=== PATIENT | female | born 1940 | race Caucasian/White ===

== ENCOUNTER 2017-03-23 12:36 | Inpatient (IN) | payer MEDICARE ==
--- NOTE | 2017-03-23 13:11 | ER Document Report ---
ED Medical Screen (RME) - General Chief Complaint: Urinary Problem Stated Complaint: HIGH BLOOD SUGAR Time Seen by Provider: 03/23/17 13:09 Mode of Arrival: Ambulatory Information source: Patient Notes: 77 yr old diabetic presents with complaints of weakness, uti I have greeted and performed a rapid initial assessment of this patient. A comprehensive ED assessment and evaluation of the patient, analysis of test results and completion of the medical decision making process will be conducted by additional ED providers. PHYSICAL EXAMINATION: GENERAL: Well-appearing, well-nourished and in no acute distress. HEAD: Atraumatic, normocephalic. EYES: Pupils equal round extraocular movements intact, conjunctiva are normal. ENT: Nares patent NECK: Normal range of motion LUNGS: No respiratory distress Musculoskeletal: Normal range of motion NEUROLOGICAL: Normal speech, normal gait. PSYCH: Normal mood, normal affect. SKIN: Warm, Dry, normal turgor, no rashes or lesions noted. TRAVEL OUTSIDE OF THE [place] IN LAST 30 DAYS: No Past Medical History - Past Medical History Cardiac Medical History: Reports: Hx Hypertension Endocrine Medical History: Reports: Hx Diabetes Mellitus Type 2 Renal/ Medical History: Denies: Hx Peritoneal Dialysis Physical Exam - Vital signs Vitals: Temp Pulse Resp BP Pulse Ox 97.4 F 66 20 83/37 L 94 03/23/17 12:38 03/23/17 12:38 03/23/17 12:38 03/23/17 12:38 03/23/17 12:38 Course - Vital Signs Vital signs: Temp Pulse Resp BP Pulse Ox 97.4 F 66 20 83/37 L 94 03/23/17 12:38 03/23/17 12:38 03/23/17 12:38 03/23/17 12:38 03/23/17 12:38
[2017-03-23] MEDS: NORMAL SALINE 1000 ML 1,000 ML IV PRN ×2 (14:03→14:09)
[2017-03-23 14:19] LABS: ABSOLUTE EOSINOPHILS # (AUTO) 0.1 10^3/uL (0.0-0.6); ABSOLUTE LYMPHOCYTES (AUTO) 1.3 10^3/uL (0.5-4.7); BASOPHILS % (AUTO) 0.3 % (0-2); EOSINOPHILS % (AUTO) 0.9 % (0-6); HEMATOCRIT 32.2 % (36.0-47.0); HEMOGLOBIN 10.8 g/dL (12.0-15.5); HGB HCT DIFFERENCE 0.2; LYMPHOCYTES % (AUTO) 13.7 % (13-45); MEAN CORPUSCULAR HEMOGLOBIN 30.6 pg (27.0-33.4); MEAN CORPUSCULAR HGB CONC 33.5 g/dL (32.0-36.0); MEAN CORPUSCULAR VOLUME 92 fl (80-97); MONOCYTES % (AUTO) 10.2 % (3-13); RED BLOOD COUNT 3.52 10^6/uL (3.72-5.28); RED CELL DISTRIBUTION WIDTH 13.4 % (11.5-14.0); SEGMENTED NEUTROPHILS % (AUTO) 74.9 % (42-78); WHITE BLOOD COUNT 9.4 10^3/uL (4.0-10.5)
[2017-03-23 14:24] LABS: VENOUS BLOOD BASE EXCESS -1.8 mmol/L; VENOUS BLOOD HCO3 23.9 mmol/L (20-32); VENOUS BLOOD PCO2 44.1 mmHg (35-63); VENOUS BLOOD PH 7.35 (7.30-7.42)
[2017-03-23 14:34] LABS: PROTHROMBIN TIME 13.6 SEC (11.4-15.4)
[2017-03-23 14:44] LABS: ALANINE AMINOTRANSFERASE 36 U/L (9-52); ALBUMIN 3.2 g/dL (3.5-5.0); ALKALINE PHOSPHATASE 77 U/L (38-126); ANION GAP 14 (5-19); ASPARTATE AMINO TRANSFERASE 52 U/L (14-36); BILIRUBIN,DIRECT 0.5 mg/dL (0.0-0.4); BILIRUBIN,TOTAL 0.7 mg/dL (0.2-1.3); BLOOD UREA NITROGEN 68 mg/dL (7-20); CALCIUM 7.8 mg/dL (8.4-10.2); CARBON DIOXIDE 24 mmol/L (22-30); CHLORIDE 100 mmol/L (98-107); CREATININE RESULT 2.63 mg/dL (0.52-1.25); GLUCOSE 99 mg/dL (75-110); POTASSIUM 4.7 mmol/L (3.6-5.0); SODIUM 138.3 mmol/L (137-145); TOTAL PROTEIN 6.2 g/dL (6.3-8.2)
[2017-03-23 16:36] LABS: APPEARANCE,URINE CLOUDY; BILIRUBIN,URINE NEGATIVE (NEGATIVE); GLUCOSE, URINE NEGATIVE (NEGATIVE); KETONES,URINE NEGATIVE (NEGATIVE); LEUKOCYTE ESTERASE,URINE LARGE (NEGATIVE); NITRITE,URINE NEGATIVE (NEGATIVE); PROTEIN,URINE NEGATIVE (NEGATIVE); URINE SPECIFIC GRAVITY 1.008; UROBILINOGEN,URINE NEGATIVE mg/dL (<2.0)
[2017-03-23] MEDS ORDERED: CEFTRIAXONE 1 GM/D5W RTU 1 GM/50 ML RTUPB IV ONE (17:47)
[2017-03-23 19:05] LABS: CREATINE KINASE MB 5.8 ng/mL (<4.55)
[2017-03-23 19:08] LABS: TROPONIN I 0.103 ng/mL
--- NOTE | 2017-03-23 19:15 | ER Document Report ---
ED General - General Chief Complaint: Urinary Problem Stated Complaint: HIGH BLOOD SUGAR Time Seen by Provider: 03/23/17 13:09 Mode of Arrival: Ambulatory Notes: Patient says he began to be ill with chills on Sunday. The chills lasted for 1 day and then on Sunday she began vomiting and vomited for 2 days but that has now stopped. She has just begun to be able to eat today. She says that she is concerned about falling and has done so a couple of times a day this past week. Patient does not think she is actually losing consciousness, just very weak and unable to stay on her feet. She has had this happen before when she has had UTIs. She has also concerned that she may be slurring her speech. She denies any chest pains, abdominal pains, or headache. She has a history of UTIs. PMH: Hypertension, NIDDM, TRAVEL OUTSIDE OF THE [place] IN LAST 30 DAYS: No - Related Data Allergies/Adverse Reactions: No Known Allergies Allergy (Unverified 03/23/17 16:59) Past Medical History - General Information source: Patient - Social History Smoking Status: Never Smoker Family History: Reviewed & Not Pertinent Patient has suicidal ideation: No Patient has homicidal ideation: No - Past Medical History Cardiac Medical History: Reports: Hx Hypertension Endocrine Medical History: Reports: Hx Diabetes Mellitus Type 2 Past Surgical History: Reports: Hx Cholecystectomy, Hx Orthopedic Surgery - TKR , Hx Tonsillectomy Review of Systems - Review of Systems Notes: REVIEW OF SYSTEMS: CONSTITUTIONAL : Denies fever. Generalized weakness. No lateralizing signs. EENT: Denies eye, ear, nose or mouth or throat pain or other symptoms. CARDIOVASCULAR: Denies chest pain. RESPIRATORY: Denies cough, chest congestion, or shortness of breath. GASTROINTESTINAL: See HPI. GENITOURINARY: Denies difficulty or painful urinating, urinary frequency, blood in urine. History of UTIs. MUSCULOSKELETAL: Denies back or neck pain. Denies joint pain or swelling. SKIN: Denies rash or skin lesions. NEUROLOGICAL: Denies LOC or altered mental status. Denies headache. Denies sensory loss or motor deficits. ALL OTHER SYSTEMS REVIEWED AND NEGATIVE. Physical Exam - Vital signs Vitals: Temp Pulse Resp BP Pulse Ox 97.4 F 66 20 83/37 L 94 03/23/17 12:38 03/23/17 12:38 03/23/17 12:38 03/23/17 12:38 03/23/17 12:38 Interpretation: Hypotensive - Notes Notes: PHYSICAL EXAMINATION: GENERAL: Well-appearing, in no acute distress. Blood pressure 82/51 in triage still less than 100 systolic. HEAD: Atraumatic, normocephalic. EYES: Pupils equal round and reactive to light, extraocular movements intact. ENT: oropharynx clear without exudates. Moist mucous membranes. NECK: Normal range of motion, supple. No carotid bruits heard. LUNGS: Breath sounds clear and equal bilaterally. HEART: Regular rate and rhythm without murmurs. ABDOMEN: Soft, nontender. No guarding or rebound. BACK: No tenderness throughout entire back. EXTREMITIES: Normal range of motion without pain. NEUROLOGICAL: Normal speech, normal gait. Normal sensory, motor, and reflex exams. Awake, alert, and oriented x3. Cranial nerves normal. PSYCH: Normal mood, normal affect. SKIN: Warm, dry, no rashes. Course - Re-evaluation Re-evalutation: 03/23/17 19:20 Patient was given 2 L of saline and her blood pressure still was below 100 systolic at 91/52. I gave her a gram of Rocephin IV for her likely UTI based on her urine results. 03/23/17 19:[address] Kelley, cotton opener hospitalist, and we have agreed to repeat the troponin at 2 hours after the first troponin was drawn. 03/23/17 21:30 Patient's blood pressure has gradually risen to systolic of about 110 now. We checked her and she is able to stand at the bedside and move around and not fall. She was able to use the bedside commode. Repeat troponin was 0.09 which is declining slightly. I recontacted Dr. Kelley who will admit her for treatment of her UTI and further hydration as needed. - Vital Signs Vital signs: Temp Pulse Resp BP Pulse Ox 97.4 F 66 19 118/61 95 03/23/17 12:38 03/23/17 12:38 03/23/17 21:05 03/23/17 21:05 03/23/17 21:05 - Laboratory Result Diagrams: 03/23/17 13:56 03/23/17 13:56 Laboratory results interpreted by me: 03/23/17 03/23/1717 13:06 13:56 13:56 RBC 3.52 L Hgb 10.8 L Hct 32.2 L BUN 68 H Creatinine 2.63 H Est GFR ( Amer) 21 L Est GFR (Non-Af Amer) 18 L POC Glucose 111 H Calcium 7.8 L Direct Bilirubin 0.5 H AST 52 H CK-MB (CK-2) Total Protein 6.2 L Albumin 3.2 L Urine Blood Ur Leukocyte Esterase 03/23/17 03/23/17 03/23/17 16:02 18:13 20:18 RBC Hgb Hct BUN Creatinine Est GFR ( Amer) Est GFR (Non-Af Amer) POC Glucose Calcium Direct Bilirubin AST CK-MB (CK-2) 5.80 H 5.71 H Total Protein Albumin Urine Blood MODERATE H Ur Leukocyte Esterase LARGE H - EKG Interpretation by Me EKG shows normal: Sinus rhythm Rate: Normal Rhythm: NSR [place]/QRS: RBBB Additional EKG results interpreted by me: 03/23/17 21:03 EKG shows inverted T waves across the entire precordium. There is no old EKG to compare. Discharge - Discharge Clinical Impression: UTI (urinary tract infection), Dehydration, Hypotension Condition: Stable Disposition: ADMITTED INPATIENT Admitting Provider: Hospitalist Unit Admitted: IMCU Referrals: GOPI BYRNES PA-C [Primary Care Provider] - Follow up as needed
[2017-03-23 21:08] LABS: CREATINE KINASE MB 5.71 ng/mL (<4.55)
[2017-03-23 21:13] LABS: TROPONIN I 0.094 ng/mL
[2017-03-23] MEDS ORDERED: GLUCAGON,HUMAN RECOMB 1 MG INJ IM PRN (22:45)
[2017-03-23] MEDS ORDERED: DEXTROSE 40% GEL 15 GM TUBE PO PRN ×2 (22:45)
[2017-03-23] MEDS ORDERED: DEXTROSE 50%-WATER 25 GM/50 ML DISP.SYRIN IV PRN ×2 (22:45)
[2017-03-23] MEDS ORDERED: NORMAL SALINE 1000 ML 1,000 ML IV PRN (22:48)
[2017-03-23] MEDS ORDERED: ACETAMINOPHEN 325 MG TABLET PO PRN (22:54)
[2017-03-23] MEDS ORDERED: PROMETHAZINE HCL 25 MG TABLET PO PRN (22:54)
[2017-03-23 22:57] LABS: ADD ON TESTING BLD IN LAB ACKNOWLEDGE
[2017-03-23] MEDS ORDERED: PHARMACY COMMUNICATION ORDER MC SCH (23:00)
--- NOTE | 2017-03-23 23:10 | RADIOLOGY REPORT (SQ) ---
EXAM DESCRIPTION: CHEST SINGLE VIEW COMPLETED DATE/TIME: 03/23/2017 11:04 pm REASON FOR STUDY: hypotension; uti COMPARISON: None. EXAM PARAMETERS: NUMBER OF VIEWS: One view. TECHNIQUE: Single frontal radiographic view of the chest acquired. RADIATION DOSE: NA LIMITATIONS: None. FINDINGS: LUNGS AND PLEURA: No opacities, masses or pneumothorax. No pleural effusion. MEDIASTINUM AND HILAR STRUCTURES: No masses. Contour normal. HEART AND VASCULAR STRUCTURES: Heart normal in size. Normal vasculature. BONES: No acute findings. HARDWARE: None in the chest. OTHER: No other significant finding. IMPRESSION: NO ACUTE RADIOGRAPHIC FINDING IN THE CHEST. TECHNICAL DOCUMENTATION: JOB ID: [id number]
[2017-03-23 23:13] LABS: MAGNESIUM 1.8 mg/dL (1.6-2.3)
--- NOTE | 2017-03-23 23:19 | PDOC H&P ---
History of Present Illness Admission Date/PCP: 03/23/17 21:36 GOPI BYRNES PA-C Patient complains of: Urinary problem History of Present Illness: TONIA KHAN is a 77 year old morbidly obese female, with underlying hypertension, arthritis, type 2 diabetes mellitus, and occasional urinary tract infection who presents to the emergency room, accompanied by her daughter, for evaluation of above complaint. Patient has been discussed with emergency room physician who evaluated the patient. Sunday of this week, she experienced chills for 24 hours. Following day, she began vomiting which continued for 48 hours but that has now also stopped. Now able to tolerate small amounts of food. Above has been accompanied by unsteadiness on her feet and 2 falls. No head trauma or loss of consciousness. Weak all over. Positive dysuria. No diarrhea. No headache chest or abdominal pain. All in all, the above symptom complex typically happens when patient has a urinary tract infection. Last such episode was approximately a year ago. 2 days ago, daughter, who lives with patient, noted patient was having some slight slurring of her speech. States this usually occurs with low blood sugar. She was given a candy bar. Slurring rapidly resolved and has not recurred. No other neurologic symptoms, including lateralizing numbness weakness or tingling. No history of seizure stroke TIA or mini stroke. Systolic blood pressure in the 70s upon arrival to the emergency room. Pressure has normalized nicely with 2 L of normal saline, along with a gram of Rocephin. Patient overall states she feels better. Dictation via voice recognition software. Laboratory results are listed in [employer] and are reviewed. X-ray summary results are listed below, with full report(s) reviewed. . EKG reviewed 2. No old EKG available for comparison. Social history/personal habits: . Lives with daughter. Retired. No use of alcohol tobacco or illicit drugs. No known drug allergies. Home medications initially autopopulated into [employer] may not accurately reflect patient's true medications, dosages, and/or frequencies. geotechnical field technician to reconcile medications. Unfortunately, patient not certain of medications/dosages/frequencies. REVIEW OF SYSTEMS: Constitutional: See history and present illness. Eyes: Wears glasses. ENT: No swallowing problems or complaints. Partial hearing loss. Pulmonary: No current complaints. Cardiovascular: No current complaints, including chest pain. Gastrointestinal: See history and present illness. Skin: No current complaints, including rashes. Hematologic: Easy bruising. Neurologic: See history and present illness. Musculoskeletal: Joint pain from arthritis. Psychiatric: Denies anxiety or depression. Endocrine: No current complaints, including polyuria. Genitourinary: See history and present illness. PHYSICAL EXAMINATION: 5 feet 2 inches tall. 107.7 kg. BMI 43.4 kg/m. Blood pressure 115/60. Pulse 64 and regular. 96% saturation on room air. Respirations are 18 and unlabored. Temperature 97.8. Obese otherwise well-developed elderly female appearing approximately her stated age. Pleasant awake alert and cooperative. Appears slightly fatigued. Daughter Lita Jolly is present at her side; patient approves. Skin is warm and dry. No grossly obvious evidence of rash in areas of skin examined. No subcutaneous nodules palpated. Evidence of chronic venous stasis changes involving the lower aspect of each lower extremity. Slight pink discoloration along with somewhat thickened flaking skin. No tenderness or warmth. Has approximately a 2 x 2 centimeter chronic appearing rather superficial ulcer on her lateral left lower leg. Nontender. No evidence of secondary infection. No crepitus fluctuance or expressible discharge. Of note, patient states she has been treating this with anti-bacterial ointment. Has never worn an [place] boot. ENT: Hearing grossly normal to normal conversation. Tongue midline on protrusion pink and slightly tacky. Eyes: No scleral icterus. Pupils equal and reactive to light at 4 mm. [place] conjunctivae. Neck is supple and nontender to gentle active range of motion and palpation. Midline trachea. No palpable thyroid nodule mass enlargement or tenderness. Lymphatic: No palpable cervical or clavicular nodes. Neck and lymphatic exams limited by patient body habitus. Psychiatric: Reasonable insight into acute and chronic medical issues. Oriented to time location and why here. Lungs: Auscultation reveals clear and equal breath sounds bilaterally. No use of accessory respiratory muscles. Cardiovascular: Heart regular rate and rhythm, without gallop murmur or rub. No carotid or abdominal aortic bruits. Very mild, if present at all, symmetric ankle and pedal edema. Faintly palpable dorsalis pedis pulses. Abdomen:soft obese nontender with positive bowel sounds. Unable to adequately evaluate abdomen for masses or organomegaly due to body habitus. Extremities: Feet are warm and dry. No calf tenderness to compression. No grossly obvious visual evidence of calf swelling. Gentle manipulation of lower extremities fails to reveal any obvious evidence of injury or instability to knees hips or ankles. Neurologic: Moves upper extremities grossly normally. Patellar reflexes absent. Absent Babinski. Light touch is intact at feet. Dorsiflexion and plantarflexion of feet 5 / 5 and symmetric. Past Medical History Cardiac Medical History: Reports: Hypertension Denies: Atrial Fibrillation, Congestive Heart Failure, DVT, Myocardial Infarction, Hyperlipidema, Pulmonary Embolism Pulmonary Medical History: Denies: Asthma, Chronic Obstructive Pulmonary Disease (COPD), Sleep Apnea EENT Medical History: Reports: Eyes - Glasses, Ears - Partial hearing loss Denies: Throat Neurological Medical History: Reports: Other - Occasional mild dysarthria with hypoglycemia; resolves with candy bar Denies: Hemorrhagic CVA, Ischemic CVA, Seizures Endocrine Medical History: Reports: Diabetes Mellitus Type 2 Denies: Diabetes Mellitus Type 1, Hyperthyroidism, Hypothyroidism GI Medical History: Denies: Cirrhosis, Gastroesophageal Reflux Disease, Hepatitis, Peptic Ulcer Disease Musculoskeltal Medical History: Reports: Arthritis Skin Medical History: Reports: Other - Chronic venous stasis changes, bilateral lower extremities Psychiatric Medical History: Denies: Alcohol Dependency, Depression, General Anxiety Disorder, Substance Abuse, Tobacco Dependency Hematology: Reports: Other - Easy bruising Infectious Medical History: Denies: Hepatitis B, Hepatitis C Past Surgical History Past Surgical History: Reports: Cholecystectomy, Orthopedic Surgery - TKR, Tonsillectomy Social History Information Source: Patient, Emergency Med Personnel, [facility] Records Lives with: Family Smoking Status: Never Smoker Frequency of Alcohol Use: None Drugs: None - Advance Directive Resuscitation Status: Full Code Surrogate healthcare decision maker:: Daughter Lita Jolly Family History Family History: Reviewed & Not Pertinent Parental Family History Reviewed: Yes - Father of colitis; mother diabetic complications Children Family History Reviewed: Yes - Child with heart problems Sibling(s) Family History Reviewed.: Yes - Healthy Medication/Allergy Home Medications: RX: Amlodipine Besylate [Norvasc 2.5 mg Tablet] 2.5 mg PO DAILY 03/24/17 RX: Atorvastatin Calcium [Lipitor 10 mg Tablet] 10 mg PO QHS 03/24/17 RX: Furosemide [Lasix 20 mg Tablet] 20 mg PO DAILY 03/24/17 RX: Glimepiride 2 mg PO DAILY 03/24/17 RX: Solifenacin Succinate [Vesicare] 10 mg PO DAILY 03/24/17 Cephalexin Monohydrate [Keflex 500 mg Capsule] 500 mg PO BID 5 Days #10 capsule 03/28/17 RX: Atenolol [Tenormin 50 mg Tablet] 25 mg PO DAILY #0 03/28/17 RX: Calcium Carbonate [Os-Aime 500 mg Tablet (Oyster-Shell)] 500 mg PO DAILY #30 tablet 03/28/17 RX: Lisinopril [Zestril] 10 mg PO DAILY #0 03/28/17 Allergies/Adverse Reactions: No Known Allergies Allergy (Unverified 03/23/17 16:59) Physical Exam Vital Signs: Temp Pulse Resp BP Pulse Ox 97.8 F 62 15 115/60 99 03/23/17 22:32 03/23/17 22:32 03/23/17 22:32 03/23/17 22:32 03/23/17 22:32 Assessment & Plan - Diagnosis (1) Abnormal EKG Is this a current diagnosis for this admission?: Yes Plan: No clinical evidence of acute coronary syndrome, but will proceed with serial troponins, along with repeat EKG. (2) Anemia Qualifiers: Anemia type: unspecified type Qualified Code(s): D64.9 - Anemia, unspecified Is this a current diagnosis for this admission?: Yes Plan: Follow-up CBC with differential. No need for transfusion at present time. (3) Elevated LFTs Is this a current diagnosis for this admission?: Yes Plan: Very mild. Repeat chemistry. (4) Elevated troponin Is this a current diagnosis for this admission?: Yes Plan: As above for "abnormal EKG" (5) Falls Qualifiers: Encounter type: initial encounter Qualified Code(s): W19.XXXA - Unspecified fall, initial encounter Is this a current diagnosis for this admission?: Yes Plan: Suspect due to her urinary tract infection. Strongly encouraged patient not to get out of bed without notifying staff to avoid further falls with injury. 1 more liter of IV fluid. Orthostatic vital signs every 4 hours while awake, starting at 7 AM tomorrow. (6) History of dysarthria Is this a current diagnosis for this admission?: Yes Plan: As daughter noted, likely this is secondary to hypoglycemia. However, will proceed with CT scan of brain without contrast. No history of seizure, stroke, TIA, or mini stroke. (7) Hypotension Qualifiers: Hypotension type: unspecified hypotension type Qualified Code(s): I95.9 - Hypotension, unspecified Is this a current diagnosis for this admission?: Yes Plan: Has resolved nicely with treatment so far. 1 more liter of IV fluid. (8) UTI (urinary tract infection) Qualifiers: Urinary tract infection type: site unspecified Is this a current diagnosis for this admission?: Yes Plan: Blood and urine cultures. Rocephin. Knee high SCD, right lower extremity only, for DVT prophylaxis, along with subcutaneous heparin. Impression and plans were discussed with patient and daughter, both of whom concur. Time spent in evaluation and management of patient: 78 minutes. (9) Ulcer of left lower leg Qualifiers: Non-pressure ulcer stage: unspecified non-pressure ulcer stage Qualified Code(s): L97.929 - Non-pressure chronic ulcer of unspecified part of left lower leg with unspecified severity Is this a current diagnosis for this admission?: Yes Plan: Local wound care orders, including dressing changes have been entered into electronic health record. (10) Diabetes mellitus type 2 in obese Is this a current diagnosis for this admission?: Yes Plan: Accu-Cheks with appropriate sliding scale coverage. Resume home medications as appropriate once these have been determined and reviewed. (11) HTN (hypertension) Qualifiers: Hypertension type: essential hypertension Qualified Code(s): I10 - Essential (primary) hypertension Is this a current diagnosis for this admission?: Yes Plan: Resume home medications as appropriate once these have been determined and reviewed. (12) Renal insufficiency Is this a current diagnosis for this admission?: Yes Plan: serial chemistry - Time Time Spent: Greater than 70 Minutes Medications reviewed and adjusted accordingly: No - Patient uncertain of medications. Anticipated discharge: Home Within: within 72 hours - Inpatient Certification Based on my medical assessment, after consideration of the patient's comorbidities, presenting symptoms, or acuity I expect that the services needed warrant INPATIENT care.: Yes I certify that my determination is in accordance with my understanding of Medicare's requirements for reasonable and necessary INPATIENT services [42 CFR 412.3e].: Yes Medical Necessity: Need Close Monitoring Due to Risk of Patient Decompensation, Need For IV Fluids, Need For Continuous Telemetry Monitoring, Need for IV Antibiotics, Risk of Complication if Not Cared For in Hospital Post Hospital Care: D/C or Transfer Summary
--- NOTE | 2017-03-23 23:20 | RADIOLOGY REPORT (SQ) ---
EXAM DESCRIPTION: CT HEAD WITHOUT COMPLETED DATE/TIME: 03/23/2017 11:09 pm REASON FOR STUDY: recent dysarthria COMPARISON: None. TECHNIQUE: Axial images acquired through the brain without intravenous contrast. Images reviewed wi th bone, brain and subdural windows. Images stored on PACS. All CT scanners at this facility use dose modulation, iterative reconstruction, and/or weight based d osing when appropriate to reduce radiation dose to as low as reasonably achievable (ALARA). [facility]: Dose Right [facility]: CareDose [facility]: Dose Right [facility]: Teradose 4D [facility]: Smart L[employer] RADIATION DOSE: Up-to-date CT equipment and radiation dose reduction techniques were employed. CTDIv ol: 64.6 mGy. DLP: 1163 mGy-cm. mGy. LIMITATIONS: None. FINDINGS: VENTRICLES: Prominent. CEREBRUM: No masses. No hemorrhage. No midline shift. Areas of low density in the white matter mos t likely due to chronic micro-vascular ischemic change. No evidence for acute infarction. CEREBELLUM: No masses. No hemorrhage. No alteration of density. No evidence for acute infarction. EXTRAAXIAL SPACES: Mild age-related involutional change. No fluid collections. No masses. ORBITS AND GLOBE: No intra- or extraconal masses. Normal contour of globe without masses. CALVARIUM: No fracture. PARANASAL SINUSES: No fluid or mucosal thickening. SOFT TISSUES: No mass or hematoma. OTHER: No other significant finding. IMPRESSION: MILD CHRONIC CHANGES OF ATROPHY AND MICROVASCULAR ISCHEMIA. NO ACUTE PROCESS. EVIDENCE OF ACUTE STROKE: NO. TECHNICAL DOCUMENTATION: JOB ID: [id number] Quality ID # [id number]: Final reports with documentation of one or more dose reduction techniques (e.g., Au tomated exposure control, adjustment of the mA and/or kV according to patient size, use of iterative reconstruction technique) 2010 [employer]- All Rights Reserved
--- NOTE | 2017-03-24 02:03 | EKG REPORT ---
SEVERITY:- ABNORMAL ECG - RIGHT BUNDLE BRANCH BLOCK PROBABLE INFERIOR INFARCT, AGE INDETERMINATE SINUS RHYTHM T INVERSION LEADS V2 TO V6 C/W ISCHEMIA : Confirmed by: Genoveva Mcdaniels MD 24-Mar-2017 02:03:15
[2017-03-24] MEDS ORDERED: INFLUENZA ADLT QUAD (36MOS+) 2017-18 VAC 0.5 ML SYR IM PRN (02:09)
[2017-03-24 08:07] LABS: HEMATOCRIT 29.4 % (36.0-47.0); HEMOGLOBIN 9.8 g/dL (12.0-15.5); MEAN CORPUSCULAR HEMOGLOBIN 30.5 pg (27.0-33.4); MEAN CORPUSCULAR HGB CONC 33.2 g/dL (32.0-36.0); MEAN CORPUSCULAR VOLUME 92 fl (80-97); RED CELL DISTRIBUTION WIDTH 13.6 % (11.5-14.0); WHITE BLOOD COUNT 7.6 10^3/uL (4.0-10.5)
[2017-03-24 08:22] LABS: BASOPHILS % (MANUAL) 0 % (0-2); EOSINOPHILS % (MANUAL) 3 % (0-6); LYMPHOCYTES % (MANUAL) 17 % (13-45); TOTAL CELLS COUNTED 100
[2017-03-24 08:23] LABS: HYPOCHROMASIA SLIGHT; POLYCHROMASIA SLIGHT
[2017-03-24 09:50] LABS: ALANINE AMINOTRANSFERASE 41 U/L (9-52); ALBUMIN 2.5 g/dL (3.5-5.0); ALKALINE PHOSPHATASE 57 U/L (38-126); ANION GAP 7 (5-19); ASPARTATE AMINO TRANSFERASE 43 U/L (14-36); BILIRUBIN,DIRECT 0.4 mg/dL (0.0-0.4); BILIRUBIN,TOTAL 0.4 mg/dL (0.2-1.3); BLOOD UREA NITROGEN 52 mg/dL (7-20); CALCIUM 7.2 mg/dL (8.4-10.2); CARBON DIOXIDE 23 mmol/L (22-30); CHLORIDE 109 mmol/L (98-107); CREATININE RESULT 1.86 mg/dL (0.52-1.25); GLUCOSE 158 mg/dL (75-110); POTASSIUM 4.1 mmol/L (3.6-5.0); SODIUM 138.5 mmol/L (137-145); TOTAL PROTEIN 5.1 g/dL (6.3-8.2)
[2017-03-24] MEDS ORDERED: HEPARIN SOD (PORCINE) 5,000 UNIT/ML 1 ML SYRINGE SUBCUT SCH (10:00)
[2017-03-24] MEDS: BACITRACIN ZINC OINTMENT 15 GM TP SCH (10:23)
[2017-03-24] MEDS: CEFTRIAXONE 1 GM/D5W RTU 1 GM/50 ML RTUPB IV SCH (10:24)
[2017-03-24] MEDS: DOCUSATE SODIUM 100 MG CAPSULE PO SCH ×2 (10:33→16:56)
--- NOTE | 2017-03-24 16:31 | PDOC PROGRESS REPORT ---
Subjective Progress Note for:: 03/24/17 Subjective:: Patient states that she is feeling somewhat better. Patient is very concerned that she has not taken her home medications. Nursing states that patient would like for her diet to be advanced. Physical Exam Vital Signs: Temp Pulse Resp BP Pulse Ox 97.9 F 65 18 103/44 L 94 03/24/17 11:14 03/24/17 15:00 03/24/17 11:14 03/24/17 11:14 03/24/17 11:14 Intake & Output 03/23/17 03/24/17 03/25/17 06:59 06:59 06:59 Intake Total 780 Output Total 0 Balance 780 General appearance: PRESENT: no acute distress, well-developed, well-nourished, other - Patient was sitting in chair Head exam: PRESENT: atraumatic, normocephalic Eye exam: PRESENT: conjunctiva pink, EOMI. ABSENT: scleral icterus Ear exam: PRESENT: normal external ear exam Mouth exam: PRESENT: moist, tongue midline Neck exam: ABSENT: carotid bruit, JVD, lymphadenopathy, thyromegaly Respiratory exam: PRESENT: clear to auscultation jaison. ABSENT: rales, rhonchi, wheezes Cardiovascular exam: PRESENT: RRR. ABSENT: diastolic murmur, rubs, systolic murmur Pulses: PRESENT: normal dorsalis pedis pul Vascular exam: PRESENT: normal capillary refill GI/Abdominal exam: PRESENT: normal bowel sounds, soft. ABSENT: distended, guarding, mass, organolmegaly, rebound, tenderness Rectal exam: PRESENT: deferred Extremities exam: PRESENT: full ROM, other - Patient with venous stasis changes of lower extremity. ABSENT: calf tenderness, clubbing, pedal edema Neurological exam: PRESENT: alert, awake, oriented to person, oriented to place , oriented to time, oriented to situation, CN II-XII grossly intact. ABSENT: motor sensory deficit Psychiatric exam: PRESENT: appropriate affect, normal mood. ABSENT: homicidal ideation, suicidal ideation Skin exam: PRESENT: other - Lower extremity venous stasis changes bilaterally Results Laboratory Results: 03/24/17 07:57 03/24/17 09:24 03/24/17 03/24/17 03/24/17 07:57 07:57 09:24 WBC 7.6 RBC 3.20 L Hgb 9.8 L Hct 29.4 L MCV 92 MCH 30.5 MCHC 33.2 RDW 13.6 Plt Count 127 L Seg Neutrophils % Not Reportable Lymphocytes % Not Reportable Monocytes % Not Reportable Eosinophils % Not Reportable Basophils % Not Reportable Absolute Neutrophils Not Reportable Absolute Lymphocytes Not Reportable Absolute Monocytes Not Reportable Absolute Eosinophils Not Reportable Absolute Basophils Not Reportable Sodium Cancelled 138.5 Potassium Cancelled 4.1 Chloride Cancelled 109 H Carbon Dioxide Cancelled 23 Anion Gap Cancelled 7 BUN Cancelled 52 H Creatinine Cancelled 1.86 H Est GFR ( Amer) Cancelled 32 L Est GFR (Non-Af Amer) Cancelled 26 L Glucose Cancelled 158 H Calcium Cancelled 7.2 L Total Bilirubin Cancelled 0.4 AST Cancelled 43 H ALT Cancelled 41 Alkaline Phosphatase Cancelled 57 Total Protein Cancelled 5.1 L Albumin Cancelled 2.5 L 03/24/17 03/24/17 03/24/17 02:12 07:57 09:24 Troponin I 0.088 Cancelled 0.080 Impressions: Chest X-Ray 03/23/17 00:00 IMPRESSION: NO ACUTE RADIOGRAPHIC FINDING IN THE CHEST. Head CT 03/23/17 00:00 IMPRESSION: MILD CHRONIC CHANGES OF ATROPHY AND MICROVASCULAR ISCHEMIA. NO ACUTE PROCESS. EVIDENCE OF ACUTE STROKE: NO. Assessment & Plan - Diagnosis (1) Sepsis Is this a current diagnosis for this admission?: Yes Plan: Gram-negative rods in setting of acute cystitis: Continue Rocephin. (2) Acute cystitis with negative culture Is this a current diagnosis for this admission?: Yes Plan: We will continue Rocephin. (3) Acute kidney injury superimposed on CKD Is this a current diagnosis for this admission?: Yes Plan: In setting of sepsis: Renal function improving. Will check BMP in a.m. Will place patient on IV fluids. (4) Hypotension Qualifiers: Hypotension type: unspecified hypotension type Qualified Code(s): I95.9 - Hypotension, unspecified Is this a current diagnosis for this admission?: Yes Plan: In setting of sepsis: We will continue IV fluids. (6) Acute metabolic encephalopathy Is this a current diagnosis for this admission?: Yes Plan: Secondary to sepsis: We will continue to monitor. Patient appears to be at baseline today. (7) Elevated troponin Is this a current diagnosis for this admission?: Yes Plan: In setting of sepsis: troponins are trending downward As renal function improves. Patient denies chest pain. (8) Ulcer of left lower leg Qualifiers: Non-pressure ulcer stage: unspecified non-pressure ulcer stage Qualified Code(s): L97.929 - Non-pressure chronic ulcer of unspecified part of left lower leg with unspecified severity Is this a current diagnosis for this admission?: Yes Plan: Continue bacitracin ointment. (9) Diabetes mellitus type 2 in obese Is this a current diagnosis for this admission?: Yes Plan: Continue current regimen. (10) Falls Qualifiers: Encounter type: initial encounter Qualified Code(s): W19.XXXA - Unspecified fall, initial encounter Is this a current diagnosis for this admission?: Yes Plan: PT OT (11) Thrombocytopenia Is this a current diagnosis for this admission?: Yes Plan: Will discontinue Heparin. Will place on SCDs (12) DVT prophylaxis Is this a current diagnosis for this admission?: Yes Plan: SCDs - Time Time Spent with patient: 25-34 minutes - Inpatient Certification Medical Necessity: Need For IV Fluids, Need for IV Antibiotics, Risk of Diagnosis Which Will Require Inpatient Eval/Care/Monitoring
[2017-03-24] MEDS: INSULIN LISPRO 100 UNIT/ML 3 ML VIAL SUBCUT PRN (16:53)
[2017-03-24] MEDS: NORMAL SALINE 1000 ML 1,000 ML IV PRN (17:41)
[2017-03-24] MEDS: TOLTERODINE TARTRATE 1 MG TABLET PO SCH (22:53)
[2017-03-24] MEDS: ATORVASTATIN CALCIUM 10 MG TABLET PO SCH (22:53)
[2017-03-25 05:09] LABS: HEMATOCRIT 26.7 % (36.0-47.0); HEMOGLOBIN 8.9 g/dL (12.0-15.5); MEAN CORPUSCULAR HEMOGLOBIN 30.9 pg (27.0-33.4); MEAN CORPUSCULAR HGB CONC 33.5 g/dL (32.0-36.0); MEAN CORPUSCULAR VOLUME 92 fl (80-97); RED CELL DISTRIBUTION WIDTH 13.4 % (11.5-14.0); WHITE BLOOD COUNT 7.1 10^3/uL (4.0-10.5)
[2017-03-25 05:24] LABS: ANION GAP 10 (5-19); BLOOD UREA NITROGEN 45 mg/dL (7-20); CARBON DIOXIDE 23 mmol/L (22-30); CHLORIDE 111 mmol/L (98-107); CREATININE RESULT 1.64 mg/dL (0.52-1.25); GLUCOSE 130 mg/dL (75-110); POTASSIUM 4.3 mmol/L (3.6-5.0); SODIUM 143.5 mmol/L (137-145)
[2017-03-25 05:33] LABS: CALCIUM 6.7 mg/dL (8.4-10.2)
[2017-03-25 06:57] LABS: ADD ON TESTING BLD IN LAB ACKNOWLEDGE
[2017-03-25 07:11] LABS: ALBUMIN 2.3 g/dL (3.5-5.0)
[2017-03-25] MEDS ORDERED: ATENOLOL 50 MG TABLET PO SCH (10:00)
[2017-03-25] MEDS: CEFTRIAXONE 1 GM/D5W RTU 1 GM/50 ML RTUPB IV SCH (11:25)
[2017-03-25] MEDS: BACITRACIN ZINC OINTMENT 15 GM TP SCH (11:25)
[2017-03-25] MEDS: TOLTERODINE TARTRATE 1 MG TABLET PO SCH ×2 (11:26→21:30)
[2017-03-25] MEDS: DOCUSATE SODIUM 100 MG CAPSULE PO SCH ×2 (11:27→17:34)
[2017-03-25] MEDS ORDERED: ATENOLOL 50 MG TABLET PO ONE (11:30)
[2017-03-25] MEDS: INSULIN LISPRO 100 UNIT/ML 3 ML VIAL SUBCUT PRN ×2 (12:42→17:32)
[2017-03-25] MEDS: NORMAL SALINE 1000 ML 1,000 ML IV PRN (13:59)
--- NOTE | 2017-03-25 14:13 | PDOC PROGRESS REPORT ---
Subjective Progress Note for:: 03/25/17 Subjective:: Pt states that she is doing ok. Nursing states that pt is requesting her aspirin. Pt states that she is feeling better. Physical Exam Vital Signs: Temp Pulse Resp BP Pulse Ox 98.1 F 64 16 110/42 L 94 03/25/17 07:05 03/25/17 07:05 03/25/17 07:05 03/25/17 07:05 03/25/17 07:05 Intake & Output 03/24/17 03/25/17 03/26/17 06:59 06:59 06:59 Intake Total 780 2636 Output Total 0 Balance 780 2636 General appearance: PRESENT: no acute distress, well-developed, well-nourished Head exam: PRESENT: atraumatic, normocephalic Eye exam: PRESENT: conjunctiva pink, EOMI. ABSENT: scleral icterus Ear exam: PRESENT: normal external ear exam Mouth exam: PRESENT: moist, tongue midline Neck exam: ABSENT: carotid bruit, JVD, lymphadenopathy, thyromegaly Respiratory exam: PRESENT: clear to auscultation jaison. ABSENT: rales, rhonchi, wheezes Cardiovascular exam: PRESENT: RRR. ABSENT: diastolic murmur, rubs, systolic murmur Pulses: PRESENT: normal dorsalis pedis pul Vascular exam: PRESENT: normal capillary refill GI/Abdominal exam: PRESENT: normal bowel sounds, soft. ABSENT: distended, guarding, mass, organolmegaly, rebound, tenderness Rectal exam: PRESENT: deferred Extremities exam: PRESENT: full ROM. ABSENT: calf tenderness, clubbing, pedal edema Neurological exam: PRESENT: alert, awake, oriented to person, oriented to place , oriented to time, oriented to situation, CN II-XII grossly intact. ABSENT: motor sensory deficit Psychiatric exam: PRESENT: appropriate affect, normal mood. ABSENT: homicidal ideation, suicidal ideation Results Laboratory Results: 03/25/17 04:29 03/25/17 04:29 03/25/17 03/25/17 03/25/17 04:29 04:29 04:29 WBC 7.1 RBC 2.90 L Hgb 8.9 L Hct 26.7 L MCV 92 MCH 30.9 MCHC 33.5 RDW 13.4 Plt Count 143 L Sodium 143.5 Potassium 4.3 Chloride 111 H Carbon Dioxide 23 Anion Gap 10 BUN 45 H Creatinine 1.64 H Est GFR ( Amer) 37 L Est GFR (Non-Af Amer) 30 L Glucose 130 H Calcium 6.7 L* Albumin 2.3 L 03/24/17 03/24/17 03/24/17 02:12 07:57 09:24 Troponin I 0.088 Cancelled 0.080 Impressions: Chest X-Ray 03/23/17 00:00 IMPRESSION: NO ACUTE RADIOGRAPHIC FINDING IN THE CHEST. Head CT 03/23/17 00:00 IMPRESSION: MILD CHRONIC CHANGES OF ATROPHY AND MICROVASCULAR ISCHEMIA. NO ACUTE PROCESS. EVIDENCE OF ACUTE STROKE: NO. Assessment & Plan - Diagnosis (1) Sepsis Is this a current diagnosis for this admission?: Yes Plan: Gram-negative rods in setting of acute cystitis: Continue Rocephin. (2) Acute cystitis with negative culture Is this a current diagnosis for this admission?: Yes Plan: We will continue Rocephin. (3) Anemia Qualifiers: Anemia type: unspecified type Qualified Code(s): D64.9 - Anemia, unspecified Is this a current diagnosis for this admission?: Yes Plan: Appears currently to be a normocytic anemia. Will check anemia workup. Patient currently written for SCDs. Patient appears to have dropped at least 1- 2 g. Will occult stool (4) Acute kidney injury superimposed on CKD Is this a current diagnosis for this admission?: Yes Plan: In setting of sepsis: Patient's renal function continues to improve. Patient's baseline renal function is unknown. We will continue IV fluids and consider discontinuing fluids tomorrow. (5) Hypotension Qualifiers: Hypotension type: unspecified hypotension type Qualified Code(s): I95.9 - Hypotension, unspecified Is this a current diagnosis for this admission?: Yes Plan: Improving however will write for parameters for atenolol (6) Dehydration Plan: Continue IV fluids (7) Acute metabolic encephalopathy Is this a current diagnosis for this admission?: Yes Plan: Secondary to sepsis: We will continue to monitor. Patient appears to be at baseline today. (8) Elevated troponin Is this a current diagnosis for this admission?: Yes Plan: In setting of sepsis: No further workup required at this time. (9) Ulcer of left lower leg Qualifiers: Non-pressure ulcer stage: unspecified non-pressure ulcer stage Qualified Code(s): L97.929 - Non-pressure chronic ulcer of unspecified part of left lower leg with unspecified severity Is this a current diagnosis for this admission?: Yes Plan: Continue bacitracin ointment. (10) Diabetes mellitus type 2 in obese Is this a current diagnosis for this admission?: Yes Plan: Continue current regimen. (11) Falls Qualifiers: Encounter type: initial encounter Qualified Code(s): W19.XXXA - Unspecified fall, initial encounter Is this a current diagnosis for this admission?: Yes Plan: PT OT (12) Thrombocytopenia Is this a current diagnosis for this admission?: Yes Plan: Will discontinue Heparin. SCDs (13) DVT prophylaxis Is this a current diagnosis for this admission?: Yes Plan: SCDs
--- NOTE | 2017-03-25 16:56 | EKG REPORT ---
SEVERITY:- ABNORMAL ECG - ACCELERATED JUNCTIONAL ESCAPE RHYTHM IVCD, CONSIDER ATYPICAL RBBB : Confirmed by: Genoveva Mcdaniels MD 25-Mar-2017 16:55:53
[2017-03-25 19:54] LABS: ALANINE AMINOTRANSFERASE 26 U/L (9-52); ALBUMIN 2.9 g/dL (3.5-5.0); ALKALINE PHOSPHATASE 72 U/L (38-126); ANION GAP 11 (5-19); ASPARTATE AMINO TRANSFERASE 35 U/L (14-36); BILIRUBIN,DIRECT 0.3 mg/dL (0.0-0.4); BILIRUBIN,TOTAL 0.3 mg/dL (0.2-1.3); BLOOD UREA NITROGEN 44 mg/dL (7-20); CALCIUM 7.5 mg/dL (8.4-10.2); CARBON DIOXIDE 21 mmol/L (22-30); CHLORIDE 114 mmol/L (98-107); GLUCOSE 150 mg/dL (75-110); POTASSIUM 5.1 mmol/L (3.6-5.0); SODIUM 145.8 mmol/L (137-145); TOTAL PROTEIN 5.8 g/dL (6.3-8.2)
[2017-03-25] MEDS: ATORVASTATIN CALCIUM 10 MG TABLET PO SCH (21:30)
[2017-03-26] MEDS: NORMAL SALINE 1000 ML 1,000 ML IV PRN ×2 (03:44→21:24)
[2017-03-26 05:41] LABS: HEMATOCRIT 26.1 % (36.0-47.0); HEMOGLOBIN 8.8 g/dL (12.0-15.5); HGB HCT DIFFERENCE 0.3; MEAN CORPUSCULAR HEMOGLOBIN 31.1 pg (27.0-33.4); MEAN CORPUSCULAR HGB CONC 33.7 g/dL (32.0-36.0); MEAN CORPUSCULAR VOLUME 92 fl (80-97); RED BLOOD COUNT 2.83 10^6/uL (3.72-5.28); RED CELL DISTRIBUTION WIDTH 13.2 % (11.5-14.0); WHITE BLOOD COUNT 8.1 10^3/uL (4.0-10.5)
[2017-03-26 06:22] LABS: BAND NEUTROPHILS % (MANUAL) 2 % (3-5); BASOPHILS % (MANUAL) 1 % (0-2); EOSINOPHILS % (MANUAL) 2 % (0-6); LYMPHOCYTES % (MANUAL) 31 % (13-45); TOTAL CELLS COUNTED 100
--- NOTE | 2017-03-26 06:23 | EKG REPORT ---
SEVERITY:- ABNORMAL ECG - SINUS RHYTHM RIGHT BUNDLE BRANCH BLOCK : Confirmed by: Genoveva Mcdaniels MD 26-Mar-2017 06:22:34
[2017-03-26 06:24] LABS: HYPOCHROMASIA SLIGHT; OVALOCYTES SLIGHT; POIKILOCYTOSIS SLIGHT; TOXIC GRANULATION SLIGHT
[2017-03-26 06:42] LABS: FOLATE 6.73 ng/mL (>2.76)
[2017-03-26] MEDS: CALCIUM CARBONATE 500 MG TABLET PO SCH ×3 (09:24→17:46)
[2017-03-26] MEDS: DOCUSATE SODIUM 100 MG CAPSULE PO SCH ×2 (09:24→17:46)
[2017-03-26] MEDS: TOLTERODINE TARTRATE 1 MG TABLET PO SCH ×2 (09:26→21:24)
[2017-03-26] MEDS: BACITRACIN ZINC OINTMENT 15 GM TP SCH (09:26)
[2017-03-26] MEDS: CEFTRIAXONE 1 GM/D5W RTU 1 GM/50 ML RTUPB IV SCH (09:26)
[2017-03-26] MEDS ORDERED: ATENOLOL 50 MG TABLET PO SCH (10:00)
--- NOTE | 2017-03-26 12:12 | PDOC PROGRESS REPORT ---
Subjective Progress Note for:: 03/26/17 Subjective:: Pt states that she is feeling better. Pt states that she does feel weak and is interested in Rehab. Physical Exam Vital Signs: Temp Pulse Resp BP Pulse Ox 97.6 F 61 17 150/55 H 96 03/26/17 08:00 03/26/17 08:00 03/26/17 08:00 03/26/17 08:00 03/26/17 08:00 Intake & Output 03/25/17 03/26/17 03/27/17 06:59 06:59 06:59 Intake Total 2636 2441 Balance 2636 2441 Weight 111.6 kg General appearance: PRESENT: no acute distress, well-developed, well-nourished Head exam: PRESENT: atraumatic, normocephalic Eye exam: PRESENT: conjunctiva pink, EOMI. ABSENT: scleral icterus Ear exam: PRESENT: normal external ear exam Mouth exam: PRESENT: moist, tongue midline Neck exam: ABSENT: carotid bruit, JVD, lymphadenopathy, thyromegaly Respiratory exam: PRESENT: clear to auscultation jaison, other - decreased breath sounds bilaterally.. ABSENT: rales, rhonchi, wheezes Cardiovascular exam: PRESENT: bradycardia, RRR. ABSENT: diastolic murmur, rubs , systolic murmur Pulses: PRESENT: normal dorsalis pedis pul Vascular exam: PRESENT: normal capillary refill GI/Abdominal exam: PRESENT: normal bowel sounds, soft. ABSENT: distended, guarding, mass, organolmegaly, rebound, tenderness Rectal exam: PRESENT: deferred Extremities exam: PRESENT: full ROM. ABSENT: calf tenderness, clubbing, pedal edema Neurological exam: PRESENT: alert, awake, oriented to person, oriented to place , oriented to time, oriented to situation, CN II-XII grossly intact. ABSENT: motor sensory deficit Psychiatric exam: PRESENT: appropriate affect, normal mood. ABSENT: homicidal ideation, suicidal ideation Skin exam: PRESENT: dry, intact, warm. ABSENT: cyanosis, rash Results Laboratory Results: 03/26/17 04:23 03/25/17 03/26/17 03/26/17 19:30 04:23 04:23 WBC 8.1 RBC 2.83 L Hgb 8.8 L Hct 26.1 L MCV 92 MCH 31.1 MCHC 33.7 RDW 13.2 Plt Count 168 Seg Neutrophils % Not Reportable Lymphocytes % Not Reportable Monocytes % Not Reportable Eosinophils % Not Reportable Basophils % Not Reportable Absolute Neutrophils Not Reportable Absolute Lymphocytes Not Reportable Absolute Monocytes Not Reportable Absolute Eosinophils Not Reportable Absolute Basophils Not Reportable Retic Count (auto) 1.09 Absolute Retic 0.031 Sodium 145.8 H Potassium 5.1 H Chloride 114 H Carbon Dioxide 21 L Anion Gap 11 BUN 44 H Creatinine 1.70 H Est GFR ( Amer) 35 L Est GFR (Non-Af Amer) 29 L Glucose 150 H Calcium 7.5 L Iron 46.2 TIBC 209 L % Saturation 22 Ferritin 98.60 Total Bilirubin 0.3 AST 35 ALT 26 Alkaline Phosphatase 72 Total Protein 5.8 L Albumin 2.9 L Vitamin B12 306.0 Folate 6.73 03/24/17 03/24/17 03/24/17 02:12 07:57 09:24 Troponin I 0.088 Cancelled 0.080 Impressions: Chest X-Ray 03/23/17 00:00 IMPRESSION: NO ACUTE RADIOGRAPHIC FINDING IN THE CHEST. Head CT 03/23/17 00:00 IMPRESSION: MILD CHRONIC CHANGES OF ATROPHY AND MICROVASCULAR ISCHEMIA. NO ACUTE PROCESS. EVIDENCE OF ACUTE STROKE: NO. Assessment & Plan - Diagnosis (1) Sepsis Is this a current diagnosis for this admission?: Yes Plan: Klebsiella pneumonia in setting of acute cystitis: Will discontinue Rocephin and place on Keflex. (2) Acute cystitis with negative culture Is this a current diagnosis for this admission?: Yes Plan: Secondary to Klebsiella pneumonia: We will DC Rocephin and place on Keflex (3) Anemia Qualifiers: Anemia type: unspecified type Qualified Code(s): D64.9 - Anemia, unspecified Is this a current diagnosis for this admission?: Yes Plan: Patient's iron studies are within normal range. Most likely anemia of chronic disease. Occult stool pending. (4) Hypocalcemia Is this a current diagnosis for this admission?: Yes Plan: Patient placed on calcium replacement. Patient CMP is pending for this morning. Patient's yesterday corrected calcium was 8.1 and therefore patient's calcium is only slightly low when albumin is taken in place. (5) Acute kidney injury superimposed on CKD Is this a current diagnosis for this admission?: Yes Plan: Creatinine continues improved with IV fluids. We will continue to monitor. (6) Hypotension Qualifiers: Hypotension type: unspecified hypotension type Qualified Code(s): I95.9 - Hypotension, unspecified Is this a current diagnosis for this admission?: Yes Plan: Patient's blood pressures have continued to improve with IV fluids. Will decrease patient's atenolol to 25 mg p.o. daily with parameters. (7) Dehydration Plan: Continue IV fluids (8) Acute metabolic encephalopathy Is this a current diagnosis for this admission?: Yes Plan: Secondary to sepsis: Resolved. Patient at baseline. (9) Elevated troponin Is this a current diagnosis for this admission?: Yes Plan: Secondary to chronic kidney disease in setting of acute renal injury: No intervention required. Supportive care. (10) Ulcer of left lower leg Qualifiers: Non-pressure ulcer stage: unspecified non-pressure ulcer stage Qualified Code(s): L97.929 - Non-pressure chronic ulcer of unspecified part of left lower leg with unspecified severity Is this a current diagnosis for this admission?: Yes Plan: Continue bacitracin ointment. (11) Diabetes mellitus type 2 in obese Is this a current diagnosis for this admission?: Yes Plan: Continue current regimen. (12) Falls Qualifiers: Encounter type: initial encounter Qualified Code(s): W19.XXXA - Unspecified fall, initial encounter Is this a current diagnosis for this admission?: Yes Plan: PT OT (13) Thrombocytopenia Is this a current diagnosis for this admission?: Yes Plan: SCDs (14) DVT prophylaxis Is this a current diagnosis for this admission?: Yes Plan: SCDs
[2017-03-26 12:15] LABS: ALANINE AMINOTRANSFERASE 29 U/L (9-52); ALBUMIN 2.4 g/dL (3.5-5.0); ALKALINE PHOSPHATASE 59 U/L (38-126); ANION GAP 11 (5-19); ASPARTATE AMINO TRANSFERASE 27 U/L (14-36); BILIRUBIN,DIRECT 0.2 mg/dL (0.0-0.4); BILIRUBIN,TOTAL 0.2 mg/dL (0.2-1.3); BLOOD UREA NITROGEN 40 mg/dL (7-20); CALCIUM 7.5 mg/dL (8.4-10.2); CARBON DIOXIDE 22 mmol/L (22-30); CHLORIDE 116 mmol/L (98-107); CREATININE RESULT 1.73 mg/dL (0.52-1.25); GLUCOSE 133 mg/dL (75-110); POTASSIUM 4.6 mmol/L (3.6-5.0); SODIUM 149.4 mmol/L (137-145); TOTAL PROTEIN 5.1 g/dL (6.3-8.2)
[2017-03-26] MEDS ORDERED: INFLUENZA ADLT QUAD (36MOS+) 2017-18 VAC 0.5 ML SYR IM PRN (12:30)
[2017-03-26] MEDS: INSULIN LISPRO 100 UNIT/ML 3 ML VIAL SUBCUT PRN (12:38)
[2017-03-26] MEDS: ATORVASTATIN CALCIUM 10 MG TABLET PO SCH (21:24)
[2017-03-27 06:36] LABS: MEAN CORPUSCULAR HEMOGLOBIN 30.7 pg (27.0-33.4); MEAN CORPUSCULAR HGB CONC 33.4 g/dL (32.0-36.0); MEAN CORPUSCULAR VOLUME 92 fl (80-97); RED BLOOD COUNT 2.94 10^6/uL (3.72-5.28); RED CELL DISTRIBUTION WIDTH 13.5 % (11.5-14.0); WHITE BLOOD COUNT 8.7 10^3/uL (4.0-10.5)
[2017-03-27 06:45] LABS: ALANINE AMINOTRANSFERASE 37 U/L (9-52); ALBUMIN 2.4 g/dL (3.5-5.0); ALKALINE PHOSPHATASE 61 U/L (38-126); ANION GAP 8 (5-19); ASPARTATE AMINO TRANSFERASE 18 U/L (14-36); BILIRUBIN,DIRECT 0.2 mg/dL (0.0-0.4); BILIRUBIN,TOTAL 0.2 mg/dL (0.2-1.3); BLOOD UREA NITROGEN 28 mg/dL (7-20); CALCIUM 7.7 mg/dL (8.4-10.2); CARBON DIOXIDE 23 mmol/L (22-30); CHLORIDE 113 mmol/L (98-107); GLUCOSE 114 mg/dL (75-110); POTASSIUM 4.5 mmol/L (3.6-5.0); SODIUM 144.2 mmol/L (137-145); TOTAL PROTEIN 4.9 g/dL (6.3-8.2)
[2017-03-27 07:04] LABS: BAND NEUTROPHILS % (MANUAL) 2 % (3-5); BASOPHILS % (MANUAL) 0 % (0-2); EOSINOPHILS % (MANUAL) 3 % (0-6); LYMPHOCYTES % (MANUAL) 32 % (13-45); TOTAL CELLS COUNTED 100
[2017-03-27 07:07] LABS: OVALOCYTES SLIGHT; POIKILOCYTOSIS SLIGHT; TEAR DROP CELLS SLIGHT
[2017-03-27] MEDS: DOCUSATE SODIUM 100 MG CAPSULE PO SCH ×2 (09:02→17:05)
[2017-03-27] MEDS: TOLTERODINE TARTRATE 1 MG TABLET PO SCH ×2 (09:02→21:09)
[2017-03-27] MEDS: CALCIUM CARBONATE 500 MG TABLET PO SCH ×3 (09:02→17:05)
[2017-03-27] MEDS: BACITRACIN ZINC OINTMENT 15 GM TP SCH (09:03)
[2017-03-27] MEDS: ATENOLOL 50 MG TABLET PO SCH (09:04)
[2017-03-27] MEDS: NORMAL SALINE 1000 ML 1,000 ML IV PRN (14:43)
--- NOTE | 2017-03-27 14:46 | PDOC PROGRESS REPORT ---
Subjective Progress Note for:: 03/27/17 Subjective:: Patient being treated for Klebseilla Pneumoniae UTI. Paitent switched from ceftriaxone to keflex. Patient states that she feels great. Patient states she does not want rehab nor does she want home health or home PT. Patient denies any symptoms at this time. She is currently giving herself a bath. Physical Exam Vital Signs: Temp Pulse Resp BP Pulse Ox 98.2 F 65 20 123/40 L 97 03/27/17 12:26 03/27/17 12:26 03/27/17 12:26 03/27/17 12:26 03/27/17 12:26 Intake & Output 03/26/17 03/27/17 03/28/17 06:59 06:59 06:59 Intake Total 2441 2916 478 Output Total 0 Balance 2441 2916 478 Weight 111.6 kg 113 kg General appearance: PRESENT: no acute distress, cooperative, obese, other - elderly Head exam: PRESENT: normocephalic Eye exam: PRESENT: EOMI Neck exam: PRESENT: full ROM. ABSENT: thyromegaly Respiratory exam: PRESENT: decreased breath sounds, unlabored Cardiovascular exam: PRESENT: RRR, +S1, +S2, systolic murmur GI/Abdominal exam: PRESENT: normal bowel sounds, soft. ABSENT: tenderness Rectal exam: PRESENT: deferred Extremities exam: PRESENT: other - chronic venous stasis dressing on left lower extremity. ABSENT: tenderness Musculoskeletal exam: PRESENT: full ROM. ABSENT: tenderness Neurological exam: PRESENT: alert, awake, oriented to person, oriented to place , oriented to time, oriented to situation, CN II-XII grossly intact Psychiatric exam: PRESENT: normal mood Skin exam: PRESENT: intact, warm. ABSENT: jaundice Results Laboratory Results: 03/27/17 06:00 03/27/17 06:00 03/26/17 03/27/17 03/27/17 04:23 06:00 06:00 WBC 8.7 RBC 2.94 L Hgb 9.0 L Hct 27.0 L MCV 92 MCH 30.7 MCHC 33.4 RDW 13.5 Plt Count 214 Seg Neutrophils % Not Reportable Lymphocytes % Not Reportable Monocytes % Not Reportable Eosinophils % Not Reportable Basophils % Not Reportable Absolute Neutrophils Not Reportable Absolute Lymphocytes Not Reportable Absolute Monocytes Not Reportable Absolute Eosinophils Not Reportable Absolute Basophils Not Reportable Sodium 144.2 Potassium 4.5 Chloride 113 H Carbon Dioxide 23 Anion Gap 8 BUN 28 H Creatinine 1.20 Est GFR ( Amer) 53 L Est GFR (Non-Af Amer) 43 L Glucose 114 H Calcium 7.7 L Transferrin 143 L Total Bilirubin 0.2 AST 18 ALT 37 Alkaline Phosphatase 61 Total Protein 4.9 L Albumin 2.4 L 03/24/17 03/24/17 03/24/17 02:12 07:57 09:24 Troponin I 0.088 Cancelled 0.080 Impressions: Chest X-Ray 03/23/17 00:00 IMPRESSION: NO ACUTE RADIOGRAPHIC FINDING IN THE CHEST. Head CT 03/23/17 00:00 IMPRESSION: MILD CHRONIC CHANGES OF ATROPHY AND MICROVASCULAR ISCHEMIA. NO ACUTE PROCESS. EVIDENCE OF ACUTE STROKE: NO. Assessment & Plan - Diagnosis (1) Sepsis Is this a current diagnosis for this admission?: Yes Plan: Due to Klebsiella pneumonia UTI. Patient was treated with ceftriaxone and transitioned to p.o. Keflex. Patient did receive fluid resuscitation. Patient is clinically improved. (2) Acute cyclitis Is this a current diagnosis for this admission?: Yes Plan: Patient being treated for Klebsiella pneumonia UTI. Patient is currently on Keflex. Initially treated with ceftriaxone. (3) Acute kidney injury superimposed on CKD Is this a current diagnosis for this admission?: Yes Plan: Creatinine is now normal at 1.20 down from 2.63. This is most likely secondary to intravascular depletion and/or sepsis. This did improve with IV hydration. (4) Acute metabolic encephalopathy Is this a current diagnosis for this admission?: Yes Plan: Secondary to sepsis resulting from Klebsiella pneumonia UTI. Patient metabolic encephalopathy has improved following treatment of her dehydration,UTI and sepsis (5) Anemia Qualifiers: Anemia type: unspecified type Qualified Code(s): D64.9 - Anemia, unspecified Is this a current diagnosis for this admission?: Yes Plan: Anemia of chronic disease is myelosuppression from sepsis. Patient iron studies were normal. Patient has no obvious signs of bleeding. There may be a delusional component as patient did receive IV hydration. (6) DVT prophylaxis Is this a current diagnosis for this admission?: Yes Plan: SCDs as patient has thrombocytopenia (7) Dehydration Plan: IV hydration. Patient is now tolerating p.o.'s. (8) Elevated troponin Is this a current diagnosis for this admission?: Yes Plan: Most likely secondary to acute renal failure along with sepsis due to Klebsiella pneumonia UTI. Patient does not complain of any chest discomfort. This could be considered a type II ID. (9) Falls Qualifiers: Encounter type: initial encounter Qualified Code(s): W19.XXXA - Unspecified fall, initial encounter Is this a current diagnosis for this admission?: Yes Plan: She is adamant that she does not want to go to rehab. Patient is also stating that she does not want home health with physical therapy. Will discuss this with the family prior to discharge this patient may benefit from at least home health. (10) Hypocalcemia Is this a current diagnosis for this admission?: Yes Plan: Continue calcium supplementation. Patient has a low normal calcium level of 8.1. Will check patient's vitamin D level. (11) Hypotension Qualifiers: Hypotension type: unspecified hypotension type Qualified Code(s): I95.9 - Hypotension, unspecified Is this a current diagnosis for this admission?: Yes Plan: Most likely due to sepsis. Patient blood pressure is now improved. Did receive some fluids and atenolol was decreased. (12) Thrombocytopenia Is this a current diagnosis for this admission?: Yes Plan: Probably secondary to sepsis resulting in myelosuppression. (13) Ulcer of left lower leg Qualifiers: Non-pressure ulcer stage: unspecified non-pressure ulcer stage Qualified Code(s): L97.929 - Non-pressure chronic ulcer of unspecified part of left lower leg with unspecified severity Is this a current diagnosis for this admission?: Yes Plan: Continue bacitracin ointment and dressings. Patient is also on Keflex. (14) Diabetes mellitus type 2 in obese Is this a current diagnosis for this admission?: Yes Plan: Continue current regimen consists of sliding-scale insulin. Glucoses ranging from 120s-170s.
[2017-03-27] MEDS: ATORVASTATIN CALCIUM 10 MG TABLET PO SCH (21:09)
[2017-03-28 05:25] LABS: ALANINE AMINOTRANSFERASE 26 U/L (9-52); ALBUMIN 2.4 g/dL (3.5-5.0); ALKALINE PHOSPHATASE 62 U/L (38-126); ANION GAP 9 (5-19); ASPARTATE AMINO TRANSFERASE 15 U/L (14-36); BILIRUBIN,DIRECT 0.2 mg/dL (0.0-0.4); BILIRUBIN,TOTAL 0.2 mg/dL (0.2-1.3); BLOOD UREA NITROGEN 25 mg/dL (7-20); CALCIUM 8.4 mg/dL (8.4-10.2); CARBON DIOXIDE 24 mmol/L (22-30); CHLORIDE 112 mmol/L (98-107); GLUCOSE 124 mg/dL (75-110); POTASSIUM 4.7 mmol/L (3.6-5.0); SODIUM 144.5 mmol/L (137-145); TOTAL PROTEIN 4.5 g/dL (6.3-8.2)
[2017-03-28 05:27] LABS: CREATININE RESULT 1.28 mg/dL (0.52-1.25)
[2017-03-28] MEDS ORDERED: CYANOCOBALAMIN (VITAMIN B-12) INJ 1000 MCG/1 ML VIAL IM ONE (08:30)
[2017-03-28] MEDS: ATENOLOL 50 MG TABLET PO SCH (09:24)
[2017-03-28] MEDS: TOLTERODINE TARTRATE 1 MG TABLET PO SCH (09:24)
[2017-03-28] MEDS: CALCIUM CARBONATE 500 MG TABLET PO SCH (09:24)
[2017-03-28] MEDS: DOCUSATE SODIUM 100 MG CAPSULE PO SCH (09:27)
[2017-03-28] MEDS: BACITRACIN ZINC OINTMENT 15 GM TP SCH (09:27)
[2017-03-28] MEDS ORDERED: CEFTRIAXONE 1 GM/D5W RTU 1 GM/50 ML RTUPB IV SCH (10:00)
[2017-03-28 11:48] VITALS: BP 150/55
--- NOTE | 2017-03-28 17:55 | PDOC DISCHARGE SUMMARY ---
General - Admit/Disc Date/PCP Admission Date/Primary Care Provider: 03/23/17 22:49 GOPI BYRNES PA-C Discharge Date: 03/28/17 - Discharge Diagnosis (1) Sepsis Is this a current diagnosis for this admission?: Yes (2) Acute cyclitis Is this a current diagnosis for this admission?: Yes (3) Acute kidney injury superimposed on CKD Is this a current diagnosis for this admission?: Yes (4) Acute metabolic encephalopathy Is this a current diagnosis for this admission?: Yes (5) Anemia Is this a current diagnosis for this admission?: Yes (6) DVT prophylaxis Is this a current diagnosis for this admission?: Yes (8) Elevated troponin Is this a current diagnosis for this admission?: Yes (9) Falls Is this a current diagnosis for this admission?: Yes (10) Hypocalcemia Is this a current diagnosis for this admission?: Yes (11) Hypotension Is this a current diagnosis for this admission?: Yes (12) Thrombocytopenia Is this a current diagnosis for this admission?: Yes (13) Ulcer of left lower leg Is this a current diagnosis for this admission?: Yes (14) Diabetes mellitus type 2 in obese Is this a current diagnosis for this admission?: Yes - Additional Information Resuscitation Status: Full Code Discharge Diet: Diabetic Discharge Activity: Activity As Tolerated, Keep Legs Elevated Home Medications: Amlodipine Besylate [Norvasc 2.5 mg Tablet] 2.5 mg PO DAILY 03/24/17 Atorvastatin Calcium [Lipitor 10 mg Tablet] 10 mg PO QHS 03/24/17 Furosemide [Lasix 20 mg Tablet] 20 mg PO DAILY 03/24/17 Glimepiride 2 mg PO DAILY 03/24/17 Solifenacin Succinate [Vesicare] 10 mg PO DAILY 03/24/17 Atenolol [Tenormin 50 mg Tablet] 25 mg PO DAILY #0 03/28/17 Calcium Carbonate [Os-Aime 500 mg Tablet (Oyster-Shell)] 500 mg PO DAILY #30 tablet 03/28/17 Cephalexin Monohydrate [Keflex 500 mg Capsule] 500 mg PO BID 5 Days #10 capsule 03/28/17 Lisinopril [Zestril] 10 mg PO DAILY #0 03/28/17 History of Present Illness Patient complains of: Urinary problem History of Present Illness: TONIA KHAN is a 77 year old morbidly obese female, with underlying hypertension, arthritis, chronic kidney disease, of uncertain severity (no old labs available for comparison), type 2 diabetes mellitus, and occasional urinary tract infection who presents to the emergency room, accompanied by her daughter, for evaluation of above complaint. Patient has been discussed with emergency room physician who evaluated the patient. Sunday of this week, he experienced chills for 24 hours. Following day, she began vomiting which continued for 48 hours but that is now also stopped. Now able to tolerate small amounts of food. This is been accompanied by unsteadiness on her feet and 2 falls. No head trauma or loss of consciousness. Weak all over. Positive dysuria. No diarrhea. No headache chest or abdominal pain. All in all, the above symptom complex typically happens when patient has a urinary tract infection. Last such episode was approximately a year ago. 2 days ago, daughter, who lives with patient, noted patient was having some slight slurring of her speech. States this usually occurs with low blood sugar. She was given a candy bar. Slurring rapidly resolved and has not recurred. No other neurologic symptoms, including lateralizing numbness weakness or tingling. No history of seizure stroke TIA or mini stroke. Systolic blood pressure in the 70s upon arrival to the emergency room. Pressure has normalized nicely with 2 L of normal saline, along with a gram of Rocephin. Patient overall states she feels better. Hospital Course Hospital Course: (1) Sepsis Patient presented with sepsis-like picture. Patient found to have UTI later on known to be Klebsiella pneumonia. Patient was on ceftriaxone however when she showed much clinical improvement was transitioned to p.o. Keflex. Patient also received IV fluid resuscitation after which she showed improvement. Patient blood pressures have been stable. (2) Acute cyclitis Cultures grew Klebsiella pneumonia for which patient was started on ceftriaxone. Patient showed significant improvement was transitioned to Keflex. Patient will receive 5 more days of treatment this antibiotic was called into the pharmacy. (3) Acute kidney injury superimposed on CKD Patient is a known CKD creatinine is 3. It was worsened on this admission. Creatinine was significantly improved. It was 1.20 prior to discharge this is most likely secondary to intravascular depletion and/or sepsis. This did improve with IV hydration. Note that patient is on hydrochlorothiazide and Lasix which may have contributed to her acute on chronic renal failure. (4) Acute metabolic encephalopathy Secondary to sepsis resulting from Klebsiella pneumonia UTI. Patient metabolic encephalopathy has improved following treatment of her dehydration,UTI and sepsis. Past 2 days patient has been sitting up in chair feeding herself and bathing herself. (5) Anemia Anemia of chronic disease (CKD 3) or myelosuppression from sepsis. Patient iron studies were normal. Patient has no obvious signs of bleeding. There may be a dilutional component as patient did receive IV hydration. (6) DVT prophylaxis SCDs as patient had thrombocytopenia this to resolve prior to discharge with a platelet count of 214,000. This may have been related to her acute infection or the antibiotics. (7) Dehydration Improved with IV fluid resuscitation. Patient eating well prior to discharge home. (8) Elevated troponin Most likely secondary to acute renal failure along with sepsis due to Klebsiella pneumonia UTI. Patient does not complain of any chest discomfort. This could be considered a type II HI. (9) Falls She is adamant that she does not want to go to rehab. Patient is also stating that she does not want home health with physical therapy. She states that she has plenty of assistance at home. (10) Hypocalcemia Continue calcium supplementation. Patient has a low normal calcium level of 8.1. Will check patient's vitamin D level. Recommended that patient only takes a tablet a day as she does have abnormal renal function. (11) Hypotension Most likely due to sepsis. The patient was hypotensive patient blood pressures medications were held or decreased. Patient was given IV fluids. (12) Thrombocytopenia Probably secondary to sepsis resulting in myelosuppression and/or the antibiotics which can also affect platelet count.. (13) Ulcer of left lower leg Patient can continue with dressing changes at home. Patient is also on Keflex. (14) Diabetes mellitus type 2 in obese Can resume home medications on discharge. Patient blood glucoses were fairly controlled in the hospital and she was treated with sliding scale insulin at that time. Physical Exam Vital Signs: Temp Pulse Resp BP Pulse Ox 98.4 F 65 19 150/55 H 98 03/28/17 11:46 03/28/17 11:46 03/28/17 11:46 03/28/17 11:46 03/28/17 11:46 Intake & Output 03/27/17 03/28/17 03/29/17 06:59 06:59 06:59 Intake Total 2916 2839 Output Total 0 Balance 2916 2839 Weight 113 kg 114.8 kg General appearance: PRESENT: no acute distress, obese Head exam: PRESENT: normocephalic Eye exam: PRESENT: EOMI Mouth exam: PRESENT: moist Neck exam: PRESENT: JVD. ABSENT: full ROM Respiratory exam: PRESENT: clear to auscultation jaison, unlabored. ABSENT: tachypnea Cardiovascular exam: PRESENT: RRR, +S1, +S2 GI/Abdominal exam: PRESENT: normal bowel sounds, soft. ABSENT: tenderness Rectal exam: PRESENT: deferred Extremities exam: PRESENT: pedal edema Neurological exam: PRESENT: CN II-XII grossly intact Skin exam: PRESENT: other - Dressing on the left lower extremity. There is chronic venous stasis changes. Results Laboratory Results: 03/27/17 06:00 03/28/17 04:04 03/28/17 04:04 Sodium 144.5 Potassium 4.7 Chloride 112 H Carbon Dioxide 24 Anion Gap 9 BUN 25 H Creatinine 1.28 H Est GFR ( Amer) 49 L Est GFR (Non-Af Amer) 40 L Glucose 124 H Calcium 8.4 Total Bilirubin 0.2 AST 15 ALT 26 Alkaline Phosphatase 62 Total Protein 4.5 L Albumin 2.4 L 03/24/17 03/24/17 03/24/17 02:12 07:57 09:24 Troponin I 0.088 Cancelled 0.080 Impressions: Chest X-Ray 03/23/17 00:00 IMPRESSION: NO ACUTE RADIOGRAPHIC FINDING IN THE CHEST. Head CT 03/23/17 00:00 IMPRESSION: MILD CHRONIC CHANGES OF ATROPHY AND MICROVASCULAR ISCHEMIA. NO ACUTE PROCESS. EVIDENCE OF ACUTE STROKE: NO. Qualifiers PATEINT BEING DISCHARGED WITH ANY OF THE FOLLOWING DIAGNOSIS?: No VTE patient discharged on overlapping Therapy?: No Plan Time Spent: Less than 30 Minutes - Antibiotic was called into the pharmacy. Patient calcium supplement is [id number].
== END 2017-03-28 15:49 | disposition home or self-care (01) | DRG 871 ==
LOC: ER 12:36 → EH 21:36 → UNDOADMIN 21:36 → EH 22:49 → 3N 23:14 → EH 23:14
PROVIDERS: ADMIT Family Medicine; ATTEND Family Medicine
DX: A41.9 Sepsis, unspecified organism (principal); G93.41 Metabolic encephalopathy; N30.00 Acute cystitis without hematuria; N17.9 Acute kidney failure, unspecified; L97.929 Non-pressure chronic ulcer of unspecified part of left lower leg with unspecified severity; Z68.41 Body mass index [BMI] 40.0-44.9, adult; N18.3 Chronic kidney disease, stage 3 (moderate); I12.9 Hypertensive chronic kidney disease with stage 1 through stage 4 chronic kidney disease, or unspecified chronic kidney disease; E11.22 Type 2 diabetes mellitus with diabetic chronic kidney disease; D63.1 Anemia in chronic kidney disease; D69.6 Thrombocytopenia, unspecified; B96.1 Klebsiella pneumoniae [K. pneumoniae] as the cause of diseases classified elsewhere; E83.51 Hypocalcemia; E86.0 Dehydration; I87.8 Other specified disorders of veins; R79.89 Other specified abnormal findings of blood chemistry; R94.31 Abnormal electrocardiogram [ECG] [EKG]; E66.01 Morbid (severe) obesity due to excess calories; Z91.81 History of falling
CPT/HCPCS: 36415; 70450; 71010; 80048; 80053; 81001; 82040; 82553; 82607; 82728; 82746; 82803; 82962; 83540; 83550; 83605; 83735; 84443; 84466; 84484; 85025; 85027; 85045; 85610; 87040; 87086; 87088; 87186; 87493; 93005; 93010; 96361; 96365; 99285; G8978-GP; G8979-GP; G8987-GO; G8988-GO; G8989-GO; J0696; J1815; J3420; J3490; J7030

== ENCOUNTER 2017-07-19 12:20 | Inpatient (IN) | payer MEDICARE ==
[2017-07-19] MEDS ORDERED: NORMAL SALINE 1000 ML 1,000 ML IV ONE ×3 (12:27→16:40)
[2017-07-19] MEDS ORDERED: ONDANSETRON HCL INJ/PF 4 MG/2 ML SDV ONE (12:30)
--- NOTE | 2017-07-19 12:43 | ER Document Report ---
ED General - General Stated Complaint: NAUSEA, VOMITING Time Seen by Provider: 07/19/17 12:40 Notes: EMS was called to bring this patient to the emergency department for complaint of nausea and vomiting and weakness beginning this morning. She arrives in the emergency department with a blood pressure of 72/30. She is awake and answers questions appropriately. Has not had any diarrhea. Has not noted any fever. EMS gave the patient 4 mg of Zofran IV and started some IV fluids. Patient is having yellow vomitus. Has not noticed any blood present. She says that she had a similar episode to this one in March and was admitted here for 5 days. She does not know what caused the episode then. She is complaining of some generalized abdominal cramping. Denies any chest pains. Denies any shortness of breath or difficulty breathing. She says that she was just treated for a urinary tract infection with an antibiotic last week, and has completed that treatment. Denies any fevers. Patient has had her gallbladder removed and hernia repairs. TRAVEL OUTSIDE OF THE [place] IN LAST 30 DAYS: No - Related Data Allergies/Adverse Reactions: No Known Allergies Allergy (Unverified 03/23/17 16:59) Past Medical History - Social History Smoking Status: Unknown if Ever Smoked Cigarette use (# per day): No Family History: Reviewed & Not Pertinent - Past Medical History Cardiac Medical History: Reports: Hx Hypertension Denies: Hx Coronary Artery Disease Endocrine Medical History: Reports: Hx Diabetes Mellitus Type 2 Musculoskeltal Medical History: Reports Hx Arthritis Infectious Medical History: Denies: Hx Hepatitis Past Surgical History: Reports: Hx Cholecystectomy, Hx Orthopedic Surgery - TKR , Hx Tonsillectomy Review of Systems - Review of Systems Notes: REVIEW OF SYSTEMS: CONSTITUTIONAL : Denies fever. EENT: Denies eye, ear, nose or mouth or throat pain or other symptoms. CARDIOVASCULAR: Denies chest pain. RESPIRATORY: Denies cough, chest congestion, or shortness of breath. GASTROINTESTINAL: See HPI GENITOURINARY: Denies difficulty or painful urinating, urinary frequency, blood in urine. MUSCULOSKELETAL: Denies back or neck pain. Denies joint pain or swelling. SKIN: Denies rash or skin lesions. NEUROLOGICAL: Denies LOC or altered mental status. Denies headache. Denies sensory loss or motor deficits. ALL OTHER SYSTEMS REVIEWED AND NEGATIVE. Physical Exam - Vital signs Vitals: Resp BP Pulse Ox 17 72/23 L 99 07/19/17 12:37 07/19/17 12:37 07/19/17 12:37 Interpretation: Hypotensive - Notes Notes: PHYSICAL EXAMINATION: GENERAL: Alert, answers questions appropriately, actively vomiting yellow material. Hypotensive. HEAD: Atraumatic, normocephalic. EYES: Pupils equal round and reactive to light, extraocular movements intact. ENT: oropharynx clear without exudates. Dry mucous membranes of the mouth. NECK: Normal range of motion, supple. LUNGS: Breath sounds clear and equal bilaterally. HEART: Regular rate and rhythm without murmurs. ABDOMEN: Soft, nontender. No guarding or rebound. No masses. No bruits heard. BACK: No tenderness throughout entire back. EXTREMITIES: Normal range of motion without pain. NEUROLOGICAL: Normal speech, unable to walk because of weakness. Normal sensory, motor, and reflex exams. Awake, alert, and oriented x3. PSYCH: Normal mood, normal affect. SKIN: Warm, dry, no rashes. Course - Re-evaluation Re-evalutation: 07/19/17 17:09 Patient eventually had a bowel movement that was a lot of solid stool followed by watery diarrhea. Patient reports that she had been taking stool softeners and trying to have a bowel movement and had not had one for 5 days. She was vomiting bilious substance initially, but that stopped after Zofran IV. Patient 's blood pressure responded fairly well initially to fluids. After 3-1/2 L of IV fluids, patient still remained hypotensive, however. A Levophed drip was started. The nurse titrated between 8 and 16 mcg. Eventually, patient established a blood pressure in the 102 to 116 systolic range. Patient remains awake and alert throughout all of this activity. Patient's labs look like she has a urinary tract infection. Patient was given a gram of Rocephin IV. She was admitted last fall for the same sort of presentation of urosepsis. Contacted the hospitalist on-call who will admit the patient to ICU. IV is now running at 250/h. - Vital Signs Vital signs: Temp Pulse Resp BP Pulse Ox 97.9 F 63 13 136/63 H 100 07/19/17 16:22 07/19/17 13:22 07/19/17 16:57 07/19/17 16:57 07/19/17 16:57 - Laboratory Result Diagrams: 07/19/17 12:55 07/19/17 12:55 Laboratory results interpreted by me: 07/19/17 07/19/17 07/19/17 12:55 12:55 12:55 WBC 10.6 H RBC 3.71 L Hgb 11.4 L Hct 34.6 L Potassium 5.5 H BUN 53 H Creatinine 1.74 H Est GFR ( Amer) 34 L Est GFR (Non-Af Amer) 28 L Glucose 176 H Lactic Acid 2.6 H Total Protein 5.9 L Albumin 3.1 L Urine Protein Urine Blood Urine Urobilinogen Ur Leukocyte Esterase 07/19/17 14:17 WBC RBC Hgb Hct Potassium BUN Creatinine Est GFR ( Amer) Est GFR (Non-Af Amer) Glucose Lactic Acid Total Protein Albumin Urine Protein 100 H Urine Blood SMALL H Urine Urobilinogen 2.0 H Ur Leukocyte Esterase MODERATE H - Diagnostic Test Radiology results interpreted by me: 07/19/17 17:08 Chest x-ray is normal. No cardiomegaly or congestive failure. - EKG Interpretation by [facility] EKG shows normal: Sinus rhythm Rate: Normal Rhythm: NSR [place]/QRS: RBBB Critical Care Note - Critical Care Note Total time excluding time spent on procedures (mins): 60 Discharge - Discharge Clinical Impression: Hypotension, UTI (urinary tract infection), Sepsis Condition: Serious Disposition: ADMITTED INPATIENT Admitting Provider: Hospitalist Unit Admitted: ICU
[2017-07-19 13:27] LABS: ABSOLUTE BASOPHILS # (AUTO) 0.1 10^3/uL (0.0-0.2); ABSOLUTE EOSINOPHILS # (AUTO) 0.2 10^3/uL (0.0-0.6); ABSOLUTE LYMPHOCYTES (AUTO) 1.9 10^3/uL (0.5-4.7); ABSOLUTE MONOCYTES (AUTO) 0.3 10^3/uL (0.1-1.4); ABSOLUTE NEUT (AUTO) 8.1 10^3/uL (1.7-8.2); BASOPHILS % (AUTO) 0.6 % (0-2); EOSINOPHILS % (AUTO) 1.9 % (0-6); HEMATOCRIT 34.6 % (36.0-47.0); HEMOGLOBIN 11.4 g/dL (12.0-15.5); LYMPHOCYTES % (AUTO) 18.2 % (13-45); MEAN CORPUSCULAR HEMOGLOBIN 30.7 pg (27.0-33.4); MEAN CORPUSCULAR VOLUME 93 fl (80-97); MONOCYTES % (AUTO) 3.3 % (3-13); PLATELET COUNT 214 10^3/uL (150-450); RED BLOOD COUNT 3.71 10^6/uL (3.72-5.28); RED CELL DISTRIBUTION WIDTH 13.2 % (11.5-14.0); TOTAL CELLS COUNTED % (AUTO) 100 %; WHITE BLOOD COUNT 10.6 10^3/uL (4.0-10.5)
[2017-07-19] MEDS ORDERED: RINGERS SOLUTION,LACTATED 1,000 ML IV ONE (13:47)
[2017-07-19 13:51] LABS: ALANINE AMINOTRANSFERASE 25 U/L (9-52); ALBUMIN 3.1 g/dL (3.5-5.0); ALKALINE PHOSPHATASE 68 U/L (38-126); ANION GAP 12 (5-19); ASPARTATE AMINO TRANSFERASE 20 U/L (14-36); BILIRUBIN,DIRECT 0.2 mg/dL (0.0-0.4); BILIRUBIN,TOTAL 0.4 mg/dL (0.2-1.3); BLOOD UREA NITROGEN 53 mg/dL (7-20); CALCIUM 9.2 mg/dL (8.4-10.2); CARBON DIOXIDE 23 mmol/L (22-30); CHLORIDE 107 mmol/L (98-107); GLUCOSE 176 mg/dL (75-110); POTASSIUM 5.5 mmol/L (3.6-5.0); SODIUM 142.2 mmol/L (137-145); TOTAL PROTEIN 5.9 g/dL (6.3-8.2)
[2017-07-19] MEDS ORDERED: CEFTRIAXONE INJ 1000 MG VIAL IV ONE (14:35)
[2017-07-19] MEDS ORDERED: DEXTROSE 5%-WATER 250 ML with NOREPINEPHRINE BITARTRATE 4 MG IV PRN ×2 (14:38)
[2017-07-19] MEDS ORDERED: NOREPINEPHRINE BITARTRATE INJ/PF 4 MG/4 ML SDV IV ONE ×3 (14:44→23:56)
[2017-07-19 14:48] LABS: APPEARANCE,URINE CLOUDY; BILIRUBIN,URINE NEGATIVE (NEGATIVE); GLUCOSE, URINE NEGATIVE (NEGATIVE); KETONES,URINE NEGATIVE (NEGATIVE); LEUKOCYTE ESTERASE,URINE MODERATE (NEGATIVE); NITRITE,URINE NEGATIVE (NEGATIVE); PROTEIN,URINE 100 mg/dL (NEGATIVE); URINE SPECIFIC GRAVITY 1.011
[2017-07-19 14:49] LABS: COLOR,URINE YELLOW
--- NOTE | 2017-07-19 14:50 | RADIOLOGY REPORT (SQ) ---
EXAM DESCRIPTION: CHEST SINGLE VIEW COMPLETED DATE/TIME: 07/19/2017 2:28 pm REASON FOR STUDY: Hypotension. COMPARISON: 03/23/2017 EXAM PARAMETERS: NUMBER OF VIEWS: One view. TECHNIQUE: Single frontal radiographic view of the chest acquired. RADIATION DOSE: NA LIMITATIONS: None. FINDINGS: LUNGS AND PLEURA: Minimal linear density in the lung bases probably atelectasis. Pneumoni a cannot be excluded. No effusion. MEDIASTINUM AND HILAR STRUCTURES: No masses. Contour normal. HEART AND VASCULAR STRUCTURES: Heart appears mildly enlarged which may be related the poor inspiratio n. Vasculature is normal. BONES: No acute findings. HARDWARE: None in the chest. OTHER: No other significant finding. IMPRESSION: Minimal linear density in lung bases probably atelectasis. TECHNICAL DOCUMENTATION: JOB ID: [id number] [employer]- All Rights Reserved
[2017-07-19] MEDS: NORMAL SALINE 1000 ML 1,000 ML IV PRN ×2 (18:14→21:04)
[2017-07-19] MEDS ORDERED: MAGNESIUM HYDROXIDE SUSP 30 ML UDCUP PO PRN (18:26)
[2017-07-19] MEDS ORDERED: ACETAMINOPHEN 325 MG TABLET PO PRN (18:26)
--- NOTE | 2017-07-19 18:45 | EKG REPORT ---
SEVERITY:- ABNORMAL ECG - SINUS RHYTHM LAFB RIGHT BUNDLE BRANCH BLOCK LOW VOLTAGE EKG POOR R PROGRESSION PRECORDIAL LEADS. : Confirmed by: Tk Celeste MD 19-Jul-2017 18:45:10
--- NOTE | 2017-07-19 18:49 | RADIOLOGY REPORT (SQ) ---
EXAM DESCRIPTION: KUB/ABDOMEN (SINGLE VIEW) COMPLETED DATE/TIME: 07/19/2017 6:39 pm REASON FOR STUDY: RLQ tenderness COMPARISON: None. NUMBER OF VIEWS: One view. TECHNIQUE: Supine radiographic image of the abdomen acquired. LIMITATIONS: None. FINDINGS: BOWEL GAS PATTERN: Normal bowel gas pattern. No dilated loops. CALCIFICATIONS: Calcifications in the pelvis likely combination of arterial calcifications and phlebo liths. No definite urinary tract stones although urinary tract stones cannot be excluded. SOFT TISSUES: No gross mass or suggestion of organomegaly. HARDWARE: None in the abdomen. BONES: No acute fracture. No worrisome bone lesions. Chronic appearing irregularity of the right alberto ac crest. Moderate degenerative changes involving the lumbar spine. OTHER: No other significant finding. IMPRESSION: NO RADIOGRAPHIC EVIDENCE FOR ACUTE ABDOMINAL DISEASE. TECHNICAL DOCUMENTATION: JOB ID: [id number] [employer]- All Rights Reserved
[2017-07-19] MEDS ORDERED: DEXTROSE 40% GEL 15 GM TUBE PO PRN (21:14)
[2017-07-19] MEDS ORDERED: DEXTROSE 50%-WATER SYRINGE 12.5 GM/25 ML DOSE IV PRN (21:14)
[2017-07-19] MEDS ORDERED: GLUCAGON,HUMAN RECOMB 1 MG INJ IM PRN (21:14)
[2017-07-19] MEDS ORDERED: DEXTROSE 40% GEL 15 GM TUBE X 2 PO PRN (21:14)
[2017-07-19] MEDS ORDERED: DEXTROSE 50%-WATER SYRINGE 25 GM/50 ML DOSE IV PRN (21:14)
[2017-07-19] MEDS ORDERED: LEVOFLOXACIN 750 MG/D5W RTU 750 MG/150 ML RTUPB IV SCH (22:00)
[2017-07-19] MEDS: HEPARIN SOD (PORCINE) 5,000 UNIT/ML 1 ML SYRINGE SUBCUT SCH (22:16)
[2017-07-20] MEDS: ONDANSETRON HCL INJ/PF 4 MG/2 ML SDV IV PRN ×2 (00:13→11:23)
[2017-07-20] MEDS: NORMAL SALINE 1000 ML 1,000 ML IV PRN ×4 (00:14→13:45)
[2017-07-20 01:39] LABS: HEMATOCRIT 34.7 % (36.0-47.0); HEMOGLOBIN 11.5 g/dL (12.0-15.5); MEAN CORPUSCULAR HEMOGLOBIN 30.8 pg (27.0-33.4); MEAN CORPUSCULAR HGB CONC 33.1 g/dL (32.0-36.0); MEAN CORPUSCULAR VOLUME 93 fl (80-97); PLATELET COUNT 191 10^3/uL (150-450); RED BLOOD COUNT 3.73 10^6/uL (3.72-5.28); RED CELL DISTRIBUTION WIDTH 13.4 % (11.5-14.0)
--- NOTE | 2017-07-20 01:51 | RADIOLOGY REPORT (SQ) ---
EXAM DESCRIPTION: CT ABD/PELVIS ORAL ONLY COMPLETED DATE/TIME: 07/20/2017 1:00 am REASON FOR STUDY: R LQ pain and pyelo, diffuse abdominal pain. COMPARISON: KUB 07/19/2017. TECHNIQUE: CT scan of the abdomen and pelvis performed with oral contrast. No intravenous contrast was administered. Images reviewed with lung, soft tissue, and bone windows. Reconstructed coronal an d sagittal MPR images reviewed. All images stored on PACS. All CT scanners at this facility use dose modulation, iterative reconstruction, and/or weight based d osing when appropriate to reduce radiation dose to as low as reasonably achievable (ALARA). [facility]: Dose Right [facility]: CareDose [facility]: Dose Right [facility]: Teradose 4D [facility]: [employer] RADIATION DOSE: CT Rad equipment meets quality standard of care and radiation dose reduction techniq ues were employed. CTDIvol: 25.6 mGy. DLP: 1440 mGy-cm.mGy. LIMITATIONS: None. FINDINGS: LOWER CHEST: Mild bibasilar atelectasis. No pleural effusion. Moderate size hiatal herni a is noted. NON-CONTRASTED LIVER, SPLEEN, ADRENALS: Evaluation limited by lack of IV contrast. No identified sign ificant masses. PANCREAS: No peripancreatic inflammatory changes. GALLBLADDER: Surgically absent. RIGHT KIDNEY AND URETER: No significant calcifications. No hydronephrosis or hydroureter. LEFT KIDNEY AND URETER: No significant calcifications. No hydronephrosis or hydroureter. AORTA AND RETROPERITONEUM: No abdominal aortic aneurysm. No retroperitoneal masses or adenopathy. BOWEL AND PERITONEAL CAVITY: No bowel obstruction, the oral contrast has reached the rectum. There i s wall thickening of the transverse colon, descending colon, sigmoid colon and rectum with adjacent i nflammatory changes. There is a small amount of free fluid. No free air. APPENDIX: Not visualized. PELVIS, BLADDER, AND ABDOMINAL WALL:The urinary bladder is partially distended. The uterus is presen t. There is a 3.2 x 1.9 cm cystic lesion at the right adnexa. Small amount of free fluid is noted. BONES: Multilevel degenerative changes are seen within the spine. IMPRESSION: 1. Wall thickening of the transverse colon, descending colon, sigmoid colon and rectum w ith adjacent inflammatory changes, most consistent with colitis and proctitis. 2. Moderate hiatal hernia. 3. Small ascites. 4. 3.2 cm cystic lesion at the right adnexa, unexpected finding for the patient's age. This can be better evaluated with dedicated pelvic ultrasound. 5. Bibasilar atelectasis. COMMENT: Quality ID # [id number]: Final reports with documentation of one or more dose reduction techniques (e.g., Automated exposure control, adjustment of the mA and/or kV according to patient size, use of iterative reconstruction technique) TECHNICAL DOCUMENTATION: JOB ID: [id number] [employer]- All Rights Reserved
[2017-07-20 02:10] LABS: ABSOLUTE LYMPHOCYTES# (MANUAL) 1.6 10^3/uL (0.5-4.7); ABSOLUTE MONOCYTES # (MANUAL) 0.5 10^3/uL (0.1-1.4); ABSOLUTE NEUTROPHILS# (MANUAL) 24.2 10^3/uL (1.7-8.2); BAND NEUTROPHILS % (MANUAL) 7 % (3-5); BASOPHILS % (MANUAL) 0 % (0-2); EOSINOPHILS % (MANUAL) 0 % (0-6); LYMPHOCYTES % (MANUAL) 5 % (13-45); MONOCYTES % (MANUAL) 2 % (3-13); SEGMENTED NEUTROPHILS % (MAN) 85 % (42-78); TOTAL CELLS COUNTED 100
[2017-07-20 02:13] LABS: TOXIC GRANULATION 1+; TOXIC VACUOLATION PRESENT
[2017-07-20 02:14] LABS: BURR CELLS SLIGHT; METAMYELOCYTES % (MANUAL) 1 % (0); OVALOCYTES SLIGHT; PLATELET COMMENT ADEQUATE; POIKILOCYTOSIS SLIGHT; WHITE BLOOD COUNT 26.3 10^3/uL (4.0-10.5)
[2017-07-20] MEDS ORDERED: PANTOPRAZOLE SODIUM 80 MG in NORMAL SALINE 100 ML IV ONE (04:01)
[2017-07-20] MEDS ORDERED: ONDANSETRON HCL INJ/PF 4 MG/2 ML SDV IV ONE (04:02)
[2017-07-20] MEDS ORDERED: NORMAL SALINE 250 ML IV PRN ×2 (04:03)
[2017-07-20] MEDS: METRONIDAZOLE 500 MG TABLET PO SCH ×4 (04:06→22:33)
[2017-07-20] MEDS: INSULIN LISPRO 100 UNIT/ML 3 ML VIAL SUBCUT SCH ×4 (04:07→22:26)
--- NOTE | 2017-07-20 05:37 | Operative Report ---
Operative Report DATE OF SURGERY: 07/20/17 PREOPERATIVE DIAGNOSIS: Hypotension. Inability to obtain adequate peripheral vascular access. Critical need for central venous access POSTOPERATIVE DIAGNOSIS: Hypotension, inability to obtain adequate peripheral IV access. Critical need for central venous access OPERATION: Attempted subclavian central venous catheter placement, placement of right femoral central venous catheter. SURGEON: SERVANDO BROOKS ANESTHESIA: Local TISSUE REMOVED OR ALTERED: None COMPLICATIONS: None ESTIMATED BLOOD LOSS: 20 cc INTRAOPERATIVE FINDINGS: Able to enter the right and the left subclavian vein but unable to feed guidewire. PROCEDURE: Informed consent was obtained. Procedure was done in the intensive care unit. Patient's right chest and neck were prepped and draped in the usual sterile fashion. Local anesthetic was administered. The right subclavian vein was attempted to be entered, after multiple technical measures it was cannulated but the withdrawal of blood was intermittent. I was unable to pass the guidewire. After multiple technical measures I aborted this side. Identical procedure was performed on the left side and I met with the same difficulty. The left subclavian vein was able to be entered but again withdrawal of blood was intermittent and I could not feed the guidewire. This side was aborted. Patient's right groin was prepped and draped in usual sterile fashion. Local anesthetic was administered. The right femoral vein was cannulated. Guidewire was placed without difficulty. Triple-lumen central venous catheter was placed via the Seldinger technique. It withdrew blood and flushed easily. It was sutured in place. Dressings were applied. Stat portable chest x-ray was ordered since subclavian attempts were made. Patient tolerated procedure well with no apparent complications.
[2017-07-20] MEDS ORDERED: PANTOPRAZOLE SODIUM 40 MG VIAL IV ONE (05:39)
[2017-07-20] MEDS: HEPARIN SOD (PORCINE) 5,000 UNIT/ML 1 ML SYRINGE SUBCUT SCH ×3 (06:00→22:34)
[2017-07-20 06:16] LABS: INTERNATIONAL RATION (INR) 1.12; PROTHROMBIN TIME 15.2 SEC (11.4-15.4)
[2017-07-20 06:20] LABS: ALANINE AMINOTRANSFERASE 30 U/L (9-52); ALBUMIN 2.6 g/dL (3.5-5.0); ALKALINE PHOSPHATASE 52 U/L (38-126); ANION GAP 10 (5-19); ASPARTATE AMINO TRANSFERASE 22 U/L (14-36); BILIRUBIN,DIRECT 0.1 mg/dL (0.0-0.4); BILIRUBIN,TOTAL 0.3 mg/dL (0.2-1.3); BLOOD UREA NITROGEN 51 mg/dL (7-20); CALCIUM 7.6 mg/dL (8.4-10.2); CARBON DIOXIDE 20 mmol/L (22-30); CHLORIDE 110 mmol/L (98-107); GLUCOSE 170 mg/dL (75-110); POTASSIUM 5.4 mmol/L (3.6-5.0); SODIUM 139.9 mmol/L (137-145)
[2017-07-20 06:27] LABS: HEMATOCRIT 32.2 % (36.0-47.0); HEMOGLOBIN 10.6 g/dL (12.0-15.5); MEAN CORPUSCULAR HEMOGLOBIN 30.6 pg (27.0-33.4); MEAN CORPUSCULAR HGB CONC 32.9 g/dL (32.0-36.0); MEAN CORPUSCULAR VOLUME 93 fl (80-97); PLATELET COUNT 205 10^3/uL (150-450); RED BLOOD COUNT 3.47 10^6/uL (3.72-5.28); RED CELL DISTRIBUTION WIDTH 13.4 % (11.5-14.0); WHITE BLOOD COUNT 25.9 10^3/uL (4.0-10.5)
--- NOTE | 2017-07-20 06:36 | PDOC H&P ---
History of Present Illness Admission Date/PCP: 07/19/17 17:59 Patient complains of: Nausea and vomiting History of Present Illness: TONIA KHAN is a 77 year old female with a past medical history of diabetes, hypertension, Morbid obesity, CKD 3, and recurrent urinary tract infection. She was most recently diagnosed with Klebsiella pneumonia UTI 6 weeks ago and had done well until last week. She was treated empirically with unknown antibiotic without significant improvement she also complained of exceptional constipation taking several laxatives resulting in severe diarrhea prompting her to seek evaluation emergency room. She is found to have severe sepsis, hypotension with tachycardia, pyuria and a CT abdomen and pelvis with contrast suggestive of colitis. She started on empiric antibiotics, levophed, Levaquin, Flagyl and referred to the hospitalist for admission. Stool for C. difficile returns negative. Patient remains hypotensive after 4 L of normal saline challenge prompting surgical consultation for IV access. Patient verifies CODE STATUS is DNR. Past Medical History Cardiac Medical History: Reports: Hypertension Denies: Coronary Artery Disease Endocrine Medical History: Reports: Diabetes Mellitus Type 2 GI Medical History: Denies: Hepatitis Musculoskeltal Medical History: Reports: Arthritis Psychiatric Medical History: Denies: Depression Past Surgical History Past Surgical History: Reports: Cholecystectomy, Orthopedic Surgery - TKR, Tonsillectomy Social History Information Source: Patient, [facility] Records Lives with: Family Smoking Status: Former Smoker Frequency of Alcohol Use: None Hx Recreational Drug Use: No Drugs: None Hx Prescription Drug Abuse: No - Advance Directive Resuscitation Status: Do Not Resuscitate Family History Family History: Hypertension Parental Family History Reviewed: Yes Children Family History Reviewed: Yes Sibling(s) Family History Reviewed.: Yes Medication/Allergy Home Medications: Amlodipine Besylate [Norvasc 2.5 mg Tablet] 2.5 mg PO DAILY 07/19/17 Aspirin [Aspirin EC] 81 mg PO DAILY 07/19/17 Atenolol [Tenormin 50 mg Tablet] 50 mg PO DAILY 07/19/17 Atorvastatin Calcium [Lipitor 10 mg Tablet] 10 mg PO QHS 07/19/17 Calcium Carbonate/Vitamin D3 [Calcium 600 + Vit D Tablet] 1 tab PO DAILY Furosemide [Lasix 20 mg Tablet] 20 mg PO QAM 07/19/17 Glimepiride [Amaryl] 2 mg PO DAILY 07/19/17 Ibandronate Sodium [Boniva] 150 mg PO .QMONTHLY 07/19/17 Lisinopril [Prinivil 10 mg Tablet] 20 mg PO DAILY 07/19/17 Solifenacin Succinate [Vesicare] 10 mg PO DAILY 07/19/17 Allergies/Adverse Reactions: No Known Allergies Allergy (Unverified 03/23/17 16:59) Review of Systems Constitutional: PRESENT: as per HPI, anorexia, fatigue, fever(s), weakness Eyes: ABSENT: visual disturbances Ears: ABSENT: hearing changes Cardiovascular: ABSENT: chest pain, dyspnea on exertion, edema, orthropnea, palpitations Respiratory: ABSENT: cough, hemoptysis Gastrointestinal: PRESENT: as per HPI, abdominal pain, bloating, constipation, diarrhea, nausea, vomiting Genitourinary: PRESENT: as per HPI, other - Polyuria. ABSENT: difficulty urinating, dysuria Musculoskeletal: ABSENT: joint swelling Integumentary: ABSENT: rash, wounds Neurological: ABSENT: abnormal gait, abnormal speech, confusion, dizziness, focal weakness, syncope Psychiatric: ABSENT: anxiety, depression, homidical ideation, suicidal ideation Endocrine: ABSENT: cold intolerance, heat intolerance, polydipsia, polyuria Hematologic/Lymphatic: ABSENT: easy bleeding, easy bruising Physical Exam Vital Signs: Temp Pulse Resp BP Pulse Ox 97.6 F 69 16 99/52 L 95 07/20/17 02:00 07/19/17 19:54 07/20/17 06:08 07/20/17 06:08 07/20/17 06:08 Intake & Output 07/18/17 07/19/17 07/20/17 11:59 11:59 11:59 Weight 106.6 kg General appearance: PRESENT: cooperative, morbidly obese, severe distress Head exam: PRESENT: atraumatic, normocephalic Eye exam: PRESENT: conjunctiva pink, EOMI, PERRLA. ABSENT: scleral icterus Ear exam: PRESENT: normal external ear exam Mouth exam: PRESENT: moist, tongue midline Neck exam: ABSENT: carotid bruit, JVD, lymphadenopathy, thyromegaly Respiratory exam: PRESENT: clear to auscultation jaison. ABSENT: rales, rhonchi, wheezes Cardiovascular exam: PRESENT: RRR. ABSENT: diastolic murmur, rubs, systolic murmur Pulses: PRESENT: normal dorsalis pedis pul Vascular exam: PRESENT: normal capillary refill GI/Abdominal exam: PRESENT: hyperactive bowel sounds, normal bowel sounds, soft , tenderness - Right lower quadrant. ABSENT: distended, guarding, mass, organolmegaly, rebound Rectal exam: PRESENT: deferred Extremities exam: PRESENT: full ROM. ABSENT: calf tenderness, clubbing, pedal edema Neurological exam: PRESENT: alert, awake, oriented to person, oriented to place , oriented to time, oriented to situation, CN II-XII grossly intact. ABSENT: motor sensory deficit Psychiatric exam: PRESENT: appropriate affect, normal mood. ABSENT: homicidal ideation, suicidal ideation Skin exam: PRESENT: dry, intact, warm. ABSENT: cyanosis, rash Results Laboratory Results: 07/20/17 01:18 WBC 26.3 H D RBC 3.73 Hgb 11.5 L Hct 34.7 L MCV 93 MCH 30.8 MCHC 33.1 RDW 13.4 Plt Count 191 Seg Neutrophils % Not Reportable Lymphocytes % Not Reportable Monocytes % Not Reportable Eosinophils % Not Reportable Basophils % Not Reportable Absolute Neutrophils Not Reportable Absolute Lymphocytes Not Reportable Absolute Monocytes Not Reportable Absolute Eosinophils Not Reportable Absolute Basophils Not Reportable Impressions: KUB X-Ray 07/19/17 00:00 IMPRESSION: NO RADIOGRAPHIC EVIDENCE FOR ACUTE ABDOMINAL DISEASE. Abdomen/Pelvis CT 07/20/17 00:00 IMPRESSION: 1. Wall thickening of the transverse colon, descending colon, sigmoid colon and rectum with adjacent inflammatory changes, most consistent with colitis and proctitis. 2. Moderate hiatal hernia. 3. Small ascites. 4. 3.2 cm cystic lesion at the right adnexa, unexpected finding for the patient 's age. This can be better evaluated with dedicated pelvic ultrasound. 5. Bibasilar atelectasis. Assessment & Plan - Diagnosis (1) Severe sepsis Is this a current diagnosis for this admission?: Yes Plan: Secondary to urinary tract infection versus colitis. Coverage for both initiated. C. difficile negative, continue IV fluid challenge, levo fed as needed. (2) Colitis Is this a current diagnosis for this admission?: Yes Plan: Bowel rest, symptomatic management, no evidence for acidosis or ischemia. Flagyl and Levaquin initiated C. difficile tox screen negative. (3) Renal insufficiency Is this a current diagnosis for this admission?: Yes Plan: IV fluid challenge avoid nephrotoxic meds and doses. Follow-up chemistry (4) Diabetes mellitus type 2 in obese Is this a current diagnosis for this admission?: Yes Plan: Hold outpatient regiment, sliding scale coverage every 6 hours while n.p.o. - Time Time Spent: Greater than 70 Minutes - Inpatient Certification Medical Necessity: Need Close Monitoring Due to Risk of Patient Decompensation
[2017-07-20] MEDS ORDERED: IMIPENEM/CILASTATIN SODIUM INJ 500 MG VIAL IV PRN (06:48)
--- NOTE | 2017-07-20 06:50 | RADIOLOGY REPORT (SQ) ---
EXAM DESCRIPTION: CHEST SINGLE VIEW COMPLETED DATE/TIME: 07/20/2017 6:23 am REASON FOR STUDY: Central line COMPARISON: Chest x-ray 07/19/2017. EXAM PARAMETERS: NUMBER OF VIEWS: One view. TECHNIQUE: Single frontal radiographic view of the chest acquired. RADIATION DOSE: NA LIMITATIONS: Positioning. FINDINGS: LUNGS AND PLEURA: The patient is rotated. Mild atelectasis at the left lung base. No pn eumothorax. No pleural effusion. MEDIASTINUM AND HILAR STRUCTURES: No masses. Contour normal. HEART AND VASCULAR STRUCTURES: Heart normal in size. Normal vasculature. BONES: Degenerative changes at the bilateral shoulders. HARDWARE: No central line is identified. IMPRESSION: Mild left basilar atelectasis. No pneumothorax. No central line is identified. TECHNICAL DOCUMENTATION: JOB ID: [id number] [employer]- All Rights Reserved
[2017-07-20 06:52] LABS: ABSOLUTE LYMPHOCYTES# (MANUAL) 1.3 10^3/uL (0.5-4.7); ABSOLUTE MONOCYTES # (MANUAL) 0.5 10^3/uL (0.1-1.4); ABSOLUTE NEUTROPHILS# (MANUAL) 24.1 10^3/uL (1.7-8.2); BAND NEUTROPHILS % (MANUAL) 3 % (3-5); BASOPHILS % (MANUAL) 0 % (0-2); EOSINOPHILS % (MANUAL) 0 % (0-6); LYMPHOCYTES % (MANUAL) 5 % (13-45); MONOCYTES % (MANUAL) 2 % (3-13); SEGMENTED NEUTROPHILS % (MAN) 90 % (42-78); TOTAL CELLS COUNTED 100
[2017-07-20 06:53] LABS: BURR CELLS SLIGHT; OVALOCYTES SLIGHT; PLATELET COMMENT ADEQUATE; POIKILOCYTOSIS SLIGHT; SCHISTOCYTES SLIGHT
[2017-07-20] MEDS ORDERED: IMIPENEM/CILASTATIN SODIUM 1,000 MG in NORMAL SALINE 250 ML IV ONE (07:00)
[2017-07-20] MEDS: IMIPENEM/CILASTATIN SODIUM 500 MG in NORMAL SALINE 100 ML IV SCH ×3 (08:44→22:33)
--- NOTE | 2017-07-20 09:25 | PDOC PROGRESS REPORT ---
Subjective Progress Note for:: 07/20/17 Subjective:: Pt has diffuse mild abd pain, feels like she will stool again soon, no current nausea, has not vomiting for a few hours, no other pain including no back or chest pain, no feeling of dysuria, no dyspnea or cough, no fever or chills, feels thirsty and hungry. Recalls events overnight. We discussed code status and she confirms DNR DNI. She is ready to a natural when the time comes, she wants to be kept comfortable at . Reason For Visit: SEPSIS, UTI, HYPOTENSION, CKD, ABD PAIN, colitis, nausea/vomiting/diarrhea Physical Exam Vital Signs: Temp Pulse Resp BP Pulse Ox 98.3 F 78 20 118/53 L 98 07/20/17 08:50 07/20/17 08:50 07/20/17 08:50 07/20/17 08:50 07/20/17 08:50 Intake & Output 07/19/17 07/20/17 07/21/17 06:59 06:59 06:59 Intake Total 4302 700 Balance 4302 700 Weight 107.8 kg General appearance: PRESENT: no acute distress, cooperative, morbidly obese Head exam: PRESENT: atraumatic, normocephalic Eye exam: PRESENT: conjunctiva pink. ABSENT: periorbital swelling, scleral icterus Ear exam: PRESENT: normal external ear exam. ABSENT: bleeding Mouth exam: PRESENT: dry mucosa, tongue midline Throat exam: ABSENT: post pharyngeal erythema Respiratory exam: PRESENT: clear to auscultation jaison, decreased breath sounds, unlabored. ABSENT: accessory muscle use, chest wall tenderness, crackles, prolonged expiratory phas, rales, retraction, rhonchi, stridor, symmetrical, tachypnea, wheezes Cardiovascular exam: PRESENT: RRR. ABSENT: systolic murmur Pulses: PRESENT: normal radial pulses. ABSENT: normal dorsalis pedis pul GI/Abdominal exam: PRESENT: diminished bowel sounds, hypoactive bowel sounds, tenderness. ABSENT: distended, firm, guarding, rebound, rigid Rectal exam: PRESENT: deferred Gentrourinary exam: PRESENT: indwelling catheter Extremities exam: ABSENT: calf tenderness, pedal edema Musculoskeletal exam: PRESENT: other. ABSENT: tenderness - obese, chronic venous stasis changes Neurological exam: PRESENT: alert, oriented to person, oriented to place, oriented to time, oriented to situation, CN II-XII grossly intact Psychiatric exam: PRESENT: appropriate affect, normal mood Focused psych exam: ABSENT: psychomotor agitation, restlessness Skin exam: PRESENT: dry, intact. ABSENT: mottled Results Laboratory Results: 07/20/17 05:28 07/20/17 05:28 07/20/17 07/20/17 07/20/17 01:18 05:28 05:28 WBC 26.3 H D 25.9 H RBC 3.73 3.47 L Hgb 11.5 L 10.6 L Hct 34.7 L 32.2 L MCV 93 93 MCH 30.8 30.6 MCHC 33.1 32.9 RDW 13.4 13.4 Plt Count 191 205 Seg Neutrophils % Not Reportable Not Reportable Lymphocytes % Not Reportable Not Reportable Monocytes % Not Reportable Not Reportable Eosinophils % Not Reportable Not Reportable Basophils % Not Reportable Not Reportable Absolute Neutrophils Not Reportable Not Reportable Absolute Lymphocytes Not Reportable Not Reportable Absolute Monocytes Not Reportable Not Reportable Absolute Eosinophils Not Reportable Not Reportable Absolute Basophils Not Reportable Not Reportable Sodium 139.9 Potassium 5.4 H Chloride 110 H Carbon Dioxide 20 L Anion Gap 10 BUN 51 H Creatinine 1.65 H Est GFR ( Amer) 36 L Est GFR (Non-Af Amer) 30 L Glucose 170 H Calcium 7.6 L Total Bilirubin 0.3 AST 22 ALT 30 Alkaline Phosphatase 52 Total Protein 5.0 L Albumin 2.6 L Blood Type Antibody Screen 07/20/17 05:37 WBC RBC Hgb Hct MCV MCH MCHC RDW Plt Count Seg Neutrophils % Lymphocytes % Monocytes % Eosinophils % Basophils % Absolute Neutrophils Absolute Lymphocytes Absolute Monocytes Absolute Eosinophils Absolute Basophils Sodium Potassium Chloride Carbon Dioxide Anion Gap BUN Creatinine Est GFR ( Amer) Est GFR (Non-Af Amer) Glucose Calcium Total Bilirubin AST ALT Alkaline Phosphatase Total Protein Albumin Blood Type O POSITIVE Antibody Screen NEGATIVE Impressions: KUB X-Ray 07/19/17 00:00 IMPRESSION: NO RADIOGRAPHIC EVIDENCE FOR ACUTE ABDOMINAL DISEASE. Abdomen/Pelvis CT 07/20/17 00:00 IMPRESSION: 1. Wall thickening of the transverse colon, descending colon, sigmoid colon and rectum with adjacent inflammatory changes, most consistent with colitis and proctitis. 2. Moderate hiatal hernia. 3. Small ascites. 4. 3.2 cm cystic lesion at the right adnexa, unexpected finding for the patient 's age. This can be better evaluated with dedicated pelvic ultrasound. 5. Bibasilar atelectasis. Chest X-Ray 07/20/17 05:22 IMPRESSION: Mild left basilar atelectasis. No pneumothorax. No central line is identified. Status: Imported from PACS Assessment & Plan - Diagnosis (1) Colitis Is this a current diagnosis for this admission?: Yes Plan: cont current ABX regimen, bowel rest, cdiff neg. monitor abd exam (2) Severe sepsis Is this a current diagnosis for this admission?: Yes Plan: cont IVF fluids, conct levophed, cont ABX, blood culturres and urine culture pending (3) UTI (urinary tract infection) Qualifiers: Urinary tract infection type: acute cystitis Hematuria presence: without hematuria Qualified Code(s): N30.00 - Acute cystitis without hematuria Plan: gram neg rods in urine, cont imipenem and levaquin for sepsis, remove millan when appropriate (4) Anemia Qualifiers: Anemia type: unspecified type Qualified Code(s): D64.9 - Anemia, unspecified Is this a current diagnosis for this admission?: Yes Plan: anemia daphne meng eto acute blood loss with due to GI bleed with colitis, receiving PRBC, rechk Hgb after (5) Dehydration Is this a current diagnosis for this admission?: Yes Plan: IV fluids for now, sips and chips, monitor labs (6) Renal insufficiency Is this a current diagnosis for this admission?: Yes Plan: iv fluids, avoid nephrotoxins, repeat BUN and creat in am (7) Diabetes mellitus type 2 in obese Is this a current diagnosis for this admission?: Yes Plan: NPO and will cont with q6hrs short acting insulin and CBG monitoring - Time Time Spent with patient: 35 or more minutes Medications reviewed and adjusted accordingly: Yes Anticipated discharge: Home with Homehealth Within: within 72 hours - Inpatient Certification Based on my medical assessment, after consideration of the patient's comorbidities, presenting symptoms, or acuity I expect that the services needed warrant INPATIENT care.: Yes I certify that my determination is in accordance with my understanding of Medicare's requirements for reasonable and necessary INPATIENT services [42 CFR 412.3e].: Yes Medical Necessity: Need Close Monitoring Due to Risk of Patient Decompensation, Need For IV Fluids, Need For Continuous Telemetry Monitoring Post Hospital Care: D/C Practice Advisor Documentation
[2017-07-20] MEDS ORDERED: DOCUSATE SODIUM 100 MG/10 ML UDC PO SCH (10:00)
[2017-07-20] MEDS ORDERED: IMIPENEM/CILASTATIN SODIUM 1,000 MG in NORMAL SALINE 250 ML IV SCH (12:00)
[2017-07-20] MEDS: DEXTROSE 5%-WATER 250 ML with NOREPINEPHRINE BITARTRATE 4 MG IV PRN ×4 (12:02→18:15)
[2017-07-20 14:13] LABS: HEMATOCRIT 35.9 % (36.0-47.0); HEMOGLOBIN 12.1 g/dL (12.0-15.5); MEAN CORPUSCULAR HEMOGLOBIN 30.3 pg (27.0-33.4); MEAN CORPUSCULAR HGB CONC 33.7 g/dL (32.0-36.0); MEAN CORPUSCULAR VOLUME 90 fl (80-97); PLATELET COUNT 169 10^3/uL (150-450); RED CELL DISTRIBUTION WIDTH 14.5 % (11.5-14.0); WHITE BLOOD COUNT 22.6 10^3/uL (4.0-10.5)
[2017-07-20] MEDS: DOCUSATE SODIUM 100 MG CAPSULE PO SCH (14:17)
[2017-07-20] MEDS ORDERED: VANCOMYCIN HCL 0 MG in DEXTROSE 5%-WATER 250 ML IV NR (15:45)
[2017-07-20] MEDS: VANCOMYCIN HCL 1,250 MG in DEXTROSE 5%-WATER 250 ML IV SCH (18:44)
[2017-07-20] MEDS: NORMAL SALINE 100 ML with PANTOPRAZOLE SODIUM 80 MG IV PRN ×2 (22:33)
[2017-07-21] MEDS: INSULIN LISPRO 100 UNIT/ML 3 ML VIAL SUBCUT SCH ×4 (02:13→17:16)
[2017-07-21] MEDS: IMIPENEM/CILASTATIN SODIUM 500 MG in NORMAL SALINE 100 ML IV SCH ×2 (02:15→08:02)
[2017-07-21] MEDS: METRONIDAZOLE 500 MG TABLET PO SCH ×2 (02:16→08:02)
[2017-07-21 05:13] LABS: HEMATOCRIT 33.3 % (36.0-47.0); MEAN CORPUSCULAR HEMOGLOBIN 29.7 pg (27.0-33.4); MEAN CORPUSCULAR HGB CONC 33.1 g/dL (32.0-36.0); MEAN CORPUSCULAR VOLUME 90 fl (80-97); PLATELET COUNT 146 10^3/uL (150-450); RED BLOOD COUNT 3.72 10^6/uL (3.72-5.28); RED CELL DISTRIBUTION WIDTH 14.5 % (11.5-14.0); WHITE BLOOD COUNT 18.7 10^3/uL (4.0-10.5)
[2017-07-21 05:31] LABS: ANION GAP 6 (5-19); BLOOD UREA NITROGEN 36 mg/dL (7-20); CARBON DIOXIDE 19 mmol/L (22-30); CHLORIDE 112 mmol/L (98-107); GLUCOSE 144 mg/dL (75-110); SODIUM 136.6 mmol/L (137-145)
[2017-07-21 05:42] LABS: CALCIUM 6.8 mg/dL (8.4-10.2)
[2017-07-21] MEDS: HEPARIN SOD (PORCINE) 5,000 UNIT/ML 1 ML SYRINGE SUBCUT SCH ×3 (05:50→21:14)
[2017-07-21] MEDS: NORMAL SALINE 100 ML with PANTOPRAZOLE SODIUM 80 MG IV PRN ×2 (08:02)
[2017-07-21] MEDS: DOCUSATE SODIUM 100 MG CAPSULE PO SCH (09:10)
[2017-07-21] MEDS: PANTOPRAZOLE SODIUM 40 MG VIAL IV SCH (10:18)
[2017-07-21] MEDS: ONDANSETRON HCL INJ/PF 4 MG/2 ML SDV IV PRN (10:18)
[2017-07-21] MEDS ORDERED: PIPERACILLIN/TAZOBACTAM 4.5 GM VIAL IV SCH (12:00)
[2017-07-21] MEDS: PIPERACILLIN SODIUM/TAZOBACTAM 4.5 GM in NORMAL SALINE 100 ML IV SCH ×2 (12:30→17:40)
--- NOTE | 2017-07-21 17:12 | PDOC PROGRESS REPORT ---
Subjective Progress Note for:: 07/21/17 Subjective:: Doing much better today. Mental status improved. Denies fevers, chills, CP, abodminal pain, NV. Wants to eat food "because her belly is so hungry". No other complaints. Reason For Visit: SEPSIS UTI HYPOTENSION CKD ABD PAIN Physical Exam Vital Signs: Temp Pulse Resp BP Pulse Ox 99.7 F 74 21 H 104/45 L 99 07/21/17 14:00 07/21/17 14:00 07/21/17 14:00 07/21/17 14:00 07/21/17 14:00 Intake & Output 07/20/17 07/21/17 07/22/17 06:59 06:59 06:59 Intake Total 4302 3271 Output Total 900 510 Balance 4302 2371 -510 Weight 107.8 kg 110.3 kg General appearance: PRESENT: no acute distress, obese Head exam: PRESENT: atraumatic Mouth exam: PRESENT: moist Respiratory exam: PRESENT: decreased breath sounds, unlabored. ABSENT: tachypnea Cardiovascular exam: PRESENT: RRR. ABSENT: tachycardia GI/Abdominal exam: PRESENT: firm, soft. ABSENT: distended, tenderness Extremities exam: ABSENT: +1 edema Neurological exam: PRESENT: alert, awake, CN II-XII grossly intact Psychiatric exam: ABSENT: anxious Skin exam: PRESENT: warm Results Laboratory Results: 07/21/17 04:40 07/21/17 04:40 07/21/17 07/21/17 07/21/17 04:40 04:40 04:40 WBC 18.7 H RBC 3.72 Hgb 11.0 L Hct 33.3 L MCV 90 MCH 29.7 MCHC 33.1 RDW 14.5 H Plt Count 146 L Sodium 136.6 L Potassium 4.0 Chloride 112 H Carbon Dioxide 19 L Anion Gap 6 BUN 36 H Creatinine 1.39 H Est GFR ( Amer) 44 L Est GFR (Non-Af Amer) 37 L Glucose 144 H Calcium 6.8 L* Albumin 2.1 L 07/20/17 10:20 Troponin I < 0.012 Impressions: KUB X-Ray 07/19/17 00:00 IMPRESSION: NO RADIOGRAPHIC EVIDENCE FOR ACUTE ABDOMINAL DISEASE. Abdomen/Pelvis CT 07/20/17 00:00 IMPRESSION: 1. Wall thickening of the transverse colon, descending colon, sigmoid colon and rectum with adjacent inflammatory changes, most consistent with colitis and proctitis. 2. Moderate hiatal hernia. 3. Small ascites. 4. 3.2 cm cystic lesion at the right adnexa, unexpected finding for the patient 's age. This can be better evaluated with dedicated pelvic ultrasound. 5. Bibasilar atelectasis. Chest X-Ray 07/20/17 05:22 IMPRESSION: Mild left basilar atelectasis. No pneumothorax. No central line is identified. Assessment & Plan - Diagnosis (1) Sepsis Qualifiers: Sepsis type: sepsis due to unspecified organism Qualified Code(s): A41.9 - Sepsis, unspecified organism Is this a current diagnosis for this admission?: Yes Plan: Improved since admission, now HDS - Blood cultures from 07/19 positive for GPC and Gram positive rods; repeat cultures from 07/20/17 NGTD - Given improvement in status, simplified antibiotics to Vanc/Zosyn, will simplify further on 07/21 (2) UTI (urinary tract infection) Qualifiers: Urinary tract infection type: acute cystitis Hematuria presence: without hematuria Qualified Code(s): N30.00 - Acute cystitis without hematuria Is this a current diagnosis for this admission?: Yes Plan: Urine culture positive for E. coli, sensitivities reviewed - On Zosyn currently, will narrow coverage (3) Acute kidney injury superimposed on CKD Is this a current diagnosis for this admission?: Yes Plan: Likely for acute illness, Cr improved - Currently Cr 1.39 from 1.65 from 07/20 (4) Anemia Qualifiers: Anemia type: unspecified type Qualified Code(s): D64.9 - Anemia, unspecified Is this a current diagnosis for this admission?: Yes Plan: Stable, currently 11.0 - CTM - Time Time Spent with patient: 15-24 minutes Medications reviewed and adjusted accordingly: Yes Anticipated discharge: Other - Will transfer out of ICU to floor on 07/22
[2017-07-21] MEDS: VANCOMYCIN HCL 1,250 MG in DEXTROSE 5%-WATER 250 ML IV SCH (17:40)
[2017-07-21] MEDS ORDERED: CALCIUM GLUCONATE 1000 MG/10 ML INJ IV ONE (19:00)
[2017-07-22 00:25] LABS: ANION GAP 8 (5-19); BLOOD UREA NITROGEN 29 mg/dL (7-20); CARBON DIOXIDE 19 mmol/L (22-30); CHLORIDE 111 mmol/L (98-107); GLUCOSE 122 mg/dL (75-110); POTASSIUM 3.5 mmol/L (3.6-5.0); SODIUM 137.6 mmol/L (137-145)
[2017-07-22] MEDS ORDERED: POTASSI CL 20 MEQ/50 ML RIDER 40 MEQ/100 ML RTUPB IV ONE (01:04)
[2017-07-22] MEDS: INSULIN LISPRO 100 UNIT/ML 3 ML VIAL SUBCUT SCH ×4 (01:36→18:29)
[2017-07-22] MEDS ORDERED: CALCIUM GLUCONATE 1,000 MG in DEXTROSE 5%-WATER 50 ML IV ONE (01:38)
[2017-07-22] MEDS ORDERED: CALCIUM GLUCONATE 1000 MG/10 ML INJ IV PRN (01:53)
[2017-07-22] MEDS ORDERED: DIGOXIN INJ 0.5 MG/2 ML AMPULE ONE (03:02)
[2017-07-22] MEDS ORDERED: DIGOXIN INJ 0.5 MG/2 ML AMPULE IV ONE (03:15)
[2017-07-22] MEDS: PIPERACILLIN SODIUM/TAZOBACTAM 4.5 GM in NORMAL SALINE 100 ML IV SCH ×4 (05:00→18:18)
[2017-07-22] MEDS: POTASSIUM CHLORIDE 20 MEQ/50 ML RTU IV SCH ×2 (05:03→05:06)
[2017-07-22] MEDS: MAGNESIUM SULFATE/D5W 1 GM/100 ML RTUPB IV SCH ×2 (05:07→05:09)
[2017-07-22] MEDS: HEPARIN SOD (PORCINE) 5,000 UNIT/ML 1 ML SYRINGE SUBCUT SCH ×3 (05:13→22:08)
[2017-07-22 07:39] LABS: HEMATOCRIT 30.3 % (36.0-47.0); HEMOGLOBIN 10.2 g/dL (12.0-15.5); MEAN CORPUSCULAR HEMOGLOBIN 30.1 pg (27.0-33.4); MEAN CORPUSCULAR HGB CONC 33.6 g/dL (32.0-36.0); MEAN CORPUSCULAR VOLUME 90 fl (80-97); PLATELET COUNT 142 10^3/uL (150-450); RED BLOOD COUNT 3.38 10^6/uL (3.72-5.28); RED CELL DISTRIBUTION WIDTH 14.9 % (11.5-14.0); WHITE BLOOD COUNT 15.7 10^3/uL (4.0-10.5)
[2017-07-22 08:01] LABS: ANION GAP 6 (5-19); BLOOD UREA NITROGEN 26 mg/dL (7-20); CALCIUM 7.1 mg/dL (8.4-10.2); CARBON DIOXIDE 18 mmol/L (22-30); CHLORIDE 113 mmol/L (98-107); GLUCOSE 105 mg/dL (75-110); POTASSIUM 3.9 mmol/L (3.6-5.0); SODIUM 136.8 mmol/L (137-145)
--- NOTE | 2017-07-22 08:35 | EKG REPORT ---
SEVERITY:- ABNORMAL ECG - SINUS TACHYCARDIA WITH IRREGULAR RATE 88-172, CANNOT RULE OUT A FIB RIGHT BUNDLE BRANCH BLOCK : Confirmed by: Tk Celeste MD 22-Jul-2017 08:34:22
[2017-07-22] MEDS: PANTOPRAZOLE SODIUM 40 MG VIAL IV SCH (09:07)
[2017-07-22] MEDS: DOCUSATE SODIUM 100 MG CAPSULE PO SCH (09:07)
[2017-07-22] MEDS ORDERED: PHENYLEPHRINE HCL INJ/PF 10 MG/1 ML SDV ONE (09:50)
[2017-07-22] MEDS: DEXTROSE 5%-WATER 250 ML with PHENYLEPHRINE HCL 40 MG IV PRN ×4 (10:14→22:07)
[2017-07-22] MEDS: VANCOMYCIN HCL 1,250 MG in DEXTROSE 5%-WATER 250 ML IV SCH (18:19)
--- NOTE | 2017-07-22 19:08 | PDOC PROGRESS REPORT ---
Subjective Progress Note for:: 07/22/17 Subjective:: Started on Levophed overnight due to low MAPs. Was in Afib with RVR and started on Dig. Better rate control. Patient has no complaints. Feeling better. Denies fevers, chills, CP, abodminal pain, NV. No other complaints. Reason For Visit: SEPSIS UTI HYPOTENSION CKD ABD PAIN Physical Exam Vital Signs: Temp Pulse Resp BP Pulse Ox 99.1 F 75 13 135/101 H 98 07/22/17 18:40 07/22/17 18:00 07/22/17 18:40 07/22/17 18:40 07/22/17 18:39 Intake & Output 07/21/17 07/22/17 07/23/17 06:59 06:59 06:59 Intake Total 3271 3504 Output Total 900 1295 710 Balance 2371 2209 -710 Weight 110.3 kg General appearance: PRESENT: no acute distress - Looks very comfortable Head exam: PRESENT: atraumatic, normocephalic Mouth exam: PRESENT: moist Respiratory exam: PRESENT: decreased breath sounds, unlabored Cardiovascular exam: PRESENT: RRR. ABSENT: tachycardia GI/Abdominal exam: PRESENT: soft. ABSENT: distended Extremities exam: PRESENT: +1 edema Neurological exam: PRESENT: alert, awake, CN II-XII grossly intact Psychiatric exam: ABSENT: anxious Results Laboratory Results: 07/22/17 07:15 07/22/17 07:15 07/21/17 07/22/17 07/22/17 23:55 07:15 07:15 WBC 15.7 H RBC 3.38 L Hgb 10.2 L Hct 30.3 L MCV 90 MCH 30.1 MCHC 33.6 RDW 14.9 H Plt Count 142 L Sodium 137.6 136.8 L Potassium 3.5 L 3.9 Chloride 111 H 113 H Carbon Dioxide 19 L 18 L Anion Gap 8 6 BUN 29 H 26 H Creatinine 1.32 H 1.31 H Est GFR ( Amer) 47 L 48 L Est GFR (Non-Af Amer) 39 L 39 L Glucose 122 H 105 Calcium 7.0 L* 7.1 L Magnesium 1.5 L 07/20/17 10:20 Troponin I < 0.012 Impressions: KUB X-Ray 07/19/17 00:00 IMPRESSION: NO RADIOGRAPHIC EVIDENCE FOR ACUTE ABDOMINAL DISEASE. Abdomen/Pelvis CT 07/20/17 00:00 IMPRESSION: 1. Wall thickening of the transverse colon, descending colon, sigmoid colon and rectum with adjacent inflammatory changes, most consistent with colitis and proctitis. 2. Moderate hiatal hernia. 3. Small ascites. 4. 3.2 cm cystic lesion at the right adnexa, unexpected finding for the patient 's age. This can be better evaluated with dedicated pelvic ultrasound. 5. Bibasilar atelectasis. Chest X-Ray 07/20/17 05:22 IMPRESSION: Mild left basilar atelectasis. No pneumothorax. No central line is identified. Assessment & Plan - Diagnosis (1) Sepsis Qualifiers: Sepsis type: sepsis due to unspecified organism Qualified Code(s): A41.9 - Sepsis, unspecified organism Is this a current diagnosis for this admission?: Yes Plan: Improved since admission, now HDS - Blood cultures from 07/19 positive for GPC and Gram positive rods; repeat cultures from 07/20/17 NGTD - Given improvement in status, simplified antibiotics to Vanc/Zosyn on 07/21, will continue for now - Hypotension, goal MAP 60-65, required Levophed this AM, now off, low threshold to restart if eneded (2) UTI (urinary tract infection) Qualifiers: Urinary tract infection type: acute cystitis Hematuria presence: without hematuria Qualified Code(s): N30.00 - Acute cystitis without hematuria Is this a current diagnosis for this admission?: Yes Plan: Urine culture positive for E. coli, sensitivities reviewed - On Zosyn currently, continue for now due to hypotension (3) Acute kidney injury superimposed on CKD Is this a current diagnosis for this admission?: Yes Plan: Likely from acute illness, Cr improved - Currently Cr 1.31 on 07/22 from 1.65 from 07/20 (4) Anemia Qualifiers: Anemia type: unspecified type Qualified Code(s): D64.9 - Anemia, unspecified Is this a current diagnosis for this admission?: Yes Plan: Stable, currently 10.2, had dark stools but no active bleeding, Hg at baseline - CTM - Time Time Spent with patient: 25-34 minutes
[2017-07-23] MEDS: INSULIN LISPRO 100 UNIT/ML 3 ML VIAL SUBCUT SCH ×2 (01:08→06:35)
[2017-07-23] MEDS: PIPERACILLIN SODIUM/TAZOBACTAM 4.5 GM in NORMAL SALINE 100 ML IV SCH ×5 (01:08→23:38)
[2017-07-23] MEDS: HEPARIN SOD (PORCINE) 5,000 UNIT/ML 1 ML SYRINGE SUBCUT SCH ×3 (06:34→22:42)
[2017-07-23 06:40] LABS: HEMATOCRIT 30.2 % (36.0-47.0); HEMOGLOBIN 10.2 g/dL (12.0-15.5); MEAN CORPUSCULAR HEMOGLOBIN 30.3 pg (27.0-33.4); MEAN CORPUSCULAR HGB CONC 33.8 g/dL (32.0-36.0); MEAN CORPUSCULAR VOLUME 90 fl (80-97); PLATELET COUNT 151 10^3/uL (150-450); RED BLOOD COUNT 3.37 10^6/uL (3.72-5.28); RED CELL DISTRIBUTION WIDTH 14.7 % (11.5-14.0); WHITE BLOOD COUNT 18.6 10^3/uL (4.0-10.5)
[2017-07-23 06:50] LABS: ANION GAP 6 (5-19); BLOOD UREA NITROGEN 19 mg/dL (7-20); CALCIUM 7.1 mg/dL (8.4-10.2); CARBON DIOXIDE 19 mmol/L (22-30); CHLORIDE 112 mmol/L (98-107); GLUCOSE 96 mg/dL (75-110); POTASSIUM 3.6 mmol/L (3.6-5.0); SODIUM 136.6 mmol/L (137-145)
[2017-07-23] MEDS ORDERED: NORMAL SALINE 1000 ML 1,000 ML IV PRN (08:26)
[2017-07-23] MEDS: DOCUSATE SODIUM 100 MG CAPSULE PO SCH (10:48)
--- NOTE | 2017-07-23 11:13 | PDOC PROGRESS REPORT ---
Subjective Progress Note for:: 07/23/17 Subjective:: Patient denies any complaints. Review of system All organ systems evaluated and negative except as seen subjective All significant laboratories and diagnostics have been reviewed Reason For Visit: SEPSIS UTI HYPOTENSION CKD ABD PAIN Physical Exam Vital Signs: Temp Pulse Resp BP Pulse Ox 98.8 F 66 13 128/61 H 99 07/23/17 06:41 07/22/17 22:00 07/23/17 06:41 07/23/17 06:41 07/23/17 06:41 Intake & Output 07/22/17 07/23/17 07/24/17 06:59 06:59 06:59 Intake Total 3504 1751 Output Total 1295 1355 Balance 2209 396 Weight 110.3 kg 117.4 kg General appearance: PRESENT: cooperative, obese Head exam: PRESENT: atraumatic, normocephalic Eye exam: PRESENT: EOMI, PERRLA Ear exam: PRESENT: normal external ear exam Mouth exam: PRESENT: moist Neck exam: PRESENT: full ROM. ABSENT: JVD, lymphadenopathy, tenderness Respiratory exam: PRESENT: clear to auscultation jaison Cardiovascular exam: PRESENT: irregular rhythm. ABSENT: diastolic murmur, RRR, systolic murmur Vascular exam: PRESENT: normal capillary refill GI/Abdominal exam: PRESENT: normal bowel sounds, soft. ABSENT: tenderness Extremities exam: PRESENT: +2 edema. ABSENT: clubbing, full ROM Musculoskeletal exam: ABSENT: ambulatory Neurological exam: PRESENT: alert, awake, oriented to person, oriented to place , CN II-XII grossly intact Psychiatric exam: PRESENT: appropriate affect, normal mood Skin exam: PRESENT: other - Brownish discoloration of lower extremities Results Laboratory Results: 07/23/17 06:30 07/23/17 06:30 07/23/17 07/23/17 06:30 06:30 WBC 18.6 H RBC 3.37 L Hgb 10.2 L Hct 30.2 L MCV 90 MCH 30.3 MCHC 33.8 RDW 14.7 H Plt Count 151 Sodium 136.6 L Potassium 3.6 Chloride 112 H Carbon Dioxide 19 L Anion Gap 6 BUN 19 Creatinine 1.25 Est GFR ( Amer) 50 L Est GFR (Non-Af Amer) 41 L Glucose 96 Calcium 7.1 L 07/20/17 10:20 Troponin I < 0.012 Impressions: KUB X-Ray 07/19/17 00:00 IMPRESSION: NO RADIOGRAPHIC EVIDENCE FOR ACUTE ABDOMINAL DISEASE. Abdomen/Pelvis CT 07/20/17 00:00 IMPRESSION: 1. Wall thickening of the transverse colon, descending colon, sigmoid colon and rectum with adjacent inflammatory changes, most consistent with colitis and proctitis. 2. Moderate hiatal hernia. 3. Small ascites. 4. 3.2 cm cystic lesion at the right adnexa, unexpected finding for the patient 's age. This can be better evaluated with dedicated pelvic ultrasound. 5. Bibasilar atelectasis. Chest X-Ray 07/20/17 05:22 IMPRESSION: Mild left basilar atelectasis. No pneumothorax. No central line is identified. Assessment & Plan - Diagnosis (1) Septic shock Is this a current diagnosis for this admission?: Yes Plan: Attempts being made to wean off vasopressors. To place patient on fluids (2) Bacteremia Is this a current diagnosis for this admission?: Yes Plan: Blood cultures growing gram-positive cocci and gram-negative bacilli and Bacteroides. Will continue with current management (3) UTI (urinary tract infection) Qualifiers: Hematuria presence: with hematuria Is this a current diagnosis for this admission?: Yes Plan: Continue Zosyn IV (4) Stasis dermatitis Qualifiers: Laterality: bilateral Qualified Code(s): I87.2 - Venous insufficiency ( chronic) (peripheral) Is this a current diagnosis for this admission?: Yes Plan: To order triamcinolone topical to lower extremities (5) Acute kidney injury superimposed on CKD Is this a current diagnosis for this admission?: Yes (6) Acute metabolic encephalopathy Is this a current diagnosis for this admission?: Yes Plan: Resolved (7) Anemia Qualifiers: Anemia type: unspecified type Qualified Code(s): D64.9 - Anemia, unspecified Is this a current diagnosis for this admission?: Yes Plan: Stable (8) Dehydration Is this a current diagnosis for this admission?: Yes Plan: Continue fluids (9) Diabetes mellitus type 2 in obese Is this a current diagnosis for this admission?: Yes Plan: Continue present management (10) Atrial fibrillation Qualifiers: Atrial fibrillation type: paroxysmal Qualified Code(s): I48.0 - Paroxysmal atrial fibrillation Is this a current diagnosis for this admission?: Yes Plan: Rate controlled
[2017-07-23] MEDS: TRIAMCINOLONE ACETONIDE 0.1% CREAM 15 GM TOP SCH ×2 (13:32→17:42)
[2017-07-23] MEDS: VANCOMYCIN HCL 1,250 MG in DEXTROSE 5%-WATER 250 ML IV SCH (17:52)
[2017-07-23 18:30] LABS: VANCOMYCIN,TROUGH 12.6 ug/mL (5.0-20.0)
[2017-07-24 05:03] LABS: HEMATOCRIT 28.7 % (36.0-47.0); HEMOGLOBIN 9.8 g/dL (12.0-15.5); MEAN CORPUSCULAR HEMOGLOBIN 30.7 pg (27.0-33.4); MEAN CORPUSCULAR HGB CONC 34.3 g/dL (32.0-36.0); MEAN CORPUSCULAR VOLUME 89 fl (80-97); PLATELET COUNT 134 10^3/uL (150-450); RED BLOOD COUNT 3.21 10^6/uL (3.72-5.28); RED CELL DISTRIBUTION WIDTH 14.3 % (11.5-14.0); WHITE BLOOD COUNT 10.2 10^3/uL (4.0-10.5)
[2017-07-24 05:28] LABS: ALANINE AMINOTRANSFERASE 28 U/L (9-52); ALBUMIN 1.9 g/dL (3.5-5.0); ALKALINE PHOSPHATASE 48 U/L (38-126); ANION GAP 5 (5-19); ASPARTATE AMINO TRANSFERASE 46 U/L (14-36); BILIRUBIN,DIRECT 0.2 mg/dL (0.0-0.4); BILIRUBIN,TOTAL 0.2 mg/dL (0.2-1.3); BLOOD UREA NITROGEN 15 mg/dL (7-20); CARBON DIOXIDE 20 mmol/L (22-30); CHLORIDE 112 mmol/L (98-107); GLUCOSE 88 mg/dL (75-110); POTASSIUM 3.6 mmol/L (3.6-5.0); SODIUM 136.6 mmol/L (137-145); TOTAL PROTEIN 3.9 g/dL (6.3-8.2)
[2017-07-24 05:41] LABS: CALCIUM 6.8 mg/dL (8.4-10.2)
[2017-07-24 05:51] LABS: ABSOLUTE LYMPHOCYTES# (MANUAL) 1.2 10^3/uL (0.5-4.7); ABSOLUTE MONOCYTES # (MANUAL) 0.4 10^3/uL (0.1-1.4); ABSOLUTE NEUTROPHILS# (MANUAL) 8.3 10^3/uL (1.7-8.2); BAND NEUTROPHILS % (MANUAL) 1 % (3-5); BASOPHILS % (MANUAL) 0 % (0-2); EOSINOPHILS % (MANUAL) 3 % (0-6); LYMPHOCYTES % (MANUAL) 12 % (13-45); MONOCYTES % (MANUAL) 4 % (3-13); SEGMENTED NEUTROPHILS % (MAN) 80 % (42-78); TOTAL CELLS COUNTED 100
[2017-07-24 05:54] LABS: ANISOCYTOSIS 1+; BURR CELLS SLIGHT; HYPOCHROMASIA 1+; POIKILOCYTOSIS SLIGHT; POLYCHROMASIA SLIGHT
[2017-07-24 05:55] LABS: PLATELET CLUMPS PRESENT; PLATELET COMMENT ADEQUATE
[2017-07-24] MEDS: PIPERACILLIN SODIUM/TAZOBACTAM 4.5 GM in NORMAL SALINE 100 ML IV SCH ×3 (06:16→20:00)
[2017-07-24] MEDS: HEPARIN SOD (PORCINE) 5,000 UNIT/ML 1 ML SYRINGE SUBCUT SCH ×3 (07:05→23:29)
[2017-07-24] MEDS ORDERED: NORMAL SALINE 1000 ML 1,000 ML IV PRN ×2 (08:05→08:06)
[2017-07-24] MEDS: TRIAMCINOLONE ACETONIDE 0.1% CREAM 15 GM TOP SCH ×3 (10:20→18:56)
[2017-07-24] MEDS: DOCUSATE SODIUM 100 MG CAPSULE PO SCH (11:41)
--- NOTE | 2017-07-24 12:28 | PDOC PROGRESS REPORT ---
Subjective Progress Note for:: 07/24/17 Subjective:: Patient denies any complaints. Review of system All organ systems evaluated and negative except as seen subjective All significant laboratories and diagnostics have been reviewed Reason For Visit: SEPSIS UTI HYPOTENSION CKD ABD PAIN Physical Exam Vital Signs: Temp Pulse Resp BP Pulse Ox 99.1 F 69 20 113/42 L 98 07/24/17 06:12 07/23/17 22:00 07/24/17 06:12 07/24/17 06:12 07/24/17 06:12 Intake & Output 07/23/17 07/24/17 07/25/17 06:59 06:59 06:59 Intake Total 1751 1445 Output Total 1355 1685 Balance 396 -240 Weight 117.4 kg 118 kg General appearance: PRESENT: cooperative, obese Head exam: PRESENT: atraumatic, normocephalic Eye exam: PRESENT: conjunctiva pink, EOMI, PERRLA Ear exam: PRESENT: normal external ear exam Mouth exam: PRESENT: moist Neck exam: PRESENT: full ROM, JVD. ABSENT: lymphadenopathy, tenderness Respiratory exam: PRESENT: clear to auscultation jaison Cardiovascular exam: PRESENT: RRR. ABSENT: diastolic murmur, systolic murmur Vascular exam: PRESENT: normal capillary refill GI/Abdominal exam: PRESENT: normal bowel sounds, soft. ABSENT: tenderness Extremities exam: PRESENT: full ROM, other - 3+ edema Musculoskeletal exam: ABSENT: ambulatory Neurological exam: PRESENT: alert, awake, oriented to person, oriented to place , oriented to time, oriented to situation, CN II-XII grossly intact Psychiatric exam: PRESENT: appropriate affect, normal mood - Brownish discoloration of lower extremities Results Laboratory Results: 07/24/17 04:30 07/24/17 04:30 07/23/17 07/24/17 07/24/17 17:45 04:30 04:30 WBC 10.2 RBC 3.21 L Hgb 9.8 L Hct 28.7 L MCV 89 MCH 30.7 MCHC 34.3 RDW 14.3 H Plt Count 134 L Seg Neutrophils % Not Reportable Lymphocytes % Not Reportable Monocytes % Not Reportable Eosinophils % Not Reportable Basophils % Not Reportable Absolute Neutrophils Not Reportable Absolute Lymphocytes Not Reportable Absolute Monocytes Not Reportable Absolute Eosinophils Not Reportable Absolute Basophils Not Reportable Sodium 136.6 L Potassium 3.6 Chloride 112 H Carbon Dioxide 20 L Anion Gap 5 BUN 15 Creatinine 1.18 1.19 Est GFR ( Amer) 54 L 53 L Est GFR (Non-Af Amer) 44 L 44 L Glucose 88 Calcium 6.8 L* Magnesium 1.5 L Total Bilirubin 0.2 AST 46 H ALT 28 Alkaline Phosphatase 48 Total Protein 3.9 L Albumin 1.9 L 07/20/17 07/24/17 10:20 04:30 Troponin I < 0.012 NT-Pro-B Natriuret Pep 9750 H Impressions: KUB X-Ray 07/19/17 00:00 IMPRESSION: NO RADIOGRAPHIC EVIDENCE FOR ACUTE ABDOMINAL DISEASE. Abdomen/Pelvis CT 07/20/17 00:00 IMPRESSION: 1. Wall thickening of the transverse colon, descending colon, sigmoid colon and rectum with adjacent inflammatory changes, most consistent with colitis and proctitis. 2. Moderate hiatal hernia. 3. Small ascites. 4. 3.2 cm cystic lesion at the right adnexa, unexpected finding for the patient 's age. This can be better evaluated with dedicated pelvic ultrasound. 5. Bibasilar atelectasis. Chest X-Ray 07/20/17 05:22 IMPRESSION: Mild left basilar atelectasis. No pneumothorax. No central line is identified. Assessment & Plan - Diagnosis (1) Septic shock Is this a current diagnosis for this admission?: Yes Plan: Discontinue vasopressors and decrease fluids. To transfer to stepdown unit (2) Bacteremia Is this a current diagnosis for this admission?: Yes Plan: Blood cultures growing Staphyloccocus hemolyticus and Bacteroides fragilis. Will continue vancomycin and Zosyn for a total of 14 days. Order echocardiogram and repeat blood cultures (3) UTI (urinary tract infection) Qualifiers: Hematuria presence: with hematuria Is this a current diagnosis for this admission?: Yes Plan: Due to E. coli. Continue Zosyn IV (4) Stasis dermatitis Qualifiers: Laterality: bilateral Qualified Code(s): I87.2 - Venous insufficiency ( chronic) (peripheral) Is this a current diagnosis for this admission?: Yes Plan: Continue triamcinolone topical to lower extremities (5) Acute kidney injury superimposed on CKD Is this a current diagnosis for this admission?: Yes Plan: Improved and stable (6) Acute metabolic encephalopathy Is this a current diagnosis for this admission?: Yes Plan: Resolved (7) Anemia Qualifiers: Anemia type: unspecified type Qualified Code(s): D64.9 - Anemia, unspecified Is this a current diagnosis for this admission?: Yes Plan: Stable (8) Dehydration Is this a current diagnosis for this admission?: Yes Plan: Continue fluids (9) Diabetes mellitus type 2 in obese Is this a current diagnosis for this admission?: Yes Plan: Continue present management (10) Atrial fibrillation Qualifiers: Atrial fibrillation type: paroxysmal Qualified Code(s): I48.0 - Paroxysmal atrial fibrillation Is this a current diagnosis for this admission?: Yes Plan: Rate controlled - Time Time Spent with patient: 15-24 minutes Medications reviewed and adjusted accordingly: Yes Anticipated discharge: SNF Within: Other - Patient will require full course of IV antibiotic - Inpatient Certification Based on my medical assessment, after consideration of the patient's comorbidities, presenting symptoms, or acuity I expect that the services needed warrant INPATIENT care.: Yes I certify that my determination is in accordance with my understanding of Medicare's requirements for reasonable and necessary INPATIENT services [42 CFR 412.3e].: Yes Medical Necessity: Need For Continuous Telemetry Monitoring, Need for IV Antibiotics
[2017-07-24] MEDS: VANCOMYCIN HCL 1,500 MG in DEXTROSE 5%-WATER 250 ML IV SCH (18:56)
[2017-07-25] MEDS: PIPERACILLIN SODIUM/TAZOBACTAM 4.5 GM in NORMAL SALINE 100 ML IV SCH ×4 (01:02→17:14)
[2017-07-25] MEDS: HEPARIN SOD (PORCINE) 5,000 UNIT/ML 1 ML SYRINGE SUBCUT SCH ×3 (05:27→21:22)
[2017-07-25] MEDS: DOCUSATE SODIUM 100 MG CAPSULE PO SCH (10:42)
[2017-07-25] MEDS: TRIAMCINOLONE ACETONIDE 0.1% CREAM 15 GM TOP SCH ×3 (10:42→17:17)
--- NOTE | 2017-07-25 11:17 | XCELERA REPORT ---
[address] [address] Transthoracic Echocardiogram Report Name: TONIA KHAN Age: 77 yrs Gender: Female : 1940 Patient Status: Inpatient Patient Location: [address] [place] [address] Study Date: 07/25/2017 08:47 AM Height: 64 in Weight: 260 lb BSA: 2.2 m2 Procedure: A complete two-dimensional transthoracic echocardiogram was performed (2D, M-mode, spectral and color flow Doppler). The study was technically difficult with many images being suboptimal in quality. Reason For Study: eval for endocarditis Ordering Physician: EDDIE FERNANDEZ Performed By: Jaki Eason Interpretation Summary The study was technically difficult with many images being suboptimal in quality. Lenear thin mobile echodensity noted on the left atrail surface of the posterior mitral leaflet, consistent with vegetation in the proper clinical setting, however if clinical setting not consistent consider JOSE and multiple blood cultures. The left ventricular ejection fraction is normal. Doppler measurements suggest pseudonormalized left ventricular relaxation, which is associated with grade II/IV or mild to moderate diastolic dysfunction There is borderline concentric left ventricular hypertrophy. The left ventricle is grossly normal size. Wall motion cannot be accurately commented on, but no definite regional wall motion abnormalities noted. The right ventricular systolic function is normal. The right atrium is normal in size Borderline left atrial enlargement. There is no mitral valve stenosis. There is a mild amount of mitral regurgitation There is no aortic valve stenosis No aortic regurgitation is present. There is mild mitral leaflet calcification. There is mild mitral annular calcification. The aortic valve is mildly calcified Cannot exclude aortic valvular vegetation. There is a mild amount of tricuspid regurgitation There is mild to moderate pulmonary hypertension by echo Right ventricular systolic pressure is estimated to be elevated at 40- 50mmHg. The aortic root is not well visualized but is probably normal size. The inferior vena cava appeared normal and decreased < 50% with respiration (RAP 10-15 mmHg) There is no pericardial effusion. Consider JOSE if clinically indicated. MMode/2D Measurements & Calculations RVDd: 2.8 cm LVIDd: 5.4 cm FS: 36.9 % Ao root diam: 2.6 cm IVSd: 0.94 cm LVIDs: 3.4 cm EDV(Teich): 138.6 ml LVPWd: 0.88 cm ESV(Teich): 46.8 ml Ao root area: 5.1 cm2 EF(Teich): 66.2 % LA dimension: 3.4 cm Doppler Measurements & Calculations MV E max leatha: MV P1/2t max leatha: Ao V2 max: LV V1 max P.0 cm/sec 79.0 cm/sec 167.7 cm/sec 4.9 mmHg MV A max leatha: MV P1/2t: 50.4 msec Ao max PG: LV V1 max: 112.0 cm/sec 11.2 mmHg 110.6 cm/sec MV E/A: 0.69 MVA(P1/2t): 4.4 cm2 MV dec slope: 458.5 cm/sec2 MV dec time: 0.18 sec PA V2 max: TR max leatha: 126.9 cm/sec 331.0 cm/sec PA max P.4 mmHgTR max P.8 mmHg Left Ventricle The left ventricle is grossly normal size. There is borderline concentric left ventricular hypertrophy. The left ventricular ejection fraction is normal. Doppler measurements suggest pseudonormalized left ventricular relaxation, which is associated with grade II/IV or mild to moderate diastolic dysfunction. Wall motion cannot be accurately commented on, but no definite regional wall motion abnormalities noted. Right Ventricle The right ventricle is grossly normal size. There is normal right ventricular wall thickness. The right ventricular systolic function is normal. Atria The right atrium is normal in size. Borderline left atrial enlargement. Interarterial septum not well visualized and not well dopplered. Cannot comment on ASD/PFO presence. Mitral Valve There is mild mitral leaflet calcification. There is mild mitral annular calcification. Lenear thin mobile echodensity noted on the left atrail surface of the posterior mitral leaflet, consistent with vegetation in the proper clinical setting, however if clinical setting not consistent consider JOSE and multiple blood cultures. There is no mitral valve stenosis. There is a mild amount of mitral regurgitation. Aortic Valve The aortic valve is mildly calcified. Cannot exclude aortic valvular vegetation. There is no aortic valve stenosis. No aortic regurgitation is present. Tricuspid Valve The tricuspid valve is not well visualized, but is grossly normal. There is no tricuspid stenosis. There is a mild amount of tricuspid regurgitation. There is mild to moderate pulmonary hypertension by echo. Right ventricular systolic pressure is estimated to be elevated at 40-50mmHg. Pulmonic Valve The pulmonic valve is not well visualized. Great Vessels The aortic root is not well visualized but is probably normal size. The inferior vena cava appeared normal and decreased < 50% with respiration (RAP 10-15 mmHg). Effusions There is no pericardial effusion. Incidental Findings Consider JOSE if clinically indicated. : EDDIE FERNANDEZ > Kenrick Nina
--- NOTE | 2017-07-25 16:45 | PDOC PROGRESS REPORT ---
Subjective Progress Note for:: 07/25/17 Subjective:: Patient denies any complaints. Review of system All organ systems evaluated and negative except as seen subjective All significant laboratories and diagnostics have been reviewed Reason For Visit: SEPSIS UTI HYPOTENSION CKD ABD PAIN Physical Exam Vital Signs: Temp Pulse Resp BP Pulse Ox 98.6 F 80 20 132/52 H 96 07/25/17 04:23 07/25/17 04:23 07/25/17 04:23 07/25/17 04:23 07/25/17 04:23 Intake & Output 07/24/17 07/25/17 07/26/17 06:59 06:59 06:59 Intake Total 1445 1675 Output Total 1685 1000 Balance -240 675 Weight 118 kg 123.1 kg General appearance: PRESENT: no acute distress, cooperative, morbidly obese Head exam: PRESENT: atraumatic, normocephalic Eye exam: PRESENT: EOMI, PERRLA Ear exam: PRESENT: normal external ear exam Mouth exam: PRESENT: moist Neck exam: PRESENT: full ROM. ABSENT: JVD, lymphadenopathy, tenderness Respiratory exam: PRESENT: clear to auscultation jaison Cardiovascular exam: PRESENT: irregular rhythm. ABSENT: diastolic murmur, systolic murmur Vascular exam: PRESENT: normal capillary refill GI/Abdominal exam: PRESENT: normal bowel sounds, soft. ABSENT: tenderness Extremities exam: PRESENT: full ROM. ABSENT: joint swelling, pedal edema Neurological exam: PRESENT: alert, awake, oriented to person, oriented to place , oriented to time Psychiatric exam: PRESENT: appropriate affect, normal mood Skin exam: PRESENT: intact, normal color Results Laboratory Results: 07/24/17 04:30 07/24/17 04:30 07/19/17 20:05 Blood Blood Culture - Final NO GROWTH IN 5 DAYS 07/20/17 07/24/17 10:20 04:30 Troponin I < 0.012 NT-Pro-B Natriuret Pep 9750 H Impressions: KUB X-Ray 07/19/17 00:00 IMPRESSION: NO RADIOGRAPHIC EVIDENCE FOR ACUTE ABDOMINAL DISEASE. Abdomen/Pelvis CT 07/20/17 00:00 IMPRESSION: 1. Wall thickening of the transverse colon, descending colon, sigmoid colon and rectum with adjacent inflammatory changes, most consistent with colitis and proctitis. 2. Moderate hiatal hernia. 3. Small ascites. 4. 3.2 cm cystic lesion at the right adnexa, unexpected finding for the patient 's age. This can be better evaluated with dedicated pelvic ultrasound. 5. Bibasilar atelectasis. Chest X-Ray 07/20/17 05:22 IMPRESSION: Mild left basilar atelectasis. No pneumothorax. No central line is identified. Assessment & Plan - Diagnosis (1) Septic shock Is this a current diagnosis for this admission?: Yes Plan: Resolved (2) Bacteremia Is this a current diagnosis for this admission?: Yes Plan: Blood cultures growing Staphyloccocus hemolyticus and Bacteroides fragilis. Will continue vancomycin and Zosyn for a total of 14 days. Talk to nurse to remove right femoral. Aggressive peripheral line until able to get a PICC line. Will trend CBC since blood culture grew Staphylococcus hemolyticus (3) UTI (urinary tract infection) Qualifiers: Hematuria presence: with hematuria Is this a current diagnosis for this admission?: Yes Plan: Due to E. coli. Continue Zosyn IV (4) Stasis dermatitis Qualifiers: Laterality: bilateral Qualified Code(s): I87.2 - Venous insufficiency ( chronic) (peripheral) Is this a current diagnosis for this admission?: Yes Plan: Continue triamcinolone topical to lower extremities (5) Acute kidney injury superimposed on CKD Is this a current diagnosis for this admission?: Yes Plan: Improved and stable (6) Acute metabolic encephalopathy Is this a current diagnosis for this admission?: Yes Plan: Resolved (7) Anemia Qualifiers: Anemia type: unspecified type Qualified Code(s): D64.9 - Anemia, unspecified Is this a current diagnosis for this admission?: Yes Plan: Stable and to trend since had infection with Staphylococcus hemolyticus (8) Dehydration Is this a current diagnosis for this admission?: Yes Plan: Continue fluids (9) Diabetes mellitus type 2 in obese Is this a current diagnosis for this admission?: Yes Plan: Continue present management (10) Atrial fibrillation Qualifiers: Atrial fibrillation type: paroxysmal Qualified Code(s): I48.0 - Paroxysmal atrial fibrillation Is this a current diagnosis for this admission?: Yes Plan: Rate controlled - Time Time Spent with patient: 15-24 minutes Medications reviewed and adjusted accordingly: Yes Anticipated discharge: SNF Within: Other - Will require 14 days therapy - Inpatient Certification Based on my medical assessment, after consideration of the patient's comorbidities, presenting symptoms, or acuity I expect that the services needed warrant INPATIENT care.: Yes I certify that my determination is in accordance with my understanding of Medicare's requirements for reasonable and necessary INPATIENT services [42 CFR 412.3e].: Yes Medical Necessity: Need for IV Antibiotics, Other - Will require 7 more days of IV antibiotic therapy
[2017-07-25] MEDS: VANCOMYCIN HCL 1,500 MG in DEXTROSE 5%-WATER 250 ML IV SCH (18:15)
[2017-07-25] MEDS ORDERED: NORMAL SALINE 1000 ML 1,000 ML IV PRN (22:51)
[2017-07-25] MEDS ORDERED: IPRATROPIUM/ALBUTEROL 0.5-2.5 MG/3 ML AMPUL NEB ONE (22:52)
--- NOTE | 2017-07-25 23:37 | RADIOLOGY REPORT (SQ) ---
EXAM DESCRIPTION: CHEST SINGLE VIEW COMPLETED DATE/TIME: 07/25/2017 11:18 pm REASON FOR STUDY: SOB COMPARISON: 07/20/2017 EXAM PARAMETERS: NUMBER OF VIEWS: One view. TECHNIQUE: Single frontal radiographic view of the chest acquired. RADIATION DOSE: NA LIMITATIONS: None. FINDINGS: LUNGS AND PLEURA: Increased consolidation in the left lung base. Right lung remains clear . No significant effusion. No pneumothorax. MEDIASTINUM AND HILAR STRUCTURES: Stable. HEART AND VASCULAR STRUCTURES: Stable. BONES: No acute findings. HARDWARE: None in the chest. OTHER: No other significant finding. IMPRESSION: Increased consolidation in the left lung base. TECHNICAL DOCUMENTATION: JOB ID: [id number] [place]-72 2010 [employer]- All Rights Reserved
[2017-07-26] MEDS: PIPERACILLIN SODIUM/TAZOBACTAM 4.5 GM in NORMAL SALINE 100 ML IV SCH ×4 (01:21→22:54)
[2017-07-26] MEDS: HEPARIN SOD (PORCINE) 5,000 UNIT/ML 1 ML SYRINGE SUBCUT SCH ×3 (07:03→22:54)
--- NOTE | 2017-07-26 08:52 | RADIOLOGY REPORT (SQ) ---
EXAM DESCRIPTION: CT CHEST WITHOUT COMPLETED DATE/TIME: 07/26/2017 8:39 am REASON FOR STUDY: left consolidation ? COMPARISON: Chest films 07/19/2017, 07/20/2017, 07/25/2017 TECHNIQUE: CT scan performed of the chest without intravenous contrast. Images reviewed with lung, soft tissue and bone windows. Reconstructed coronal and sagittal MPR images reviewed. All images st ored on PACS. All CT scanners at this facility use dose modulation, iterative reconstruction, and/or weight based d osing when appropriate to reduce radiation dose to as low as reasonably achievable (ALARA). [facility]: Dose Right [facility]: CareDose [facility]: Dose Right [facility]: Teradose 4D [facility]: [employer] RADIATION DOSE: CT Rad equipment meets quality standard of care and radiation dose reduction techniq ues were employed. CTDIvol: 18.6 mGy. DLP: 666 mGy-cm. mGy. LIMITATIONS: No technical limitations. FINDINGS: LUNGS AND PLEURA: Small to moderate bilateral pleural effusions are now present. There is dependent consolidation in the bilateral lower lobes left greater than right, atelectasis ve rsus pneumonia. Remainder of the lungs are well inflated and free of focal infiltrates. HILAR AND MEDIASTINAL STRUCTURES: Nonspecific 2 x 1.5 cm precarinal lymph node HEART AND VASCULAR STRUCTURES: No aneurysm. No pericardial effusion. Heavily calcified mitral annul us UPPER ABDOMEN: No significant findings. Limited exam. THYROID AND OTHER SOFT TISSUES: No masses. No adenopathy. BONES: No significant finding. HARDWARE: None in the chest. OTHER: No other significant findings. IMPRESSION: Small to moderate bilateral pleural effusions Bilateral lower lobe airspace disease left greater than right TECHNICAL DOCUMENTATION: JOB ID: [id number] Quality ID # [id number]: Final reports with documentation of one or more dose reduction techniques (e.g., Au tomated exposure control, adjustment of the mA and/or kV according to patient size, use of iterative reconstruction technique) 2010 [employer]- All Rights Reserved
[2017-07-26 11:04] LABS: HEMATOCRIT 32.7 % (36.0-47.0); HEMOGLOBIN 10.9 g/dL (12.0-15.5); MEAN CORPUSCULAR HEMOGLOBIN 29.9 pg (27.0-33.4); MEAN CORPUSCULAR HGB CONC 33.5 g/dL (32.0-36.0); MEAN CORPUSCULAR VOLUME 89 fl (80-97); PLATELET COUNT 177 10^3/uL (150-450); RED BLOOD COUNT 3.66 10^6/uL (3.72-5.28); RED CELL DISTRIBUTION WIDTH 14.7 % (11.5-14.0); WHITE BLOOD COUNT 12.1 10^3/uL (4.0-10.5)
[2017-07-26 11:25] LABS: ABSOLUTE LYMPHOCYTES# (MANUAL) 0.7 10^3/uL (0.5-4.7); ABSOLUTE MONOCYTES # (MANUAL) 0.4 10^3/uL (0.1-1.4); ABSOLUTE NEUTROPHILS# (MANUAL) 10.6 10^3/uL (1.7-8.2); ALANINE AMINOTRANSFERASE 39 U/L (9-52); ALBUMIN 2.3 g/dL (3.5-5.0); ALKALINE PHOSPHATASE 74 U/L (38-126); ANION GAP 7 (5-19); ASPARTATE AMINO TRANSFERASE 59 U/L (14-36); BAND NEUTROPHILS % (MANUAL) 5 % (3-5); BASOPHILS % (MANUAL) 2 % (0-2); BILIRUBIN,DIRECT 0.2 mg/dL (0.0-0.4); BILIRUBIN,TOTAL 0.3 mg/dL (0.2-1.3); BLOOD UREA NITROGEN 11 mg/dL (7-20); CARBON DIOXIDE 21 mmol/L (22-30); CHLORIDE 111 mmol/L (98-107); EOSINOPHILS % (MANUAL) 1 % (0-6); GLUCOSE 138 mg/dL (75-110); LYMPHOCYTES % (MANUAL) 5 % (13-45); METAMYELOCYTES % (MANUAL) 1 % (0); MONOCYTES % (MANUAL) 3 % (3-13); POTASSIUM 3.5 mmol/L (3.6-5.0); SEGMENTED NEUTROPHILS % (MAN) 82 % (42-78); SODIUM 138.5 mmol/L (137-145); TOTAL CELLS COUNTED 100; TOTAL PROTEIN 4.6 g/dL (6.3-8.2)
[2017-07-26 11:26] LABS: ANISOCYTOSIS SLIGHT; OVALOCYTES 1+; PLATELET COMMENT ADEQUATE; POIKILOCYTOSIS 1+; TOXIC GRANULATION 2+
[2017-07-26] MEDS: TRIAMCINOLONE ACETONIDE 0.1% CREAM 15 GM TOP SCH ×3 (11:35→18:59)
[2017-07-26 11:41] LABS: CALCIUM 6.7 mg/dL (8.4-10.2)
[2017-07-26] MEDS: DOCUSATE SODIUM 100 MG CAPSULE PO SCH (11:42)
[2017-07-26] MEDS ORDERED: MAGNESIUM SULFATE 4 GM/100 ML RTUPB IV ONE (14:00)
[2017-07-26] MEDS: POTASSIUM CHLORIDE 10 MEQ TABLET.SA PO SCH ×3 (15:01→22:54)
--- NOTE | 2017-07-26 18:24 | PDOC PROGRESS REPORT ---
Subjective Progress Note for:: 07/26/17 Subjective:: Patient denies any complaints. Review of system All organ systems evaluated and negative except as seen subjective All significant laboratories and diagnostics have been reviewed Reason For Visit: SEPSIS UTI HYPOTENSION CKD ABD PAIN Physical Exam Vital Signs: Temp Pulse Resp BP Pulse Ox 99.2 F 96 20 135/58 H 95 07/26/17 04:05 07/26/17 04:05 07/26/17 04:05 07/26/17 04:05 07/26/17 04:05 Intake & Output 07/25/17 07/26/17 07/27/17 06:59 06:59 06:59 Intake Total 1675 1356 100 Output Total 1000 1100 100 Balance 675 256 0 Weight 123.1 kg 124.8 kg General appearance: PRESENT: cooperative, morbidly obese Head exam: PRESENT: atraumatic, normocephalic Eye exam: PRESENT: EOMI, PERRLA Ear exam: PRESENT: normal external ear exam Mouth exam: PRESENT: moist, neck supple Neck exam: PRESENT: full ROM. ABSENT: JVD, lymphadenopathy, tenderness Respiratory exam: PRESENT: crackles - Adequate movement of air Cardiovascular exam: PRESENT: RRR. ABSENT: diastolic murmur, systolic murmur Vascular exam: PRESENT: normal capillary refill GI/Abdominal exam: PRESENT: normal bowel sounds, soft. ABSENT: tenderness Extremities exam: PRESENT: full ROM. ABSENT: joint swelling, pedal edema Musculoskeletal exam: PRESENT: ambulatory Neurological exam: PRESENT: alert, awake, oriented to person, oriented to place , oriented to time, oriented to situation, CN II-XII grossly intact Psychiatric exam: PRESENT: appropriate affect, normal mood Skin exam: PRESENT: intact, normal color Results Laboratory Results: 07/24/17 04:30 07/24/17 04:30 07/25/17 18:30 Stool Occult Blood POSITIVE 07/20/17 16:50 Blood Blood Culture - Final NO GROWTH IN 5 DAYS 07/20/17 15:45 Blood Blood Culture - Final NO GROWTH IN 5 DAYS 07/20/17 07/24/17 10:20 04:30 Troponin I < 0.012 NT-Pro-B Natriuret Pep 9750 H Impressions: KUB X-Ray 07/19/17 00:00 IMPRESSION: NO RADIOGRAPHIC EVIDENCE FOR ACUTE ABDOMINAL DISEASE. Abdomen/Pelvis CT 07/20/17 00:00 IMPRESSION: 1. Wall thickening of the transverse colon, descending colon, sigmoid colon and rectum with adjacent inflammatory changes, most consistent with colitis and proctitis. 2. Moderate hiatal hernia. 3. Small ascites. 4. 3.2 cm cystic lesion at the right adnexa, unexpected finding for the patient 's age. This can be better evaluated with dedicated pelvic ultrasound. 5. Bibasilar atelectasis. Chest X-Ray 07/25/17 00:00 IMPRESSION: Increased consolidation in the left lung base. Assessment & Plan - Diagnosis (1) Septic shock Is this a current diagnosis for this admission?: Yes Plan: Resolved (2) Bacteremia Is this a current diagnosis for this admission?: Yes Plan: Blood cultures growing Staphyloccocus hemolyticus and Bacteroides fragilis. Will continue vancomycin and Zosyn for a total of 14 days. I do not think this patient has endocarditis since repeat blood cultures have been negative (3) UTI (urinary tract infection) Qualifiers: Hematuria presence: with hematuria Is this a current diagnosis for this admission?: Yes Plan: Due to E. coli. Continue Zosyn IV (4) Stasis dermatitis Qualifiers: Laterality: bilateral Qualified Code(s): I87.2 - Venous insufficiency ( chronic) (peripheral) Is this a current diagnosis for this admission?: Yes Plan: Continue triamcinolone topical to lower extremities (5) Acute kidney injury superimposed on CKD Is this a current diagnosis for this admission?: Yes Plan: Patient back to baseline discontinue IV fluids (6) Acute metabolic encephalopathy Is this a current diagnosis for this admission?: Yes Plan: Resolved (7) Anemia Qualifiers: Anemia type: unspecified type Qualified Code(s): D64.9 - Anemia, unspecified Is this a current diagnosis for this admission?: Yes Plan: Stable after 2 units of packed red blood cells and to trend since had infection with Staphylococcus hemolyticus. (8) Dehydration Is this a current diagnosis for this admission?: Yes Plan: Resolved discontinue IV fluids (9) Diabetes mellitus type 2 in obese Is this a current diagnosis for this admission?: Yes Plan: Continue present management (10) Atrial fibrillation Qualifiers: Atrial fibrillation type: paroxysmal Qualified Code(s): I48.0 - Paroxysmal atrial fibrillation Is this a current diagnosis for this admission?: Yes Plan: Rate controlled (11) Left pulmonary infiltrate on CXR Is this a current diagnosis for this admission?: Yes Plan: Order CT of the chest (12) Hypokalemia Is this a current diagnosis for this admission?: Yes Plan: Replace oral and trend (13) Hypomagnesemia Is this a current diagnosis for this admission?: Yes Plan: Replace IV and trend - Time Time Spent with patient: 15-24 minutes Medications reviewed and adjusted accordingly: Yes Anticipated discharge: Home with Homehealth Within: Other - Inpatient Certification Based on my medical assessment, after consideration of the patient's comorbidities, presenting symptoms, or acuity I expect that the services needed warrant INPATIENT care.: Yes I certify that my determination is in accordance with my understanding of Medicare's requirements for reasonable and necessary INPATIENT services [42 CFR 412.3e].: Yes Medical Necessity: Need Close Monitoring Due to Risk of Patient Decompensation, Need for IV Antibiotics
[2017-07-26] MEDS: VANCOMYCIN HCL 1,500 MG in DEXTROSE 5%-WATER 250 ML IV SCH (20:54)
[2017-07-26] MEDS: IPRATROPIUM/ALBUTEROL 0.5-2.5 MG/3 ML AMPUL NEB PRN (20:54)
[2017-07-26] MEDS ORDERED: PIPERACILLIN SODIUM/TAZOBACTAM 3.375 GM in NORMAL SALINE 100 ML IV SCH (21:00)
[2017-07-27] MEDS: PIPERACILLIN SODIUM/TAZOBACTAM 4.5 GM in NORMAL SALINE 100 ML IV SCH ×3 (02:47→14:18)
[2017-07-27] MEDS: HEPARIN SOD (PORCINE) 5,000 UNIT/ML 1 ML SYRINGE SUBCUT SCH ×2 (05:51→14:19)
[2017-07-27] MEDS: IPRATROPIUM/ALBUTEROL 0.5-2.5 MG/3 ML AMPUL NEB PRN (08:17)
[2017-07-27 10:34] LABS: HEMATOCRIT 31.3 % (36.0-47.0); HEMOGLOBIN 10.5 g/dL (12.0-15.5); MEAN CORPUSCULAR HGB CONC 33.5 g/dL (32.0-36.0); MEAN CORPUSCULAR VOLUME 90 fl (80-97); PLATELET COUNT 206 10^3/uL (150-450); RED BLOOD COUNT 3.49 10^6/uL (3.72-5.28); RED CELL DISTRIBUTION WIDTH 14.8 % (11.5-14.0); WHITE BLOOD COUNT 14.2 10^3/uL (4.0-10.5)
[2017-07-27 10:50] LABS: ALANINE AMINOTRANSFERASE 37 U/L (9-52); ALBUMIN 2.4 g/dL (3.5-5.0); ALKALINE PHOSPHATASE 78 U/L (38-126); ANION GAP 9 (5-19); ASPARTATE AMINO TRANSFERASE 48 U/L (14-36); BILIRUBIN,DIRECT 0.2 mg/dL (0.0-0.4); BILIRUBIN,TOTAL 0.2 mg/dL (0.2-1.3); BLOOD UREA NITROGEN 11 mg/dL (7-20); CARBON DIOXIDE 20 mmol/L (22-30); CHLORIDE 111 mmol/L (98-107); GLUCOSE 166 mg/dL (75-110); POTASSIUM 4.7 mmol/L (3.6-5.0); SODIUM 139.6 mmol/L (137-145); TOTAL PROTEIN 4.7 g/dL (6.3-8.2)
[2017-07-27 11:04] LABS: CALCIUM 6.8 mg/dL (8.4-10.2)
[2017-07-27 11:12] LABS: ABSOLUTE LYMPHOCYTES# (MANUAL) 1.1 10^3/uL (0.5-4.7); ABSOLUTE MONOCYTES # (MANUAL) 0.6 10^3/uL (0.1-1.4); ABSOLUTE NEUTROPHILS# (MANUAL) 12.4 10^3/uL (1.7-8.2); BAND NEUTROPHILS % (MANUAL) 4 % (3-5); BASOPHILS % (MANUAL) 0 % (0-2); EOSINOPHILS % (MANUAL) 1 % (0-6); LYMPHOCYTES % (MANUAL) 8 % (13-45); MONOCYTES % (MANUAL) 4 % (3-13); SEGMENTED NEUTROPHILS % (MAN) 80 % (42-78); TOTAL CELLS COUNTED 100
[2017-07-27 11:13] LABS: METAMYELOCYTES % (MANUAL) 3 % (0)
[2017-07-27] MEDS: DOCUSATE SODIUM 100 MG CAPSULE PO SCH (11:14)
[2017-07-27 11:15] LABS: ANISOCYTOSIS SLIGHT; BURR CELLS SLIGHT; PLATELET COMMENT ADEQUATE; POIKILOCYTOSIS SLIGHT; SCHISTOCYTES SLIGHT; TOXIC GRANULATION 3+; TOXIC VACUOLATION PRESENT
[2017-07-27] MEDS: TRIAMCINOLONE ACETONIDE 0.1% CREAM 15 GM TOP SCH ×3 (11:15→18:00)
[2017-07-27] MEDS ORDERED: CALCIUM GLUCONATE 1,000 MG in DEXTROSE 5%-WATER 50 ML IV ONE (12:36)
[2017-07-27] MEDS ORDERED: CALCIUM GLUCONATE 1000 MG/10 ML INJ IV ONE (13:15)
[2017-07-27] MEDS ORDERED: FUROSEMIDE INJ/PF 20 MG/2 ML SDV ONE (14:02)
[2017-07-27] MEDS ORDERED: FUROSEMIDE INJ/PF 20 MG/2 ML SDV IV ONE (14:15)
[2017-07-27] MEDS: INSULIN LISPRO 100 UNIT/ML 3 ML VIAL SUBCUT PRN (14:19)
--- NOTE | 2017-07-27 17:54 | PDOC PROGRESS REPORT ---
Subjective Progress Note for:: 07/27/17 Subjective:: Patient complains of slight shortness of breath Review of system All organ systems evaluated and negative except as seen subjective All significant laboratories and diagnostics have been reviewed Reason For Visit: SEPSIS UTI HYPOTENSION CKD ABD PAIN Physical Exam Vital Signs: Temp Pulse Resp BP Pulse Ox 98.9 F 88 20 119/51 L 99 07/27/17 07:46 07/27/17 07:46 07/27/17 07:46 07/27/17 07:46 07/27/17 07:46 Intake & Output 07/26/17 07/27/17 07/28/17 06:59 06:59 06:59 Intake Total 1356 2011 Output Total 1100 600 Balance 256 1412 Weight 124.8 kg 125.4 kg General appearance: PRESENT: cooperative, morbidly obese Head exam: PRESENT: atraumatic, normocephalic Eye exam: PRESENT: conjunctiva pink, EOMI, PERRLA Ear exam: PRESENT: normal external ear exam, TM's normal bilaterally Mouth exam: PRESENT: moist Neck exam: PRESENT: full ROM. ABSENT: JVD, lymphadenopathy Respiratory exam: PRESENT: crackles, decreased breath sounds Cardiovascular exam: PRESENT: irregular rhythm. ABSENT: diastolic murmur, RRR, systolic murmur Vascular exam: PRESENT: normal capillary refill GI/Abdominal exam: PRESENT: normal bowel sounds, soft. ABSENT: tenderness Extremities exam: PRESENT: full ROM, +2 edema. ABSENT: clubbing Musculoskeletal exam: ABSENT: ambulatory Neurological exam: PRESENT: alert, awake, oriented to person, oriented to place , oriented to time, oriented to situation, CN II-XII grossly intact Psychiatric exam: PRESENT: appropriate affect, normal mood Skin exam: PRESENT: other - Brownish discoloration of lower extremities Results Laboratory Results: 07/27/17 10:13 07/27/17 10:13 07/27/17 07/27/17 10:13 10:13 WBC 14.2 H RBC 3.49 L Hgb 10.5 L Hct 31.3 L MCV 90 MCH 30.0 MCHC 33.5 RDW 14.8 H Plt Count 206 Seg Neutrophils % Not Reportable Lymphocytes % Not Reportable Monocytes % Not Reportable Eosinophils % Not Reportable Basophils % Not Reportable Absolute Neutrophils Not Reportable Absolute Lymphocytes Not Reportable Absolute Monocytes Not Reportable Absolute Eosinophils Not Reportable Absolute Basophils Not Reportable Sodium 139.6 Potassium 4.7 Chloride 111 H Carbon Dioxide 20 L Anion Gap 9 BUN 11 Creatinine 1.31 H Est GFR ( Amer) 48 L Est GFR (Non-Af Amer) 39 L Glucose 166 H Calcium 6.8 L* Magnesium 1.7 Total Bilirubin 0.2 AST 48 H ALT 37 Alkaline Phosphatase 78 Total Protein 4.7 L Albumin 2.4 L 07/20/17 07/24/17 10:20 04:30 Troponin I < 0.012 NT-Pro-B Natriuret Pep 9750 H Impressions: KUB X-Ray 07/19/17 00:00 IMPRESSION: NO RADIOGRAPHIC EVIDENCE FOR ACUTE ABDOMINAL DISEASE. Abdomen/Pelvis CT 07/20/17 00:00 IMPRESSION: 1. Wall thickening of the transverse colon, descending colon, sigmoid colon and rectum with adjacent inflammatory changes, most consistent with colitis and proctitis. 2. Moderate hiatal hernia. 3. Small ascites. 4. 3.2 cm cystic lesion at the right adnexa, unexpected finding for the patient 's age. This can be better evaluated with dedicated pelvic ultrasound. 5. Bibasilar atelectasis. Chest X-Ray 07/25/17 00:00 IMPRESSION: Increased consolidation in the left lung base. Chest CT 07/26/17 00:00 IMPRESSION: Small to moderate bilateral pleural effusions Bilateral lower lobe airspace disease left greater than right Assessment & Plan - Diagnosis (1) Septic shock Is this a current diagnosis for this admission?: Yes Plan: Resolved (2) Bacteremia Is this a current diagnosis for this admission?: Yes Plan: Blood cultures growing Staphyloccocus hemolyticus and Bacteroides fragilis. Will continue vancomycin and Zosyn for a total of 14 days. I do not think this patient has endocarditis since repeat blood cultures have been negative (3) UTI (urinary tract infection) Qualifiers: Hematuria presence: with hematuria Is this a current diagnosis for this admission?: Yes Plan: Due to E. coli. Continue Zosyn IV (4) Stasis dermatitis Qualifiers: Laterality: bilateral Qualified Code(s): I87.2 - Venous insufficiency ( chronic) (peripheral) Is this a current diagnosis for this admission?: Yes Plan: Continue triamcinolone topical to lower extremities. Improving (5) Acute kidney injury superimposed on CKD Is this a current diagnosis for this admission?: Yes Plan: Patient back to baseline (6) Acute metabolic encephalopathy Is this a current diagnosis for this admission?: Yes Plan: Resolved (7) Anemia Qualifiers: Anemia type: unspecified type Qualified Code(s): D64.9 - Anemia, unspecified Is this a current diagnosis for this admission?: Yes Plan: Stable after 2 units of packed red blood cells and to trend since had infection with Staphylococcus hemolyticus. (8) Dehydration Is this a current diagnosis for this admission?: Yes Plan: Resolved (9) Diabetes mellitus type 2 in obese Is this a current diagnosis for this admission?: Yes Plan: Continue present management (10) Atrial fibrillation Qualifiers: Atrial fibrillation type: paroxysmal Qualified Code(s): I48.0 - Paroxysmal atrial fibrillation Is this a current diagnosis for this admission?: Yes Plan: Rate controlled (11) Left pulmonary infiltrate on CXR Is this a current diagnosis for this admission?: Yes Plan: Persisting. Will follow up for resolution (12) Hypokalemia Is this a current diagnosis for this admission?: Yes Plan: Replaced (13) Hypomagnesemia Is this a current diagnosis for this admission?: Yes Plan: Replaced (14) Hypocalcemia Is this a current diagnosis for this admission?: Yes Plan: Replace IV and trend (15) Bilateral pleural effusion Is this a current diagnosis for this admission?: Yes Plan: Start IV Lasix and will follow up response - Time Time Spent with patient: 15-24 minutes Medications reviewed and adjusted accordingly: Yes Anticipated discharge: Home with Homehealth Within: within 72 hours - Inpatient Certification Based on my medical assessment, after consideration of the patient's comorbidities, presenting symptoms, or acuity I expect that the services needed warrant INPATIENT care.: Yes I certify that my determination is in accordance with my understanding of Medicare's requirements for reasonable and necessary INPATIENT services [42 CFR 412.3e].: Yes Medical Necessity: Need Close Monitoring Due to Risk of Patient Decompensation - IV Lasix, Need for IV Antibiotics
[2017-07-27 20:26] LABS: VANCOMYCIN,TROUGH 22.9 ug/mL (5.0-20.0)
[2017-07-28] MEDS: HEPARIN SOD (PORCINE) 5,000 UNIT/ML 1 ML SYRINGE SUBCUT SCH ×3 (00:56→14:47)
[2017-07-28] MEDS: FUROSEMIDE INJ/PF 20 MG/2 ML SDV IV SCH ×3 (01:00→22:52)
[2017-07-28] MEDS: PIPERACILLIN SODIUM/TAZOBACTAM 4.5 GM in NORMAL SALINE 100 ML IV SCH ×5 (01:00→18:51)
[2017-07-28] MEDS: VANCOMYCIN HCL 1,500 MG in DEXTROSE 5%-WATER 250 ML IV SCH (01:33)
[2017-07-28 10:20] LABS: ABSOLUTE EOSINOPHILS # (AUTO) 0.3 10^3/uL (0.0-0.6); LYMPHOCYTES % (AUTO) 11.1 % (13-45); MEAN CORPUSCULAR VOLUME 90 fl (80-97); RED CELL DISTRIBUTION WIDTH 15.1 % (11.5-14.0); TOTAL CELLS COUNTED % (AUTO) 100 %
[2017-07-28 10:35] LABS: ABSOLUTE LYMPHOCYTES (AUTO) 1.5 10^3/uL (0.5-4.7); ABSOLUTE MONOCYTES (AUTO) 0.7 10^3/uL (0.1-1.4); ABSOLUTE NEUT (AUTO) 11.1 10^3/uL (1.7-8.2); BASOPHILS % (AUTO) 0.3 % (0-2); EOSINOPHILS % (AUTO) 2.4 % (0-6); HEMATOCRIT 31.8 % (36.0-47.0); HEMOGLOBIN 10.6 g/dL (12.0-15.5); MEAN CORPUSCULAR HEMOGLOBIN 29.9 pg (27.0-33.4); MEAN CORPUSCULAR HGB CONC 33.4 g/dL (32.0-36.0); MONOCYTES % (AUTO) 4.9 % (3-13); PLATELET COUNT 244 10^3/uL (150-450); RED BLOOD COUNT 3.54 10^6/uL (3.72-5.28); SEGMENTED NEUTROPHILS % (AUTO) 81.3 % (42-78); WHITE BLOOD COUNT 13.6 10^3/uL (4.0-10.5)
[2017-07-28 10:38] LABS: ALANINE AMINOTRANSFERASE 30 U/L (9-52); ALBUMIN 2.4 g/dL (3.5-5.0); ALKALINE PHOSPHATASE 76 U/L (38-126); ANION GAP 7 (5-19); ASPARTATE AMINO TRANSFERASE 46 U/L (14-36); BILIRUBIN,DIRECT 0.2 mg/dL (0.0-0.4); BILIRUBIN,TOTAL 0.2 mg/dL (0.2-1.3); BLOOD UREA NITROGEN 14 mg/dL (7-20); CALCIUM 7.1 mg/dL (8.4-10.2); CARBON DIOXIDE 24 mmol/L (22-30); CHLORIDE 108 mmol/L (98-107); GLUCOSE 105 mg/dL (75-110); POTASSIUM 4.9 mmol/L (3.6-5.0); SODIUM 138.6 mmol/L (137-145); TOTAL PROTEIN 4.9 g/dL (6.3-8.2)
[2017-07-28] MEDS: DOCUSATE SODIUM 100 MG CAPSULE PO SCH (11:13)
[2017-07-28] MEDS: TRIAMCINOLONE ACETONIDE 0.1% CREAM 15 GM TOP SCH ×3 (11:15→18:54)
[2017-07-28] MEDS: IPRATROPIUM/ALBUTEROL 0.5-2.5 MG/3 ML AMPUL NEB SCH ×2 (14:10→19:56)
[2017-07-28] MEDS ORDERED: OSELTAMIVIR PHOSPHATE 6 MG/1 ML SUSP 60 ML PO ONE (15:00)
--- NOTE | 2017-07-28 15:45 | PDOC PROGRESS REPORT ---
Subjective Progress Note for:: 07/28/17 Subjective:: Patient complains of slight shortness of breath Review of system All organ systems evaluated and negative except as seen subjective All significant laboratories and diagnostics have been reviewed Reason For Visit: SEPSIS UTI HYPOTENSION CKD ABD PAIN Physical Exam Vital Signs: Temp Pulse Resp BP Pulse Ox 98.0 F 86 16 110/56 L 98 07/27/17 12:34 07/28/17 02:00 07/27/17 18:00 07/27/17 12:34 07/27/17 18:00 Intake & Output 07/27/17 07/28/17 07/29/17 06:59 06:59 06:59 Intake Total 2012 400 Output Total 600 Balance 1412 400 Weight 125.4 kg 121.5 kg General appearance: PRESENT: cooperative, morbidly obese Head exam: PRESENT: atraumatic, normocephalic Eye exam: PRESENT: conjunctiva pink, EOMI, PERRLA Ear exam: PRESENT: normal external ear exam, TM's normal bilaterally Mouth exam: PRESENT: moist, neck supple Neck exam: PRESENT: full ROM. ABSENT: JVD, lymphadenopathy, tenderness Respiratory exam: PRESENT: crackles, decreased breath sounds Cardiovascular exam: PRESENT: irregular rhythm. ABSENT: diastolic murmur, systolic murmur Vascular exam: PRESENT: normal capillary refill GI/Abdominal exam: PRESENT: normal bowel sounds, soft. ABSENT: tenderness Extremities exam: PRESENT: full ROM, +1 edema Musculoskeletal exam: PRESENT: deformity Neurological exam: PRESENT: alert, awake, oriented to person, oriented to place , oriented to time, oriented to situation, CN II-XII grossly intact Psychiatric exam: PRESENT: appropriate affect, normal mood Skin exam: PRESENT: intact, normal color Results Laboratory Results: 07/27/17 10:13 07/27/17 10:13 07/27/17 07/27/17 10:13 10:13 WBC 14.2 H RBC 3.49 L Hgb 10.5 L Hct 31.3 L MCV 90 MCH 30.0 MCHC 33.5 RDW 14.8 H Plt Count 206 Seg Neutrophils % Not Reportable Lymphocytes % Not Reportable Monocytes % Not Reportable Eosinophils % Not Reportable Basophils % Not Reportable Absolute Neutrophils Not Reportable Absolute Lymphocytes Not Reportable Absolute Monocytes Not Reportable Absolute Eosinophils Not Reportable Absolute Basophils Not Reportable Sodium 139.6 Potassium 4.7 Chloride 111 H Carbon Dioxide 20 L Anion Gap 9 BUN 11 Creatinine 1.31 H Est GFR ( Amer) 48 L Est GFR (Non-Af Amer) 39 L Glucose 166 H Calcium 6.8 L* Magnesium 1.7 Total Bilirubin 0.2 AST 48 H ALT 37 Alkaline Phosphatase 78 Total Protein 4.7 L Albumin 2.4 L 07/20/17 07/24/17 10:20 04:30 Troponin I < 0.012 NT-Pro-B Natriuret Pep 9750 H Impressions: KUB X-Ray 07/19/17 00:00 IMPRESSION: NO RADIOGRAPHIC EVIDENCE FOR ACUTE ABDOMINAL DISEASE. Abdomen/Pelvis CT 07/20/17 00:00 IMPRESSION: 1. Wall thickening of the transverse colon, descending colon, sigmoid colon and rectum with adjacent inflammatory changes, most consistent with colitis and proctitis. 2. Moderate hiatal hernia. 3. Small ascites. 4. 3.2 cm cystic lesion at the right adnexa, unexpected finding for the patient 's age. This can be better evaluated with dedicated pelvic ultrasound. 5. Bibasilar atelectasis. Chest X-Ray 07/25/17 00:00 IMPRESSION: Increased consolidation in the left lung base. Chest CT 07/26/17 00:00 IMPRESSION: Small to moderate bilateral pleural effusions Bilateral lower lobe airspace disease left greater than right Assessment & Plan - Diagnosis (1) Septic shock Is this a current diagnosis for this admission?: Yes Plan: Resolved (2) Bacteremia Is this a current diagnosis for this admission?: Yes Plan: Blood cultures growing Staphyloccocus hemolyticus and Bacteroides fragilis. Will continue vancomycin and Zosyn for a total of 14 days. I do not think this patient has endocarditis since repeat blood cultures have been negative. Pharmacy to let me know stop date (3) UTI (urinary tract infection) Qualifiers: Hematuria presence: with hematuria Is this a current diagnosis for this admission?: Yes Plan: Continue Zosyn. Due to E. coli. (4) Stasis dermatitis Qualifiers: Laterality: bilateral Qualified Code(s): I87.2 - Venous insufficiency ( chronic) (peripheral) Is this a current diagnosis for this admission?: Yes Plan: Continue triamcinolone topical to lower extremities. Improving (5) Acute kidney injury superimposed on CKD Is this a current diagnosis for this admission?: Yes Plan: Patient back to baseline (6) Acute metabolic encephalopathy Is this a current diagnosis for this admission?: Yes Plan: Resolved (7) Anemia Qualifiers: Anemia type: unspecified type Qualified Code(s): D64.9 - Anemia, unspecified Is this a current diagnosis for this admission?: Yes Plan: Stable after 2 units of packed red blood cells and to trend since had infection with Staphylococcus hemolyticus. (8) Dehydration Is this a current diagnosis for this admission?: Yes Plan: Resolved (9) Diabetes mellitus type 2 in obese Is this a current diagnosis for this admission?: Yes Plan: Continue present management (10) Atrial fibrillation Qualifiers: Atrial fibrillation type: paroxysmal Qualified Code(s): I48.0 - Paroxysmal atrial fibrillation Is this a current diagnosis for this admission?: Yes Plan: Rate controlled to start Eliquis (11) Left pulmonary infiltrate on CXR Is this a current diagnosis for this admission?: Yes Plan: Persisting. Will follow up for resolution (12) Hypokalemia Is this a current diagnosis for this admission?: Yes Plan: Replaced (13) Hypomagnesemia Is this a current diagnosis for this admission?: Yes Plan: Replaced (14) Hypocalcemia Is this a current diagnosis for this admission?: Yes Plan: Replace IV and oral. To trend (15) Bilateral pleural effusion Is this a current diagnosis for this admission?: Yes Plan: Continue Lasix IV. Order cxr in AM (16) Viral syndrome Is this a current diagnosis for this admission?: Yes Plan: Patient having sniffles and cough. Will place on Tamiflu - Time Time Spent with patient: 15-24 minutes Medications reviewed and adjusted accordingly: Yes Anticipated discharge: Home with Homehealth Within: within 72 hours - Inpatient Certification Based on my medical assessment, after consideration of the patient's comorbidities, presenting symptoms, or acuity I expect that the services needed warrant INPATIENT care.: Yes I certify that my determination is in accordance with my understanding of Medicare's requirements for reasonable and necessary INPATIENT services [42 CFR 412.3e].: Yes Medical Necessity: Need Close Monitoring Due to Risk of Patient Decompensation, Need for IV Antibiotics
[2017-07-28] MEDS ORDERED: CALCIUM GLUCONATE 1000 MG/10 ML INJ IV ONE (17:00)
[2017-07-28] MEDS ORDERED: OSELTAMIVIR PHOSPHATE 75 MG CAPSULE PO SCH (18:00)
[2017-07-28 18:28] LABS: VANCOMYCIN,TROUGH 17.2 ug/mL (5.0-20.0)
[2017-07-28] MEDS: MAGNESIUM OXIDE 400 MG TABLET PO SCH (18:51)
[2017-07-28] MEDS: MAGNESIUM SULFATE/D5W 1 GM/100 ML RTUPB IV SCH ×3 (18:51→22:52)
[2017-07-28] MEDS: CALCIUM CARBONATE 250 MG/VITAMIN D3 125 UNIT TABLET PO SCH (18:51)
[2017-07-28] MEDS: APIXABAN 5 MG TABLET PO SCH (18:52)
[2017-07-28] MEDS: BUDESONIDE NEB 0.5 MG/2 ML AMPUL NEB SCH (19:56)
[2017-07-28] MEDS ORDERED: OSELTAMIVIR PHOSPHATE 6 MG/1 ML SUSP 60 ML PO SCH (22:00)
[2017-07-29] MEDS: PIPERACILLIN SODIUM/TAZOBACTAM 4.5 GM in NORMAL SALINE 100 ML IV SCH ×4 (00:59→18:20)
[2017-07-29] MEDS ORDERED: OSELTAMIVIR PHOSPHATE 75 MG CAPSULE ONE (03:11)
[2017-07-29] MEDS ORDERED: OSELTAMIVIR PHOSPHATE 75 MG CAPSULE PO ONE (04:45)
[2017-07-29] MEDS: IPRATROPIUM/ALBUTEROL 0.5-2.5 MG/3 ML AMPUL NEB SCH ×3 (07:34→19:37)
[2017-07-29] MEDS: BUDESONIDE NEB 0.5 MG/2 ML AMPUL NEB SCH ×2 (07:34→19:37)
[2017-07-29] MEDS: OSELTAMIVIR PHOSPHATE 6 MG/1 ML SUSP 60 ML PO SCH ×2 (09:55→22:10)
[2017-07-29] MEDS: VANCOMYCIN HCL 1,000 MG in DEXTROSE 5%-WATER 250 ML IV SCH (09:55)
[2017-07-29] MEDS: APIXABAN 5 MG TABLET PO SCH ×2 (09:56→18:02)
[2017-07-29] MEDS: MAGNESIUM OXIDE 400 MG TABLET PO SCH ×2 (09:56→18:02)
[2017-07-29] MEDS: FUROSEMIDE INJ/PF 20 MG/2 ML SDV IV SCH ×2 (09:56→22:10)
[2017-07-29] MEDS: CALCIUM CARBONATE 250 MG/VITAMIN D3 125 UNIT TABLET PO SCH ×2 (09:56→18:01)
[2017-07-29] MEDS: TRIAMCINOLONE ACETONIDE 0.1% CREAM 15 GM TOP SCH ×3 (09:57→18:20)
[2017-07-29] MEDS: DOCUSATE SODIUM 100 MG CAPSULE PO SCH (09:57)
[2017-07-29] MEDS ORDERED: OSELTAMIVIR PHOSPHATE 75 MG CAPSULE PO SCH ×3 (10:00)
--- NOTE | 2017-07-29 12:04 | PDOC PROGRESS REPORT ---
Subjective Progress Note for:: 07/29/17 Subjective:: Patient refers that cough is better. Otherwise no other complaints Review of system All organ systems evaluated and negative except as seen subjective All significant laboratories and diagnostics have been reviewed Reason For Visit: SEPSIS UTI HYPOTENSION CKD ABD PAIN Physical Exam Vital Signs: Temp Pulse Resp BP Pulse Ox 98.2 F 80 22 H 113/57 L 98 07/29/17 04:08 07/29/17 04:08 07/29/17 04:08 07/29/17 04:08 07/29/17 04:08 Intake & Output 07/28/17 07/29/17 07/30/17 06:59 06:59 06:59 Intake Total 400 220 Balance 400 220 Weight 121.5 kg 117.4 kg General appearance: PRESENT: cooperative, morbidly obese Head exam: PRESENT: atraumatic, normocephalic Eye exam: PRESENT: conjunctiva pink, EOMI, PERRLA Ear exam: PRESENT: normal external ear exam, TM's normal bilaterally Mouth exam: PRESENT: moist Neck exam: PRESENT: full ROM. ABSENT: JVD, lymphadenopathy, tenderness Respiratory exam: PRESENT: other - Adequate movement of air with bilateral basilar crackles Cardiovascular exam: PRESENT: irregular rhythm, systolic murmur. ABSENT: diastolic murmur Vascular exam: PRESENT: normal capillary refill GI/Abdominal exam: PRESENT: normal bowel sounds, soft. ABSENT: tenderness Extremities exam: PRESENT: full ROM, +2 edema Musculoskeletal exam: PRESENT: ambulatory Neurological exam: PRESENT: alert, awake, oriented to person, oriented to place , oriented to time, oriented to situation, CN II-XII grossly intact Psychiatric exam: PRESENT: appropriate affect, normal mood Skin exam: PRESENT: intact, normal color Results Laboratory Results: 07/28/17 09:48 07/28/17 09:48 07/28/17 07/28/17 09:48 09:48 WBC 13.6 H RBC 3.54 L Hgb 10.6 L Hct 31.8 L MCV 90 MCH 29.9 MCHC 33.4 RDW 15.1 H Plt Count 244 Seg Neutrophils % 81.3 H Lymphocytes % 11.1 L Monocytes % 4.9 Eosinophils % 2.4 Basophils % 0.3 Absolute Neutrophils 11.1 H Absolute Lymphocytes 1.5 Absolute Monocytes 0.7 Absolute Eosinophils 0.3 Absolute Basophils 0.0 Sodium 138.6 Potassium 4.9 Chloride 108 H Carbon Dioxide 24 Anion Gap 7 BUN 14 Creatinine 1.39 H Est GFR ( Amer) 44 L Est GFR (Non-Af Amer) 37 L Glucose 105 Calcium 7.1 L Magnesium 1.4 L Total Bilirubin 0.2 AST 46 H ALT 30 Alkaline Phosphatase 76 Total Protein 4.9 L Albumin 2.4 L 07/20/17 07/24/17 10:20 04:30 Troponin I < 0.012 NT-Pro-B Natriuret Pep 9750 H Impressions: KUB X-Ray 07/19/17 00:00 IMPRESSION: NO RADIOGRAPHIC EVIDENCE FOR ACUTE ABDOMINAL DISEASE. Abdomen/Pelvis CT 07/20/17 00:00 IMPRESSION: 1. Wall thickening of the transverse colon, descending colon, sigmoid colon and rectum with adjacent inflammatory changes, most consistent with colitis and proctitis. 2. Moderate hiatal hernia. 3. Small ascites. 4. 3.2 cm cystic lesion at the right adnexa, unexpected finding for the patient 's age. This can be better evaluated with dedicated pelvic ultrasound. 5. Bibasilar atelectasis. Chest X-Ray 07/25/17 00:00 IMPRESSION: Increased consolidation in the left lung base. Chest CT 07/26/17 00:00 IMPRESSION: Small to moderate bilateral pleural effusions Bilateral lower lobe airspace disease left greater than right Assessment & Plan - Diagnosis (1) Septic shock Is this a current diagnosis for this admission?: Yes Plan: Resolved (2) Bacteremia Is this a current diagnosis for this admission?: Yes Plan: Blood cultures growing Staphyloccocus hemolyticus and Bacteroides fragilis. Will continue vancomycin and Zosyn for a total of 14 days. I do not think this patient has endocarditis since repeat blood cultures have been negative. Pharmacy to let me know stop date. Will order another set of blood cultures (3) UTI (urinary tract infection) Qualifiers: Hematuria presence: with hematuria Is this a current diagnosis for this admission?: Yes Plan: Continue Zosyn. Due to E. coli. (4) Stasis dermatitis Qualifiers: Laterality: bilateral Qualified Code(s): I87.2 - Venous insufficiency ( chronic) (peripheral) Is this a current diagnosis for this admission?: Yes Plan: Continue triamcinolone topical to lower extremities. Improving (5) Acute kidney injury superimposed on CKD Is this a current diagnosis for this admission?: Yes Plan: Patient back to baseline. Trend (6) Acute metabolic encephalopathy Is this a current diagnosis for this admission?: Yes Plan: Resolved (7) Anemia Qualifiers: Anemia type: unspecified type Qualified Code(s): D64.9 - Anemia, unspecified Is this a current diagnosis for this admission?: Yes Plan: Stable after 2 units of packed red blood cells and to trend since had infection with Staphylococcus hemolyticus. (8) Dehydration Is this a current diagnosis for this admission?: Yes Plan: Resolved (9) Diabetes mellitus type 2 in obese Is this a current diagnosis for this admission?: Yes Plan: Continue present management (10) Atrial fibrillation Qualifiers: Atrial fibrillation type: paroxysmal Qualified Code(s): I48.0 - Paroxysmal atrial fibrillation Is this a current diagnosis for this admission?: Yes Plan: Rate controlled. Continue eliquis (11) Left pulmonary infiltrate on CXR Is this a current diagnosis for this admission?: Yes Plan: Persisting. Will order cxr for resolution (12) Hypokalemia Is this a current diagnosis for this admission?: Yes Plan: Replaced (13) Hypomagnesemia Is this a current diagnosis for this admission?: Yes Plan: Replaced. Trend (14) Hypocalcemia Is this a current diagnosis for this admission?: Yes Plan: Replaced IV and oral. To trend (15) Bilateral pleural effusion Is this a current diagnosis for this admission?: Yes Plan: Continue Lasix IV. Order cxr today (16) Viral syndrome Is this a current diagnosis for this admission?: Yes Plan: Continue tamiflu - Time Time Spent with patient: 15-24 minutes Medications reviewed and adjusted accordingly: Yes Anticipated discharge: Home with Homehealth Within: within 72 hours - Inpatient Certification Based on my medical assessment, after consideration of the patient's comorbidities, presenting symptoms, or acuity I expect that the services needed warrant INPATIENT care.: Yes I certify that my determination is in accordance with my understanding of Medicare's requirements for reasonable and necessary INPATIENT services [42 CFR 412.3e].: Yes Medical Necessity: Need Close Monitoring Due to Risk of Patient Decompensation, Need For Continuous Telemetry Monitoring, Need for IV Antibiotics
--- NOTE | 2017-07-29 13:18 | RADIOLOGY REPORT (SQ) ---
EXAM DESCRIPTION: CHEST PA/LAT COMPLETED DATE/TIME: 07/29/2017 12:51 pm REASON FOR STUDY: follow up pleural effusions COMPARISON: 07/25/2017. EXAM PARAMETERS: NUMBER OF VIEWS: two views TECHNIQUE: Digital Frontal and Lateral radiographic views of the chest acquired. RADIATION DOSE: NA LIMITATIONS: none FINDINGS: LUNGS AND PLEURA: Improved aeration in the left lung base with decrease in the left pleura l effusion. Right lung relatively clear. MEDIASTINUM AND HILAR STRUCTURES: No masses or contour abnormalities. HEART AND VASCULAR STRUCTURES: Heart normal size. No evidence for failure. BONES: No acute findings. HARDWARE: None in the chest. OTHER: No other significant finding. IMPRESSION: IMPROVED AERATION IN THE LEFT LUNG BASE WITH DECREASE IN THE LEFT PLEURAL EFFUSION. TECHNICAL DOCUMENTATION: JOB ID: [id number] [employer]- All Rights Reserved
[2017-07-29 16:34] LABS: HEMATOCRIT 31.2 % (36.0-47.0); HEMOGLOBIN 10.5 g/dL (12.0-15.5); MEAN CORPUSCULAR HEMOGLOBIN 30.2 pg (27.0-33.4); MEAN CORPUSCULAR HGB CONC 33.5 g/dL (32.0-36.0); MEAN CORPUSCULAR VOLUME 90 fl (80-97); PLATELET COUNT 281 10^3/uL (150-450); RED BLOOD COUNT 3.46 10^6/uL (3.72-5.28); RED CELL DISTRIBUTION WIDTH 15.2 % (11.5-14.0); WHITE BLOOD COUNT 10.3 10^3/uL (4.0-10.5)
[2017-07-29 16:52] LABS: ABSOLUTE LYMPHOCYTES# (MANUAL) 1.6 10^3/uL (0.5-4.7); ABSOLUTE MONOCYTES # (MANUAL) 0.3 10^3/uL (0.1-1.4); ABSOLUTE NEUTROPHILS# (MANUAL) 8.3 10^3/uL (1.7-8.2); BAND NEUTROPHILS % (MANUAL) 2 % (3-5); BASOPHILS % (MANUAL) 0 % (0-2); EOSINOPHILS % (MANUAL) 0 % (0-6); LYMPHOCYTES % (MANUAL) 16 % (13-45); MONOCYTES % (MANUAL) 3 % (3-13); SEGMENTED NEUTROPHILS % (MAN) 79 % (42-78); TOTAL CELLS COUNTED 100
[2017-07-29 16:53] LABS: ANISOCYTOSIS SLIGHT; PLATELET COMMENT ADEQUATE; POLYCHROMASIA SLIGHT; TOXIC GRANULATION SLIGHT
[2017-07-29 16:56] LABS: ALANINE AMINOTRANSFERASE 32 U/L (9-52); ALBUMIN 2.6 g/dL (3.5-5.0); ALKALINE PHOSPHATASE 88 U/L (38-126); ANION GAP 8 (5-19); ASPARTATE AMINO TRANSFERASE 37 U/L (14-36); BILIRUBIN,DIRECT 0.2 mg/dL (0.0-0.4); BILIRUBIN,TOTAL 0.2 mg/dL (0.2-1.3); BLOOD UREA NITROGEN 18 mg/dL (7-20); CALCIUM 7.5 mg/dL (8.4-10.2); CARBON DIOXIDE 28 mmol/L (22-30); CHLORIDE 103 mmol/L (98-107); GLUCOSE 176 mg/dL (75-110); POTASSIUM 4.1 mmol/L (3.6-5.0); SODIUM 138.5 mmol/L (137-145); TOTAL PROTEIN 5.1 g/dL (6.3-8.2)
[2017-07-30] MEDS: PIPERACILLIN SODIUM/TAZOBACTAM 4.5 GM in NORMAL SALINE 100 ML IV SCH ×4 (00:04→18:48)
[2017-07-30] MEDS: IPRATROPIUM/ALBUTEROL 0.5-2.5 MG/3 ML AMPUL NEB SCH ×3 (08:00→19:30)
[2017-07-30] MEDS: BUDESONIDE NEB 0.5 MG/2 ML AMPUL NEB SCH ×2 (08:00→19:29)
[2017-07-30] MEDS: FUROSEMIDE INJ/PF 20 MG/2 ML SDV IV SCH ×2 (09:38→22:22)
[2017-07-30] MEDS: VANCOMYCIN HCL 1,000 MG in DEXTROSE 5%-WATER 250 ML IV SCH (09:38)
[2017-07-30] MEDS: CALCIUM CARBONATE 250 MG/VITAMIN D3 125 UNIT TABLET PO SCH ×2 (09:39→18:47)
[2017-07-30] MEDS: MAGNESIUM OXIDE 400 MG TABLET PO SCH ×2 (09:39→18:47)
[2017-07-30] MEDS: APIXABAN 5 MG TABLET PO SCH ×2 (09:39→18:47)
[2017-07-30] MEDS: OSELTAMIVIR PHOSPHATE 6 MG/1 ML SUSP 60 ML PO SCH ×2 (09:40→22:22)
[2017-07-30] MEDS: TRIAMCINOLONE ACETONIDE 0.1% CREAM 15 GM TOP SCH ×3 (09:40→18:47)
[2017-07-30] MEDS: DOCUSATE SODIUM 100 MG CAPSULE PO SCH (09:41)
[2017-07-30] MEDS: INSULIN LISPRO 100 UNIT/ML 3 ML VIAL SUBCUT PRN ×2 (14:52→22:22)
--- NOTE | 2017-07-30 17:07 | PDOC PROGRESS REPORT ---
Subjective Progress Note for:: 07/30/17 Subjective:: No complaints voiced today Review of system All organ systems evaluated and negative except as seen subjective All significant laboratories and diagnostics have been reviewed Reason For Visit: SEPSIS UTI HYPOTENSION CKD ABD PAIN Physical Exam Vital Signs: Temp Pulse Resp BP Pulse Ox 98.7 F 88 18 125/55 L 100 07/30/17 03:50 07/30/17 03:50 07/30/17 03:50 07/30/17 03:50 07/30/17 03:50 Intake & Output 07/29/17 07/30/17 07/31/17 06:59 06:59 06:59 Intake Total 220 120 Balance 220 120 Weight 117.4 kg 116.9 kg General appearance: PRESENT: cooperative, morbidly obese Head exam: PRESENT: atraumatic, normocephalic Eye exam: PRESENT: EOMI, PERRLA Ear exam: PRESENT: normal external ear exam Mouth exam: PRESENT: moist Teeth exam: PRESENT: poor dentation Neck exam: PRESENT: full ROM. ABSENT: JVD, lymphadenopathy, tenderness Respiratory exam: PRESENT: other - Adequate movement of air with soft basilar crackles Cardiovascular exam: PRESENT: RRR. ABSENT: diastolic murmur, systolic murmur Vascular exam: PRESENT: normal capillary refill GI/Abdominal exam: PRESENT: normal bowel sounds, soft. ABSENT: tenderness Extremities exam: PRESENT: full ROM, +1 edema Musculoskeletal exam: PRESENT: ambulatory Neurological exam: PRESENT: alert, awake, oriented to person, oriented to place , oriented to time, oriented to situation, CN II-XII grossly intact Psychiatric exam: PRESENT: appropriate affect, normal mood Skin exam: PRESENT: intact, normal color Results Laboratory Results: 07/29/17 16:25 07/29/17 16:25 07/29/17 07/29/17 16:25 16:25 WBC 10.3 RBC 3.46 L Hgb 10.5 L Hct 31.2 L MCV 90 MCH 30.2 MCHC 33.5 RDW 15.2 H Plt Count 281 Seg Neutrophils % Not Reportable Lymphocytes % Not Reportable Monocytes % Not Reportable Eosinophils % Not Reportable Basophils % Not Reportable Absolute Neutrophils Not Reportable Absolute Lymphocytes Not Reportable Absolute Monocytes Not Reportable Absolute Eosinophils Not Reportable Absolute Basophils Not Reportable Sodium 138.5 Potassium 4.1 Chloride 103 Carbon Dioxide 28 Anion Gap 8 BUN 18 Creatinine 1.51 H Est GFR ( Amer) 40 L Est GFR (Non-Af Amer) 33 L Glucose 176 H Calcium 7.5 L Magnesium 1.6 Total Bilirubin 0.2 AST 37 H ALT 32 Alkaline Phosphatase 88 Total Protein 5.1 L Albumin 2.6 L 07/24/17 14:56 Blood Blood Culture - Final NO GROWTH IN 5 DAYS 07/24/17 12:55 Blood Blood Culture - Final NO GROWTH IN 5 DAYS 07/20/17 07/24/17 10:20 04:30 Troponin I < 0.012 NT-Pro-B Natriuret Pep 9750 H Impressions: KUB X-Ray 07/19/17 00:00 IMPRESSION: NO RADIOGRAPHIC EVIDENCE FOR ACUTE ABDOMINAL DISEASE. Abdomen/Pelvis CT 07/20/17 00:00 IMPRESSION: 1. Wall thickening of the transverse colon, descending colon, sigmoid colon and rectum with adjacent inflammatory changes, most consistent with colitis and proctitis. 2. Moderate hiatal hernia. 3. Small ascites. 4. 3.2 cm cystic lesion at the right adnexa, unexpected finding for the patient 's age. This can be better evaluated with dedicated pelvic ultrasound. 5. Bibasilar atelectasis. Chest CT 07/26/17 00:00 IMPRESSION: Small to moderate bilateral pleural effusions Bilateral lower lobe airspace disease left greater than right Chest X-Ray 07/29/17 00:00 IMPRESSION: IMPROVED AERATION IN THE LEFT LUNG BASE WITH DECREASE IN THE LEFT PLEURAL EFFUSION. Assessment & Plan - Diagnosis (1) Septic shock Is this a current diagnosis for this admission?: Yes Plan: Resolved (2) Bacteremia Is this a current diagnosis for this admission?: Yes Plan: Blood cultures growing Staphyloccocus hemolyticus and Bacteroides fragilis. Will continue vancomycin and Zosyn for a total of 14 days. Last dose to be administered on 08/04. I do not think this patient has endocarditis since repeat blood cultures have been negative. (3) UTI (urinary tract infection) Qualifiers: Hematuria presence: with hematuria Is this a current diagnosis for this admission?: Yes Plan: Continue Zosyn. Due to E. coli. (4) Stasis dermatitis Qualifiers: Laterality: bilateral Qualified Code(s): I87.2 - Venous insufficiency ( chronic) (peripheral) Is this a current diagnosis for this admission?: Yes Plan: Continue triamcinolone topical to lower extremities. Improving (5) Acute kidney injury superimposed on CKD Is this a current diagnosis for this admission?: Yes Plan: Patient back to baseline. Trend (6) Acute metabolic encephalopathy Is this a current diagnosis for this admission?: Yes Plan: Resolved (7) Anemia Qualifiers: Anemia type: unspecified type Qualified Code(s): D64.9 - Anemia, unspecified Is this a current diagnosis for this admission?: Yes Plan: Stable after 2 units of packed red blood cells and to trend since had infection with Staphylococcus hemolyticus. (8) Dehydration Is this a current diagnosis for this admission?: Yes Plan: Resolved (9) Diabetes mellitus type 2 in obese Is this a current diagnosis for this admission?: Yes Plan: Continue present management (10) Atrial fibrillation Qualifiers: Atrial fibrillation type: paroxysmal Qualified Code(s): I48.0 - Paroxysmal atrial fibrillation Is this a current diagnosis for this admission?: Yes Plan: Normal sinus. Continue eliquis (11) Left pulmonary infiltrate on CXR Is this a current diagnosis for this admission?: Yes Plan: Resolved (12) Hypokalemia Is this a current diagnosis for this admission?: Yes Plan: Replaced (13) Hypomagnesemia Is this a current diagnosis for this admission?: Yes Plan: Replaced. Trend (14) Hypocalcemia Is this a current diagnosis for this admission?: Yes Plan: Replaced. Trend (15) Bilateral pleural effusion Is this a current diagnosis for this admission?: Yes Plan: Continue Lasix IV. Order cxr today (16) Viral syndrome Is this a current diagnosis for this admission?: Yes Plan: Continue tamiflu - Time Time Spent with patient: 15-24 minutes Medications reviewed and adjusted accordingly: Yes Anticipated discharge: Home with Homehealth Within: Other - Patient will finalize IV antibiotic therapy on August 04 - Inpatient Certification Based on my medical assessment, after consideration of the patient's comorbidities, presenting symptoms, or acuity I expect that the services needed warrant INPATIENT care.: Yes I certify that my determination is in accordance with my understanding of Medicare's requirements for reasonable and necessary INPATIENT services [42 CFR 412.3e].: Yes Medical Necessity: Need Close Monitoring Due to Risk of Patient Decompensation, Need for IV Antibiotics
[2017-07-31] MEDS: PIPERACILLIN SODIUM/TAZOBACTAM 4.5 GM in NORMAL SALINE 100 ML IV SCH ×4 (01:14→18:29)
[2017-07-31 06:21] LABS: ALANINE AMINOTRANSFERASE 35 U/L (9-52); ALBUMIN 2.5 g/dL (3.5-5.0); ALKALINE PHOSPHATASE 88 U/L (38-126); ANION GAP 6 (5-19); ASPARTATE AMINO TRANSFERASE 45 U/L (14-36); BILIRUBIN,DIRECT 0.5 mg/dL (0.0-0.4); BILIRUBIN,TOTAL 0.5 mg/dL (0.2-1.3); BLOOD UREA NITROGEN 21 mg/dL (7-20); CALCIUM 7.8 mg/dL (8.4-10.2); CARBON DIOXIDE 31 mmol/L (22-30); CHLORIDE 99 mmol/L (98-107); GLUCOSE 124 mg/dL (75-110); POTASSIUM 4.7 mmol/L (3.6-5.0); SODIUM 135.5 mmol/L (137-145); TOTAL PROTEIN 5.3 g/dL (6.3-8.2)
[2017-07-31 06:27] LABS: ABSOLUTE EOSINOPHILS # (AUTO) 0.2 10^3/uL (0.0-0.6); ABSOLUTE LYMPHOCYTES (AUTO) 1.5 10^3/uL (0.5-4.7); ABSOLUTE MONOCYTES (AUTO) 0.6 10^3/uL (0.1-1.4); ABSOLUTE NEUT (AUTO) 6.7 10^3/uL (1.7-8.2); BASOPHILS % (AUTO) 0.3 % (0-2); EOSINOPHILS % (AUTO) 2.5 % (0-6); HEMATOCRIT 29.3 % (36.0-47.0); HEMOGLOBIN 10.1 g/dL (12.0-15.5); LYMPHOCYTES % (AUTO) 16.3 % (13-45); MEAN CORPUSCULAR HEMOGLOBIN 30.6 pg (27.0-33.4); MEAN CORPUSCULAR HGB CONC 34.4 g/dL (32.0-36.0); MEAN CORPUSCULAR VOLUME 89 fl (80-97); MONOCYTES % (AUTO) 7.1 % (3-13); PLATELET COUNT 303 10^3/uL (150-450); RED BLOOD COUNT 3.29 10^6/uL (3.72-5.28); RED CELL DISTRIBUTION WIDTH 14.7 % (11.5-14.0); SEGMENTED NEUTROPHILS % (AUTO) 73.8 % (42-78); TOTAL CELLS COUNTED % (AUTO) 100 %; WHITE BLOOD COUNT 9.1 10^3/uL (4.0-10.5)
[2017-07-31] MEDS ORDERED: MAGNESIUM SULFATE 4 GM/100 ML RTUPB IV ONE (07:30)
[2017-07-31] MEDS: BUDESONIDE NEB 0.5 MG/2 ML AMPUL NEB SCH ×2 (07:40→20:32)
[2017-07-31] MEDS: IPRATROPIUM/ALBUTEROL 0.5-2.5 MG/3 ML AMPUL NEB SCH ×3 (07:41→20:32)
[2017-07-31] MEDS: CALCIUM CARBONATE 250 MG/VITAMIN D3 125 UNIT TABLET PO SCH ×2 (11:24→18:28)
[2017-07-31] MEDS: MAGNESIUM OXIDE 400 MG TABLET PO SCH ×2 (11:24→18:28)
[2017-07-31] MEDS: FUROSEMIDE INJ/PF 20 MG/2 ML SDV IV SCH ×2 (11:24→22:10)
[2017-07-31] MEDS: APIXABAN 5 MG TABLET PO SCH ×2 (11:24→18:29)
[2017-07-31] MEDS: VANCOMYCIN HCL 1,000 MG in DEXTROSE 5%-WATER 250 ML IV SCH (11:25)
[2017-07-31] MEDS: OSELTAMIVIR PHOSPHATE 6 MG/1 ML SUSP 60 ML PO SCH ×2 (11:25→22:10)
[2017-07-31] MEDS: TRIAMCINOLONE ACETONIDE 0.1% CREAM 15 GM TOP SCH ×3 (11:26→18:29)
[2017-07-31] MEDS: DOCUSATE SODIUM 100 MG CAPSULE PO SCH (11:26)
[2017-07-31 13:30] LABS: VANCOMYCIN,TROUGH 19.7 ug/mL (5.0-20.0)
--- NOTE | 2017-07-31 14:15 | PDOC PROGRESS REPORT ---
Subjective Progress Note for:: 07/31/17 Subjective:: Patient complains of being slightly wheezy today. Otherwise states that she has been able to ambulate even outside the room Review of system All organ systems evaluated and negative except as seen subjective All significant laboratories and diagnostics have been reviewed Reason For Visit: SEPSIS UTI HYPOTENSION CKD ABD PAIN Physical Exam Vital Signs: Temp Pulse Resp BP Pulse Ox 98.1 F 82 20 118/64 100 07/31/17 03:29 07/31/17 03:29 07/31/17 03:29 07/31/17 03:29 07/31/17 03:29 Intake & Output 07/30/17 07/31/17 08/01/17 06:59 06:59 06:59 Intake Total 120 911 Balance 120 911 Weight 116.9 kg 113 kg General appearance: PRESENT: cooperative, morbidly obese Head exam: PRESENT: atraumatic, normocephalic Eye exam: PRESENT: conjunctiva pink, EOMI, PERRLA Mouth exam: PRESENT: moist Neck exam: PRESENT: full ROM. ABSENT: JVD, lymphadenopathy - Soft basilar crackles and wheezes, tenderness Cardiovascular exam: PRESENT: RRR. ABSENT: diastolic murmur, systolic murmur Vascular exam: PRESENT: normal capillary refill GI/Abdominal exam: PRESENT: normal bowel sounds, soft. ABSENT: tenderness Extremities exam: PRESENT: full ROM, +2 edema Musculoskeletal exam: PRESENT: ambulatory Neurological exam: PRESENT: alert, awake, oriented to person, oriented to place , oriented to time, oriented to situation, CN II-XII grossly intact Psychiatric exam: PRESENT: appropriate affect, normal mood Skin exam: PRESENT: intact, normal color Results Laboratory Results: 07/31/17 05:13 07/31/17 05:13 07/31/17 07/31/17 05:13 05:13 WBC 9.1 RBC 3.29 L Hgb 10.1 L Hct 29.3 L MCV 89 MCH 30.6 MCHC 34.4 RDW 14.7 H Plt Count 303 Seg Neutrophils % 73.8 Lymphocytes % 16.3 Monocytes % 7.1 Eosinophils % 2.5 Basophils % 0.3 Absolute Neutrophils 6.7 Absolute Lymphocytes 1.5 Absolute Monocytes 0.6 Absolute Eosinophils 0.2 Absolute Basophils 0.0 Sodium 135.5 L Potassium 4.7 Chloride 99 Carbon Dioxide 31 H Anion Gap 6 BUN 21 H Creatinine 1.59 H Est GFR ( Amer) 38 L Est GFR (Non-Af Amer) 31 L Glucose 124 H Calcium 7.8 L Magnesium 1.2 L* Total Bilirubin 0.5 AST 45 H ALT 35 Alkaline Phosphatase 88 Total Protein 5.3 L Albumin 2.5 L 07/20/17 07/24/17 10:20 04:30 Troponin I < 0.012 NT-Pro-B Natriuret Pep 9750 H Impressions: KUB X-Ray 07/19/17 00:00 IMPRESSION: NO RADIOGRAPHIC EVIDENCE FOR ACUTE ABDOMINAL DISEASE. Abdomen/Pelvis CT 07/20/17 00:00 IMPRESSION: 1. Wall thickening of the transverse colon, descending colon, sigmoid colon and rectum with adjacent inflammatory changes, most consistent with colitis and proctitis. 2. Moderate hiatal hernia. 3. Small ascites. 4. 3.2 cm cystic lesion at the right adnexa, unexpected finding for the patient 's age. This can be better evaluated with dedicated pelvic ultrasound. 5. Bibasilar atelectasis. Chest CT 07/26/17 00:00 IMPRESSION: Small to moderate bilateral pleural effusions Bilateral lower lobe airspace disease left greater than right Chest X-Ray 07/29/17 00:00 IMPRESSION: IMPROVED AERATION IN THE LEFT LUNG BASE WITH DECREASE IN THE LEFT PLEURAL EFFUSION. Assessment & Plan - Diagnosis (1) Septic shock Is this a current diagnosis for this admission?: Yes Plan: Resolved (2) Bacteremia Is this a current diagnosis for this admission?: Yes Plan: Blood cultures growing Staphyloccocus hemolyticus and Bacteroides fragilis. To continue vancomycin and Zosyn for a total of 14 days. Last dose to be administered on 08/04. I do not think this patient has endocarditis since repeat blood cultures have been negative. (3) UTI (urinary tract infection) Qualifiers: Hematuria presence: with hematuria Is this a current diagnosis for this admission?: Yes Plan: Continue Zosyn. Due to E. coli. (4) Stasis dermatitis Qualifiers: Laterality: bilateral Qualified Code(s): I87.2 - Venous insufficiency ( chronic) (peripheral) Is this a current diagnosis for this admission?: Yes Plan: Continue triamcinolone topical to lower extremities. Improving (5) Acute kidney injury superimposed on CKD Is this a current diagnosis for this admission?: Yes Plan: Patient back to baseline. Trend (6) Acute metabolic encephalopathy Is this a current diagnosis for this admission?: Yes Plan: Resolved (7) Anemia Qualifiers: Anemia type: unspecified type Qualified Code(s): D64.9 - Anemia, unspecified Is this a current diagnosis for this admission?: Yes Plan: Stable after 2 units of packed red blood cells and to trend since had infection with Staphylococcus hemolyticus. (8) Dehydration Is this a current diagnosis for this admission?: Yes Plan: Resolved (9) Diabetes mellitus type 2 in obese Is this a current diagnosis for this admission?: Yes Plan: Continue present management (10) Atrial fibrillation Qualifiers: Atrial fibrillation type: paroxysmal Qualified Code(s): I48.0 - Paroxysmal atrial fibrillation Is this a current diagnosis for this admission?: Yes Plan: Normal sinus. Continue eliquis. Repeat EKG to verify if on sinus (11) Left pulmonary infiltrate on CXR Is this a current diagnosis for this admission?: Yes Plan: Resolved (12) Hypokalemia Is this a current diagnosis for this admission?: Yes Plan: Replaced (13) Hypomagnesemia Is this a current diagnosis for this admission?: Yes Plan: Replace IV and increase oral dose. To trend (14) Hypocalcemia Is this a current diagnosis for this admission?: Yes Plan: Replaced. Trend (15) Bilateral pleural effusion Is this a current diagnosis for this admission?: Yes Plan: Continue Lasix IV. Resolving (16) Viral syndrome Is this a current diagnosis for this admission?: Yes Plan: Continue tamiflu - Time Time Spent with patient: 15-24 minutes Medications reviewed and adjusted accordingly: Yes Anticipated discharge: Home with Homehealth - To discharge on 08/04 - Inpatient Certification Based on my medical assessment, after consideration of the patient's comorbidities, presenting symptoms, or acuity I expect that the services needed warrant INPATIENT care.: Yes I certify that my determination is in accordance with my understanding of Medicare's requirements for reasonable and necessary INPATIENT services [42 CFR 412.3e].: Yes Medical Necessity: Need Close Monitoring Due to Risk of Patient Decompensation, Need for IV Antibiotics
[2017-08-01] MEDS: PIPERACILLIN SODIUM/TAZOBACTAM 4.5 GM in NORMAL SALINE 100 ML IV SCH ×4 (01:54→18:05)
[2017-08-01 06:08] LABS: ANION GAP 8 (5-19); BLOOD UREA NITROGEN 21 mg/dL (7-20); CALCIUM 7.8 mg/dL (8.4-10.2); CARBON DIOXIDE 31 mmol/L (22-30); CHLORIDE 96 mmol/L (98-107); GLUCOSE 155 mg/dL (75-110); POTASSIUM 3.9 mmol/L (3.6-5.0); SODIUM 134.6 mmol/L (137-145)
[2017-08-01] MEDS: BUDESONIDE NEB 0.5 MG/2 ML AMPUL NEB SCH ×2 (07:54→19:50)
[2017-08-01] MEDS: IPRATROPIUM/ALBUTEROL 0.5-2.5 MG/3 ML AMPUL NEB SCH ×3 (07:54→19:49)
--- NOTE | 2017-08-01 09:27 | EKG REPORT ---
SEVERITY:- ABNORMAL ECG - SINUS RHYTHM RIGHT BUNDLE BRANCH BLOCK : Confirmed by: Kernick Nina 01-Aug-2017 09:26:45
[2017-08-01] MEDS: APIXABAN 5 MG TABLET PO SCH ×2 (09:36→18:04)
[2017-08-01] MEDS: MAGNESIUM OXIDE 400 MG TABLET PO SCH ×2 (09:36→18:04)
[2017-08-01] MEDS: FUROSEMIDE INJ/PF 20 MG/2 ML SDV IV SCH (09:36)
[2017-08-01] MEDS: CALCIUM CARBONATE 250 MG/VITAMIN D3 125 UNIT TABLET PO SCH ×2 (09:36→18:04)
[2017-08-01] MEDS: VANCOMYCIN HCL 1,000 MG in DEXTROSE 5%-WATER 250 ML IV SCH (09:37)
[2017-08-01] MEDS: DOCUSATE SODIUM 100 MG CAPSULE PO SCH (09:37)
[2017-08-01] MEDS: TRIAMCINOLONE ACETONIDE 0.1% CREAM 15 GM TOP SCH ×3 (09:45→18:04)
[2017-08-01] MEDS: OSELTAMIVIR PHOSPHATE 6 MG/1 ML SUSP 60 ML PO SCH ×2 (09:45→22:50)
[2017-08-01] MEDS ORDERED: PROMETHAZINE HCL 25 MG TABLET PO PRN (13:16)
[2017-08-01] MEDS: INSULIN LISPRO 100 UNIT/ML 3 ML VIAL SUBCUT PRN ×2 (13:29→18:30)
[2017-08-01] MEDS: BENZONATATE 100 MG CAPSULE PO PRN ×2 (15:11→22:48)
--- NOTE | 2017-08-01 17:47 | PDOC PROGRESS REPORT ---
Subjective Progress Note for:: 08/01/17 Subjective:: Patient complains of cough which is mostly dry, and postnasal discharge. Review of system All organ systems evaluated and negative except as in subjective All significant laboratories and diagnostics have been reviewed Reason For Visit: SEPSIS UTI HYPOTENSION CKD ABD PAIN Physical Exam Vital Signs: Temp Pulse Resp BP Pulse Ox 98.1 F 87 20 131/61 H 98 08/01/17 04:31 08/01/17 04:31 08/01/17 04:31 08/01/17 04:31 08/01/17 04:31 Intake & Output 07/30/17 07/31/17 08/01/17 06:59 06:59 06:59 Intake Total 120 911 100 Balance 120 911 100 Weight 116.9 kg 113 kg General appearance: PRESENT: cooperative, morbidly obese Head exam: PRESENT: atraumatic, normocephalic Eye exam: PRESENT: conjunctiva pink, EOMI, PERRLA Mouth exam: PRESENT: moist Neck exam: PRESENT: full ROM, JVD. ABSENT: lymphadenopathy, tenderness Respiratory exam: PRESENT: crackles - Moving air bilaterally, other Cardiovascular exam: PRESENT: RRR. ABSENT: diastolic murmur, systolic murmur Vascular exam: PRESENT: normal capillary refill GI/Abdominal exam: PRESENT: normal bowel sounds, soft. ABSENT: tenderness Extremities exam: PRESENT: full ROM, +1 edema Musculoskeletal exam: PRESENT: ambulatory Neurological exam: PRESENT: alert, awake, oriented to person, oriented to place , oriented to time, oriented to situation, CN II-XII grossly intact Psychiatric exam: PRESENT: appropriate affect, normal mood Skin exam: PRESENT: intact, normal color Results Laboratory Results: 07/31/17 05:13 08/01/17 04:52 07/31/17 08/01/17 11:33 04:52 Sodium 134.6 L Potassium 3.9 Chloride 96 L Carbon Dioxide 31 H Anion Gap 8 BUN 21 H Creatinine 1.50 H 1.50 H Est GFR ( Amer) 41 L 41 L Est GFR (Non-Af Amer) 34 L 34 L Glucose 155 H Calcium 7.8 L Magnesium 1.9 07/20/17 07/24/17 10:20 04:30 Troponin I < 0.012 NT-Pro-B Natriuret Pep 9750 H Impressions: KUB X-Ray 07/19/17 00:00 IMPRESSION: NO RADIOGRAPHIC EVIDENCE FOR ACUTE ABDOMINAL DISEASE. Abdomen/Pelvis CT 07/20/17 00:00 IMPRESSION: 1. Wall thickening of the transverse colon, descending colon, sigmoid colon and rectum with adjacent inflammatory changes, most consistent with colitis and proctitis. 2. Moderate hiatal hernia. 3. Small ascites. 4. 3.2 cm cystic lesion at the right adnexa, unexpected finding for the patient 's age. This can be better evaluated with dedicated pelvic ultrasound. 5. Bibasilar atelectasis. Chest CT 07/26/17 00:00 IMPRESSION: Small to moderate bilateral pleural effusions Bilateral lower lobe airspace disease left greater than right Chest X-Ray 07/29/17 00:00 IMPRESSION: IMPROVED AERATION IN THE LEFT LUNG BASE WITH DECREASE IN THE LEFT PLEURAL EFFUSION. Assessment & Plan - Diagnosis (1) Septic shock Is this a current diagnosis for this admission?: Yes Plan: Resolved (2) Bacteremia Is this a current diagnosis for this admission?: Yes Plan: Blood cultures growing Staphyloccocus hemolyticus and Bacteroides fragilis. To continue vancomycin and Zosyn for a total of 14 days. Last dose to be administered on 08/04. I do not think this patient has endocarditis since repeat blood cultures have been negative. (3) UTI (urinary tract infection) Qualifiers: Hematuria presence: with hematuria Is this a current diagnosis for this admission?: Yes Plan: Continue Zosyn. Due to E. coli. (4) Stasis dermatitis Qualifiers: Laterality: bilateral Qualified Code(s): I87.2 - Venous insufficiency ( chronic) (peripheral) Is this a current diagnosis for this admission?: Yes Plan: Continue triamcinolone topical to lower extremities. Improving (5) Acute kidney injury superimposed on CKD Is this a current diagnosis for this admission?: Yes Plan: Patient back to baseline. Trend (6) Acute metabolic encephalopathy Is this a current diagnosis for this admission?: Yes Plan: Resolved (7) Anemia Qualifiers: Anemia type: unspecified type Qualified Code(s): D64.9 - Anemia, unspecified Is this a current diagnosis for this admission?: Yes Plan: Stable after 2 units of packed red blood cells and to trend since had infection with Staphylococcus hemolyticus. (8) Dehydration Is this a current diagnosis for this admission?: Yes Plan: Resolved (9) Diabetes mellitus type 2 in obese Is this a current diagnosis for this admission?: Yes Plan: Continue present management (10) Atrial fibrillation Qualifiers: Atrial fibrillation type: paroxysmal Qualified Code(s): I48.0 - Paroxysmal atrial fibrillation Is this a current diagnosis for this admission?: Yes Plan: Normal sinus. Continue eliquis. Patient on sinus per EKG (11) Left pulmonary infiltrate on CXR Is this a current diagnosis for this admission?: Yes Plan: Resolved (12) Hypokalemia Is this a current diagnosis for this admission?: Yes Plan: Replaced (13) Hypomagnesemia Is this a current diagnosis for this admission?: Yes Plan: Replaced (14) Hypocalcemia Is this a current diagnosis for this admission?: Yes Plan: Replaced. (15) Bilateral pleural effusion Is this a current diagnosis for this admission?: Yes Plan: Continue Lasix IV. Resolving (16) Viral syndrome Is this a current diagnosis for this admission?: Yes Plan: We will not continue Tamiflu. Will add Afrin nasal spray, Zyrtec and antitussive medication - Time Time Spent with patient: Less than 15 minutes Medications reviewed and adjusted accordingly: Yes Anticipated discharge: Home with Homehealth - To be discharged on August 04 - Inpatient Certification Based on my medical assessment, after consideration of the patient's comorbidities, presenting symptoms, or acuity I expect that the services needed warrant INPATIENT care.: Yes I certify that my determination is in accordance with my understanding of Medicare's requirements for reasonable and necessary INPATIENT services [42 CFR 412.3e].: Yes Medical Necessity: Need for IV Antibiotics
[2017-08-01] MEDS: FLUTICASONE NASAL SPRAY 50 MCG/SPRY 120 SPRAY/16 GM NASL SCH (22:49)
[2017-08-01] MEDS: OXYMETAZOLINE HCL 0.05% NASAL SPRAY 15 ML BOTTLE NASL SCH (22:50)
[2017-08-02] MEDS: PIPERACILLIN SODIUM/TAZOBACTAM 4.5 GM in NORMAL SALINE 100 ML IV SCH ×5 (00:09→23:13)
[2017-08-02] MEDS: INSULIN LISPRO 100 UNIT/ML 3 ML VIAL SUBCUT PRN ×4 (02:30→23:14)
[2017-08-02] MEDS: IPRATROPIUM/ALBUTEROL 0.5-2.5 MG/3 ML AMPUL NEB SCH ×3 (08:08→21:31)
[2017-08-02] MEDS: BUDESONIDE NEB 0.5 MG/2 ML AMPUL NEB SCH ×2 (08:08→21:31)
[2017-08-02] MEDS: CETIRIZINE 10 MG TABLET PO SCH (11:54)
[2017-08-02] MEDS: APIXABAN 5 MG TABLET PO SCH ×2 (11:54→17:36)
[2017-08-02] MEDS: CALCIUM CARBONATE 250 MG/VITAMIN D3 125 UNIT TABLET PO SCH ×2 (11:55→17:36)
[2017-08-02] MEDS: MAGNESIUM OXIDE 400 MG TABLET PO SCH ×2 (11:55→17:36)
[2017-08-02] MEDS: FLUTICASONE NASAL SPRAY 50 MCG/SPRY 120 SPRAY/16 GM NASL SCH ×2 (11:56→21:35)
[2017-08-02] MEDS: OXYMETAZOLINE HCL 0.05% NASAL SPRAY 15 ML BOTTLE NASL SCH ×2 (11:56→21:35)
[2017-08-02] MEDS: TRIAMCINOLONE ACETONIDE 0.1% CREAM 15 GM TOP SCH ×2 (11:57→13:43)
[2017-08-02] MEDS: OSELTAMIVIR PHOSPHATE 6 MG/1 ML SUSP 60 ML PO SCH (11:58)
[2017-08-02] MEDS: VANCOMYCIN HCL 1,000 MG in DEXTROSE 5%-WATER 250 ML IV SCH (11:58)
[2017-08-02] MEDS: DOCUSATE SODIUM 100 MG CAPSULE PO SCH (11:59)
--- NOTE | 2017-08-02 17:11 | PDOC PROGRESS REPORT ---
Subjective Progress Note for:: 08/02/17 Subjective:: Patient refers that the cough is better. No other complaints Review of system All organ systems evaluated and negative except as in subjective All significant laboratories and diagnostics have been reviewed Reason For Visit: SEPSIS UTI HYPOTENSION CKD ABD PAIN Physical Exam Vital Signs: Temp Pulse Resp BP Pulse Ox 98.0 F 87 20 125/54 L 98 08/02/17 03:58 08/02/17 03:58 08/02/17 03:58 08/02/17 03:58 08/02/17 03:58 Intake & Output 07/31/17 08/01/17 08/02/17 06:59 06:59 06:59 Intake Total 511 890 6300 Balance 732 597 5659 Weight 113 kg 113.1 kg 113.9 kg General appearance: PRESENT: cooperative, morbidly obese Head exam: PRESENT: atraumatic, normocephalic Eye exam: PRESENT: conjunctiva pink, EOMI, PERRLA Ear exam: PRESENT: normal external ear exam Mouth exam: PRESENT: moist Neck exam: PRESENT: full ROM. ABSENT: JVD, lymphadenopathy, tenderness Respiratory exam: PRESENT: crackles - Soft basilar crackles with adequate movement of air Cardiovascular exam: PRESENT: RRR. ABSENT: diastolic murmur, systolic murmur Vascular exam: PRESENT: normal capillary refill GI/Abdominal exam: PRESENT: normal bowel sounds, soft. ABSENT: tenderness Extremities exam: PRESENT: full ROM, +1 edema Musculoskeletal exam: PRESENT: ambulatory Neurological exam: PRESENT: alert, awake, oriented to person, oriented to time, oriented to situation, CN II-XII grossly intact Psychiatric exam: PRESENT: appropriate affect, normal mood - Brownish discoloration of lower extremities Results Laboratory Results: 07/31/17 05:13 08/01/17 04:52 07/20/17 07/24/17 10:20 04:30 Troponin I < 0.012 NT-Pro-B Natriuret Pep 9750 H Impressions: KUB X-Ray 07/19/17 00:00 IMPRESSION: NO RADIOGRAPHIC EVIDENCE FOR ACUTE ABDOMINAL DISEASE. Abdomen/Pelvis CT 07/20/17 00:00 IMPRESSION: 1. Wall thickening of the transverse colon, descending colon, sigmoid colon and rectum with adjacent inflammatory changes, most consistent with colitis and proctitis. 2. Moderate hiatal hernia. 3. Small ascites. 4. 3.2 cm cystic lesion at the right adnexa, unexpected finding for the patient 's age. This can be better evaluated with dedicated pelvic ultrasound. 5. Bibasilar atelectasis. Chest CT 07/26/17 00:00 IMPRESSION: Small to moderate bilateral pleural effusions Bilateral lower lobe airspace disease left greater than right Chest X-Ray 07/29/17 00:00 IMPRESSION: IMPROVED AERATION IN THE LEFT LUNG BASE WITH DECREASE IN THE LEFT PLEURAL EFFUSION. Assessment & Plan - Diagnosis (1) Septic shock Is this a current diagnosis for this admission?: Yes Plan: Resolved (2) Bacteremia Is this a current diagnosis for this admission?: Yes Plan: Blood cultures growing Staphyloccocus hemolyticus and Bacteroides fragilis. To continue vancomycin and Zosyn for a total of 14 days. Last dose to be administered on 08/04. I do not think this patient has endocarditis since repeat blood cultures have been negative. (3) UTI (urinary tract infection) Qualifiers: Hematuria presence: with hematuria Is this a current diagnosis for this admission?: Yes Plan: Continue Zosyn. Due to E. coli. (4) Stasis dermatitis Qualifiers: Laterality: bilateral Qualified Code(s): I87.2 - Venous insufficiency ( chronic) (peripheral) Is this a current diagnosis for this admission?: Yes Plan: Will discontinue triamcinolone since improved (5) Acute kidney injury superimposed on CKD Is this a current diagnosis for this admission?: Yes Plan: Patient back to baseline. Trend (6) Acute metabolic encephalopathy Is this a current diagnosis for this admission?: Yes Plan: Resolved (7) Anemia Qualifiers: Anemia type: unspecified type Qualified Code(s): D64.9 - Anemia, unspecified Is this a current diagnosis for this admission?: Yes Plan: Stable after 2 units of packed red blood cells and to trend since had infection with Staphylococcus hemolyticus. (8) Dehydration Is this a current diagnosis for this admission?: Yes Plan: Resolved (9) Diabetes mellitus type 2 in obese Is this a current diagnosis for this admission?: Yes Plan: Continue present management (10) Atrial fibrillation Qualifiers: Atrial fibrillation type: paroxysmal Qualified Code(s): I48.0 - Paroxysmal atrial fibrillation Is this a current diagnosis for this admission?: Yes Plan: Normal sinus. Continue eliquis. Patient on sinus per EKG (11) Left pulmonary infiltrate on CXR Is this a current diagnosis for this admission?: Yes Plan: Resolved (12) Hypokalemia Is this a current diagnosis for this admission?: Yes Plan: Replaced (13) Hypomagnesemia Is this a current diagnosis for this admission?: Yes Plan: Replaced (14) Hypocalcemia Is this a current diagnosis for this admission?: Yes Plan: Replaced. (15) Bilateral pleural effusion Is this a current diagnosis for this admission?: Yes Plan: Discontinue Lasix IV and repeat chest x-ray in a.m. (16) Viral syndrome Is this a current diagnosis for this admission?: Yes Plan: Continue Afrin nasal spray, Zyrtec and antitussive medication - Time Time Spent with patient: 15-24 minutes Medications reviewed and adjusted accordingly: Yes Anticipated discharge: Home - If stable to be discharged on August 04 - Inpatient Certification Based on my medical assessment, after consideration of the patient's comorbidities, presenting symptoms, or acuity I expect that the services needed warrant INPATIENT care.: Yes I certify that my determination is in accordance with my understanding of Medicare's requirements for reasonable and necessary INPATIENT services [42 CFR 412.3e].: Yes Medical Necessity: Need Close Monitoring Due to Risk of Patient Decompensation, Need for IV Antibiotics
[2017-08-02] MEDS: BENZONATATE 100 MG CAPSULE PO PRN (17:43)
[2017-08-03] MEDS: PIPERACILLIN SODIUM/TAZOBACTAM 4.5 GM in NORMAL SALINE 100 ML IV SCH ×2 (05:31→13:55)
[2017-08-03] MEDS: BUDESONIDE NEB 0.5 MG/2 ML AMPUL NEB SCH (08:21)
[2017-08-03] MEDS: IPRATROPIUM/ALBUTEROL 0.5-2.5 MG/3 ML AMPUL NEB SCH (08:21)
[2017-08-03] MEDS: DOCUSATE SODIUM 100 MG CAPSULE PO SCH (11:32)
[2017-08-03] MEDS: APIXABAN 5 MG TABLET PO SCH ×2 (11:33→18:28)
[2017-08-03] MEDS: CETIRIZINE 10 MG TABLET PO SCH (11:34)
[2017-08-03] MEDS: MAGNESIUM OXIDE 400 MG TABLET PO SCH ×2 (11:34→18:27)
[2017-08-03] MEDS: CALCIUM CARBONATE 250 MG/VITAMIN D3 125 UNIT TABLET PO SCH ×2 (11:35→18:28)
[2017-08-03] MEDS: VANCOMYCIN HCL 1,000 MG in DEXTROSE 5%-WATER 250 ML IV SCH (11:36)
[2017-08-03] MEDS: OXYMETAZOLINE HCL 0.05% NASAL SPRAY 15 ML BOTTLE NASL SCH ×2 (11:37→21:35)
[2017-08-03] MEDS: FLUTICASONE NASAL SPRAY 50 MCG/SPRY 120 SPRAY/16 GM NASL SCH ×2 (11:38→21:35)
[2017-08-03] MEDS ORDERED: IPRATROPIUM/ALBUTEROL 0.5-2.5 MG/3 ML AMPUL NEB PRN (12:59)
--- NOTE | 2017-08-03 13:09 | PDOC PROGRESS REPORT ---
Subjective Progress Note for:: 08/03/17 Subjective:: Patient refers that the cough is better. No other complaints Review of system All organ systems evaluated and negative except as in subjective All significant laboratories and diagnostics have been reviewed Reason For Visit: SEPSIS UTI HYPOTENSION CKD ABD PAIN Physical Exam Vital Signs: Temp Pulse Resp BP Pulse Ox 98.8 F 93 16 112/43 L 93 08/03/17 08:20 08/03/17 08:21 08/03/17 08:21 08/03/17 08:20 08/03/17 08:21 Intake & Output 08/02/17 08/03/17 08/04/17 06:59 06:59 06:59 Intake Total 1603 568 Balance 1603 568 Weight 113.9 kg 112.8 kg General appearance: PRESENT: cooperative, obese Head exam: PRESENT: atraumatic, normocephalic Eye exam: PRESENT: conjunctiva pink, EOMI, PERRLA Ear exam: PRESENT: normal external ear exam, TM's normal bilaterally Mouth exam: PRESENT: moist Neck exam: PRESENT: full ROM. ABSENT: JVD, lymphadenopathy, tenderness Respiratory exam: PRESENT: crackles - Soft basilar crackles with adequate movement of air Cardiovascular exam: PRESENT: RRR. ABSENT: diastolic murmur, systolic murmur Vascular exam: PRESENT: normal capillary refill GI/Abdominal exam: PRESENT: normal bowel sounds, soft. ABSENT: tenderness Extremities exam: PRESENT: full ROM, +1 edema Musculoskeletal exam: PRESENT: ambulatory Neurological exam: PRESENT: alert, awake, oriented to person, oriented to place , oriented to time, oriented to situation, CN II-XII grossly intact Psychiatric exam: PRESENT: appropriate affect, normal mood Skin exam: PRESENT: other - brownish discoloration of legs noted Results Laboratory Results: 07/31/17 05:13 08/01/17 04:52 07/20/17 07/24/17 10:20 04:30 Troponin I < 0.012 NT-Pro-B Natriuret Pep 9750 H Impressions: KUB X-Ray 07/19/17 00:00 IMPRESSION: NO RADIOGRAPHIC EVIDENCE FOR ACUTE ABDOMINAL DISEASE. Abdomen/Pelvis CT 07/20/17 00:00 IMPRESSION: 1. Wall thickening of the transverse colon, descending colon, sigmoid colon and rectum with adjacent inflammatory changes, most consistent with colitis and proctitis. 2. Moderate hiatal hernia. 3. Small ascites. 4. 3.2 cm cystic lesion at the right adnexa, unexpected finding for the patient 's age. This can be better evaluated with dedicated pelvic ultrasound. 5. Bibasilar atelectasis. Chest CT 07/26/17 00:00 IMPRESSION: Small to moderate bilateral pleural effusions Bilateral lower lobe airspace disease left greater than right Chest X-Ray 07/29/17 00:00 IMPRESSION: IMPROVED AERATION IN THE LEFT LUNG BASE WITH DECREASE IN THE LEFT PLEURAL EFFUSION. Assessment & Plan - Diagnosis (1) Septic shock Is this a current diagnosis for this admission?: Yes Plan: Resolved (2) Bacteremia Is this a current diagnosis for this admission?: Yes Plan: Blood cultures growing Staphyloccocus hemolyticus and Bacteroides fragilis. To continue vancomycin and Zosyn for a total of 14 days. Last dose to be administered on 08/04. I DO NOT think this patient has endocarditis since repeat blood cultures have been negative. (3) UTI (urinary tract infection) Qualifiers: Hematuria presence: with hematuria Is this a current diagnosis for this admission?: Yes Plan: Continue Zosyn. Due to E. coli. (4) Stasis dermatitis Qualifiers: Laterality: bilateral Qualified Code(s): I87.2 - Venous insufficiency ( chronic) (peripheral) Is this a current diagnosis for this admission?: Yes Plan: Off triamcinolone since improved (5) Acute kidney injury superimposed on CKD Is this a current diagnosis for this admission?: Yes Plan: Patient back to baseline. (6) Acute metabolic encephalopathy Is this a current diagnosis for this admission?: Yes Plan: Resolved (7) Anemia Qualifiers: Anemia type: unspecified type Qualified Code(s): D64.9 - Anemia, unspecified Is this a current diagnosis for this admission?: Yes Plan: Stable after 2 units of packed red blood cells. Trend since had infection with Staphylococcus hemolyticus. (8) Dehydration Is this a current diagnosis for this admission?: Yes Plan: Resolved (9) Diabetes mellitus type 2 in obese Is this a current diagnosis for this admission?: Yes Plan: Continue present management (10) Atrial fibrillation Qualifiers: Atrial fibrillation type: paroxysmal Qualified Code(s): I48.0 - Paroxysmal atrial fibrillation Is this a current diagnosis for this admission?: Yes Plan: Normal sinus. Continue eliquis. Patient on sinus per EKG (11) Left pulmonary infiltrate on CXR Is this a current diagnosis for this admission?: Yes Plan: Resolved (12) Hypokalemia Is this a current diagnosis for this admission?: Yes Plan: Replaced (13) Hypomagnesemia Is this a current diagnosis for this admission?: Yes Plan: Replaced (14) Hypocalcemia Is this a current diagnosis for this admission?: Yes Plan: Replaced. (15) Bilateral pleural effusion Is this a current diagnosis for this admission?: Yes Plan: Off lasix IV and to order cxr for resolution (16) Viral syndrome Is this a current diagnosis for this admission?: Yes Plan: Continue Afrin nasal spray, Zyrtec and antitussive medication - Time Time Spent with patient: Less than 15 minutes Medications reviewed and adjusted accordingly: Yes Anticipated discharge: Home with Homehealth - Expected discharge on 08/04 Within: within 24 hours - Inpatient Certification Based on my medical assessment, after consideration of the patient's comorbidities, presenting symptoms, or acuity I expect that the services needed warrant INPATIENT care.: Yes I certify that my determination is in accordance with my understanding of Medicare's requirements for reasonable and necessary INPATIENT services [42 CFR 412.3e].: Yes Medical Necessity: Need for IV Antibiotics
--- NOTE | 2017-08-03 13:30 | RADIOLOGY REPORT (SQ) ---
EXAM DESCRIPTION: CHEST PA/LAT COMPLETED DATE/TIME: 08/03/2017 12:53 pm REASON FOR STUDY: follow up pleural effusions COMPARISON: 07/29/2017 NUMBER OF VIEWS: Two view TECHNIQUE: Frontal and lateral radiographic images of the chest acquired. LIMITATIONS: None. FINDINGS: LUNGS AND PLEURA: Small left pleural effusion is unchanged. The right lung is clear. No pneumothorax. MEDIASTINUM AND HILAR STRUCTURES: Stable heart size and mediastinal structures. HEART AND VASCULAR STRUCTURES: Stable appearance. BONES: No acute findings. HARDWARE: None in the chest. OTHER: No other significant finding. IMPRESSION: Small left pleural effusion. No significant change. TECHNICAL DOCUMENTATION: JOB ID: [id number] [employer]- All Rights Reserved
[2017-08-03] MEDS: INSULIN LISPRO 100 UNIT/ML 3 ML VIAL SUBCUT PRN ×2 (13:55→22:08)
[2017-08-03] MEDS: LINEZOLID 600 MG TABLET PO SCH (18:27)
[2017-08-03] MEDS: BENZONATATE 100 MG CAPSULE PO PRN (18:32)
[2017-08-04] MEDS: LINEZOLID 600 MG TABLET PO SCH ×2 (05:36→17:10)
[2017-08-04] MEDS: CALCIUM CARBONATE 250 MG/VITAMIN D3 125 UNIT TABLET PO SCH ×2 (09:10→17:09)
[2017-08-04] MEDS: DOCUSATE SODIUM 100 MG CAPSULE PO SCH (09:10)
[2017-08-04] MEDS: CETIRIZINE 10 MG TABLET PO SCH (09:11)
[2017-08-04] MEDS: OXYMETAZOLINE HCL 0.05% NASAL SPRAY 15 ML BOTTLE NASL SCH ×2 (09:11→21:47)
[2017-08-04] MEDS: FLUTICASONE NASAL SPRAY 50 MCG/SPRY 120 SPRAY/16 GM NASL SCH ×2 (09:11→21:47)
[2017-08-04] MEDS: MAGNESIUM OXIDE 400 MG TABLET PO SCH ×2 (09:11→17:10)
[2017-08-04] MEDS: APIXABAN 5 MG TABLET PO SCH ×2 (09:12→17:10)
[2017-08-04] MEDS: INSULIN LISPRO 100 UNIT/ML 3 ML VIAL SUBCUT PRN ×2 (17:11→23:34)
--- NOTE | 2017-08-04 17:59 | PDOC PROGRESS REPORT ---
Subjective Progress Note for:: 08/04/17 Subjective:: Patient is feeling much better every day. She has been eating and drinking well. She has been able to get up to a chair with assistance. No chest pain or shortness of breath. No pleuritic chest pain. No fevers or chills. No sputum production. No headache or vision changes. No abdominal pain nausea vomiting diarrhea or constipation. No dysuria. Remainder of complete review of systems is performed and is negative. I have reviewed the patient's labs and pertinent diagnostic studies today. Reason For Visit: SEPSIS UTI HYPOTENSION CKD ABD PAIN Physical Exam Vital Signs: Temp Pulse Resp BP Pulse Ox 98.0 F 83 20 123/57 L 95 08/04/17 15:32 08/04/17 15:32 08/04/17 15:32 08/04/17 15:32 08/04/17 15:32 Intake & Output 08/03/17 08/04/17 08/05/17 06:59 06:59 06:59 Intake Total 568 500 118 Output Total 1 Balance 568 499 118 Weight 112.8 kg 111.4 kg General appearance: PRESENT: no acute distress, cooperative Head exam: PRESENT: atraumatic, normocephalic Eye exam: PRESENT: conjunctiva pink, EOMI Ear exam: PRESENT: normal external ear exam Mouth exam: PRESENT: moist Respiratory exam: PRESENT: rales, unlabored, other Cardiovascular exam: PRESENT: RRR. ABSENT: systolic murmur Pulses: PRESENT: normal radial pulses Vascular exam: PRESENT: normal capillary refill. ABSENT: pallor GI/Abdominal exam: PRESENT: normal bowel sounds, soft, other - Obese. ABSENT: distended, guarding, tenderness Rectal exam: PRESENT: deferred Extremities exam: ABSENT: pedal edema, tenderness Neurological exam: PRESENT: alert, awake, oriented to person, oriented to place , oriented to situation, CN II-XII grossly intact Psychiatric exam: PRESENT: appropriate affect. ABSENT: anxious Skin exam: PRESENT: dry, intact, warm, other - Venous stasis changes over the bilateral distal legs. Results Laboratory Results: 07/31/17 05:13 08/01/17 04:52 07/29/17 15:23 Blood Blood Culture - Final NO GROWTH IN 5 DAYS 07/29/17 14:12 Blood Blood Culture - Final NO GROWTH IN 5 DAYS 07/20/17 07/24/17 10:20 04:30 Troponin I < 0.012 NT-Pro-B Natriuret Pep 9750 H Impressions: KUB X-Ray 07/19/17 00:00 IMPRESSION: NO RADIOGRAPHIC EVIDENCE FOR ACUTE ABDOMINAL DISEASE. Abdomen/Pelvis CT 07/20/17 00:00 IMPRESSION: 1. Wall thickening of the transverse colon, descending colon, sigmoid colon and rectum with adjacent inflammatory changes, most consistent with colitis and proctitis. 2. Moderate hiatal hernia. 3. Small ascites. 4. 3.2 cm cystic lesion at the right adnexa, unexpected finding for the patient 's age. This can be better evaluated with dedicated pelvic ultrasound. 5. Bibasilar atelectasis. Chest CT 07/26/17 00:00 IMPRESSION: Small to moderate bilateral pleural effusions Bilateral lower lobe airspace disease left greater than right Chest X-Ray 08/03/17 00:00 IMPRESSION: Small left pleural effusion. No significant change. Assessment & Plan - Diagnosis (1) Colitis Is this a current diagnosis for this admission?: Yes Plan: Resolved. (2) Severe sepsis Is this a current diagnosis for this admission?: Yes Plan: Resolved. (3) UTI (urinary tract infection) Qualifiers: Urinary tract infection type: acute cystitis Hematuria presence: without hematuria Qualified Code(s): N30.00 - Acute cystitis without hematuria Is this a current diagnosis for this admission?: Yes Plan: resolved ecoli UTI (4) Anemia Qualifiers: Anemia type: unspecified type Qualified Code(s): D64.9 - Anemia, unspecified Is this a current diagnosis for this admission?: Yes Plan: stable mild anemia (5) Dehydration Is this a current diagnosis for this admission?: Yes Plan: resolved (6) Renal insufficiency Is this a current diagnosis for this admission?: Yes Plan: unknown baseline, will check BMP in the am to assure improvement (7) Diabetes mellitus type 2 in obese Is this a current diagnosis for this admission?: Yes Plan: Reasonably well controlled. Continue current current regimen. She is on a sulfonylurea at home and we can restart this on discharge. (8) Bacteremia Is this a current diagnosis for this admission?: Yes Plan: With staff hemolyticus and B fragilis. Per the hospitalist note from yesterday the plan was to continue 1 more day of Vanco Zosyn for a total of 14 days of IV antibiotics for these infections also for an E. coli urinary tract infection. Heart review it appears that the patient is now on Zyvox. I will need to speak with the pharmacy to clarify what antibiotics she has received and what more she needs if any. Hopefully we can resolve this the morning and she will be safe for discharge home. - Time Time Spent with patient: 25-34 minutes Medications reviewed and adjusted accordingly: Yes Within: within 24 hours - Inpatient Certification Based on my medical assessment, after consideration of the patient's comorbidities, presenting symptoms, or acuity I expect that the services needed warrant INPATIENT care.: Yes I certify that my determination is in accordance with my understanding of Medicare's requirements for reasonable and necessary INPATIENT services [42 CFR 412.3e].: Yes Medical Necessity: Significant Comorbidiites Make Outpatient Treatment Too Risky , Need Close Monitoring Due to Risk of Patient Decompensation, Risk of Complication if Not Cared For in Hospital
[2017-08-05] MEDS: LINEZOLID 600 MG TABLET PO SCH (07:28)
[2017-08-05] MEDS: CALCIUM CARBONATE 250 MG/VITAMIN D3 125 UNIT TABLET PO SCH ×2 (09:42→17:39)
[2017-08-05] MEDS: CETIRIZINE 10 MG TABLET PO SCH (09:42)
[2017-08-05] MEDS: MAGNESIUM OXIDE 400 MG TABLET PO SCH ×2 (09:42→17:39)
[2017-08-05] MEDS: FLUTICASONE NASAL SPRAY 50 MCG/SPRY 120 SPRAY/16 GM NASL SCH (09:43)
[2017-08-05] MEDS: APIXABAN 5 MG TABLET PO SCH ×2 (09:43→17:39)
[2017-08-05] MEDS: OXYMETAZOLINE HCL 0.05% NASAL SPRAY 15 ML BOTTLE NASL SCH (09:43)
[2017-08-05] MEDS: DOCUSATE SODIUM 100 MG CAPSULE PO SCH (09:43)
[2017-08-05 09:59] LABS: HEMATOCRIT 28.6 % (36.0-47.0); HEMOGLOBIN 9.6 g/dL (12.0-15.5); MEAN CORPUSCULAR HEMOGLOBIN 30.6 pg (27.0-33.4); MEAN CORPUSCULAR HGB CONC 33.6 g/dL (32.0-36.0); MEAN CORPUSCULAR VOLUME 91 fl (80-97); PLATELET COUNT 386 10^3/uL (150-450); RED BLOOD COUNT 3.15 10^6/uL (3.72-5.28); RED CELL DISTRIBUTION WIDTH 14.8 % (11.5-14.0); WHITE BLOOD COUNT 6.4 10^3/uL (4.0-10.5)
[2017-08-05 10:09] LABS: ANION GAP 6 (5-19); BLOOD UREA NITROGEN 23 mg/dL (7-20); CALCIUM 8.5 mg/dL (8.4-10.2); CARBON DIOXIDE 31 mmol/L (22-30); CHLORIDE 97 mmol/L (98-107); GLUCOSE 184 mg/dL (75-110); POTASSIUM 4.8 mmol/L (3.6-5.0); SODIUM 133.5 mmol/L (137-145)
[2017-08-05] MEDS: INSULIN LISPRO 100 UNIT/ML 3 ML VIAL SUBCUT PRN (14:18)
--- NOTE | 2017-08-05 15:33 | RADIOLOGY REPORT (SQ) ---
EXAM DESCRIPTION: CHEST PA/LAT COMPLETED DATE/TIME: 08/05/2017 3:03 pm REASON FOR STUDY: cough COMPARISON: 07/29/2017 EXAM PARAMETERS: NUMBER OF VIEWS: two views TECHNIQUE: Digital Frontal and Lateral radiographic views of the chest acquired. RADIATION DOSE: NA LIMITATIONS: none FINDINGS: LUNGS AND PLEURA: Mild improved aeration in the left lung base with slightly decreased siz e of the left pleural effusion, there are small areas of persistent airspace disease -atelectasis. R ight lung appears clear. No pneumothorax. . MEDIASTINUM AND HILAR STRUCTURES: Stable. HEART AND VASCULAR STRUCTURES: Stable. BONES: No acute findings. HARDWARE: None in the chest. OTHER: No other significant finding. IMPRESSION: Mild improved aeration in the left lung base with slightly decreased size of the left pl eural effusion, there are small areas of persistent airspace disease -atelectasis. TECHNICAL DOCUMENTATION: JOB ID: [id number] [id number] 2010 [employer]- All Rights Reserved
[2017-08-05 18:41] VITALS: BP 108/54
--- NOTE | 2017-08-05 20:23 | PDOC DISCHARGE SUMMARY ---
General - Admit/Disc Date/PCP Admission Date/Primary Care Provider: 07/19/17 17:59 Discharge Date: 08/05/17 - Discharge Diagnosis (1) Severe sepsis Is this a current diagnosis for this admission?: Yes (2) UTI (urinary tract infection) Is this a current diagnosis for this admission?: Yes Summary: Patient was admitted with urinary tract infection. E. coli grew from her urine and was sensitive to Zosyn. She was treated with 14 days of Zosyn. No signs of dysuria or recurrent urinary tract infection on discharge. (3) Anemia Is this a current diagnosis for this admission?: Yes Summary: Patient was found to have anemia on admission and she was transfused 2 units of packed red blood cells and since her hemoglobin has been stable. (4) Renal insufficiency Is this a current diagnosis for this admission?: Yes (5) Diabetes mellitus type 2 in obese Is this a current diagnosis for this admission?: Yes Summary: She was treated with insulin during her hospitalization and she has been started back on her sulfonylurea for discharge. (6) Bacteremia Is this a current diagnosis for this admission?: Yes Summary: Patient was admitted with sepsis and found to have staph hemolyticus bacteremia. She received 2 weeks of IV vancomycin. Repeat blood cultures 4 sets were negative. (7) Atrial fibrillation Is this a current diagnosis for this admission?: Yes Summary: She was found to have A. fib. She was started on Eliquis 5 mg p.o. twice daily and this will be continued discharge. For discharge also she has been asked to start her atenolol 25 mg p.o. daily. She is notified to let her doctor know about these medication changes. (8) HTN (hypertension) Is this a current diagnosis for this admission?: Yes Summary: She has underlying hypertension though due to her sepsis and bacteremia she was hypotensive for most of her hospital stay. For the last several days prior to discharge she was normotensive. This was off of all of her blood pressure medications. For discharge she is restarted on her atenolol 25 mg daily. Her other home blood pressure medications she is asked to hold and to notify her doctor. - Additional Information Resuscitation Status: Full Code Discharge Diet: Cardiac Discharge Activity: Balance Activity w/Rest Prescriptions: Apixaban [Eliquis 5 mg Tablet] 5 mg PO BID #60 tablet Home Medications: Aspirin [Aspirin EC] 81 mg PO DAILY 07/19/17 Atorvastatin Calcium [Lipitor 10 mg Tablet] 10 mg PO QHS 07/19/17 Calcium Carbonate/Vitamin D3 [Calcium 600 + Vit D Tablet] 1 tab PO DAILY Furosemide [Lasix 20 mg Tablet] 20 mg PO QAM 07/19/17 Glimepiride [Amaryl] 2 mg PO DAILY 07/19/17 Ibandronate Sodium [Boniva] 150 mg PO .QMONTHLY 07/19/17 Solifenacin Succinate [Vesicare] 10 mg PO DAILY 07/19/17 Apixaban [Eliquis 5 mg Tablet] 5 mg PO BID #60 tablet 08/05/17 Atenolol [Tenormin 50 mg Tablet] 25 mg PO DAILY tablet 08/05/17 History of Present Illness History of Present Illness: TONIA KHAN is a 77 year old female with a past medical history of diabetes, hypertension, Morbid obesity, CKD 3, and recurrent urinary tract infection. She was most recently diagnosed with Klebsiella pneumonia UTI 6 weeks ago and had done well until last week. She was treated empirically with unknown antibiotic without significant improvement she also complained of exceptional constipation taking several laxatives resulting in severe diarrhea prompting her to seek evaluation emergency room. She is found to have severe sepsis, hypotension with tachycardia, pyuria and a CT abdomen and pelvis with contrast suggestive of colitis. She started on empiric antibiotics, levophed, Levaquin, Flagyl and referred to the hospitalist for admission. Stool for C. difficile returns negative. Patient remains hypotensive after 4 L of normal saline challenge prompting surgical consultation for IV access. Patient verifies CODE STATUS is DNR. Hospital Course Hospital Course: This 77-year-old woman came into the hospital with abdominal pain evidence of sepsis, history of recurrent urinary tract infections, she was diagnosed with E. coli UTI and staph hemolyticus and her blood. She was treated with 14 days of vancomycin and Zosyn. Of note on admission secondary to abdominal pain she had a CT scan and there was evidence of colitis. C. difficile study returned negative. Blood cultures were negative upon repeat 4. Due to her prolonged hospitalization she became weak and had physical therapy consultation. Physical therapy recommended that she have home PT and so I have asked her to speak with her doctor about ordering that. During the hospitalization she was found to have A. fib and she is discharged on atenolol for rate control and on Eliquis 5 mg p.o. twice daily. She is discharged home in much improved condition, plans for home PT, small persistent left pleural effusion which has improved per chest x-ray, medication changes as noted and she will speak with her doctor about these. She knows to return to medical care with concerning symptoms. Physical Exam Vital Signs: Temp Pulse Resp BP Pulse Ox 98.4 F 87 20 108/54 L 93 08/05/17 18:37 08/05/17 18:37 08/05/17 18:37 08/05/17 18:37 08/05/17 18:37 Intake & Output 08/04/17 08/05/17 08/06/17 06:59 06:59 06:59 Intake Total 500 356 218 Output Total 1 400 Balance 499 -44 218 Weight 111.4 kg 111.4 kg General appearance: PRESENT: no acute distress, cooperative, morbidly obese Head exam: PRESENT: atraumatic, normocephalic Eye exam: PRESENT: conjunctiva pink, EOMI Ear exam: PRESENT: normal external ear exam Mouth exam: PRESENT: neck supple Neck exam: ABSENT: lymphadenopathy Respiratory exam: PRESENT: other - Trace rales at the bilateral bases otherwise clear to auscultation without wheezes or rhonchi. Cardiovascular exam: PRESENT: RRR. ABSENT: systolic murmur - Patient has a regular rate and rhythm for discharge. Pulses: PRESENT: normal radial pulses GI/Abdominal exam: PRESENT: normal bowel sounds, soft. ABSENT: distended, guarding, tenderness Rectal exam: PRESENT: deferred Extremities exam: ABSENT: pedal edema Musculoskeletal exam: PRESENT: ambulatory Neurological exam: PRESENT: alert, awake, oriented to person, oriented to place , oriented to situation, CN II-XII grossly intact Psychiatric exam: PRESENT: appropriate affect. ABSENT: anxious Skin exam: PRESENT: dry, intact, warm, other - No skin breakdown noted on day of discharge Results Laboratory Results: 08/05/17 08:27 08/05/17 08:27 08/05/17 08/05/17 08:27 08:27 WBC 6.4 RBC 3.15 L Hgb 9.6 L Hct 28.6 L MCV 91 MCH 30.6 MCHC 33.6 RDW 14.8 H Plt Count 386 Sodium 133.5 L Potassium 4.8 Chloride 97 L Carbon Dioxide 31 H Anion Gap 6 BUN 23 H Creatinine 1.45 H Est GFR ( Amer) 42 L Est GFR (Non-Af Amer) 35 L Glucose 184 H Calcium 8.5 07/20/17 07/24/17 10:20 04:30 Troponin I < 0.012 NT-Pro-B Natriuret Pep 9750 H Impressions: KUB X-Ray 07/19/17 00:00 IMPRESSION: NO RADIOGRAPHIC EVIDENCE FOR ACUTE ABDOMINAL DISEASE. Abdomen/Pelvis CT 07/20/17 00:00 IMPRESSION: 1. Wall thickening of the transverse colon, descending colon, sigmoid colon and rectum with adjacent inflammatory changes, most consistent with colitis and proctitis. 2. Moderate hiatal hernia. 3. Small ascites. 4. 3.2 cm cystic lesion at the right adnexa, unexpected finding for the patient 's age. This can be better evaluated with dedicated pelvic ultrasound. 5. Bibasilar atelectasis. Chest CT 07/26/17 00:00 IMPRESSION: Small to moderate bilateral pleural effusions Bilateral lower lobe airspace disease left greater than right Chest X-Ray 08/05/17 00:00 IMPRESSION: Mild improved aeration in the left lung base with slightly decreased size of the left pleural effusion, there are small areas of persistent airspace disease -atelectasis. Qualifiers PATEINT BEING DISCHARGED WITH ANY OF THE FOLLOWING DIAGNOSIS?: No
[2017-08-06] MEDS ORDERED: ATENOLOL 50 MG TABLET PO SCH (10:00)
== END 2017-08-05 19:57 | disposition home or self-care (01) | DRG 871 ==
LOC: ER 12:20 → EH 17:59 → ICU 19:35 → 3W 07-24 13:10
PROVIDERS: ADMIT Emergency Medicine; ATTEND Emergency Medicine
PROC: 3E0F73Z Introduction of Anti-inflammatory into Respiratory Tract, Via Natural or Artificial Opening (ICD-10-PCS; 2017-07-19)
PROC: 06HM33Z Insertion of Infusion Device into Right Femoral Vein, Percutaneous Approach (ICD-10-PCS; principal; 2017-07-20)
PROC: 30233N1 Transfusion of Nonautologous Red Blood Cells into Peripheral Vein, Percutaneous Approach (ICD-10-PCS; 2017-07-20)
DX: A41.1 Sepsis due to other specified staphylococcus (principal); R65.21 Severe sepsis with septic shock; G93.41 Metabolic encephalopathy; N39.0 Urinary tract infection, site not specified; N17.9 Acute kidney failure, unspecified; Z68.41 Body mass index [BMI] 40.0-44.9, adult; I10 Essential (primary) hypertension; I12.9 Hypertensive chronic kidney disease with stage 1 through stage 4 chronic kidney disease, or unspecified chronic kidney disease; E11.22 Type 2 diabetes mellitus with diabetic chronic kidney disease; N18.3 Chronic kidney disease, stage 3 (moderate); K52.9 Noninfective gastroenteritis and colitis, unspecified; Z66 Do not resuscitate; E66.9 Obesity, unspecified; M19.90 Unspecified osteoarthritis, unspecified site; D64.9 Anemia, unspecified; B96.20 Unspecified Escherichia coli [E. coli] as the cause of diseases classified elsewhere; I48.0 Paroxysmal atrial fibrillation; E86.0 Dehydration; I87.2 Venous insufficiency (chronic) (peripheral); E87.5 Hyperkalemia; Z90.49 Acquired absence of other specified parts of digestive tract; Z87.891 Personal history of nicotine dependence; Z82.49 Family history of ischemic heart disease and other diseases of the circulatory system; Z79.02 Long term (current) use of antithrombotics/antiplatelets; Z79.82 Long term (current) use of aspirin; Z79.899 Other long term (current) drug therapy
CPT/HCPCS: 36415; 36430; 71045; 71046; 71250; 74018; 74176; 80048; 80053; 80202; 81001; 82040; 82272; 82533; 82565; 82962; 83605; 83735; 83880; 84132; 84484; 85025; 85027; 85610; 86850; 86900; 86901; 86920; 87040; 87045; 87077; 87086; 87088; 87186; 87205; 87493; 93005; 93010; 93306; 94640; 96361; 96365; 96366; 96375; 99291; C1751; G8978-GP; G8979-GP; J0610; J0696; J0743; J1160; J1644; J1815; J1940; J1956; J2370; J2405; J2543; J3370; J3475; J3480; J3490; J7030; J7060; J7120; J7620; P9016; S0164

== ENCOUNTER 2018-11-21 21:09 | Inpatient (IN) | payer MEDICARE, MEDICAID ==
--- NOTE | 2018-11-21 22:12 | ER Document Report ---
ED Medical Screen (RME) - General Chief Complaint: Low Blood Sugar Stated Complaint: REPORTS LOW BLOOD SUGAR Time Seen by Provider: 11/21/18 22:08 Mode of Arrival: Wheelchair Information source: Patient Notes: 78-year-old female presents to ED for fluctuating blood pressure and blood sugar. Family states that starting 2 days ago every time she would eat she would get the chills and then her sugar will go up and she became nausea and vomiting. She states she had the same symptoms yesterday. She states today her blood pressure and sugar have been low all day and they have been feeding her and her sugars are still been low. She does have a history of diabetes cholesterol high blood pressure and osteoporosis. She is on atorvastatin lisinopril amlodipine Lasix Eliquis glimepiride atenolol and Vesicare and Boniva. Family does have the doses and frequency of all medications on their phone with pictures of the pill bottles. Daughter states she is been taking her medications as ordered. Patient is alert oriented and is able to answer questions at this time. I have greeted and performed a rapid initial assessment of this patient. A comprehensive ED assessment and evaluation of the patient, analysis of test results and completion of medical decision making process will be conducted by an additional ED providers. Dictation of this chart was performed using voice recognition software; therefore, there may be some unintended grammatical errors. TRAVEL OUTSIDE OF THE [place] IN LAST 30 DAYS: No - Related Data Allergies/Adverse Reactions: No Known Allergies Allergy (Unverified 03/23/17 16:59) Past Medical History - Past Medical History Cardiac Medical History: Reports: Hx Hypertension Denies: Hx Coronary Artery Disease Endocrine Medical History: Reports: Hx Diabetes Mellitus Type 2 Renal/ Medical History: Denies: Hx Peritoneal Dialysis GI Medical History: Denies: Hx Hepatitis Musculoskeltal Medical History: Reports Hx Arthritis Psychiatric Medical History: Denies: Hx Depression Infectious Medical History: Denies: Hx Hepatitis Past Surgical History: Reports: Hx Cholecystectomy, Hx Orthopedic Surgery - TKR, Hx Tonsillectomy - Immunizations History of Influenza Vaccine for 03/2017 - 08/2017 Season: Refused Physical Exam - Vital signs Vitals: Temp Pulse Resp BP Pulse Ox 97.4 F 75 15 106/45 L 95 11/21/18 21:49 11/21/18 21:49 11/21/18 21:49 11/21/18 21:49 11/21/18 21:49 Course - Vital Signs Vital signs: Temp Pulse Resp BP Pulse Ox 97.4 F 75 15 106/45 L 95 11/21/18 21:49 11/21/18 21:49 11/21/18 21:49 11/21/18 21:49 11/21/18 21:49
[2018-11-21] MEDS ORDERED: DEXTROSE 50%-WATER 25 GM/50 ML DISP.SYRIN IV ONE (22:35)
[2018-11-21] MEDS ORDERED: DEXTROSE 40% GEL 15 GM TUBE PO ONE (22:36)
--- NOTE | 2018-11-21 23:39 | ER Document Report ---
ED General - General Chief Complaint: Low Blood Sugar Stated Complaint: REPORTS LOW BLOOD SUGAR Time Seen by Provider: 11/21/18 22:08 Primary Care Provider: GOPI BYRNES PA-C [Primary Care Provider] - Follow up as needed Mode of Arrival: Wheelchair Information source: Patient, Relative Notes: This is a 78-year-old female with a history of hypertension, diabetes, atrial fibrillation (Eliquis), UTI with sepsis who was brought into the emergency room with a 3-day history of chills, nausea, pain, decreased p.o. intake. Patient's daughter states that the glucose was up in the 400s. Today the glucose is been low. Patient had decreased mental status in triage and the acute check was noted to be low. She had gotten glucose with improvement of her mental status. TRAVEL OUTSIDE OF THE [place] IN LAST 30 DAYS: No - HPI Onset: Last week Onset/Duration: Gradual Quality of pain: No pain Severity: None Pain Level: Denies Associated symptoms: Chills, Fever, Nausea, Vomiting Exacerbated by: Denies Relieved by: Denies Similar symptoms previously: Yes Recently seen / treated by doctor: No - Related Data Allergies/Adverse Reactions: No Known Allergies Allergy (Unverified 03/23/17 16:59) Past Medical History - General Information source: Patient, Relative - Social History Smoking Status: Never Smoker Cigarette use (# per day): No Chew tobacco use (# tins/day): No Frequency of alcohol use: None Drug Abuse: None Lives with: Family Family History: Hypertension - Past Medical History Cardiac Medical History: Reports: Hx Hypertension Denies: Hx Coronary Artery Disease Endocrine Medical History: Reports: Hx Diabetes Mellitus Type 2 Renal/ Medical History: Denies: Hx Peritoneal Dialysis GI Medical History: Denies: Hx Hepatitis Musculoskeletal Medical History: Reports Hx Arthritis Psychiatric Medical History: Denies: Hx Depression Infectious Medical History: Denies: Hx Hepatitis Past Surgical History: Reports: Hx Cholecystectomy, Hx Orthopedic Surgery - TKR, Hx Tonsillectomy Review of Systems - Review of Systems Constitutional: Chills EENT: No symptoms reported Cardiovascular: No symptoms reported Respiratory: No symptoms reported Gastrointestinal: See HPI Genitourinary: No symptoms reported Female Genitourinary: No symptoms reported Musculoskeletal: No symptoms reported Skin: No symptoms reported Hematologic/Lymphatic: No symptoms reported Neurological/Psychological: No symptoms reported Physical Exam - Vital signs Vitals: Temp Pulse Resp BP Pulse Ox 97.4 F 75 15 106/45 L 95 11/21/18 21:49 11/21/18 21:49 11/21/18 21:49 11/21/18 21:49 11/21/18 21:49 Notes: Physical exam: GENERAL: Morbidly obese 78-year-old female, she is alert and answering questions. She does appear weak. HEAD: Atraumatic, normocephalic. EYES: Pupils equal round and reactive to light, extraocular movements intact, sclera anicteric, conjunctiva are normal. ENT: TMs normal, nares patent, oropharynx clear without exudates. Moist mucous membranes. NECK: Normal range of motion, supple without obvious mass or JVD. LUNGS: Breath sounds clear to auscultation bilaterally and equal. No wheezes rales or rhonchi. HEART: Regular rate and rhythm without murmurs, rubs or gallops. ABDOMEN: Soft, normoactive bowel sounds. No tenderness to palpation. No guarding, no rebound. No masses appreciated. EXTREMITIES: Chronic venous stasis changes, see skin exam below. NEUROLOGICAL: Patient is alert and answering questions appropriately. Normal speech, moving all extremities. PSYCH: Normal mood, normal affect. SKIN: Warm, Dry, patient does have excoriation in the groin area as well as around the buttocks. There is no sacral decubiti. She does have evidence of chronic venous stasis to the lower extremities with some superficial ulcers to the right lower extremity laterally. There is no foul smell or pus. Course - Vital Signs Vital signs: Temp Pulse Resp BP Pulse Ox 97.4 F 75 21 H 108/36 L 99 11/21/18 21:49 11/21/18 21:49 11/22/18 01:01 11/22/18 01:01 11/22/18 01:01 - Laboratory Result Diagrams: 11/21/18 23:54 11/21/18 23:54 Laboratory results interpreted by me: 11/21/18 11/21/18 11/21/18 23:54 23:54 23:54 WBC 18.9 H RBC 3.19 L Hgb 9.5 L Hct 29.5 L Seg Neutrophils % 88.9 H Lymphocytes % 6.8 L Absolute Neutrophils 16.8 H VBG pH 7.23 L Sodium 136.3 L Potassium 5.2 H Carbon Dioxide 20 L BUN 71 H Creatinine 2.76 H Est GFR ( Amer) 20 L Est GFR (Non-Af Amer) 17 L Calcium 7.7 L Total Protein 6.0 L Albumin 3.0 L Ur Leukocyte Esterase 11/22/18 02:00 WBC RBC Hgb Hct Seg Neutrophils % Lymphocytes % Absolute Neutrophils VBG pH Sodium Potassium Carbon Dioxide BUN Creatinine Est GFR ( Amer) Est GFR (Non-Af Amer) Calcium Total Protein Albumin Ur Leukocyte Esterase LARGE H - Diagnostic Test Radiology reviewed: Image reviewed, Reports reviewed - CT of the abdomen shows no obvious obstruction - EKG Interpretation by Or Rhythm: A.Fib - EKG shows atrial fibrillation with a ventricular rate around 70, no acute ST-T wave changes Critical Care Note - Critical Care Note Total time excluding time spent on procedures (mins): 60 Discharge - Discharge Clinical Impression: UTI, Hypoglycemia, Acute kidney injury, Dehydration Condition: Stable Disposition: ADMITTED INPATIENT Admitting Provider: Edin (Hospitalist) Unit Admitted: Medical Floor Referrals: GOPI BYRNES PA-C [Primary Care Provider] - Follow up as needed
[2018-11-22 00:09] LABS: VENOUS BLOOD HCO3 20.6 mmol/L (20-32); VENOUS BLOOD PCO2 50.8 mmHg (35-63); VENOUS BLOOD PH 7.23 (7.30-7.42)
[2018-11-22 00:11] LABS: ABSOLUTE LYMPHOCYTES (AUTO) 1.3 10^3/uL (0.5-4.7); ABSOLUTE MONOCYTES (AUTO) 0.8 10^3/uL (0.1-1.4); ABSOLUTE NEUT (AUTO) 16.8 10^3/uL (1.7-8.2); BASOPHILS % (AUTO) 0.2 % (0-2); EOSINOPHILS % (AUTO) 0.1 % (0-6); HEMATOCRIT 29.5 % (36.0-47.0); HEMOGLOBIN 9.5 g/dL (12.0-15.5); LYMPHOCYTES % (AUTO) 6.8 % (13-45); MEAN CORPUSCULAR HEMOGLOBIN 29.6 pg (27.0-33.4); MEAN CORPUSCULAR HGB CONC 32.1 g/dL (32.0-36.0); MEAN CORPUSCULAR VOLUME 92 fl (80-97); PLATELET COUNT 197 10^3/uL (150-450); RED BLOOD COUNT 3.19 10^6/uL (3.72-5.28); RED CELL DISTRIBUTION WIDTH 12.7 % (11.5-14.0); SEGMENTED NEUTROPHILS % (AUTO) 88.9 % (42-78); TOTAL CELLS COUNTED % (AUTO) 100 %; WHITE BLOOD COUNT 18.9 10^3/uL (4.0-10.5)
[2018-11-22 00:26] LABS: ALANINE AMINOTRANSFERASE 18 U/L (9-52); ALKALINE PHOSPHATASE 66 U/L (38-126); ANION GAP 11 (5-19); ASPARTATE AMINO TRANSFERASE 26 U/L (14-36); BILIRUBIN,DIRECT 0.4 mg/dL (0.0-0.4); BILIRUBIN,TOTAL 0.4 mg/dL (0.2-1.3); BLOOD UREA NITROGEN 71 mg/dL (7-20); CALCIUM 7.7 mg/dL (8.4-10.2); CARBON DIOXIDE 20 mmol/L (22-30); CHLORIDE 105 mmol/L (98-107); GLUCOSE 107 mg/dL (75-110); POTASSIUM 5.2 mmol/L (3.6-5.0); SODIUM 136.3 mmol/L (137-145)
--- NOTE | 2018-11-22 00:34 | RADIOLOGY REPORT (SQ) ---
XR CHEST 1 VIEW HISTORY: Chest pain. COMPARISON: 08/04/2017 FINDINGS: The heart size is mildly enlarged. No consolidation, pleural effusion, or pneumothorax is seen. There are no acute bony findings. IMPRESSION: No evidence of acute cardiopulmonary disease.
[2018-11-22] MEDS ORDERED: NORMAL SALINE 1000 ML 1,000 ML IV ONE (00:55)
[2018-11-22] MEDS ORDERED: CALCIUM GLUCONATE 1000 MG/10 ML INJ IV ONE (00:56)
[2018-11-22] MEDS ORDERED: CEFTRIAXONE 1 GM/D5W RTU 1 GM/50 ML RTUPB IV ONE (02:12)
[2018-11-22 02:14] LABS: APPEARANCE,URINE CLOUDY; BILIRUBIN,URINE NEGATIVE (NEGATIVE); COLOR,URINE AMBER; GLUCOSE, URINE NEGATIVE (NEGATIVE); KETONES,URINE NEGATIVE (NEGATIVE); LEUKOCYTE ESTERASE,URINE LARGE (NEGATIVE); NITRITE,URINE NEGATIVE (NEGATIVE); PROTEIN,URINE NEGATIVE (NEGATIVE); URINE SPECIFIC GRAVITY 1.015; UROBILINOGEN,URINE NEGATIVE mg/dL (<2.0)
--- NOTE | 2018-11-22 03:27 | RADIOLOGY REPORT (SQ) ---
EXAM DESCRIPTION: CT ABDOMEN PELVIS WITHOUT IV CONTRAST COMPLETED DATE/TME: 11/22/2018 02:38 CLINICAL HISTORY: 78 years Female, nausea, abdominal pain Comparison:Jul 20 2017 Technique: No contrast. Coronal and sagittal reformat. This exam was performed according to our departmental dose-optimization program, which includes automated exposure control, adjustment of the mA and/or kV according to patient size and/or use of iterative reconstruction technique.[facility]: Dose Right [facility]: CareDose [facility]: Dose Right [facility]: Teradose 4D [facility]: [place] LIMITATIONS: None Findings: Moderate hiatal hernia. Coronary arterial calcification. Atherosclerotic vascular disease. Atelectasis/scar. Osteoarthritis. Bill. Degenerative disc disease. Spondylosis. No ascites. No pneumoperitoneum. No evidence of appendicitis. Appendix not definitively discerned. Cholecystectomy. No bowel obstruction. No hydronephrosis or hydroureter. No renal/ureteral stone. No evidence of abdominal aortic aneurysm. Unenhanced lower thorax, abdominopelvic structures, and musculoskeleton appear otherwise grossly unremarkable. Impression: No acute findings. Moderate hiatal hernia.
[2018-11-22] MEDS ORDERED: LACTULOSE SYRUP 20 GM/30 ML UDCUP PO ONE (03:29)
[2018-11-22] MEDS ORDERED: IPRATROPIUM/ALBUTEROL 0.5-2.5 MG/3 ML AMPUL NEB PRN (03:29)
[2018-11-22] MEDS ORDERED: ACETAMINOPHEN 325 MG TABLET PO PRN (03:29)
[2018-11-22] MEDS ORDERED: MAG HYDROX/AL HYDROX/SIMETH SUSP 30 ML UDCUP PO PRN (03:29)
[2018-11-22] MEDS ORDERED: NORMAL SALINE 1000 ML 1,000 ML IV PRN (03:30)
[2018-11-22] MEDS ORDERED: DEXTROSE 50%-WATER 25 GM/50 ML DISP.SYRIN IV ONE ×2 (05:23→05:51)
[2018-11-22] MEDS ORDERED: DEXTROSE 40% GEL 15 GM TUBE PO PRN ×2 (05:47)
[2018-11-22] MEDS ORDERED: GLUCAGON,HUMAN RECOMB 1 MG INJ IM PRN (05:47)
[2018-11-22] MEDS ORDERED: DEXTROSE 50%-WATER 25 GM/50 ML DISP.SYRIN IV PRN ×2 (05:47)
[2018-11-22] MEDS ORDERED: DEXTROSE 5%-1/2 NORMAL SALINE 1,000 ML IV ONE (05:48)
[2018-11-22] MEDS ORDERED: HEPARIN SOD (PORCINE) 5,000 UNIT/ML 1 ML SYRINGE SUBCUT SCH (06:00)
--- NOTE | 2018-11-22 06:34 | PDOC H&P ---
History of Present Illness Admission Date/PCP: 11/22/18 03:48 GOPI BYRNES PA-C Patient complains of: Low blood sugar History of Present Illness: TONIA KHAN is a 78 year old female with a past medical history of morbid obesity, atrial fibrillation on Eliquis, diastolic heart failure, diabetes and recurrent urinary tract infection presents with 3 days of fever nausea generalized pain and episodes of hypoglycemia prompting evaluation emergency room where she is found to have a glucose of 44 with delirium which improved with glucose. Acute renal failure, urinary tract infection without obstruction. Started on empiric antibiotics and referred to the hospitalist for admission. Patient is a poor historian and unable to provide history. Past Medical History Cardiac Medical History: Reports: Atrial Fibrillation, Congestive Heart Failure, Hypertension Denies: Coronary Artery Disease Endocrine Medical History: Reports: Diabetes Mellitus Type 2 GI Medical History: Denies: Hepatitis Musculoskeltal Medical History: Reports: Arthritis Psychiatric Medical History: Denies: Depression Past Surgical History Past Surgical History: Reports: Cholecystectomy, Orthopedic Surgery - TKR, Tonsillectomy Social History Information Source: Patient, Emergency Med Personnel, [facility] Records Lives with: Family Smoking Status: Never Smoker Frequency of Alcohol Use: None Hx Recreational Drug Use: No Drugs: None Hx Prescription Drug Abuse: No - Advance Directive Resuscitation Status: Full Code Family History Family History: Hypertension Parental Family History Reviewed: Yes Children Family History Reviewed: Yes Sibling(s) Family History Reviewed.: Yes Medication/Allergy Home Medications: Aspirin [Aspirin EC] 81 mg PO DAILY 07/19/17 Atorvastatin Calcium [Lipitor 10 mg Tablet] 10 mg PO QHS 07/19/17 Calcium Carbonate/Vitamin D3 [Calcium 600 + Vit D Tablet] 1 tab PO DAILY 07/19/17 Furosemide [Lasix 20 mg Tablet] 20 mg PO QAM 07/19/17 Glimepiride [Amaryl] 2 mg PO DAILY 07/19/17 Ibandronate Sodium [Boniva] 150 mg PO .QMONTHLY 07/19/17 Solifenacin Succinate [Vesicare] 10 mg PO DAILY 07/19/17 Apixaban [Eliquis 5 mg Tablet] 5 mg PO BID #60 tablet 08/05/17 Atenolol [Tenormin 50 mg Tablet] 25 mg PO DAILY tablet 08/05/17 Allergies/Adverse Reactions: No Known Allergies Allergy (Unverified 03/23/17 16:59) Review of Systems ROS unobtainable: Due to mental status Physical Exam Vital Signs: Temp Pulse Resp BP Pulse Ox 97.7 F 75 15 114/81 96 11/22/18 05:29 11/21/18 21:49 11/22/18 05:29 11/22/18 05:29 11/22/18 05:29 Intake & Output 11/20/18 11/21/18 11/22/18 11:59 11:59 11:59 Intake Total 517 Balance 517 Weight 110 kg General appearance: PRESENT: cooperative, mild distress, morbidly obese, well- nourished Head exam: PRESENT: atraumatic, normocephalic Eye exam: PRESENT: conjunctiva pink, EOMI, PERRLA. ABSENT: scleral icterus Ear exam: PRESENT: normal external ear exam Mouth exam: PRESENT: dry mucosa, tongue midline Neck exam: ABSENT: carotid bruit, JVD, lymphadenopathy, thyromegaly Respiratory exam: PRESENT: symmetrical, tachypnea. ABSENT: accessory muscle use, decreased breath sounds, wheezes Cardiovascular exam: PRESENT: irregular rhythm, +S1, +S2, tachycardia Pulses: PRESENT: normal dorsalis pedis pul Vascular exam: PRESENT: normal capillary refill GI/Abdominal exam: PRESENT: normal bowel sounds, soft. ABSENT: distended, guarding, mass, organolmegaly, rebound, tenderness Rectal exam: PRESENT: deferred Extremities exam: PRESENT: full ROM, +2 edema. ABSENT: calf tenderness, clubbing, pedal edema Musculoskeletal exam: PRESENT: other - Bilateral lower extremity chronic venous changes without open ulcer Neurological exam: PRESENT: altered, oriented to person, CN II-XII grossly intact Psychiatric exam: PRESENT: appropriate affect, normal mood. ABSENT: homicidal i deation, suicidal ideation Skin exam: PRESENT: dry, intact, warm, other - Bilateral lower extremity venous changes without open ulcer. ABSENT: cyanosis, rash Results Laboratory Results: 11/21/18 23:54 11/21/18 23:54 11/21/18 11/21/18 11/21/18 23:54 23:54 23:54 WBC 18.9 H RBC 3.19 L Hgb 9.5 L Hct 29.5 L MCV 92 MCH 29.6 MCHC 32.1 RDW 12.7 Plt Count 197 Seg Neutrophils % 88.9 H Lymphocytes % 6.8 L Monocytes % 4.0 Eosinophils % 0.1 Basophils % 0.2 Absolute Neutrophils 16.8 H Absolute Lymphocytes 1.3 Absolute Monocytes 0.8 Absolute Eosinophils 0.0 Absolute Basophils 0.0 VBG pH 7.23 L VBG pCO2 50.8 VBG HCO3 20.6 VBG Base Excess -7.0 Sodium 136.3 L Potassium 5.2 H Chloride 105 Carbon Dioxide 20 L Anion Gap 11 BUN 71 H Creatinine 2.76 H Est GFR ( Amer) 20 L Est GFR (Non-Af Amer) 17 L Glucose 107 Lactic Acid Calcium 7.7 L Total Bilirubin 0.4 AST 26 ALT 18 Alkaline Phosphatase 66 Total Protein 6.0 L Albumin 3.0 L Urine Color Urine Appearance Urine pH Ur Specific Meigs Urine Protein Urine Glucose (UA) Urine Ketones Urine Blood Urine Nitrite Ur Leukocyte Esterase Urine WBC (Auto) 11/22/18 11/22/18 01:40 02:00 WBC RBC Hgb Hct MCV MCH MCHC RDW Plt Count Seg Neutrophils % Lymphocytes % Monocytes % Eosinophils % Basophils % Absolute Neutrophils Absolute Lymphocytes Absolute Monocytes Absolute Eosinophils Absolute Basophils VBG pH VBG pCO2 VBG HCO3 VBG Base Excess Sodium Potassium Chloride Carbon Dioxide Anion Gap BUN Creatinine Est GFR ( Amer) Est GFR (Non-Af Amer) Glucose Lactic Acid 1.9 Calcium Total Bilirubin AST ALT Alkaline Phosphatase Total Protein Albumin Urine Color MILY Urine Appearance CLOUDY Urine pH 5.0 Ur Specific Meigs 1.015 Urine Protein NEGATIVE Urine Glucose (UA) NEGATIVE Urine Ketones NEGATIVE Urine Blood NEGATIVE Urine Nitrite NEGATIVE Ur Leukocyte Esterase LARGE H Urine WBC (Auto) 25 11/21/18 23:54 Troponin I 0.061 Impressions: Chest X-Ray 11/21/18 23:41 IMPRESSION: No evidence of acute cardiopulmonary disease. Assessment and Plan - Diagnosis (1) UTI (urinary tract infection) Qualifiers: Hematuria presence: with hematuria Is this a current diagnosis for this admission?: Yes Plan: Empiric antibiotics, follow-up blood and urine culture (2) Acute kidney injury superimposed on CKD Is this a current diagnosis for this admission?: Yes Plan: Likely secondary to urinary tract infection, prerenal azotemia, and diabetes. IV fluid challenge, follow-up chemistry (3) Hypoglycemia Is this a current diagnosis for this admission?: Yes Plan: Likely secondary to poor p.o. intake with oral hypoglycemic comp located by acute infection. D5 half-normal saline ordered with Accu-Cheks every hour and hypoglycemic protocol (4) Atrial fibrillation Qualifiers: Atrial fibrillation type: paroxysmal Qualified Code(s): I48.0 - Paroxysmal atrial fibrillation Is this a current diagnosis for this admission?: Yes Plan: Rate controlled, reduced dose of Eliquis for acute renal failure (5) Stasis dermatitis Qualifiers: Laterality: bilateral Qualified Code(s): I87.2 - Venous insufficiency (chronic) (peripheral) Is this a current diagnosis for this admission?: Yes Plan: JAVIER wheeler (6) Hyperkalemia Is this a current diagnosis for this admission?: Yes Plan: Likely secondary to acute renal failure, no peaked T waves, lactulose and reevaluate chemistry - Time Time Spent with patient: 35 or more minutes - Inpatient Certification Medical Necessity: Need Close Monitoring Due to Risk of Patient Decompensation
--- NOTE | 2018-11-22 07:12 | EKG REPORT ---
SEVERITY:- ABNORMAL ECG - SINUS RHYTHM RIGHT BUNDLE BRANCH BLOCK : Confirmed by: Tk Celeste MD 22-Nov-2018 07:11:04
[2018-11-22 08:41] LABS: ABSOLUTE LYMPHOCYTES (AUTO) 1.2 10^3/uL (0.5-4.7); ABSOLUTE MONOCYTES (AUTO) 0.8 10^3/uL (0.1-1.4); ABSOLUTE NEUT (AUTO) 16.7 10^3/uL (1.7-8.2); BASOPHILS % (AUTO) 0.2 % (0-2); EOSINOPHILS % (AUTO) 0.2 % (0-6); HEMATOCRIT 25.2 % (36.0-47.0); HEMOGLOBIN 8.3 g/dL (12.0-15.5); LYMPHOCYTES % (AUTO) 6.5 % (13-45); MEAN CORPUSCULAR HEMOGLOBIN 30.2 pg (27.0-33.4); MEAN CORPUSCULAR VOLUME 92 fl (80-97); MONOCYTES % (AUTO) 4.4 % (3-13); PLATELET COUNT 195 10^3/uL (150-450); RED BLOOD COUNT 2.76 10^6/uL (3.72-5.28); RED CELL DISTRIBUTION WIDTH 12.5 % (11.5-14.0); SEGMENTED NEUTROPHILS % (AUTO) 88.7 % (42-78); TOTAL CELLS COUNTED % (AUTO) 100 %; WHITE BLOOD COUNT 18.8 10^3/uL (4.0-10.5)
[2018-11-22 08:46] LABS: ABSOLUTE RETICS # 0.043 10^6/uL (0.028-0.122); RETICULOCYTE COUNT (AUTO) 1.55 % (0.66-2.85)
[2018-11-22 09:08] LABS: IRON(TIBC) 19.1 ug/dL (37-170)
[2018-11-22 09:09] LABS: ANION GAP 9 (5-19); BLOOD UREA NITROGEN 68 mg/dL (7-20); CALCIUM 7.7 mg/dL (8.4-10.2); CARBON DIOXIDE 20 mmol/L (22-30); CHLORIDE 108 mmol/L (98-107); POTASSIUM 4.9 mmol/L (3.6-5.0); SODIUM 137.4 mmol/L (137-145)
[2018-11-22 09:23] LABS: GLUCOSE 68 mg/dL (75-110)
[2018-11-22] MEDS: ATENOLOL 50 MG TABLET PO SCH (09:59)
[2018-11-22] MEDS: ASPIRIN 81 MG TABLET, ENT COATED PO SCH (09:59)
[2018-11-22] MEDS: APIXABAN 2.5 MG TABLET PO SCH ×2 (09:59→17:24)
[2018-11-22] MEDS ORDERED: CEFTRIAXONE 1 GM/D5W RTU 1 GM/50 ML RTUPB IV SCH (10:00)
[2018-11-22 10:17] LABS: FOLATE 9.34 ng/mL (>2.76)
[2018-11-22] MEDS ORDERED: DEXTROSE IV PRN ×2 (14:04)
[2018-11-22] MEDS ORDERED: WATER IV PRN ×2 (14:04)
[2018-11-22] MEDS ORDERED: NORMAL SALINE IV PRN ×2 (14:04)
--- NOTE | 2018-11-22 14:32 | Progress Note ---
Provider Note Provider Note: This is 78 years old female patient was past medical history of hypertension, type 2 diabetes mellitus, congestive heart failure and morbid obesity presented with chief complaint of hypoglycemia. The culprit for her hypoglycemia is the oral hypoglycemic agents that she has been taking. To hold the oral hypoglycemic agent patient put on sliding scale and she has been on D5. Accept this patient and I will be her primary attending.
[2018-11-22] MEDS: ATORVASTATIN CALCIUM 10 MG TABLET PO SCH (22:26)
[2018-11-23 04:49] LABS: ABSOLUTE EOSINOPHILS # (AUTO) 0.2 10^3/uL (0.0-0.6); ABSOLUTE LYMPHOCYTES (AUTO) 1.7 10^3/uL (0.5-4.7); ABSOLUTE MONOCYTES (AUTO) 0.5 10^3/uL (0.1-1.4); ABSOLUTE NEUT (AUTO) 6.3 10^3/uL (1.7-8.2); BASOPHILS % (AUTO) 0.4 % (0-2); EOSINOPHILS % (AUTO) 2.7 % (0-6); HEMATOCRIT 23.9 % (36.0-47.0); LYMPHOCYTES % (AUTO) 19.4 % (13-45); MEAN CORPUSCULAR HEMOGLOBIN 30.4 pg (27.0-33.4); MEAN CORPUSCULAR HGB CONC 33.3 g/dL (32.0-36.0); MEAN CORPUSCULAR VOLUME 91 fl (80-97); MONOCYTES % (AUTO) 5.9 % (3-13); PLATELET COUNT 157 10^3/uL (150-450); RED BLOOD COUNT 2.62 10^6/uL (3.72-5.28); RED CELL DISTRIBUTION WIDTH 12.5 % (11.5-14.0); SEGMENTED NEUTROPHILS % (AUTO) 71.6 % (42-78); TOTAL CELLS COUNTED % (AUTO) 100 %; WHITE BLOOD COUNT 8.8 10^3/uL (4.0-10.5)
[2018-11-23 05:09] LABS: ANION GAP 6 (5-19); BLOOD UREA NITROGEN 55 mg/dL (7-20); CALCIUM 7.1 mg/dL (8.4-10.2); CARBON DIOXIDE 20 mmol/L (22-30); CHLORIDE 112 mmol/L (98-107); GLUCOSE 81 mg/dL (75-110); SODIUM 137.8 mmol/L (137-145)
[2018-11-23] MEDS: ATENOLOL 50 MG TABLET PO SCH (09:08)
[2018-11-23] MEDS: APIXABAN 2.5 MG TABLET PO SCH ×2 (09:08→17:29)
[2018-11-23] MEDS: ASPIRIN 81 MG TABLET, ENT COATED PO SCH (09:08)
[2018-11-23] MEDS: CEFTRIAXONE SODIUM 1,000 MG in DEXTROSE 5%-WATER 50 ML IV SCH (09:08)
[2018-11-23] MEDS ORDERED: (PENDING PHARMACY ID) (Solifenacin Succinate [Vesicare] 10 MG) PO SCH (10:00)
[2018-11-23] MEDS ORDERED: (PENDING PHARMACY ID) (Lisinopril [Lisinopril] 20 MG) PO SCH (10:00)
[2018-11-23] MEDS ORDERED: AMLODIPINE BESYLATE 2.5 MG TABLET ONE (10:48)
[2018-11-23] MEDS ORDERED: LISINOPRIL 10 MG TABLET ONE (10:48)
[2018-11-23] MEDS ORDERED: TOLTERODINE TARTRATE 1 MG TABLET ONE (10:48)
[2018-11-23] MEDS: TOLTERODINE TARTRATE 1 MG TABLET PO SCH ×2 (10:50→22:30)
[2018-11-23] MEDS: LISINOPRIL 10 MG TABLET PO SCH (10:50)
[2018-11-23] MEDS: AMLODIPINE BESYLATE 2.5 MG TABLET PO SCH (10:50)
--- NOTE | 2018-11-23 14:26 | PDOC PROGRESS REPORT ---
Subjective Progress Note for:: 11/23/18 Subjective:: This is 78 years old female patient was past medical history of hypertension, type 2 diabetes mellitus, congestive heart failure and morbid obesity presented with chief complaint of hypoglycemia. At presentation to ER her blood glucose level was 34. The culprit for her hypoglycemia is the oral hypoglycemic agents that she has been taking. Her oral hypoglycemic agents on hold and patient has been on dextrose 10. Her urinalysis also positive for pyuria and leukocyte esterase and she has been getting ceftriaxone. Reason For Visit: ARF,UTI,SEPSIS Physical Exam Vital Signs: Temp Pulse Resp BP Pulse Ox 98.7 F 70 16 93/39 L 99 11/23/18 11:08 11/23/18 11:08 11/23/18 11:08 11/23/18 11:08 11/23/18 11:08 Intake & Output 11/22/18 11/23/18 11/24/18 06:59 06:59 06:59 Intake Total 517 2595 530 Output Total 1970 600 Balance 517 625 -70 Weight 110 kg 125.1 kg General appearance: PRESENT: no acute distress Head exam: PRESENT: atraumatic Respiratory exam: PRESENT: clear to auscultation jaison. ABSENT: rales, rhonchi, wheezes Cardiovascular exam: PRESENT: RRR. ABSENT: diastolic murmur, rubs, systolic murmur GI/Abdominal exam: PRESENT: normal bowel sounds, soft. ABSENT: distended, guarding, mass, organolmegaly, rebound, tenderness Neurological exam: PRESENT: alert, awake, oriented to person, oriented to place, oriented to time, oriented to situation Results Laboratory Results: 11/23/18 04:32 11/23/18 04:32 11/23/18 11/23/18 04:32 04:32 WBC 8.8 RBC 2.62 L Hgb 8.0 L Hct 23.9 L MCV 91 MCH 30.4 MCHC 33.3 RDW 12.5 Plt Count 157 Seg Neutrophils % 71.6 Lymphocytes % 19.4 Monocytes % 5.9 Eosinophils % 2.7 Basophils % 0.4 Absolute Neutrophils 6.3 Absolute Lymphocytes 1.7 Absolute Monocytes 0.5 Absolute Eosinophils 0.2 Absolute Basophils 0.0 Sodium 137.8 Potassium 5.0 Chloride 112 H Carbon Dioxide 20 L Anion Gap 6 BUN 55 H Creatinine 2.01 H Est GFR ( Amer) 29 L Est GFR (Non-Af Amer) 24 L Glucose 81 Calcium 7.1 L 11/21/18 23:54 Troponin I 0.061 Impressions: Chest X-Ray 11/21/18 23:41 IMPRESSION: No evidence of acute cardiopulmonary disease. Assessment and Plan - Diagnosis (1) Complicated UTI (urinary tract infection) Is this a current diagnosis for this admission?: Yes Plan: Continue ceftriaxone (2) Hypoglycemia Is this a current diagnosis for this admission?: Yes Plan: Has been corrected. (3) Hyperkalemia Is this a current diagnosis for this admission?: Yes Plan: Resolved. (4) Acute kidney injury superimposed on CKD Is this a current diagnosis for this admission?: Yes Plan: Relatively improving her creatinine is trending down from 2.76-2.53. (5) Type 2 diabetes mellitus Is this a current diagnosis for this admission?: Yes (7) Morbid obesity with BMI of 50.0-59.9, adult Is this a current diagnosis for this admission?: Yes Plan: Lifestyle modification advised. (8) Atrial fibrillation Qualifiers: Atrial fibrillation type: chronic Qualified Code(s): I48.2 - Chronic atrial fibrillation Is this a current diagnosis for this admission?: Yes Plan: Rate controlled continue anticoagulation. (9) Hypertension Qualifiers: Hypertension type: essential hypertension Qualified Code(s): I10 - Essential (primary) hypertension Is this a current diagnosis for this admission?: Yes Plan: Continue home medication
[2018-11-23] MEDS: ATORVASTATIN CALCIUM 10 MG TABLET PO SCH (22:30)
[2018-11-24 05:39] LABS: ABSOLUTE RETICS # 0.046 10^6/uL (0.028-0.122)
[2018-11-24 05:56] LABS: ANION GAP 7 (5-19); BLOOD UREA NITROGEN 49 mg/dL (7-20); CALCIUM 7.3 mg/dL (8.4-10.2); CARBON DIOXIDE 19 mmol/L (22-30); CHLORIDE 113 mmol/L (98-107); GLUCOSE 131 mg/dL (75-110); IRON(TIBC) 41.9 ug/dL (37-170); POTASSIUM 5.4 mmol/L (3.6-5.0); SODIUM 139.3 mmol/L (137-145)
[2018-11-24 07:04] LABS: FOLATE 7.66 ng/mL (>2.76)
[2018-11-24] MEDS: FUROSEMIDE 20 MG TABLET PO SCH (08:20)
[2018-11-24] MEDS: CEFTRIAXONE SODIUM 1,000 MG in DEXTROSE 5%-WATER 50 ML IV SCH (08:21)
[2018-11-24] MEDS: ATENOLOL 50 MG TABLET PO SCH (11:31)
[2018-11-24] MEDS: AMLODIPINE BESYLATE 2.5 MG TABLET PO SCH (11:32)
[2018-11-24] MEDS: APIXABAN 2.5 MG TABLET PO SCH ×2 (11:32→17:12)
[2018-11-24] MEDS: LISINOPRIL 10 MG TABLET PO SCH (11:32)
[2018-11-24] MEDS: ASPIRIN 81 MG TABLET, ENT COATED PO SCH (11:32)
[2018-11-24] MEDS: TOLTERODINE TARTRATE 1 MG TABLET PO SCH ×2 (11:33→22:02)
--- NOTE | 2018-11-24 13:04 | PDOC PROGRESS REPORT ---
Subjective Progress Note for:: 11/24/18 Subjective:: Patient seen sitting upright in bed and enjoying her lunch. She is awake alert oriented. She is not in pain or distress. Her blood sugar ranges between 70-93 without being on any oral hypoglycemic agent. Her hemoglobin A1c is 5.8. I do not think this patient needs any antidiabetic medication at this point since her blood sugar is within normal limits without any medication and also her hemoglobin A1c reflects that her diabetes is well controlled. I told the patient to follow-up with her primary care physician upon discharge we will take her off glimepiride. Reason For Visit: ARF,UTI,SEPSIS Physical Exam Vital Signs: Temp Pulse Resp BP Pulse Ox 97.9 F 67 16 103/51 L 97 11/24/18 11:27 11/24/18 11:27 11/24/18 11:27 11/24/18 11:27 11/24/18 11:27 Intake & Output 11/23/18 11/24/18 11/25/18 06:59 06:59 06:59 Intake Total 2595 650 Output Total 1970 1475 Balance 625 -825 Weight 125.1 kg 114.9 kg General appearance: PRESENT: no acute distress Eye exam: PRESENT: conjunctiva pink Neck exam: ABSENT: carotid bruit, JVD, lymphadenopathy, thyromegaly Respiratory exam: PRESENT: clear to auscultation jaison. ABSENT: rales, rhonchi, wheezes Cardiovascular exam: PRESENT: RRR. ABSENT: diastolic murmur, rubs, systolic murmur Neurological exam: PRESENT: alert, oriented to person, oriented to place, oriented to time, oriented to situation Results Laboratory Results: 11/23/18 04:32 11/24/18 05:15 11/23/18 11/24/18 11/24/18 15:55 05:15 05:15 Retic Count (auto) 1.60 Absolute Retic 0.046 Sodium 139.3 Potassium 5.4 H Chloride 113 H Carbon Dioxide 19 L Anion Gap 7 BUN 49 H Creatinine 1.71 H Est GFR ( Amer) 35 L Est GFR (Non-Af Amer) 29 L Glucose 131 H Calcium 7.3 L Iron 41.9 TIBC 202 L % Saturation 21 Ferritin 77.90 Vitamin B12 348.0 Folate 7.66 Stool Occult Blood NEGATIVE 11/22/18 02:00 Bill Catheter Urine Culture - Final Escherichia Coli Lactobacillus (Vaginal Shruti) 11/21/18 23:54 Troponin I 0.061 Impressions: Chest X-Ray 11/21/18 23:41 IMPRESSION: No evidence of acute cardiopulmonary disease. Assessment and Plan - Diagnosis (1) Complicated UTI (urinary tract infection) Is this a current diagnosis for this admission?: Yes Plan: Continue ceftriaxone (2) Hypoglycemia Is this a current diagnosis for this admission?: Yes Plan: Has been corrected. (3) Hyperkalemia Is this a current diagnosis for this admission?: Yes Plan: Resolved. (4) Acute kidney injury superimposed on CKD Is this a current diagnosis for this admission?: Yes Plan: Relatively improving her creatinine is trending down from 2.76-2.53. (5) Type 2 diabetes mellitus Is this a current diagnosis for this admission?: Yes (6) Morbid obesity with BMI of 50.0-59.9, adult Is this a current diagnosis for this admission?: Yes (7) Atrial fibrillation Qualifiers: Atrial fibrillation type: chronic Qualified Code(s): I48.2 - Chronic atrial fibrillation Is this a current diagnosis for this admission?: Yes Plan: Rate controlled continue anticoagulation. (8) Hypertension Qualifiers: Hypertension type: essential hypertension Qualified Code(s): I10 - Essential (primary) hypertension Is this a current diagnosis for this admission?: Yes
[2018-11-24] MEDS: ATORVASTATIN CALCIUM 10 MG TABLET PO SCH (22:02)
[2018-11-25] MEDS: FUROSEMIDE 20 MG TABLET PO SCH (07:51)
[2018-11-25] MEDS: CEFTRIAXONE SODIUM 1,000 MG in DEXTROSE 5%-WATER 50 ML IV SCH (07:52)
[2018-11-25] MEDS: LISINOPRIL 10 MG TABLET PO SCH (09:51)
[2018-11-25] MEDS: TOLTERODINE TARTRATE 1 MG TABLET PO SCH (09:52)
[2018-11-25] MEDS: APIXABAN 2.5 MG TABLET PO SCH (09:52)
[2018-11-25] MEDS: ASPIRIN 81 MG TABLET, ENT COATED PO SCH (09:52)
[2018-11-25] MEDS: AMLODIPINE BESYLATE 2.5 MG TABLET PO SCH (09:53)
[2018-11-25] MEDS: ATENOLOL 50 MG TABLET PO SCH (09:53)
[2018-11-25 10:34] VITALS: BP 106/45
--- NOTE | 2018-11-25 15:11 | PDOC DISCHARGE SUMMARY ---
General - Admit/Disc Date/PCP Admission Date/Primary Care Provider: 11/22/18 03:48 GOPI BYRNES PA-C Discharge Date: 11/25/18 - Discharge Diagnosis (1) Complicated UTI (urinary tract infection) Is this a current diagnosis for this admission?: Yes (2) Hypoglycemia Is this a current diagnosis for this admission?: Yes (3) Hyperkalemia Is this a current diagnosis for this admission?: Yes (4) Acute kidney injury superimposed on CKD Is this a current diagnosis for this admission?: Yes (5) Type 2 diabetes mellitus Is this a current diagnosis for this admission?: Yes (6) Morbid obesity with BMI of 50.0-59.9, adult Is this a current diagnosis for this admission?: Yes (7) Atrial fibrillation Is this a current diagnosis for this admission?: Yes (8) Hypertension Is this a current diagnosis for this admission?: Yes - Additional Information Resuscitation Status: Full Code Prescriptions: Ferrous Sulfate 325 mg PO BID #60 tablet. [place] Medications: Atorvastatin Calcium [Lipitor 10 mg Tablet] 10 mg PO QHS 07/19/17 Furosemide [Lasix 20 mg Tablet] 20 mg PO QAM 07/19/17 Ibandronate Sodium [Boniva] 150 mg PO .QMONTHLY 07/19/17 Acetaminophen [Tylenol 325 mg Tablet] 325 mg PO DAILYP PRN 11/22/18 Amlodipine Besylate [Norvasc 2.5 mg Tablet] 2.5 mg PO DAILY 11/22/18 Apixaban [Eliquis 5 mg Tablet] 5 mg PO DAILY 11/22/18 Atenolol [Tenormin 50 mg Tablet] 50 mg PO DAILY 11/22/18 Lisinopril 20 mg PO DAILY 11/22/18 Solifenacin Succinate [Vesicare] 10 mg PO DAILY 11/22/18 Ferrous Sulfate 325 mg PO BID #60 tablet. 11/25/18 History of Present Illness History of Present Illness: TONIA KHAN is a 78 year old female Hospital Course Hospital Course: his is 78 years old female patient was past medical history of hypertension, type 2 diabetes mellitus, congestive heart failure and morbid obesity presented with chief complaint of hypoglycemia. At presentation to ER her blood glucose level was 34. The culprit for her hypoglycemia is the oral hypoglycemic agents that she has been taking. Her oral hypoglycemic agents on hold and patient has been on dextrose 10. Her urinalysis also positive for pyuria and leukocyte esterase and she has been getting ceftriaxone. Patient seen sitting upright in bed and enjoying her breakfast. She is awake alert oriented. She is not in pain or distress. Her blood sugar ranges between 70-170 without being on any oral hypoglycemic agent. Her hemoglobin A1c is 5.8. I do not think this patient needs any antidiabetic medication at this point since her blood sugar is within acceptable range without any medication and also her hemoglobin A1c reflects that her diabetes is well controlled. I will take her off her glimepiride. Her hemoglobin is on the lower side and it dropped from 9-8. Patient needs outpatient colonoscopy her last colonoscopy was 10 years ago. I told the patient to follow-up with her primary care physician for her diabetes and and arrangement for colonoscopy, Upon discharge. Physical Exam Vital Signs: Temp Pulse Resp BP Pulse Ox 97.8 F 71 16 102/46 L 92 11/25/18 07:27 11/25/18 07:27 11/25/18 07:27 11/25/18 07:27 11/25/18 07:27 Intake & Output 11/24/18 11/25/18 11/26/18 06:59 06:59 06:59 Intake Total 650 530 Output Total 1475 1850 Balance -825 -1320 Weight 124.9 kg 122.3 kg General appearance: PRESENT: no acute distress Head exam: PRESENT: atraumatic Neck exam: ABSENT: carotid bruit, JVD, lymphadenopathy, thyromegaly Cardiovascular exam: PRESENT: RRR. ABSENT: diastolic murmur, rubs, systolic murmur GI/Abdominal exam: PRESENT: normal bowel sounds, soft. ABSENT: distended, guarding, mass, organolmegaly, rebound, tenderness Neurological exam: PRESENT: alert, awake, oriented to person, oriented to place, oriented to time, oriented to situation Results Laboratory Results: 11/23/18 04:32 11/24/18 05:15 11/24/18 05:15 Vitamin B12 348.0 11/21/18 23:54 Troponin I 0.061 Impressions: Chest X-Ray 11/21/18 23:41 IMPRESSION: No evidence of acute cardiopulmonary disease. Qualifiers - * PATIENT BEING DISCHARGED WITH ANY OF THE FOLLOWING DIAGNOSIS: No Acute Heart Failure - Is this a Heart Failure Patient?: No LVEF < 40%?: No- if no continue to question #3 3. Anticoagulant therapy for permanect/persistent/paraoxysmal Afib or Aflutter: N/A
== END 2018-11-25 10:50 | disposition home or self-care (01) | DRG 683 ==
LOC: ER 21:09 → EH 11-22 03:48 → 3W 11-22 07:38
PROVIDERS: ADMIT Internal Medicine; ATTEND Internal Medicine
DX: N17.9 Acute kidney failure, unspecified (principal); N39.0 Urinary tract infection, site not specified; Z68.41 Body mass index [BMI] 40.0-44.9, adult; E87.5 Hyperkalemia; E11.649 Type 2 diabetes mellitus with hypoglycemia without coma; I10 Essential (primary) hypertension; I48.2 Chronic atrial fibrillation; B96.20 Unspecified Escherichia coli [E. coli] as the cause of diseases classified elsewhere; I87.2 Venous insufficiency (chronic) (peripheral); E86.0 Dehydration; E66.01 Morbid (severe) obesity due to excess calories; Z79.01 Long term (current) use of anticoagulants; Z79.84 Long term (current) use of oral hypoglycemic drugs; Z79.82 Long term (current) use of aspirin; Z79.899 Other long term (current) drug therapy
CPT/HCPCS: 36415; 71045; 74176; 80048; 80053; 81001; 82272; 82607; 82728; 82746; 82803; 82962; 83036; 83540; 83550; 83605; 84484; 85025; 85045; 87040; 87086; 87088; 87186; 93005; 93010; 96365; 96366; 96375; 99291; J0610; J0696; J1644; J3490; J7030; J7060

== ENCOUNTER 2019-02-25 11:55 | Inpatient (IN) | payer MEDICARE, MEDICAID ==
--- NOTE | 2019-02-25 13:03 | RADIOLOGY REPORT (SQ) ---
EXAM DESCRIPTION: CT HEAD WITHOUT COMPLETED DATE/TIME: 02/25/2019 12:51 pm REASON FOR STUDY: weak cant walk COMPARISON: None. TECHNIQUE: Axial images acquired through the brain without intravenous contrast. Images reviewed wi th bone, brain and subdural windows. Additional sagittal and coronal reconstructions were generated. Images stored on PACS. All CT scanners at this facility use dose modulation, iterative reconstruction, and/or weight based d osing when appropriate to reduce radiation dose to as low as reasonably achievable (ALARA). [facility]: Dose Right [facility]: CareDose [facility]: Dose Right [facility]: Teradose 4D [facility]: [employer] RADIATION DOSE: CT Rad equipment meets quality standard of care and radiation dose reduction techniq ues were employed. CTDIvol: 53.2 mGy. DLP: 1017 mGy-cm. mGy. LIMITATIONS: None. FINDINGS: VENTRICLES: Prominent. CEREBRUM: No masses. No hemorrhage. No midline shift. Areas of low density in the white matter mos t likely due to chronic micro-vascular ischemic change. No evidence for acute infarction. CEREBELLUM: No masses. No hemorrhage. No alteration of density. No evidence for acute infarction. EXTRAAXIAL SPACES: Mild age-related involutional change. No fluid collections. No masses. ORBITS AND GLOBE: No intra- or extraconal masses. Normal contour of globe without masses. CALVARIUM: No fracture. PARANASAL SINUSES: No fluid or mucosal thickening. SOFT TISSUES: No mass or hematoma. OTHER: No other significant finding. IMPRESSION: MILD CHRONIC CHANGES OF ATROPHY AND MICROVASCULAR ISCHEMIA. NO ACUTE PROCESS. EVIDENCE OF ACUTE STROKE: NO. TECHNICAL DOCUMENTATION: JOB ID: [id number] Quality ID # [id number]: Final reports with documentation of one or more dose reduction techniques (e.g., Au tomated exposure control, adjustment of the mA and/or kV according to patient size, use of iterative reconstruction technique) 2010 [employer]- All Rights Reserved Reading location - IP/workstation name: [email or web address]
[2019-02-25 13:35] LABS: HEMATOCRIT 29.3 % (36.0-47.0); HEMOGLOBIN 9.4 g/dL (12.0-15.5); MEAN CORPUSCULAR HEMOGLOBIN 28.8 pg (27.0-33.4); MEAN CORPUSCULAR HGB CONC 32.2 g/dL (32.0-36.0); MEAN CORPUSCULAR VOLUME 90 fl (80-97); PLATELET COUNT 256 10^3/uL (150-450); RED BLOOD COUNT 3.27 10^6/uL (3.72-5.28); RED CELL DISTRIBUTION WIDTH 15.1 % (11.5-14.0); WHITE BLOOD COUNT 13.3 10^3/uL (4.0-10.5)
[2019-02-25 13:57] LABS: ALBUMIN 3.2 g/dL (3.5-5.0); ALKALINE PHOSPHATASE 67 U/L (38-126); ANION GAP 14 (5-19); ASPARTATE AMINO TRANSFERASE 27 U/L (14-36); BILIRUBIN,DIRECT 0.3 mg/dL (0.0-0.4); BILIRUBIN,TOTAL 0.4 mg/dL (0.2-1.3); BLOOD UREA NITROGEN 113 mg/dL (7-20); CALCIUM 7.9 mg/dL (8.4-10.2); CARBON DIOXIDE 18 mmol/L (22-30); CHLORIDE 104 mmol/L (98-107); CREATINE KINASE 599 U/L (30-135); GLUCOSE 130 mg/dL (75-110); POTASSIUM 5.9 mmol/L (3.6-5.0); TOTAL PROTEIN 6.3 g/dL (6.3-8.2)
--- NOTE | 2019-02-25 14:06 | RADIOLOGY REPORT (SQ) ---
EXAM DESCRIPTION: FEMUR RIGHT COMPLETED DATE/TIME: 02/25/2019 1:45 pm REASON FOR STUDY: pain bruise COMPARISON: None. NUMBER OF VIEWS: Two views. TECHNIQUE: Two radiographic images acquired of the right femur to include hip and knee in at least o ne projection. LIMITATIONS: None. FINDINGS: MINERALIZATION: Normal. BONES: No acute fracture. No worrisome bone lesions. SOFT TISSUES: There is diffuse soft tissue edema. OTHER: No other significant finding. IMPRESSION: Diffuse soft tissue edema. Degenerative changes in the knee. No acute fracture. TECHNICAL DOCUMENTATION: JOB ID: [id number] [employer] All Rights Reserved Reading location - IP/workstation name: [email or web address]
[2019-02-25 14:09] LABS: NT PRO BNP 3280 pg/mL (<450)
[2019-02-25 14:11] LABS: TROPONIN I < 0.012 ng/mL
--- NOTE | 2019-02-25 14:12 | RADIOLOGY REPORT (SQ) ---
EXAM DESCRIPTION: CHEST SINGLE VIEW COMPLETED DATE/TIME: 02/25/2019 1:45 pm REASON FOR STUDY: weak cant walk COMPARISON: 11/22/2018 NUMBER OF VIEWS: One view. TECHNIQUE: Single frontal radiographic view of the chest acquired. LIMITATIONS: None. FINDINGS: LUNGS AND PLEURA: There is linear atelectasis in the left base. No effusions. No pneumot horax. MEDIASTINUM AND HILAR STRUCTURES: No masses. Contour normal. HEART AND VASCULAR STRUCTURES: Heart is enlarged. No failure. BONES: No acute findings. HARDWARE: None in the chest. OTHER: No other significant finding. IMPRESSION: Linear atelectasis in the left base. No other significant findings. TECHNICAL DOCUMENTATION: JOB ID: [id number] [employer]- All Rights Reserved Reading location - IP/workstation name: [email or web address]
[2019-02-25 14:13] LABS: AMORPHOUS SEDIMENT,URINE TRACE /HPF; APPEARANCE,URINE TURBID; BILIRUBIN,URINE NEGATIVE (NEGATIVE); GLUCOSE, URINE NEGATIVE (NEGATIVE); KETONES,URINE NEGATIVE (NEGATIVE); LEUKOCYTE ESTERASE,URINE LARGE (NEGATIVE); NITRITE,URINE NEGATIVE (NEGATIVE); PROTEIN,URINE NEGATIVE (NEGATIVE); URIC ACID CRYSTALS,URINE MODERATE /HPF; URINE SPECIFIC GRAVITY 1.014
[2019-02-25 14:17] LABS: COLOR,URINE YELLOW
[2019-02-25 14:19] LABS: ABSOLUTE LYMPHOCYTES# (MANUAL) 2.3 10^3/uL (0.5-4.7); ABSOLUTE MONOCYTES # (MANUAL) 0.9 10^3/uL (0.1-1.4); BASOPHILS % (MANUAL) 0 % (0-2); EOSINOPHILS % (MANUAL) 1 % (0-6); LYMPHOCYTES % (MANUAL) 17 % (13-45); MONOCYTES % (MANUAL) 7 % (3-13); SEGMENTED NEUTROPHILS % (MAN) 75 % (42-78); TOTAL CELLS COUNTED 100
[2019-02-25 14:20] LABS: ANISOCYTOSIS SLIGHT; OVALOCYTES SLIGHT; PLATELET COMMENT ADEQUATE
[2019-02-25] MEDS ORDERED: SODIUM POLYSTYRENE SULFONATE 15 GM/60 ML PO ONE (16:15)
[2019-02-25] MEDS ORDERED: CEFTRIAXONE 1 GM/D5W RTU 1 GM/50 ML RTUPB IV ONE (16:16)
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
[2019-02-25] MEDS ORDERED: NORMAL SALINE 1000 ML 1,000 ML IV ONE (16:45)
[2019-02-25] MEDS ORDERED: ONDANSETRON HCL INJ/PF 4 MG/2 ML SDV IV PRN (16:49)
[2019-02-25] MEDS ORDERED: MAG HYDROX/AL HYDROX/SIMETH SUSP 30 ML UDCUP PO PRN (16:49)
[2019-02-25] MEDS ORDERED: ACETAMINOPHEN 325 MG TABLET PO PRN (16:49)
[2019-02-25] MEDS ORDERED: MAGNESIUM HYDROXIDE SUSP 30 ML UDCUP PO PRN (16:49)
[2019-02-25] MEDS ORDERED: DEXTROSE 40% GEL 15 GM TUBE PO PRN ×2 (17:14)
[2019-02-25] MEDS ORDERED: GLUCAGON,HUMAN RECOMB 1 MG INJ IM PRN (17:14)
[2019-02-25] MEDS ORDERED: DEXTROSE 50%-WATER 25 GM/50 ML DISP.SYRIN IV PRN ×2 (17:14)
--- NOTE | 2019-02-25 17:35 | PDOC H&P ---
History of Present Illness Admission Date/PCP: GOPI BYRNES PA-C Patient complains of: generalized weakness History of Present Illness: TONIA KHAN is a 78 year old female with a past medical history significant for hypertension, hyperlipidemia, DM 2, CKD, morbid obesity who presented to the emergency department today with a complaint of generalized weakness and poor appetite for the last week. Evaluation in the emergency department revealed Acceptable vital signs, leukocytosis (WBCs 13.3) 6, baseline anemia (hemoglobin 9.4), and acute renal fa ilure with a potassium of 5.9, BUN 113, creatinine 5.94, and EGFR of 7. She was found to have a creatinine kinase of 599 and an elevated proBNP of 3280. She does not appear to be in fluid volume overload; in fact she does look slightly dehydrated today. Urinalysis positive for urinary tract infection. Chest x-ray is benign. An EKG demonstrates normal sinus rhythm. Nephrology has been consulted. Patient has been ordered a 1 L normal saline bolus and Kayexalate. She is referred to the hospitalist service for admission and management of the above-stated complaints. Past Medical History Cardiac Medical History: Reports: Atrial Fibrillation, Congestive Heart Failure, Hyperlipidema, Hypertension Denies: Coronary Artery Disease Pulmonary Medical History: Reports: None EENT Medical History: Reports: None Neurological Medical History: Reports: None Endocrine Medical History: Reports: Diabetes Mellitus Type 2, Obesity Denies: Hypothyroidism Renal/ Medical History: Reports: Chronic Kidney Disease Malignancy Medical History: Reports: None GI Medical History: Denies: Hepatitis Musculoskeltal Medical History: Reports: Arthritis Psychiatric Medical History: Denies: Depression Hematology: Reports: Anemia Infectious Medical History: Reports: None Past Surgical History Past Surgical History: Reports: Cholecystectomy, Orthopedic Surgery - TKR, Tonsillectomy Social History Information Source: Patient, Relative Lives with: Family Smoking Status: Never Smoker Frequency of Alcohol Use: None Hx Recreational Drug Use: No Drugs: None Hx Prescription Drug Abuse: No - Advance Directive Resuscitation Status: Full Code Family History Family History: Hypertension Parental Family History Reviewed: Yes Children Family History Reviewed: Yes Sibling(s) Family History Reviewed.: Yes Medication/Allergy Home Medications: Atorvastatin Calcium [Lipitor 10 mg Tablet] 10 mg PO QHS 07/19/17 Furosemide [Lasix 20 mg Tablet] 20 mg PO QAM 07/19/17 Ibandronate Sodium [Boniva] 150 mg PO .QMONTHLY 07/19/17 Acetaminophen [Tylenol 325 mg Tablet] 325 mg PO DAILYP PRN 11/22/18 Amlodipine Besylate [Norvasc 2.5 mg Tablet] 2.5 mg PO DAILY 11/22/18 Apixaban [Eliquis 5 mg Tablet] 5 mg PO DAILY 11/22/18 Atenolol [Tenormin 50 mg Tablet] 50 mg PO DAILY 11/22/18 Lisinopril 20 mg PO DAILY 11/22/18 Solifenacin Succinate [Vesicare] 10 mg PO DAILY 11/22/18 Ferrous Sulfate 325 mg PO BID #60 tablet. 11/25/18 Allergies/Adverse Reactions: No Known Allergies Allergy (Unverified 03/23/17 16:59) Review of Systems Constitutional: PRESENT: anorexia. ABSENT: chills, fever(s), headache(s), weight gain, weight loss Eyes: ABSENT: visual disturbances Ears: ABSENT: hearing changes Cardiovascular: ABSENT: chest pain, dyspnea on exertion, edema, orthropnea, palpitations Respiratory: ABSENT: cough, hemoptysis Gastrointestinal: PRESENT: nausea. ABSENT: abdominal pain, constipation, diarrhea, hematemesis, hematochezia, vomiting Genitourinary: ABSENT: dysuria, hematuria Musculoskeletal: ABSENT: joint swelling Integumentary: ABSENT: rash, wounds Neurological: PRESENT: weakness. ABSENT: abnormal gait, abnormal speech, confusion, dizziness, focal weakness, syncope Psychiatric: ABSENT: anxiety, depression, homidical ideation, suicidal ideation Endocrine: ABSENT: cold intolerance, heat intolerance, polydipsia, polyuria Hematologic/Lymphatic: ABSENT: easy bleeding, easy bruising Physical Exam Vital Signs: Temp Pulse Resp BP Pulse Ox 97.4 F 61 20 100/50 L 98 02/25/19 12:00 02/25/19 12:00 02/25/19 12:00 02/25/19 12:00 02/25/19 12:00 Intake & Output 02/24/19 02/25/19 02/26/19 06:59 06:59 06:59 Weight 114.9 kg General appearance: PRESENT: no acute distress, cooperative, disheveled, morbidly obese, well-developed, well-nourished Head exam: PRESENT: atraumatic, normocephalic Eye exam: PRESENT: conjunctiva pink, EOMI, PERRLA. ABSENT: scleral icterus Ear exam: PRESENT: normal external ear exam Mouth exam: PRESENT: moist, tongue midline Neck exam: ABSENT: carotid bruit, JVD, lymphadenopathy, thyromegaly Respiratory exam: PRESENT: clear to auscultation jaison, symmetrical, unlabored. ABSENT: rales, rhonchi, wheezes Cardiovascular exam: PRESENT: RRR, +S1, +S2. ABSENT: diastolic murmur, rubs, systolic murmur Pulses: PRESENT: normal dorsalis pedis pul Vascular exam: PRESENT: normal capillary refill GI/Abdominal exam: PRESENT: normal bowel sounds, soft. ABSENT: distended, guarding, mass, organolmegaly, rebound, tenderness Rectal exam: PRESENT: deferred Extremities exam: PRESENT: full ROM. ABSENT: calf tenderness, clubbing, pedal edema Neurological exam: PRESENT: alert, awake, oriented to person, oriented to place, oriented to time, oriented to situation, CN II-XII grossly intact. ABSENT: motor sensory deficit Psychiatric exam: PRESENT: appropriate affect, normal mood. ABSENT: homicidal i deation, suicidal ideation Skin exam: PRESENT: dry, erythema - BLE, intact, warm, other - Chronic venous stasis changes to bilateral lower extremities. ABSENT: cyanosis, rash Results Laboratory Results: 02/25/19 13:10 02/25/19 13:10 02/25/19 02/25/19 02/25/19 13:10 13:10 13:42 WBC 13.3 H RBC 3.27 L Hgb 9.4 L Hct 29.3 L MCV 90 MCH 28.8 MCHC 32.2 RDW 15.1 H Plt Count 256 Seg Neutrophils % Not Reportable Sodium 136.1 L Potassium 5.9 H Chloride 104 Carbon Dioxide 18 L Anion Gap 14 BUN 113 H Creatinine 5.94 H Est GFR ( Amer) 8 L Glucose 130 H Calcium 7.9 L Total Bilirubin 0.4 AST 27 Alkaline Phosphatase 67 Total Protein 6.3 Albumin 3.2 L Urine Color YELLOW Urine Appearance TURBID Urine pH 5.0 Ur Specific [place] 1.014 Urine Protein NEGATIVE Urine Glucose (UA) NEGATIVE Urine Ketones NEGATIVE Urine Blood LARGE H Urine Nitrite NEGATIVE Ur Leukocyte Esterase LARGE H Urine WBC (Auto) 73 Urine RBC (Auto) 26 02/25/19 02/25/19 13:10 13:10 Creatine Kinase 599 H Troponin I < 0.012 NT-Pro-B Natriuret Pep 3280 H Impressions: Chest X-Ray 02/25/19 12:20 IMPRESSION: Linear atelectasis in the left base. No other significant findings. Head CT 02/25/19 12:20 IMPRESSION: MILD CHRONIC CHANGES OF ATROPHY AND MICROVASCULAR ISCHEMIA. NO ACUTE PROCESS. EVIDENCE OF ACUTE STROKE: NO. Femur X-Ray 02/25/19 12:21 IMPRESSION: Diffuse soft tissue edema. Degenerative changes in the knee. No acute fracture. Assessment and Plan - Diagnosis (1) Acute kidney injury superimposed on CKD Is this a current diagnosis for this admission?: Yes Plan: Creatinine 5.94/BUN 113; baseline 1.80/50 Received 1 L NS bolus. Patient is admitted to the medical floor on continuous cardiac telemetry. Continue IVF. Avoid nephrotoxic medications as able. Nephrology is consulted; appreciate their assistance. Daily chemistries. (2) UTI (urinary tract infection) Qualifiers: Urinary tract infection type: acute cystitis Hematuria presence: without hematuria Qualified Code(s): N30.00 - Acute cystitis without hematuria Is this a current diagnosis for this admission?: Yes Plan: Urinalysis reveals UTI. Blood and urine cultures pending. IV Rocephin. (3) HTN (hypertension) Is this a current diagnosis for this admission?: Yes Plan: Normotensive at present. We will resume home medication regiment once reconciled. Prerenal diet. Nephrology on board. (4) Anemia Qualifiers: Anemia type: unspecified type Qualified Code(s): D64.9 - Anemia, unspecified Is this a current diagnosis for this admission?: Yes Plan: Anemia of chronic kidney disease. Hemoglobin at baseline; today 9.4. No evidence of active bleeding at this time. Continue daily multivitamin and iron supplementation. Nephrology is consulted; appreciate their assistance. (5) Hyperkalemia Is this a current diagnosis for this admission?: Yes Plan: Secondary to acute on chronic kidney disease. Kayexalate x1. Start IV fluids. Nephrology is consulted; appreciate their assistance. Daily chemistries. (6) Morbid obesity with BMI of 45.0-49.9, adult Is this a current diagnosis for this admission?: Yes Plan: BMI of 46.3. Dietary discretion and lifestyle modification recommended. Renal diet/consistent carb diet. Registered dietitian is consulted.
[2019-02-25] MEDS: NORMAL SALINE 1000 ML 1,000 ML IV PRN (18:39)
--- NOTE | 2019-02-25 20:37 | PDOC CONSULTATION ---
Consultation Consult Date: 02/25/19 Provider Consulted: Lois SUTTON History of Present Illness Admission Date/PCP: 02/25/19 17:00 GOPI BYRNES PA-C History of Present Illness: TONIA KHAN is a 78 year old female with a past medical history for hypertension, hyperlipidemia, DM 2, CKD [address] Sutton in 2012 twice creatinine of 1.2, morbid obesity. She presented to the emergency department with her daughter today with a complaint of generalized lower extremity weakness, soreness and poor appetite for the last week. She has been having some nausea and occasional vomiting. She has also barely been drinking much fluid due to the nausea. In the ED labs were drawn showed a leukocytosis (WBCs 13.3), anemia (hemoglobin 9.4), and acute renal failure with a potassium of 5.9, BUN 113, creatinine 5.94, and EGFR of 7. She also had a creatinine kinase of 599. Urinalysis positive for urinary tract infection. BP was 100/50. Chest x-ray is benign. An EKG demonstrates normal sinus rhythm. CT of her head did not show any acute process. Chest x-ray showed just an enlarged heart and no other signs of fluid overload. In the ED she was being given a 1 L normal saline bolus and Kayexalate. Patient denies chest pain, SOB. She does admit to occasional diarrhea. Past Medical History Cardiac Medical History: Reports: Atrial Fibrillation, Hyperlipidemia Denies: Coronary Artery Disease Pulmonary Medical History: Reports: None EENT Medical History: Reports: None Neurological Medical History: Reports: None Endocrine Medical History: Reports: Diabetes Mellitus Type 2, Obesity Denies: Hypothyroidism Malignancy Medical History: Reports: None GI Medical History: Denies: Hepatitis Musculoskeltal Medical History: Reports: Arthritis Psychiatric Medical History: Denies: Depression Infectious Medical History: Reports: None Past Surgical History Past Surgical History: Reports: Cholecystectomy, Orthopedic Surgery - TKR, Tonsillectomy Social History Lives with: Family Smoking Status: Never Smoker Frequency of Alcohol Use: None Hx Recreational Drug Use: No Drugs: None Hx Prescription Drug Abuse: No - Advance Directive Resuscitation Status: Full Code Family History Family History: Other - -no CKD Parental Family History Reviewed: Yes Children Family History Reviewed: Yes Sibling(s) Family History Reviewed.: Unknown Medication/Allergy Home Medications: Amlodipine Besylate [Norvasc 2.5 mg Tablet] 2.5 mg PO DAILY 02/25/19 Apixaban [Eliquis 5 mg Tablet] 5 mg PO DAILY 02/25/19 Atenolol [Tenormin 50 mg Tablet] 50 mg PO DAILY 02/25/19 Atorvastatin Calcium [Lipitor 10 mg Tablet] 10 mg PO QHS 02/25/19 Furosemide [Lasix 20 mg Tablet] 20 mg PO DAILY 02/25/19 Lisinopril 20 mg PO DAILY 02/25/19 Solifenacin Succinate [Vesicare] 10 mg PO DAILY 02/25/19 Allergies/Adverse Reactions: No Known Allergies Allergy (Unverified 03/23/17 16:59) Review of Systems Constitutional: PRESENT: anorexia, fatigue, weakness. ABSENT: chills, fever(s) Eyes: ABSENT: visual disturbances Nose, Mouth, and Throat: ABSENT: headache(s) Cardiovascular: PRESENT: edema. ABSENT: chest pain, dyspnea on exertion, orthropnea, palpitations Respiratory: ABSENT: cough, dyspnea, sputum Gastrointestinal: PRESENT: diarrhea, nausea, vomiting. ABSENT: abdominal pain, constipation Genitourinary: ABSENT: difficulty urinating, dysuria, nocturia Musculoskeletal: PRESENT: muscle weakness. ABSENT: back pain, deformity Integumentary: PRESENT: erythema, rash. ABSENT: diaphoresis, wounds Neurological: PRESENT: focal weakness, weakness. ABSENT: numbness Psychiatric: ABSENT: anxiety Physical Exam Vital Signs: Temp Pulse Resp BP Pulse Ox 97.4 F 61 15 102/50 L 100 02/25/19 18:24 02/25/19 12:00 02/25/19 19:00 02/25/19 18:48 02/25/19 19:00 Intake & Output 02/24/19 02/25/19 02/26/19 06:59 06:59 06:59 Intake Total 1050 Balance 1050 Weight 114.9 kg General appearance: PRESENT: no acute distress, obese, well-developed, well- nourished Mouth exam: PRESENT: dry mucosa, neck supple. ABSENT: moist Neck exam: ABSENT: JVD, tracheal deviation Respiratory exam: PRESENT: clear to auscultation jaison. ABSENT: accessory muscle use, crackles, rhonchi, wheezes Cardiovascular exam: PRESENT: +S1, +S2 GI/Abdominal exam: PRESENT: soft. ABSENT: ascites, distended, guarding, tenderness Extremities exam: PRESENT: other - -trace+. ABSENT: pedal edema, tenderness, +1 edema, +2 edema Neurological exam: PRESENT: alert, awake, oriented to person, oriented to place, oriented to time, oriented to situation Psychiatric exam: PRESENT: appropriate affect, normal mood Skin exam: PRESENT: dry, intact, warm Results Laboratory Results: 02/25/19 13:10 02/25/19 13:10 02/25/19 02/25/19 02/25/19 13:10 13:10 13:42 WBC 13.3 H RBC 3.27 L Hgb 9.4 L Hct 29.3 L MCV 90 MCH 28.8 MCHC 32.2 RDW 15.1 H Plt Count 256 Seg Neutrophils % Not Reportable Sodium 136.1 L Potassium 5.9 H Chloride 104 Carbon Dioxide 18 L Anion Gap 14 BUN 113 H Creatinine 5.94 H Est GFR ( Amer) 8 L Glucose 130 H Lactic Acid Calcium 7.9 L Total Bilirubin 0.4 AST 27 Alkaline Phosphatase 67 Total Protein 6.3 Albumin 3.2 L Urine Color YELLOW Urine Appearance TURBID Urine pH 5.0 Ur Specific [place] 1.014 Urine Protein NEGATIVE Urine Glucose (UA) NEGATIVE Urine Ketones NEGATIVE Urine Blood LARGE H Urine Nitrite NEGATIVE Ur Leukocyte Esterase LARGE H Urine WBC (Auto) 73 Urine RBC (Auto) 26 02/25/19 16:50 WBC RBC Hgb Hct MCV MCH MCHC RDW Plt Count Seg Neutrophils % Sodium Potassium Chloride Carbon Dioxide Anion Gap BUN Creatinine Est GFR ( Amer) Glucose Lactic Acid 0.9 Calcium Total Bilirubin AST Alkaline Phosphatase Total Protein Albumin Urine Color Urine Appearance Urine pH Ur Specific [place] Urine Protein Urine Glucose (UA) Urine Ketones Urine Blood Urine Nitrite Ur Leukocyte Esterase Urine WBC (Auto) Urine RBC (Auto) 02/25/19 02/25/19 13:10 13:10 Creatine Kinase 599 H Troponin I < 0.012 NT-Pro-B Natriuret Pep 3280 H Impressions: Chest X-Ray 02/25/19 12:20 IMPRESSION: Linear atelectasis in the left base. No other significant findings. Head CT 02/25/19 12:20 IMPRESSION: MILD CHRONIC CHANGES OF ATROPHY AND MICROVASCULAR ISCHEMIA. NO ACUTE PROCESS. EVIDENCE OF ACUTE STROKE: NO. Femur X-Ray 02/25/19 12:21 IMPRESSION: Diffuse soft tissue edema. Degenerative changes in the knee. No acute fracture. Assessment & Plan - Diagnosis (1) Acute kidney injury superimposed on CKD Is this a current diagnosis for this admission?: Yes Plan: nonoliguric, due to dehydration and possible beginning stages of sepsis. Other factors include the current UTI, slightly elevated creatinine kinase. Continue with NS, ceftriaxone, holding bp medication. Will look to add a renal ultrasound. Closely monitor I&Os. No indication for renal replacement therapy. Adjust all medications to a GFR of less than 25. Reassess kidney function tomorrow. Also screen for hyperphosphatemia and renal osteodystraphy. The possibility of dialysis was also discussed with the patient and her daughter. At this time she is for doing dialysis if it comes to that. (2) UTI (urinary tract infection) Qualifiers: Urinary tract infection type: acute cystitis Hematuria presence: without hematuria Qualified Code(s): N30.00 - Acute cystitis without hematuria Is this a current diagnosis for this admission?: Yes Plan: continue with ceftriaxone pending urine culture (3) Dehydration Plan: continue with normal saline at current rate (4) Hyperkalemia Is this a current diagnosis for this admission?: Yes Plan: she was given kayexelate earlier today, will look to retest. Discussed a low potassium diet with her. (5) Anemia Qualifiers: Anemia type: unspecified type Qualified Code(s): D64.9 - Anemia, unspecified Is this a current diagnosis for this admission?: Yes Plan: will look to get labs and assess the possibility of the need of procrit. (6) HTN (hypertension) Is this a current diagnosis for this admission?: Yes Plan: hold bp medications and rehydrate (7) Sepsis Qualifiers: Sepsis type: sepsis due to unspecified organism Qualified Code(s): A41.9 - Sepsis, unspecified organism Plan: continue with ceftriaxone and normal saline. Source could possibly be from the current UTI. (8) Diabetes mellitus type 2 in obese Plan: advised on good control of her blood sugars. (9) CKD stage 3 due to type 2 diabetes mellitus Plan: looks to have baseline around 1.7 - Notes Notes: patient was discussed with Dr. Sutton.
--- NOTE | 2019-02-25 20:55 | EKG REPORT ---
SEVERITY:- ABNORMAL ECG - SINUS RHYTHM IVCD, CONSIDER ATYPICAL RBBB ANTERIOR INFARCT, OLD : Confirmed by: Genoveva Mcdaniels MD 25-Feb-2019 20:53:53
[2019-02-25] MEDS: INSULIN LISPRO 100 UNIT/ML 3 ML VIAL SUBCUT SCH (21:42)
[2019-02-25] MEDS: HEPARIN SOD (PORCINE) 5,000 UNIT/ML 1 ML VIAL SUBCUT SCH (21:47)
[2019-02-26] MEDS: NORMAL SALINE 1000 ML 1,000 ML IV PRN ×2 (03:00→21:07)
[2019-02-26] MEDS: HEPARIN SOD (PORCINE) 5,000 UNIT/ML 1 ML VIAL SUBCUT SCH ×2 (05:52→14:38)
[2019-02-26 06:08] LABS: ABSOLUTE RETICS # 0.057 10^6/uL (0.028-0.122); HEMATOCRIT 27.1 % (36.0-47.0); HEMOGLOBIN 8.7 g/dL (12.0-15.5); MEAN CORPUSCULAR HEMOGLOBIN 28.5 pg (27.0-33.4); MEAN CORPUSCULAR HGB CONC 32.1 g/dL (32.0-36.0); MEAN CORPUSCULAR VOLUME 89 fl (80-97); PLATELET COUNT 204 10^3/uL (150-450); RED BLOOD COUNT 3.04 10^6/uL (3.72-5.28); RED CELL DISTRIBUTION WIDTH 14.9 % (11.5-14.0); RETICULOCYTE COUNT (AUTO) 1.88 % (0.66-2.85); WHITE BLOOD COUNT 9.4 10^3/uL (4.0-10.5)
--- NOTE | 2019-02-26 08:40 | RADIOLOGY REPORT (SQ) ---
EXAM DESCRIPTION: U/S RETROPERITON LTD COMPLETED DATE/TIME: 02/26/2019 6:13 am REASON FOR STUDY: STERLING COMPARISON: CT of the abdomen and pelvis without contrast from 11/22/2018. TECHNIQUE: Dynamic and static grayscale images acquired of the kidneys and bladder and recorded on P ACS. Additional selected color Doppler and spectral images recorded. LIMITATIONS: Evaluation is limited due to the patient's body habitus. FINDINGS: RIGHT KIDNEY: The right kidney measures 9.7 cm in length. There is no hydronephrosis or calcification. LEFT KIDNEY: The left kidney measures 9 cm in length. There is no hydronephrosis or calcification. BLADDER: There is a Bill catheter within the contracted urinary bladder. OTHER FINDINGS: The proximal abdominal aorta measures 1.8 cm in AP diameter ; the mid abdominal aorta measures 1.6 cm in AP diameter ; and the distal abdominal aorta measures approximately 1 cm in AP di ameter. IMPRESSION: 1. No hydronephrosis. 2. Bill catheter within the contracted urinary bladder. 3. No abdominal aortic aneurysm. TECHNICAL DOCUMENTATION: JOB ID: [id number] [employer]- All Rights Reserved Reading location - IP/workstation name: [email or web address]
[2019-02-26 09:45] LABS: ANION GAP 10 (5-19); BLOOD UREA NITROGEN 105 mg/dL (7-20); CALCIUM 7.1 mg/dL (8.4-10.2); CARBON DIOXIDE 16 mmol/L (22-30); CHLORIDE 114 mmol/L (98-107); GLUCOSE 113 mg/dL (75-110); IRON(TIBC) 31.3 ug/dL (37-170); PHOSPHORUS 4.9 mg/dL (2.5-4.5); POTASSIUM 5.1 mmol/L (3.6-5.0)
[2019-02-26] MEDS ORDERED: FERROUS SULFATE 325 MG TABLET PO SCH (10:00)
[2019-02-26] MEDS: INSULIN LISPRO 100 UNIT/ML 3 ML VIAL SUBCUT SCH ×4 (10:12→22:00)
[2019-02-26] MEDS: MULTIVITAMIN TABLET PO SCH (10:15)
[2019-02-26] MEDS: DOCUSATE SODIUM 100 MG CAPSULE PO SCH (10:15)
[2019-02-26] MEDS: CEFTRIAXONE 1 GM/D5W RTU 1 GM/50 ML RTUPB IV SCH (10:16)
--- NOTE | 2019-02-26 18:33 | Progress Note Acknowledgement ---
Progress Note Acknowledgement Progess Note Acknowledgement: I, the undersigned member of the medical staff with appropriate privileges and with supervisory authority over Jeana Estevez, a [facility] practice allied health professional, acknowledge that I have reviewed the progress notes entered on this patient, and in my professional judgment believe that the assessment made and/or any care evidenced was appropriate
--- NOTE | 2019-02-26 18:33 | PDOC PROGRESS REPORT ---
Subjective Progress Note for:: 02/26/19 Subjective:: The patient is a 78 year old female with a past medical history significant for hypertension, hyperlipidemia, DM 2, CKD, morbid obesity who was admitted 02/25/19 with UTI and A/CKD. The patient was seen on afternoon rounds. She was found resting in bed comfortably on supplemental oxygen via nasal cannula at 2 L/min; she is not home O2 dependent. She was sleeping soundly and did not wake when I set her name, but did arouses slightly. Per nursing, the patient had been awake shortly prior. She is appears to be resting comfortably and is not noted to be in any acute distress. No concerns per nursing at this time. Reason For Visit: STERLING,UTI Physical Exam Vital Signs: Temp Pulse Resp BP Pulse Ox 97.5 F 54 L 17 90/60 L 99 02/26/19 12:00 02/26/19 14:00 02/26/19 12:00 02/26/19 09:32 02/26/19 12:00 Intake & Output 02/25/19 02/26/19 02/27/19 06:59 06:59 06:59 Intake Total 2050 1530 Output Total 900 Balance 1150 1530 Weight 110.5 kg General appearance: PRESENT: no acute distress, morbidly obese, well-developed, well-nourished Head exam: PRESENT: atraumatic, normocephalic Ear exam: PRESENT: normal external ear exam Mouth exam: PRESENT: moist, tongue midline Neck exam: ABSENT: carotid bruit, JVD, lymphadenopathy, thyromegaly Respiratory exam: PRESENT: clear to auscultation jaison, symmetrical, unlabored, other - Supplemental oxygen by nasal cannula. ABSENT: rales, rhonchi, wheezes Cardiovascular exam: PRESENT: RRR, +S1, +S2. ABSENT: diastolic murmur, rubs, systolic murmur Pulses: PRESENT: normal dorsalis pedis pul Vascular exam: PRESENT: normal capillary refill GI/Abdominal exam: PRESENT: normal bowel sounds, soft. ABSENT: distended, guarding, mass, organolmegaly, rebound, tenderness Rectal exam: PRESENT: deferred Gentrourinary exam: PRESENT: indwelling catheter Extremities exam: PRESENT: full ROM. ABSENT: calf tenderness, clubbing, pedal edema Neurological exam: PRESENT: CN II-XII grossly intact, other - Sleeping soundly. ABSENT: motor sensory deficit Skin exam: PRESENT: dry, erythema - BLE; slightly improved, intact, warm. A BSENT: cyanosis, rash Results Laboratory Results: 02/26/19 05:07 02/26/19 08:51 02/25/19 02/26/19 02/26/19 21:19 05:07 05:07 WBC 9.4 RBC 3.04 L Hgb 8.7 L Hct 27.1 L MCV 89 MCH 28.5 MCHC 32.1 RDW 14.9 H Plt Count 204 Retic Count (auto) 1.88 Sodium Cancelled Potassium 5.4 H Cancelled Chloride Cancelled Carbon Dioxide Cancelled Anion Gap Cancelled BUN Cancelled Creatinine Cancelled Est GFR ( Amer) Cancelled Est GFR (Non-Af Amer) Cancelled Glucose Cancelled Calcium Cancelled Phosphorus Cancelled Iron Cancelled TIBC Cancelled % Saturation Cancelled Ferritin Cancelled Vitamin B12 Cancelled Folate Cancelled PTH Intact 02/26/19 02/26/19 05:07 08:51 WBC RBC Hgb Hct MCV MCH MCHC RDW Plt Count Retic Count (auto) Sodium 140.3 Potassium 5.1 H Chloride 114 H Carbon Dioxide 16 L Anion Gap 10 BUN 105 H Creatinine 4.15 H Est GFR ( Amer) 13 L Est GFR (Non-Af Amer) Glucose 113 H Calcium 7.1 L Phosphorus 4.9 H Iron 31.3 L TIBC 215 L % Saturation 15 Ferritin 89.70 Vitamin B12 541.0 Folate 11.00 PTH Intact 109.9 H 02/25/19 02/25/19 13:10 13:10 Creatine Kinase 599 H Troponin I < 0.012 NT-Pro-B Natriuret Pep 3280 H Impressions: Chest X-Ray 02/25/19 12:20 IMPRESSION: Linear atelectasis in the left base. No other significant findings. Head CT 02/25/19 12:20 IMPRESSION: MILD CHRONIC CHANGES OF ATROPHY AND MICROVASCULAR ISCHEMIA. NO ACUTE PROCESS. EVIDENCE OF ACUTE STROKE: NO. Femur X-Ray 02/25/19 12:21 IMPRESSION: Diffuse soft tissue edema. Degenerative changes in the knee. No acute fracture. Renal Ultrasound 02/26/19 00:00 IMPRESSION: 1. No hydronephrosis. 2. Bill catheter within the contracted urinary bladder. 3. No abdominal aortic aneurysm. Assessment and Plan - Diagnosis (1) Acute kidney injury superimposed on CKD Is this a current diagnosis for this admission?: Yes Plan: Slight improvement in renal function today. Creatinine 5.94/BUN 113 on admission; baseline 1.80/50 Renal ultrasound is benign. Patient is admitted to the medical floor on continuous cardiac telemetry. Continue IVF. Avoid nephrotoxic medications as able. Nephrology is consulted; appreciate their assistance. Daily chemistries. (2) UTI (urinary tract infection) Qualifiers: Urinary tract infection type: acute cystitis Hematuria presence: without hematuria Qualified Code(s): N30.00 - Acute cystitis without hematuria Is this a current diagnosis for this admission?: Yes Plan: Urinalysis reveals UTI. Blood cultures are negative at 24 hours. Urine culture shows gram-negative rods. Continue IV Rocephin. (3) HTN (hypertension) Is this a current diagnosis for this admission?: Yes Plan: Soft blood pressures today. At present. Resume home dose Norvasc. Resume home dose atenolol with holding parameters. Prerenal diet. Nephrology on board. (4) Anemia Qualifiers: Anemia type: unspecified type Qualified Code(s): D64.9 - Anemia, unspecified Is this a current diagnosis for this admission?: Yes Plan: Anemia of chronic kidney disease; anemia panel does reveal iron deficiency anemia Hemoglobin at baseline; today 8.7. Slight downward trend with IV fluids. No evidence of active bleeding at this time. Continue daily multivitamin and iron supplementation. Nephrology is consulted; appreciate their assistance. (5) Hyperkalemia Is this a current diagnosis for this admission?: Yes Plan: Trending down; 5.9-> 5.1 Secondary to acute on chronic kidney disease. Kayexalate yesterday. Continue IV fluids. Nephrology is consulted; appreciate their assistance. Daily chemistries. Prerenal diet. (6) Morbid obesity with BMI of 45.0-49.9, adult Is this a current diagnosis for this admission?: Yes Plan: BMI of 44.6 Dietary discretion and lifestyle modification recommended. Renal diet/consistent carb diet. Registered dietitian is consulted. - Time Time Spent with patient: 15-24 minutes Medications reviewed and adjusted accordingly: Yes Anticipated discharge: Home with Homehealth
[2019-02-26] MEDS ORDERED: FERRIC CARBOXYMALTOSE INJ 750 MG/15 ML VIAL IV PRN (19:39)
--- NOTE | 2019-02-26 19:47 | PDOC PROGRESS REPORT ---
Subjective Progress Note for:: 02/26/19 Subjective:: Patient was seen sitting up in bed eating her dinner. At the time her only complaint was difficulty swallowing. She claims that in the past she has had procedures done to help with her swallowing. She is not sure the procedure or the exact name of the provider who performed the procedure. She claims it feels like she is swallowing food/liquids and it gets stuck and then she has to vomit it up. She denies any chest pain, SOB, D/C. Reason For Visit: STERLING,UTI Physical Exam Vital Signs: Temp Pulse Resp BP Pulse Ox 97.5 F 54 L 17 90/60 L 99 02/26/19 12:00 02/26/19 14:00 02/26/19 12:00 02/26/19 09:32 02/26/19 12:00 Intake & Output 02/25/19 02/26/19 02/27/19 06:59 06:59 06:59 Intake Total 2050 1770 Output Total 900 1300 Balance 1150 470 Weight 110.5 kg General appearance: PRESENT: no acute distress, obese, well-developed, well- nourished Mouth exam: PRESENT: moist, neck supple. ABSENT: dry mucosa Neck exam: ABSENT: JVD Respiratory exam: PRESENT: clear to auscultation jaison. ABSENT: accessory muscle use, crackles, rales, rhonchi, wheezes Cardiovascular exam: PRESENT: +S1, +S2 GI/Abdominal exam: PRESENT: soft. ABSENT: tenderness Extremities exam: PRESENT: other - -trace+. ABSENT: +1 edema, +2 edema Musculoskeletal exam: PRESENT: normal inspection. ABSENT: tenderness Neurological exam: PRESENT: alert, awake, oriented to person, oriented to place, oriented to time, oriented to situation Psychiatric exam: PRESENT: appropriate affect, normal mood Skin exam: PRESENT: dry, intact, warm Results Laboratory Results: 02/26/19 05:07 02/26/19 08:51 02/25/19 02/26/19 02/26/19 21:19 05:07 05:07 WBC 9.4 RBC 3.04 L Hgb 8.7 L Hct 27.1 L MCV 89 MCH 28.5 MCHC 32.1 RDW 14.9 H Plt Count 204 Retic Count (auto) 1.88 Sodium Cancelled Potassium 5.4 H Cancelled Chloride Cancelled Carbon Dioxide Cancelled Anion Gap Cancelled BUN Cancelled Creatinine Cancelled Est GFR ( Amer) Cancelled Est GFR (Non-Af Amer) Cancelled Glucose Cancelled Calcium Cancelled Phosphorus Cancelled Iron Cancelled TIBC Cancelled % Saturation Cancelled Ferritin Cancelled Vitamin B12 Cancelled Folate Cancelled PTH Intact 02/26/19 02/26/19 05:07 08:51 WBC RBC Hgb Hct MCV MCH MCHC RDW Plt Count Retic Count (auto) Sodium 140.3 Potassium 5.1 H Chloride 114 H Carbon Dioxide 16 L Anion Gap 10 BUN 105 H Creatinine 4.15 H Est GFR ( Amer) 13 L Est GFR (Non-Af Amer) Glucose 113 H Calcium 7.1 L Phosphorus 4.9 H Iron 31.3 L TIBC 215 L % Saturation 15 Ferritin 89.70 Vitamin B12 541.0 Folate 11.00 PTH Intact 109.9 H 02/25/19 02/25/19 13:10 13:10 Creatine Kinase 599 H Troponin I < 0.012 NT-Pro-B Natriuret Pep 3280 H Impressions: Chest X-Ray 02/25/19 12:20 IMPRESSION: Linear atelectasis in the left base. No other significant findings. Head CT 02/25/19 12:20 IMPRESSION: MILD CHRONIC CHANGES OF ATROPHY AND MICROVASCULAR ISCHEMIA. NO ACUTE PROCESS. EVIDENCE OF ACUTE STROKE: NO. Femur X-Ray 02/25/19 12:21 IMPRESSION: Diffuse soft tissue edema. Degenerative changes in the knee. No acute fracture. Renal Ultrasound 02/26/19 00:00 IMPRESSION: 1. No hydronephrosis. 2. Bill catheter within the contracted urinary bladder. 3. No abdominal aortic aneurysm. Assessment & Plan - Diagnosis (1) Acute kidney injury superimposed on CKD Is this a current diagnosis for this admission?: Yes Plan: urine out put increased slightly, creatinine and BUN trended down some. Continue normal saline, will continue to hold diuretics, amlodipine and decrease the atenolol to 12.5mg so the heart rate is still controlled. Do not want to create hypotension and a further prerenal issue with her current bp in the low 90s systolic. (2) UTI (urinary tract infection) Qualifiers: Urinary tract infection type: acute cystitis Hematuria presence: without hematuria Qualified Code(s): N30.00 - Acute cystitis without hematuria Is this a current diagnosis for this admission?: Yes Plan: continue on ceftriaxon, currently properly dosed for her renal function. (3) Dehydration Plan: continue with the NS at the current rate. (4) Hyperkalemia Is this a current diagnosis for this admission?: Yes Plan: improving and stable, continue with renal diet. (5) Anemia Qualifiers: Anemia type: unspecified type Qualified Code(s): D64.9 - Anemia, unspecified Is this a current diagnosis for this admission?: Yes Plan: looks to be due to a slight iron deficiency. Discussed IV injectafer with the patient. Discussed the risks and benefits and the patient was willing to receive it. will hold PO ferrous sulfate for now. (6) HTN (hypertension) Is this a current diagnosis for this admission?: Yes Plan: stopping amlodipine for now and decreasing atenolol to 12.5mg. Once bp improves to above 140s systolic then both can be changed back to the previous dose. If heart rate increases to much then atenolol may need to be increased. (7) Sepsis Qualifiers: Sepsis type: sepsis due to unspecified organism Qualified Code(s): A41.9 - Sepsis, unspecified organism Plan: white count has gone down to 9.4. (9) CKD stage 3 due to type 2 diabetes mellitus Plan: baseline looks to be 1.7 (10) Hypocalcemia Plan: Will look to give calcium carbonate 500mg bid. If she has a hard time swallowing then calcium gluconate may be needed. Will also look to get an albumin with jsoe rrows labs to calculate the corrected calcium since she as been receiving saline. (11) Difficulty swallowing Plan: recommend a consult with speech therapy so that patient does not keep eating and risking aspiration. - Notes Notes: case was discussed with Dr. Sutton
[2019-02-26] MEDS: CALCIUM CARBONATE 500 MG TABLET PO SCH (20:24)
[2019-02-26] MEDS ORDERED: FERRIC CARBOXYMALTOSE 750 MG in NORMAL SALINE 100 ML IV ONE (21:00)
[2019-02-26] MEDS: TOLTERODINE TARTRATE 1 MG TABLET PO SCH (21:03)
[2019-02-26] MEDS: ATORVASTATIN CALCIUM 10 MG TABLET PO SCH (21:03)
[2019-02-27] MEDS: NORMAL SALINE 1000 ML 1,000 ML IV PRN ×2 (05:54→20:26)
[2019-02-27 06:22] LABS: HEMATOCRIT 25.1 % (36.0-47.0); HEMOGLOBIN 8.2 g/dL (12.0-15.5); MEAN CORPUSCULAR HEMOGLOBIN 29.5 pg (27.0-33.4); MEAN CORPUSCULAR HGB CONC 32.9 g/dL (32.0-36.0); MEAN CORPUSCULAR VOLUME 90 fl (80-97); PLATELET COUNT 234 10^3/uL (150-450); RED BLOOD COUNT 2.79 10^6/uL (3.72-5.28); RED CELL DISTRIBUTION WIDTH 14.9 % (11.5-14.0); WHITE BLOOD COUNT 8.8 10^3/uL (4.0-10.5)
[2019-02-27 06:45] LABS: ABSOLUTE LYMPHOCYTES# (MANUAL) 2.2 10^3/uL (0.5-4.7); ABSOLUTE MONOCYTES # (MANUAL) 0.3 10^3/uL (0.1-1.4); BAND NEUTROPHILS % (MANUAL) 3 % (3-5); BASOPHILS % (MANUAL) 0 % (0-2); EOSINOPHILS % (MANUAL) 2 % (0-6); LYMPHOCYTES % (MANUAL) 25 % (13-45); METAMYELOCYTES % (MANUAL) 1 % (0); MONOCYTES % (MANUAL) 3 % (3-13); SEGMENTED NEUTROPHILS % (MAN) 66 % (42-78); TOTAL CELLS COUNTED 100
[2019-02-27 06:47] LABS: ANISOCYTOSIS SLIGHT; PLATELET COMMENT ADEQUATE; TOXIC GRANULATION SLIGHT
[2019-02-27 06:50] LABS: ALBUMIN 2.2 g/dL (3.5-5.0); ANION GAP 7 (5-19); CARBON DIOXIDE 19 mmol/L (22-30); CHLORIDE 116 mmol/L (98-107); GLUCOSE 107 mg/dL (75-110); POTASSIUM 4.6 mmol/L (3.6-5.0)
[2019-02-27 07:10] LABS: BLOOD UREA NITROGEN 79 mg/dL (7-20)
[2019-02-27 07:14] LABS: CALCIUM 7.1 mg/dL (8.4-10.2)
[2019-02-27] MEDS: INSULIN LISPRO 100 UNIT/ML 3 ML VIAL SUBCUT SCH ×4 (09:05→23:12)
[2019-02-27] MEDS ORDERED: AMLODIPINE BESYLATE 2.5 MG TABLET PO SCH (10:00)
[2019-02-27] MEDS ORDERED: ATENOLOL 50 MG TABLET PO SCH ×3 (10:00)
[2019-02-27] MEDS ORDERED: (PENDING PHARMACY ID) (Solifenacin Succinate [Vesicare] 10 MG) PO SCH (10:00)
[2019-02-27] MEDS: CALCIUM CARBONATE 500 MG TABLET PO SCH ×2 (11:25→18:50)
[2019-02-27] MEDS: MULTIVITAMIN TABLET PO SCH (11:25)
[2019-02-27] MEDS: DOCUSATE SODIUM 100 MG CAPSULE PO SCH (11:25)
[2019-02-27] MEDS: MINERAL OIL/PETROLATUM,WHITE CREAM 114 GM TP SCH ×2 (11:26→18:51)
[2019-02-27] MEDS: CEFTRIAXONE 1 GM/D5W RTU 1 GM/50 ML RTUPB IV SCH (11:26)
[2019-02-27] MEDS: APIXABAN 5 MG TABLET PO SCH (11:26)
--- NOTE | 2019-02-27 11:49 | PDOC PROGRESS REPORT ---
Subjective Progress Note for:: 02/27/19 Subjective:: Patient was seen laying in her bed this morning. At the time she had no major concerns. She claims that she was able to eat and drink a little more than usual this morning. She denies chest pain, SOB, D/C. She produced 2,000mL of urine yesterday. Reason For Visit: STERLING,UTI Physical Exam Vital Signs: Temp Pulse Resp BP Pulse Ox 97.4 F 58 L 15 97/39 L 98 02/27/19 00:02 02/27/19 02:00 02/27/19 00:02 02/27/19 00:02 02/27/19 00:02 Intake & Output 02/26/19 02/27/19 02/28/19 06:59 06:59 06:59 Intake Total 2050 2770 Output Total 900 2000 Balance 1150 770 Weight 110.5 kg 117.7 kg General appearance: PRESENT: no acute distress, well-developed, well-nourished Mouth exam: PRESENT: moist, neck supple Neck exam: ABSENT: JVD, tracheal deviation Respiratory exam: PRESENT: clear to auscultation jaison. ABSENT: crackles, rales, rhonchi, wheezes Cardiovascular exam: PRESENT: +S1, +S2 GI/Abdominal exam: PRESENT: soft. ABSENT: tenderness Extremities exam: PRESENT: tenderness - -mild. ABSENT: pedal edema, +1 edema, +2 edema Musculoskeletal exam: PRESENT: normal inspection. ABSENT: tenderness Neurological exam: PRESENT: alert, awake, oriented to person, oriented to place, oriented to time, oriented to situation Skin exam: PRESENT: dry, intact, warm Results Laboratory Results: 02/27/19 05:37 02/27/19 05:37 02/27/19 02/27/19 05:37 05:37 WBC 8.8 RBC 2.79 L Hgb 8.2 L Hct 25.1 L MCV 90 MCH 29.5 MCHC 32.9 RDW 14.9 H Plt Count 234 Seg Neutrophils % Not Reportable Sodium 141.7 Potassium 4.6 Chloride 116 H Carbon Dioxide 19 L Anion Gap 7 BUN 79 H D Creatinine 2.94 H Est GFR ( Amer) 19 L Glucose 107 Calcium 7.1 L Albumin 2.2 L 02/25/19 02/25/19 13:10 13:10 Creatine Kinase 599 H Troponin I < 0.012 NT-Pro-B Natriuret Pep 3280 H Impressions: Chest X-Ray 02/25/19 12:20 IMPRESSION: Linear atelectasis in the left base. No other significant findings. Head CT 02/25/19 12:20 IMPRESSION: MILD CHRONIC CHANGES OF ATROPHY AND MICROVASCULAR ISCHEMIA. NO ACUTE PROCESS. EVIDENCE OF ACUTE STROKE: NO. Femur X-Ray 02/25/19 12:21 IMPRESSION: Diffuse soft tissue edema. Degenerative changes in the knee. No acute fracture. Renal Ultrasound 02/26/19 00:00 IMPRESSION: 1. No hydronephrosis. 2. Bill catheter within the contracted urinary bladder. 3. No abdominal aortic aneurysm. Assessment & Plan - Diagnosis (1) Acute kidney injury superimposed on CKD Is this a current diagnosis for this admission?: Yes Plan: urine out put increased significantly, creatinine and BUN trended down more. Continue normal saline, will continue to hold diuretics, amlodipine and atenolol. Do not want to create hypotension and a further prerenal issue with her current bp in the low 90s systolic. (2) UTI (urinary tract infection) Qualifiers: Urinary tract infection type: acute cystitis Hematuria presence: without he maturia Qualified Code(s): N30.00 - Acute cystitis without hematuria Is this a current diagnosis for this admission?: Yes Plan: continue on ceftriaxon, currently properly dosed for her renal function. (3) Dehydration Plan: continue with the NS at the current rate. (4) Hyperkalemia Is this a current diagnosis for this admission?: Yes Plan: improving and stable, continue with renal diet. (5) Anemia Qualifiers: Anemia type: unspecified type Qualified Code(s): D64.9 - Anemia, unspecified Is this a current diagnosis for this admission?: Yes Plan: given IV injectafer yesterday, checking an occult stool card. Most likely the decrease is from dilution. (6) HTN (hypertension) Is this a current diagnosis for this admission?: Yes Plan: holding amlodipine and atenolol. Checking an AM cortisol and will consider midodrine pending labs. (7) Sepsis Qualifiers: Sepsis type: sepsis due to unspecified organism Qualified Code(s): A41.9 - Sepsis, unspecified organism Plan: white count trended down (9) CKD stage 3 due to type 2 diabetes mellitus Plan: baseline looks to be 1.7 (10) Hypocalcemia Plan: continue calcium carbonate. Corrected calcium is 8.5. (12) Metabolic acidosis Plan: looks to be improving as the kidney function improves
[2019-02-27] MEDS: TOLTERODINE TARTRATE 1 MG TABLET PO SCH ×2 (14:40→23:16)
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
[2019-02-27] MEDS: ATORVASTATIN CALCIUM 10 MG TABLET PO SCH (23:15)
[2019-02-28] MEDS: NORMAL SALINE 1000 ML 1,000 ML IV PRN ×2 (05:28→22:21)
[2019-02-28 05:33] LABS: ANION GAP 8 (5-19); BLOOD UREA NITROGEN 63 mg/dL (7-20); CALCIUM 7.5 mg/dL (8.4-10.2); CARBON DIOXIDE 19 mmol/L (22-30); CHLORIDE 116 mmol/L (98-107); GLUCOSE 107 mg/dL (75-110); POTASSIUM 4.7 mmol/L (3.6-5.0)
[2019-02-28 05:58] LABS: HEMATOCRIT 37.4 % (36.0-47.0); MEAN CORPUSCULAR HEMOGLOBIN 27.9 pg (27.0-33.4); MEAN CORPUSCULAR HGB CONC 31.1 g/dL (32.0-36.0); MEAN CORPUSCULAR VOLUME 90 fl (80-97); PLATELET COUNT 196 10^3/uL (150-450); RED BLOOD COUNT 4.17 10^6/uL (3.72-5.28); RED CELL DISTRIBUTION WIDTH 14.9 % (11.5-14.0); WHITE BLOOD COUNT 6.8 10^3/uL (4.0-10.5)
[2019-02-28 06:01] LABS: HEMOGLOBIN 11.6 g/dL (12.0-15.5)
[2019-02-28] MEDS: INSULIN LISPRO 100 UNIT/ML 3 ML VIAL SUBCUT SCH ×4 (08:33→22:20)
--- NOTE | 2019-02-28 09:25 | PDOC PROGRESS REPORT ---
Subjective Progress Note for:: 02/28/19 Subjective:: Patient was seen sitting up in her bed. At the time she had no complaints. She claimed to be feeling better since she has been in the hospital. She denies chest pain, SOB, N/V/D. Does have some trouble with constipation. Appetite has increased. Claims to no longer have trouble with swallowing. Reason For Visit: STERLING,UTI Physical Exam Vital Signs: Temp Pulse Resp BP Pulse Ox 97.7 F 55 L 16 98/35 L 97 02/28/19 00:24 02/28/19 02:00 02/28/19 00:24 02/28/19 00:24 02/28/19 00:24 Intake & Output 02/27/19 02/28/19 03/01/19 06:59 06:59 06:59 Intake Total 2770 3082 Output Total 2000 1500 Balance 770 1582 Weight 117.7 kg 148 kg General appearance: PRESENT: no acute distress, well-developed, well-nourished Mouth exam: PRESENT: moist, neck supple Neck exam: ABSENT: JVD, tracheal deviation Respiratory exam: PRESENT: clear to auscultation jaison. ABSENT: accessory muscle use, crackles, rales, rhonchi, wheezes Cardiovascular exam: PRESENT: +S1, +S2 GI/Abdominal exam: PRESENT: soft. ABSENT: tenderness Extremities exam: PRESENT: tenderness. ABSENT: pedal edema, +1 edema, +2 edema Neurological exam: PRESENT: alert, awake, oriented to person, oriented to place, oriented to time, oriented to situation Psychiatric exam: PRESENT: appropriate affect, normal mood Skin exam: PRESENT: dry, intact, warm. ABSENT: cyanosis Results Laboratory Results: 02/28/19 04:39 02/28/19 04:39 02/28/19 02/28/19 02/28/19 04:39 04:39 04:39 WBC 6.8 RBC 4.17 Hgb 11.6 L D Hct 37.4 MCV 90 MCH 27.9 MCHC 31.1 L RDW 14.9 H Plt Count 196 Sodium 142.5 Potassium 4.7 Chloride 116 H Carbon Dioxide 19 L Anion Gap 8 BUN 63 H Creatinine 2.20 H Est GFR ( Amer) 26 L Glucose 107 Calcium 7.5 L TSH 2.74 02/25/19 13:42 Clean Catch Midstream Urine Culture - Final Escherichia Coli Proteus Mirabilis 02/25/19 02/25/19 13:10 13:10 Creatine Kinase 599 H Troponin I < 0.012 NT-Pro-B Natriuret Pep 3280 H Impressions: Chest X-Ray 02/25/19 12:20 IMPRESSION: Linear atelectasis in the left base. No other significant findings. Head CT 02/25/19 12:20 IMPRESSION: MILD CHRONIC CHANGES OF ATROPHY AND MICROVASCULAR ISCHEMIA. NO ACUTE PROCESS. EVIDENCE OF ACUTE STROKE: NO. Femur X-Ray 02/25/19 12:21 IMPRESSION: Diffuse soft tissue edema. Degenerative changes in the knee. No acute fracture. Renal Ultrasound 02/26/19 00:00 IMPRESSION: 1. No hydronephrosis. 2. Bill catheter within the contracted urinary bladder. 3. No abdominal aortic aneurysm. Assessment & Plan - Diagnosis (1) Acute kidney injury superimposed on CKD Is this a current diagnosis for this admission?: Yes Plan: urine out continues to be good, creatinine and BUN trended down more. Since oral intake has increased I will look to decrease normal saline to 75mL/h, will continue to hold diuretics, amlodipine and atenolol. Do not want to create hypotension. (2) UTI (urinary tract infection) Qualifiers: Urinary tract infection type: acute cystitis Hematuria presence: without hematuria Qualified Code(s): N30.00 - Acute cystitis without hematuria Is this a current diagnosis for this admission?: Yes Plan: continue on ceftriaxon, currently properly dosed for her renal function. (3) Dehydration Plan: with oral intake increasing I will look to decrease normal saline to 75mL an hour (4) Hyperkalemia Is this a current diagnosis for this admission?: Yes Plan: stable, continue with renal diet. (5) Anemia Qualifiers: Anemia type: unspecified type Qualified Code(s): D64.9 - Anemia, unspecified Is this a current diagnosis for this admission?: Yes Plan: improving after receive IV injectafer. Recommend discharging patient on PO iron to maintain her iron saturations where they are. (6) HTN (hypertension) Is this a current diagnosis for this admission?: Yes Plan: holding amlodipine and atenolol. AM cortisol is normal and bp improved to 110s systolic. Will not add midodrine with the increase in bp. (8) CKD stage 3 due to type 2 diabetes mellitus Plan: baseline looks to be 1.7 (9) Hypocalcemia Plan: improving (10) Metabolic acidosis Plan: continue to monitor, if it decreases will look to start sodium bicarb. At this point it should improve with kidney function improving.
[2019-02-28] MEDS: DOCUSATE SODIUM 100 MG CAPSULE PO SCH (11:42)
[2019-02-28] MEDS: CEFTRIAXONE 1 GM/D5W RTU 1 GM/50 ML RTUPB IV SCH (11:43)
[2019-02-28] MEDS: CALCIUM CARBONATE 500 MG TABLET PO SCH ×2 (11:43→17:48)
[2019-02-28] MEDS: MULTIVITAMIN TABLET PO SCH (11:43)
[2019-02-28] MEDS: APIXABAN 5 MG TABLET PO SCH (11:43)
[2019-02-28] MEDS: MINERAL OIL/PETROLATUM,WHITE CREAM 114 GM TP SCH ×2 (11:44→17:52)
[2019-02-28] MEDS: TOLTERODINE TARTRATE 1 MG TABLET PO SCH ×2 (11:45→22:20)
--- NOTE | 2019-02-28 17:06 | PDOC PROGRESS REPORT ---
Subjective Progress Note for:: 02/28/19 Subjective:: The patient is a 78 year old female with a past medical history significant for hypertension, hyperlipidemia, DM 2, CKD, morbid obesity who was admitted 02/25/19 with UTI and A/CKD. The patient was seen on afternoon rounds. She was found resting in bed comfortably on room air. She tells me that she is feeling well today. She reports increased energy and appetite. She states that she is feeling much better, she is happy that her BLE edema/erythema also appears to be improved. She denies fever, chills, chest pain, palpitations, dyspnea, cough, abdominal pain, nausea vomiting and diarrhea today. She is bothered that she is not allowed milk (did discuss importance of prerenal diet); otherwise no questions or concerns. No concerns per nursing. Reason For Visit: STERLING,UTI Physical Exam Vital Signs: Temp Pulse Resp BP Pulse Ox 97.6 F 65 16 111/46 L 95 02/28/19 10:58 02/28/19 10:58 02/28/19 10:58 02/28/19 10:58 02/28/19 10:58 Intake & Output 02/27/19 02/28/19 03/01/19 06:59 06:59 06:59 Intake Total 2770 3082 473 Output Total 2000 1500 300 Balance 770 1582 173 Weight 117.7 kg 148 kg General appearance: PRESENT: no acute distress, cooperative, morbidly obese, well-developed, well-nourished Head exam: PRESENT: atraumatic, normocephalic Eye exam: PRESENT: conjunctiva pink, EOMI, PERRLA. ABSENT: scleral icterus Ear exam: PRESENT: normal external ear exam Mouth exam: PRESENT: moist, tongue midline Teeth exam: PRESENT: poor dentation Neck exam: ABSENT: carotid bruit, JVD, lymphadenopathy, thyromegaly Respiratory exam: PRESENT: clear to auscultation jaison, symmetrical, unlabored. ABSENT: rales, rhonchi, wheezes Cardiovascular exam: PRESENT: RRR. ABSENT: diastolic murmur, rubs, systolic mu rmur Pulses: PRESENT: normal dorsalis pedis pul Vascular exam: PRESENT: normal capillary refill GI/Abdominal exam: PRESENT: normal bowel sounds, soft. ABSENT: distended, guarding, mass, organolmegaly, rebound, tenderness Rectal exam: PRESENT: deferred Gentrourinary exam: PRESENT: indwelling catheter Extremities exam: PRESENT: full ROM. ABSENT: calf tenderness, clubbing, pedal edema Neurological exam: PRESENT: alert, awake, oriented to person, oriented to place, oriented to time, oriented to situation, CN II-XII grossly intact. ABSENT: motor sensory deficit Psychiatric exam: PRESENT: appropriate affect, normal mood. ABSENT: homicidal ideation, suicidal ideation Skin exam: PRESENT: dry, erythema - BLE; improved, intact, warm, other - chronic venous stasis changes bilateral lower extremities. ABSENT: cyanosis, rash Results Laboratory Results: 02/28/19 04:39 02/28/19 04:39 02/28/19 02/28/19 02/28/19 04:39 04:39 04:39 WBC 6.8 RBC 4.17 Hgb 11.6 L D Hct 37.4 MCV 90 MCH 27.9 MCHC 31.1 L RDW 14.9 H Plt Count 196 Sodium 142.5 Potassium 4.7 Chloride 116 H Carbon Dioxide 19 L Anion Gap 8 BUN 63 H Creatinine 2.20 H Est GFR ( Amer) 26 L Glucose 107 Calcium 7.5 L TSH 2.74 02/25/19 13:42 Clean Catch Midstream Urine Culture - Final Escherichia Coli Proteus Mirabilis 02/25/19 02/25/19 13:10 13:10 Creatine Kinase 599 H Troponin I < 0.012 NT-Pro-B Natriuret Pep 3280 H Impressions: Chest X-Ray 02/25/19 12:20 IMPRESSION: Linear atelectasis in the left base. No other significant findings. Head CT 02/25/19 12:20 IMPRESSION: MILD CHRONIC CHANGES OF ATROPHY AND MICROVASCULAR ISCHEMIA. NO ACUTE PROCESS. EVIDENCE OF ACUTE STROKE: NO. Femur X-Ray 02/25/19 12:21 IMPRESSION: Diffuse soft tissue edema. Degenerative changes in the knee. No acute fracture. Renal Ultrasound 02/26/19 00:00 IMPRESSION: 1. No hydronephrosis. 2. Bill catheter within the contracted urinary bladder. 3. No abdominal aortic aneurysm. Assessment and Plan - Diagnosis (1) Acute kidney injury superimposed on CKD Is this a current diagnosis for this admission?: Yes Plan: Nearing baseline. Creatinine 5.94/BUN 113 on admission; baseline 1.70/50 Renal ultrasound is benign. Patient is admitted to the medical floor on continuous cardiac telemetry. Continue IVF. Avoid nephrotoxic medications as able. Currently holding hypertensive medications due to soft blood pressures. Nephrology is consulted; appreciate their assistance. Daily chemistries. (2) UTI (urinary tract infection) Qualifiers: Urinary tract infection type: acute cystitis Hematuria presence: without hematuria Qualified Code(s): N30.00 - Acute cystitis without hematuria Is this a current diagnosis for this admission?: Yes Plan: Urinalysis reveals UTI. Blood cultures are negative at 48 hours. Urine culture shows pansensitive E. coli and Proteus Mirabelis Continue IV Rocephin; day #3. (3) HTN (hypertension) Is this a current diagnosis for this admission?: Yes Plan: Continues to have low blood pressures; Systolic 100-110 Norvasc and atenolol placed on hold. We will ask nursing to obtain manual blood pressures only. Prerenal diet. Nephrology on board; appreciate their assistance. (4) Anemia Qualifiers: Anemia type: unspecified type Qualified Code(s): D64.9 - Anemia, unspecified Is this a current diagnosis for this admission?: Yes Plan: Anemia of chronic kidney disease; anemia panel does reveal iron deficiency anemia Improved today; hemoglobin 11.6. No evidence of active bleeding at this time. Occult stool pending Continue daily multivitamin and iron supplementation. Nephrology is consulted; appreciate their assistance. Received injectafer x1 (5) Hyperkalemia Is this a current diagnosis for this admission?: Yes Plan: Resolved Secondary to acute on chronic kidney disease. Kayexalate x1 Continue IV fluids. Nephrology is consulted; appreciate their assistance. Daily chemistries. Prerenal diet. (6) Morbid obesity with BMI of 45.0-49.9, adult Is this a current diagnosis for this admission?: Yes Plan: BMI of 47.5 Dietary discretion and lifestyle modification recommended. Renal diet/consistent carb diet. Registered dietitian is consulted. - Time Time Spent with patient: 25-34 minutes Medications reviewed and adjusted accordingly: Yes Anticipated discharge: Home with Homehealth Within: within 48 hours
[2019-02-28] MEDS: ATORVASTATIN CALCIUM 10 MG TABLET PO SCH (22:20)
[2019-03-01 06:10] LABS: ANION GAP 6 (5-19); BLOOD UREA NITROGEN 46 mg/dL (7-20); CALCIUM 7.8 mg/dL (8.4-10.2); CARBON DIOXIDE 19 mmol/L (22-30); CHLORIDE 116 mmol/L (98-107); GLUCOSE 107 mg/dL (75-110); POTASSIUM 4.7 mmol/L (3.6-5.0)
[2019-03-01] MEDS: INSULIN LISPRO 100 UNIT/ML 3 ML VIAL SUBCUT SCH ×4 (07:31→22:11)
[2019-03-01] MEDS ORDERED: BISACODYL 10 MG SUPP.RECT PR PRN (12:56)
[2019-03-01] MEDS: POLYETHYLENE GLYCOL 3350 POWDER 17 GM/1 PACKET PO SCH (13:11)
[2019-03-01] MEDS: DOCUSATE SODIUM 100 MG CAPSULE PO SCH (13:16)
[2019-03-01] MEDS: CALCIUM CARBONATE 500 MG TABLET PO SCH ×2 (13:16→18:16)
[2019-03-01] MEDS: CEFUROXIME 250 MG TABLET PO SCH ×2 (13:17→18:16)
[2019-03-01] MEDS: APIXABAN 5 MG TABLET PO SCH (13:17)
[2019-03-01] MEDS: MULTIVITAMIN TABLET PO SCH (13:17)
[2019-03-01] MEDS: MINERAL OIL/PETROLATUM,WHITE CREAM 114 GM TP SCH ×2 (15:08→18:18)
[2019-03-01] MEDS: TOLTERODINE TARTRATE 1 MG TABLET PO SCH ×2 (15:08→22:11)
--- NOTE | 2019-03-01 18:26 | PDOC PROGRESS REPORT ---
Subjective Progress Note for:: 03/01/19 Subjective:: The patient is a 78 year old female with a past medical history significant for hypertension, hyperlipidemia, DM 2, CKD, morbid obesity who was admitted 02/25/19 with UTI and A/CKD. The patient was seen on morning rounds. She was found resting in bed on room air. She complains of nausea today; states that her breakfast "was off." She also reports constipation; possibly >1 week since last bm. Today the patient informs me that she no longer wants to go home with home health; she is concerned about spending hours alone while her daughter works. She would, inst ead, like to go to SNF for short term rehab. She denies fever, chills, chest pain, palpitations, dyspnea, cough, abdominal pain. Otherwise, she has no questions or concerns. No concerns per nursing. Reason For Visit: STERLING,UTI Physical Exam Vital Signs: Temp Pulse Resp BP Pulse Ox 98.2 F 63 19 133/57 H 97 03/01/19 16:00 03/01/19 16:00 03/01/19 16:00 03/01/19 16:00 03/01/19 16:00 Intake & Output 02/28/19 03/01/19 03/02/19 06:59 06:59 06:59 Intake Total 3082 2754 Output Total 1500 1250 200 Balance 1582 1504 -200 Weight 148 kg 119.7 kg General appearance: PRESENT: no acute distress, cooperative, morbidly obese, well-developed, well-nourished Head exam: PRESENT: atraumatic, normocephalic Eye exam: PRESENT: conjunctiva pink, EOMI, PERRLA. ABSENT: scleral icterus Ear exam: PRESENT: normal external ear exam Mouth exam: PRESENT: moist, tongue midline Teeth exam: PRESENT: poor dentation Neck exam: ABSENT: carotid bruit, JVD, lymphadenopathy, thyromegaly Respiratory exam: PRESENT: clear to auscultation jaison, symmetrical, unlabored. ABSENT: rales, rhonchi, wheezes Cardiovascular exam: PRESENT: RRR, +S1, +S2. ABSENT: diastolic murmur, rubs, systolic murmur Pulses: PRESENT: normal dorsalis pedis pul Vascular exam: PRESENT: normal capillary refill GI/Abdominal exam: PRESENT: normal bowel sounds, soft. ABSENT: distended, guarding, mass, organolmegaly, rebound, tenderness Rectal exam: PRESENT: deferred Extremities exam: PRESENT: full ROM. ABSENT: calf tenderness, clubbing, pedal edema Neurological exam: PRESENT: alert, awake, oriented to person, oriented to place, oriented to time, oriented to situation, CN II-XII grossly intact. ABSENT: motor sensory deficit Psychiatric exam: PRESENT: appropriate affect, normal mood. ABSENT: homicidal ideation, suicidal ideation Skin exam: PRESENT: dry, intact, warm. ABSENT: cyanosis, rash Results Laboratory Results: 02/28/19 04:39 03/01/19 05:02 03/01/19 05:02 Sodium 140.8 Potassium 4.7 Chloride 116 H Carbon Dioxide 19 L Anion Gap 6 BUN 46 H Creatinine 1.67 H Est GFR ( Amer) 36 L Glucose 107 Calcium 7.8 L 02/25/19 02/25/19 13:10 13:10 Creatine Kinase 599 H Troponin I < 0.012 NT-Pro-B Natriuret Pep 3280 H Impressions: Chest X-Ray 02/25/19 12:20 IMPRESSION: Linear atelectasis in the left base. No other significant findings. Head CT 02/25/19 12:20 IMPRESSION: MILD CHRONIC CHANGES OF ATROPHY AND MICROVASCULAR ISCHEMIA. NO ACUTE PROCESS. EVIDENCE OF ACUTE STROKE: NO. Femur X-Ray 02/25/19 12:21 IMPRESSION: Diffuse soft tissue edema. Degenerative changes in the knee. No acute fracture. Renal Ultrasound 02/26/19 00:00 IMPRESSION: 1. No hydronephrosis. 2. Bill catheter within the contracted urinary bladder. 3. No abdominal aortic aneurysm. Assessment and Plan - Diagnosis (1) Acute kidney injury superimposed on CKD Is this a current diagnosis for this admission?: Yes Plan: Resolved; now at baseline. Creatinine 5.94/BUN 113 on admission; baseline 1.70/50 Renal ultrasound is benign. Patient is admitted to the medical floor on continuous cardiac telemetry. Continue IVF. Avoid nephrotoxic medications as able. Will resume half dose atenolol at 12.5 mg daily; continue holding other antihypertensives. Nephrology is consulted; appreciate their assistance. Daily chemistries. (2) UTI (urinary tract infection) Qualifiers: Urinary tract infection type: acute cystitis Hematuria presence: without hematuria Qualified Code(s): N30.00 - Acute cystitis without hematuria Is this a current diagnosis for this admission?: Yes Plan: Urinalysis reveals UTI. Blood cultures are negative at 72 hours. Urine culture shows pansensitive E. coli and Proteus Mirabelis Received IV Rocephin x 3 days. Patient is transition to p.o. Ceftin for completion of antibiotic course. (3) HTN (hypertension) Is this a current diagnosis for this admission?: Yes Plan: Pressures elevated today; 147/56. We will resume half dose atenolol. Continue to hold Norvasc. We will ask nursing to obtain manual blood pressures only. Prerenal diet. Nephrology on board; appreciate their assistance. (4) Anemia Qualifiers: Anemia type: unspecified type Qualified Code(s): D64.9 - Anemia, unspecified Is this a current diagnosis for this admission?: Yes Plan: Anemia of chronic kidney disease; anemia panel does reveal iron deficiency anemia Improved; hemoglobin 11.6. No evidence of active bleeding at this time. Occult stool pending Continue daily multivitamin and iron supplementation. Nephrology is consulted; appreciate their assistance. Received injectafer x1 (5) Hyperkalemia Is this a current diagnosis for this admission?: Yes Plan: Resolved Secondary to acute on chronic kidney disease. Kayexalate x1 Continue IV fluids. Nephrology is consulted; appreciate their assistance. Daily chemistries. Prerenal diet. (6) Morbid obesity with BMI of 45.0-49.9, adult Is this a current diagnosis for this admission?: Yes Plan: BMI of 47.5 Dietary discretion and lifestyle modification recommended. Renal diet/consistent carb diet. Registered dietitian is consulted. (7) Constipation Is this a current diagnosis for this admission?: Yes Plan: Continue Colace daily. Dulcolax suppository secondary to nausea vomiting. Daily MiraLAX Out of bed for meals; ambulate. - Time Time Spent with patient: 15-24 minutes Medications reviewed and adjusted accordingly: Yes Anticipated discharge: SNF Within: when bed available
[2019-03-01] MEDS: ATORVASTATIN CALCIUM 10 MG TABLET PO SCH (22:10)
[2019-03-02] MEDS: NORMAL SALINE 1000 ML 1,000 ML IV PRN ×2 (05:21→19:00)
[2019-03-02 06:07] LABS: ANION GAP 5 (5-19); BLOOD UREA NITROGEN 35 mg/dL (7-20); CALCIUM 7.9 mg/dL (8.4-10.2); CARBON DIOXIDE 20 mmol/L (22-30); CHLORIDE 116 mmol/L (98-107); GLUCOSE 118 mg/dL (75-110); POTASSIUM 5.3 mmol/L (3.6-5.0)
[2019-03-02] MEDS ORDERED: LACTULOSE SYRUP 20 GM/30 ML UDCUP PO ONE (08:45)
[2019-03-02] MEDS: POLYETHYLENE GLYCOL 3350 POWDER 17 GM/1 PACKET PO SCH (09:44)
[2019-03-02] MEDS: TOLTERODINE TARTRATE 1 MG TABLET PO SCH ×2 (09:46→21:59)
[2019-03-02] MEDS: MULTIVITAMIN TABLET PO SCH (09:46)
[2019-03-02] MEDS: APIXABAN 5 MG TABLET PO SCH (09:46)
[2019-03-02] MEDS: CALCIUM CARBONATE 500 MG TABLET PO SCH ×2 (09:46→17:42)
[2019-03-02] MEDS: DOCUSATE SODIUM 100 MG CAPSULE PO SCH (09:46)
[2019-03-02] MEDS: INSULIN LISPRO 100 UNIT/ML 3 ML VIAL SUBCUT SCH ×4 (09:50→22:35)
[2019-03-02] MEDS: MINERAL OIL/PETROLATUM,WHITE CREAM 114 GM TP SCH ×2 (09:51→19:18)
[2019-03-02] MEDS ORDERED: SODIUM POLYSTYRENE SULFONATE 15 GM/60 ML PO ONE (10:00)
[2019-03-02] MEDS: CEFUROXIME 250 MG TABLET PO SCH ×2 (11:28→17:41)
--- NOTE | 2019-03-02 15:05 | PDOC PROGRESS REPORT ---
Subjective Progress Note for:: 03/02/19 Subjective:: The patient is a 78 year old female with a past medical history significant for hypertension, hyperlipidemia, DM 2, CKD, morbid obesity who was admitted 02/25/19 with UTI and A/CKD. The patient was seen on morning rounds. She was found resting in bed on room air. She reports she is feeling well today other than continued constipation; possibly >1 week since last bm. She denies fever, chills, chest pain, palpitations, dyspnea, cough, abdominal pain. No further episodes of nausea/emesis. Otherwise, she has no questions or concerns. No concerns per nursing. Reason For Visit: STERLING,UTI Physical Exam Vital Signs: Temp Pulse Resp BP Pulse Ox 98.3 F 67 18 114/36 L 94 03/02/19 12:32 03/02/19 12:32 03/02/19 12:32 03/02/19 12:32 03/02/19 12:32 Intake & Output 03/01/19 03/02/19 03/03/19 06:59 06:59 06:59 Intake Total 2754 1740 Output Total 1250 575 120 Balance 1504 1165 -120 Weight 119.7 kg 116.1 kg General appearance: PRESENT: no acute distress, morbidly obese, well-developed, well-nourished Head exam: PRESENT: atraumatic, normocephalic Eye exam: PRESENT: conjunctiva pink, EOMI, PERRLA. ABSENT: scleral icterus Ear exam: PRESENT: normal external ear exam Mouth exam: PRESENT: moist, tongue midline Neck exam: ABSENT: carotid bruit, JVD, lymphadenopathy, thyromegaly Respiratory exam: PRESENT: clear to auscultation jaison, symmetrical, unlabored. ABSENT: rales, rhonchi, wheezes Cardiovascular exam: PRESENT: RRR. ABSENT: diastolic murmur, rubs, systolic murmur Pulses: PRESENT: normal dorsalis pedis pul Vascular exam: PRESENT: normal capillary refill GI/Abdominal exam: PRESENT: normal bowel sounds, soft. ABSENT: distended, guarding, mass, organolmegaly, rebound, tenderness Rectal exam: PRESENT: deferred Extremities exam: PRESENT: full ROM. ABSENT: calf tenderness, clubbing, pedal edema Neurological exam: PRESENT: alert, awake, oriented to person, oriented to place, oriented to time, oriented to situation, CN II-XII grossly intact. ABSENT: motor sensory deficit Psychiatric exam: PRESENT: appropriate affect, normal mood. ABSENT: homicidal ideation, suicidal ideation Skin exam: PRESENT: dry, intact, warm. ABSENT: cyanosis, rash Results Laboratory Results: 02/28/19 04:39 03/02/19 05:12 03/02/19 05:12 Sodium 140.8 Potassium 5.3 H Chloride 116 H Carbon Dioxide 20 L Anion Gap 5 BUN 35 H Creatinine 1.37 H Est GFR ( Amer) 45 L Glucose 118 H Calcium 7.9 L 02/25/19 02/25/19 13:10 13:10 Creatine Kinase 599 H Troponin I < 0.012 NT-Pro-B Natriuret Pep 3280 H Impressions: Chest X-Ray 02/25/19 12:20 IMPRESSION: Linear atelectasis in the left base. No other significant findings. Head CT 02/25/19 12:20 IMPRESSION: MILD CHRONIC CHANGES OF ATROPHY AND MICROVASCULAR ISCHEMIA. NO ACUTE PROCESS. EVIDENCE OF ACUTE STROKE: NO. Femur X-Ray 02/25/19 12:21 IMPRESSION: Diffuse soft tissue edema. Degenerative changes in the knee. No acute fracture. Renal Ultrasound 02/26/19 00:00 IMPRESSION: 1. No hydronephrosis. 2. Bill catheter within the contracted urinary bladder. 3. No abdominal aortic aneurysm. Assessment and Plan - Diagnosis (1) Acute kidney injury superimposed on CKD Is this a current diagnosis for this admission?: Yes Plan: Resolved; now at baseline. Creatinine 5.94/BUN 113 on admission; baseline 1.70/50 Renal ultrasound is benign. Patient is admitted to the medical floor on continuous cardiac telemetry. Continue IVF. Avoid nephrotoxic medications as able. Continue holding antihypertensives. Nephrology is consulted; appreciate their assistance. Daily chemistries. (2) UTI (urinary tract infection) Qualifiers: Urinary tract infection type: acute cystitis Hematuria presence: without hematuria Qualified Code(s): N30.00 - Acute cystitis without hematuria Is this a current diagnosis for this admission?: Yes Plan: Urinalysis reveals UTI. Blood cultures are negative at 72 hours. Urine culture shows pansensitive E. coli and Proteus Mirabelis Received IV Rocephin x 3 days. Patient is transition to p.o. Ceftin for completion of antibiotic course. (3) HTN (hypertension) Is this a current diagnosis for this admission?: Yes Plan: Labile blood pressures; 147/56 yesterday, 89/34 this morning. Continue holding antihypertensives. We will ask nursing to obtain manual blood pressures only. Prerenal diet. Nephrology on board; appreciate their assistance. (4) Anemia Qualifiers: Anemia type: unspecified type Qualified Code(s): D64.9 - Anemia, unspecified Is this a current diagnosis for this admission?: Yes Plan: Anemia of chronic kidney disease; anemia panel does reveal iron deficiency anemia Improved; hemoglobin 11.6. No evidence of active bleeding at this time. Occult stool pending Continue daily multivitamin and iron supplementation. Nephrology is consulted; appreciate their assistance. Received injectafer x1 (5) Hyperkalemia Is this a current diagnosis for this admission?: Yes Plan: K 5.9-> 4.6-> 5.3 Secondary to acute on chronic kidney disease. Kayexalate x1 today. Continue IV fluids. Nephrology is consulted; appreciate their assistance. Daily chemistries. Prerenal diet. (6) Morbid obesity with BMI of 45.0-49.9, adult Is this a current diagnosis for this admission?: Yes Plan: BMI of 46.8 Dietary discretion and lifestyle modification recommended. Renal diet/consistent carb diet. Registered dietitian is consulted. (7) Constipation Is this a current diagnosis for this admission?: Yes Plan: Continue Colace daily. Dulcolax suppository daily prn Daily MiraLAX Out of bed for meals; ambulate. Kayexelate x1 today for hyperkalemia (8) Diabetes Qualifiers: Diabetes mellitus type: type 2 Diabetes mellitus skilled nursing insulin use: without intermodal owner operator truck driver use Chronic kidney disease stage: stage 3 (moderate) Is this a current diagnosis for this admission?: Yes Plan: Hemoglobin A1c 7.1%. She is not on home medications; diet controlled. Continue prerenal/consistent carb diet. Accu-Cheks before meals and at bedtime with sliding scale insulin. - Time Time Spent with patient: 25-34 minutes Medications reviewed and adjusted accordingly: Yes Anticipated discharge: SNF Within: within 24 hours
[2019-03-02] MEDS ORDERED: PATIROMER 8.4 GM SUSP PACKET PO SCH (17:00)
[2019-03-02] MEDS: ATORVASTATIN CALCIUM 10 MG TABLET PO SCH (21:58)
[2019-03-03 05:20] LABS: BLOOD UREA NITROGEN 26 mg/dL (7-20); CALCIUM 7.9 mg/dL (8.4-10.2); CARBON DIOXIDE 22 mmol/L (22-30); CHLORIDE 117 mmol/L (98-107); GLUCOSE 116 mg/dL (75-110); POTASSIUM 4.9 mmol/L (3.6-5.0)
[2019-03-03 05:26] LABS: ANION GAP 3 (5-19)
[2019-03-03] MEDS: NORMAL SALINE 1000 ML 1,000 ML IV PRN (06:02)
[2019-03-03] MEDS: INSULIN LISPRO 100 UNIT/ML 3 ML VIAL SUBCUT SCH ×4 (07:36→22:49)
[2019-03-03] MEDS: POLYETHYLENE GLYCOL 3350 POWDER 17 GM/1 PACKET PO SCH (09:37)
[2019-03-03] MEDS: DOCUSATE SODIUM 100 MG CAPSULE PO SCH (09:37)
[2019-03-03] MEDS: APIXABAN 5 MG TABLET PO SCH (09:46)
[2019-03-03] MEDS: TOLTERODINE TARTRATE 1 MG TABLET PO SCH ×2 (09:46→22:49)
[2019-03-03] MEDS: MULTIVITAMIN TABLET PO SCH (09:46)
[2019-03-03] MEDS: CALCIUM CARBONATE 500 MG TABLET PO SCH ×2 (09:47→17:47)
[2019-03-03] MEDS: MINERAL OIL/PETROLATUM,WHITE CREAM 114 GM TP SCH ×2 (09:49→17:47)
[2019-03-03] MEDS ORDERED: ONDANSETRON HCL INJ/PF 4 MG/2 ML SDV IV PRN (15:00)
--- NOTE | 2019-03-03 18:07 | PDOC PROGRESS REPORT ---
Subjective Progress Note for:: 03/03/19 Subjective:: The patient is a 78 year old female with a past medical history significant for hypertension, hyperlipidemia, DM 2, CKD, morbid obesity who was admitted 02/25/19 with UTI and A/CKD. The patient was seen on morning rounds. She was found resting in bed, comfortably, on room air eating her breakfast. She reports she is feeling well today. She reports bowel movement this morning with resolution of her constipation. Requesting discharge to SNF short term rehab. She denies fever, chills, chest pain, palpitations, dyspnea, cough, abdominal pain. No further episodes of nausea/emesis. Otherwise, she has no questions or concerns. No concerns per nursing. Reason For Visit: STERLING,UTI Physical Exam Vital Signs: Temp Pulse Resp BP Pulse Ox 97.7 F 65 18 117/66 97 03/03/19 16:43 03/03/19 16:43 03/03/19 16:43 03/03/19 16:43 03/03/19 16:43 Intake & Output 03/02/19 03/03/19 03/04/19 06:59 06:59 06:59 Intake Total 1740 2052 360 Output Total 575 120 Balance 1165 1932 360 Weight 116.1 kg 117 kg General appearance: PRESENT: no acute distress, cooperative, obese, well- developed, well-nourished Head exam: PRESENT: atraumatic, normocephalic Eye exam: PRESENT: conjunctiva pink, EOMI, PERRLA. ABSENT: scleral icterus Ear exam: PRESENT: normal external ear exam Mouth exam: PRESENT: moist, tongue midline Neck exam: ABSENT: carotid bruit, JVD, lymphadenopathy, thyromegaly Respiratory exam: PRESENT: clear to auscultation jaison, symmetrical, unlabored. ABSENT: rales, rhonchi, wheezes Cardiovascular exam: PRESENT: RRR, +S1, +S2. ABSENT: diastolic murmur, rubs, systolic murmur Pulses: PRESENT: normal dorsalis pedis pul Vascular exam: PRESENT: normal capillary refill GI/Abdominal exam: PRESENT: normal bowel sounds, soft. ABSENT: distended, guarding, mass, organolmegaly, rebound, tenderness Rectal exam: PRESENT: deferred Extremities exam: PRESENT: full ROM. ABSENT: calf tenderness, clubbing, pedal e gwyn Neurological exam: PRESENT: alert, awake, oriented to person, oriented to place, oriented to time, oriented to situation, CN II-XII grossly intact. ABSENT: motor sensory deficit Psychiatric exam: PRESENT: appropriate affect, normal mood. ABSENT: homicidal ideation, suicidal ideation Skin exam: PRESENT: dry, intact, warm. ABSENT: cyanosis, rash Results Laboratory Results: 02/28/19 04:39 03/03/19 04:23 03/03/19 04:23 Sodium 141.8 Potassium 4.9 Chloride 117 H Carbon Dioxide 22 Anion Gap 3 L BUN 26 H Creatinine 1.29 H Est GFR ( Amer) 48 L Glucose 116 H Calcium 7.9 L 02/25/19 18:39 Blood Blood Culture - Final NO GROWTH IN 5 DAYS 02/25/19 16:50 Blood Blood Culture - Final NO GROWTH IN 5 DAYS 02/25/19 02/25/19 13:10 13:10 Creatine Kinase 599 H Troponin I < 0.012 NT-Pro-B Natriuret Pep 3280 H Impressions: Chest X-Ray 02/25/19 12:20 IMPRESSION: Linear atelectasis in the left base. No other significant findings. Head CT 02/25/19 12:20 IMPRESSION: MILD CHRONIC CHANGES OF ATROPHY AND MICROVASCULAR ISCHEMIA. NO ACUTE PROCESS. EVIDENCE OF ACUTE STROKE: NO. Femur X-Ray 02/25/19 12:21 IMPRESSION: Diffuse soft tissue edema. Degenerative changes in the knee. No acute fracture. Renal Ultrasound 02/26/19 00:00 IMPRESSION: 1. No hydronephrosis. 2. Bill catheter within the contracted urinary bladder. 3. No abdominal aortic aneurysm. Assessment and Plan - Diagnosis (1) Acute kidney injury superimposed on CKD Is this a current diagnosis for this admission?: Yes Plan: Resolved; now at baseline. Creatinine 5.94/BUN 113 on admission; baseline 1.70/50 Renal ultrasound is benign. Patient was admitted to the medical floor on continuous cardiac telemetry. Avoid nephrotoxic medications as able. Continue holding antihypertensives. Nephrology is consulted; appreciate their assistance. Daily chemistries. (2) UTI (urinary tract infection) Qualifiers: Urinary tract infection type: acute cystitis Hematuria presence: without hematuria Qualified Code(s): N30.00 - Acute cystitis without hematuria Is this a current diagnosis for this admission?: Yes Plan: Resolved. Urinalysis reveals UTI. Blood cultures are negative Urine culture shows pansensitive E. coli and Proteus Mirabelis Received IV Rocephin x 3 days. Patient was transitioned to p.o. Ceftin; has completed course of therapy. (3) HTN (hypertension) Is this a current diagnosis for this admission?: Yes Plan: Acceptable blood pressures Continue holding antihypertensives. We will ask nursing to obtain manual blood pressures only. Prerenal diet. Nephrology on board; appreciate their assistance. (4) Anemia Qualifiers: Anemia type: unspecified type Qualified Code(s): D64.9 - Anemia, unspecified Is this a current diagnosis for this admission?: Yes Plan: Anemia of chronic kidney disease; anemia panel does reveal iron deficiency anemia Improved; hemoglobin 11.6. No evidence of active bleeding at this time. Occult stool pending Continue daily multivitamin and iron supplementation. Nephrology is consulted; appreciate their assistance. Received injectafer x1 (5) Hyperkalemia Is this a current diagnosis for this admission?: Yes Plan: Resolved K 5.9-> 4.6-> 5.3-> 4.9 Secondary to acute on chronic kidney disease. Kayexalate x1 today. Start [place] Nephrology is consulted; appreciate their assistance. Prerenal diet. (6) Morbid obesity with BMI of 45.0-49.9, adult Is this a current diagnosis for this admission?: Yes Plan: BMI of 46.8 Dietary discretion and lifestyle modification recommended. Renal diet/consistent carb diet. Registered dietitian is consulted. (7) Constipation Is this a current diagnosis for this admission?: Yes Plan: Resolved. Continue Colace daily. Dulcolax suppository daily prn Daily MiraLAX Out of bed for meals; ambulate. 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 She is not on home medications; diet controlled. Continue prerenal/consistent carb diet. Accu-Cheks before meals and at bedtime with sliding scale insulin. - Time Time Spent with patient: 15-24 minutes Medications reviewed and adjusted accordingly: Yes Anticipated discharge: SNF Within: when bed available - Plan Summary Plan Summary: Patient is medically stable for discharge to SNF for short-term rehab once bed available.
[2019-03-03] MEDS: PATIROMER 8.4 GM SUSP PACKET PO SCH (20:49)
[2019-03-03] MEDS: ATORVASTATIN CALCIUM 10 MG TABLET PO SCH (22:49)
[2019-03-04 05:19] LABS: BLOOD UREA NITROGEN 21 mg/dL (7-20); CALCIUM 8.4 mg/dL (8.4-10.2); CHLORIDE 114 mmol/L (98-107); GLUCOSE 127 mg/dL (75-110); POTASSIUM 4.6 mmol/L (3.6-5.0)
[2019-03-04 05:28] LABS: CARBON DIOXIDE 22 mmol/L (22-30)
[2019-03-04 05:31] LABS: ANION GAP 4 (5-19)
[2019-03-04] MEDS: INSULIN LISPRO 100 UNIT/ML 3 ML VIAL SUBCUT SCH ×4 (07:42→21:27)
[2019-03-04] MEDS: TOLTERODINE TARTRATE 1 MG TABLET PO SCH ×2 (10:05→21:31)
[2019-03-04] MEDS: MULTIVITAMIN TABLET PO SCH (10:05)
[2019-03-04] MEDS: CALCIUM CARBONATE 500 MG TABLET PO SCH ×2 (10:05→18:21)
[2019-03-04] MEDS: POLYETHYLENE GLYCOL 3350 POWDER 17 GM/1 PACKET PO SCH (10:05)
[2019-03-04] MEDS: APIXABAN 5 MG TABLET PO SCH (10:05)
[2019-03-04] MEDS: DOCUSATE SODIUM 100 MG CAPSULE PO SCH (10:05)
[2019-03-04] MEDS: MINERAL OIL/PETROLATUM,WHITE CREAM 114 GM TP SCH ×2 (10:06→18:21)
--- NOTE | 2019-03-04 10:42 | PDOC DISCHARGE SUMMARY ---
General - Admit/Disc Date/PCP Admission Date/Primary Care Provider: 02/25/19 17:00 GOPI BYRNES PA-C Discharge Date: 03/04/19 - Additional Information Resuscitation Status: Full Code Discharge Diet: Other (Comments) - Low sodium and low potassium diet. Discharge Activity: Activity As Tolerated, Balance Activity w/Rest Prescriptions: Mineral Oil/Petrolatum,White [Eucerin Cream 114 gm] 1 applic TP BID #1 jar Calcium Carbonate [Os-Aime 500 mg Tablet (Oyster-Shell)] 500 mg PO BID #60 tablet Multivitamin [Tab-A-Judy (Multiple Vitamin) Tablet] 1 tab PO DAILY #90 tablet Home Medications: Apixaban [Eliquis 5 mg Tablet] 5 mg PO DAILY 02/25/19 Atorvastatin Calcium [Lipitor 10 mg Tablet] 10 mg PO QHS 02/25/19 Solifenacin Succinate [Vesicare] 10 mg PO DAILY 02/25/19 Acetaminophen [Tylenol 325 mg Tablet] 650 mg PO Q4HP PRN tablet 03/01/19 Calcium Carbonate [Os-Aime 500 mg Tablet (Oyster-Shell)] 500 mg PO BID #60 tablet 03/01/19 Mineral Oil/Petrolatum,White [Eucerin Cream 114 gm] 1 applic TP BID #1 jar 03/01/19 Multivitamin [Tab-A-Judy (Multiple Vitamin) Tablet] 1 tab PO DAILY #90 tablet 03/01/19 History of Present Illness History of Present Illness: TONIA KHAN is a 78 year old female with a past medical history significant for hypertension, hyperlipidemia, DM 2, CKD, morbid obesity who presented to the emergency department today with a complaint of generalized weakness and poor appetite for the last week. Evaluation in the emergency department revealed Acceptable vital signs, leukocytosis (WBCs 13.3) 6, baseline anemia (hemoglobin 9.4), and acute renal failure with a potassium of 5.9, BUN 113, creatinine 5.94, and EGFR of 7. She was found to have a creatinine kinase of 599 and an elevated proBNP of 3280. She does not appear to be in fluid volume overload; in fact she does look slightly dehydrated today. Urinalysis positive for urinary tract infection. Chest x-ray is benign. An EKG demonstrates normal sinus rhythm. Nephrology has been consulted. Patient has been ordered a 1 L normal saline bolus and Kayexalate. She is referred to the hospitalist service for admission and management of the above-stated complaints. Hospital Course Hospital Course: (1) Acute kidney injury superimposed on CKD Resolved; now at baseline. Creatinine 5.94/BUN 113 on admission; baseline 1.70/50 Renal ultrasound is benign. Patient was admitted to the medical floor on continuous cardiac telemetry. Avoid nephrotoxic medications as able. Continue holding antihypertensives. Nephrology is consulted; appreciate their assistance. (2) UTI (urinary tract infection) Resolved. Urinalysis reveals UTI. Blood cultures are negative Urine culture shows pansensitive E. coli and Proteus Mirabelis Received IV Rocephin x 3 days. Patient was transitioned to p.o. Ceftin; has completed course of therapy. (3) HTN (hypertension) Acceptable blood pressures Continue holding antihypertensives. We will ask nursing to obtain manual blood pressures only. Prerenal diet. Nephrology on board; appreciate their assistance. (4) Anemia Anemia of chronic kidney disease; anemia panel does reveal iron deficiency anemia Improved; hemoglobin 11.6. No evidence of active bleeding at this time. Occult stool pending Continue daily multivitamin and iron supplementation. Nephrology is consulted; appreciate their assistance. Received injectafer x1 (5) Hyperkalemia Resolved K 5.9-> 4.6-> 5.3-> 4.9 Secondary to acute on chronic kidney disease. Kayexalate x1 today. received [place] [facility]rology is consulted; appreciate their assistance. Prerenal diet. (6) Morbid obesity with BMI of 45.0-49.9, adult BMI of 46.8 Dietary discretion and lifestyle modification recommended. Renal diet/consistent carb diet. Registered dietitian was consulted. (7) Constipation Resolved. Continue Colace daily. Dulcolax suppository daily prn Daily MiraLAX Out of bed for meals; ambulate. (8) Diabetes Hemoglobin A1c 7.1%. She is not on home medications; diet controlled. Continue prerenal/consistent carb diet. Accu-Cheks before meals and at bedtime with sliding scale insulin. ok for discharge to SNF Physical Exam Vital Signs: Temp Pulse Resp BP Pulse Ox 97.6 F 66 18 131/48 H 97 03/04/19 07:37 03/04/19 07:37 03/04/19 07:37 03/04/19 07:37 03/04/19 07:37 Intake & Output 03/03/19 03/04/19 03/05/19 06:59 06:59 06:59 Intake Total 2051 1600 Output Total 120 Balance 1931 1600 Weight 257 lb 15.053 oz 270 lb 1.06 oz Exam: Patient is no acute distress Alert oriented to time place person No anxiety or depression Head: atraumatic normocephalic Pupils: are equal reactive Neck: is supple and trachea is central no lymphadenopathy No pharyngeal erythema or exudates Heart: Regular rate and rhythm Lungs: clear no distress Abdomen: nontender nondistended Neurological exam: unremarkable Musculoskeletal: No joint swelling or effusion chronic lower back pain and tenderness No suicidal or homicidal ideation Results Laboratory Results: 02/28/19 04:39 03/04/19 04:40 03/04/19 04:40 Sodium 140.1 Potassium 4.6 Chloride 114 H Carbon Dioxide 22 Anion Gap 4 L BUN 21 H Creatinine 1.26 H Est GFR ( Amer) 50 L Glucose 127 H Calcium 8.4 02/25/19 02/25/19 13:10 13:10 Creatine Kinase 599 H Troponin I < 0.012 NT-Pro-B Natriuret Pep 3280 H Impressions: Chest X-Ray 02/25/19 12:20 IMPRESSION: Linear atelectasis in the left base. No other significant findings. Head CT 02/25/19 12:20 IMPRESSION: MILD CHRONIC CHANGES OF ATROPHY AND MICROVASCULAR ISCHEMIA. NO ACUTE PROCESS. EVIDENCE OF ACUTE STROKE: NO. Femur X-Ray 02/25/19 12:21 IMPRESSION: Diffuse soft tissue edema. Degenerative changes in the knee. No acute fracture. Renal Ultrasound 02/26/19 00:00 IMPRESSION: 1. No hydronephrosis. 2. Bill catheter within the contracted urinary bladder. 3. No abdominal aortic aneurysm. Qualifiers - * PATIENT BEING DISCHARGED WITH ANY OF THE FOLLOWING DIAGNOSIS: No Acute Heart Failure - Is this a Heart Failure Patient?: No Plan Time Spent: Greater than 30 Minutes - 35 minutes
[2019-03-04] MEDS: PATIROMER 8.4 GM SUSP PACKET PO SCH (16:43)
[2019-03-04] MEDS: ATORVASTATIN CALCIUM 10 MG TABLET PO SCH (21:31)
[2019-03-05 09:25] VITALS: BP 133/55
[2019-03-05] MEDS: INSULIN LISPRO 100 UNIT/ML 3 ML VIAL SUBCUT SCH (10:15)
[2019-03-05] MEDS: DOCUSATE SODIUM 100 MG CAPSULE PO SCH (10:15)
[2019-03-05] MEDS: POLYETHYLENE GLYCOL 3350 POWDER 17 GM/1 PACKET PO SCH (10:17)
[2019-03-05] MEDS: APIXABAN 5 MG TABLET PO SCH (10:18)
[2019-03-05] MEDS: MULTIVITAMIN TABLET PO SCH (10:18)
[2019-03-05] MEDS: CALCIUM CARBONATE 500 MG TABLET PO SCH (10:18)
[2019-03-05] MEDS: TOLTERODINE TARTRATE 1 MG TABLET PO SCH (10:18)
[2019-03-05] MEDS: MINERAL OIL/PETROLATUM,WHITE CREAM 114 GM TP SCH (10:21)
== END 2019-03-05 13:00 | DRG 683 ==
LOC: ER 11:55 → EH 17:00 → 4N 21:12
PROVIDERS: ADMIT Internal Medicine; ATTEND Internal Medicine
DX: N17.9 Acute kidney failure, unspecified (principal); Z68.42 Body mass index [BMI] 45.0-49.9, adult; N30.00 Acute cystitis without hematuria; E87.2 Acidosis; L97.921 Non-pressure chronic ulcer of unspecified part of left lower leg limited to breakdown of skin; I12.9 Hypertensive chronic kidney disease with stage 1 through stage 4 chronic kidney disease, or unspecified chronic kidney disease; E78.5 Hyperlipidemia, unspecified; E11.22 Type 2 diabetes mellitus with diabetic chronic kidney disease; E66.01 Morbid (severe) obesity due to excess calories; E86.0 Dehydration; B96.20 Unspecified Escherichia coli [E. coli] as the cause of diseases classified elsewhere; B96.4 Proteus (mirabilis) (morganii) as the cause of diseases classified elsewhere; D63.1 Anemia in chronic kidney disease; E87.5 Hyperkalemia; K21.9 Gastro-esophageal reflux disease without esophagitis; N18.3 Chronic kidney disease, stage 3 (moderate); E83.51 Hypocalcemia; Z79.01 Long term (current) use of anticoagulants; Z79.899 Other long term (current) drug therapy
CPT/HCPCS: 36415; 70450; 71045; 76775; 80048; 80053; 81001; 82040; 82533; 82550; 82607; 82728; 82746; 82962; 83036; 83540; 83550; 83605; 83880; 83970; 84100; 84132; 84443; 84484; 85025; 85027; 85045; 87040; 87086; 87088; 87186; 93005; 93010; 99285; J0696; J1439; J1644; J1815; J2405; J3490; J7030; J7050